=== PATIENT | female | born 1965 | race American Indian/Alaskan Native ===

== ENCOUNTER 2020-05-14 22:19 | Inpatient (IN) | payer SELFPAY ==
[2020-05-14 23:13] LABS: Basophils # (Auto) 0.1 K/mm3 (0.0-0.1); Basophils % (Auto) 1.2 % (0.0-1.8); Eosinophils # (Auto) 0.1 K/mm3 (0.0-0.4); Eosinophils % (Auto) 1.9 % (0.0-4.3); Hematocrit 32.8 % (30.3-42.9); Hemoglobin 10.6 gm/dl (10.1-14.3); Lymphocytes # (Auto) 2.6 K/mm3 (1.2-5.4); Mean Corpuscular HGB Conc 32 % (30-34); Monocytes # (Auto) 0.3 K/mm3 (0.0-0.8); Monocytes % (Auto) 4.5 % (0.0-7.3); Platelet Count 328 K/mm3 (140-440); Red Blood Count 5.02 M/mm3 (3.65-5.03); Red Cell Distribution Width 16.6 % (13.2-15.2)
[2020-05-14 23:14] LABS: Mean Corpuscular Volume 65 fl (79-97)
[2020-05-14 23:37] LABS: Albumin 3.8 g/dL (3.9-5); Calcium 9.1 mg/dL (8.4-10.2)
--- NOTE | 2020-05-15 01:56 | Emergency Department Report ---
ED General Adult HPI - General Chief complaint: Headache Stated complaint: RIVERA/VOMITTING/DIABETIC PUI?: No Time Seen by Provider: 05/15/20 01:51 Source: patient Mode of arrival: Ambulatory Limitations: No Limitations - History of Present Illness Initial comments: Patient is a 54-year-old female that presents emergency room for headache, nausea vomiting, hyperglycemia. Patient states she is been out of insulin for 2 weeks. Patient states her headache and nausea vomiting been going on for 5 days. Patient states she has not been able to hold any food or water down. Patient states that her glucose keeps going up. Patient denies vomiting blood. Patient denies diarrhea. Patient complains of epigastric pain. Patient states her epigastric pain is a 4 out of 10. Patient states her headache is a 10 out of 10. Patient states that her abdominal pain is worse with vomiting and movement. Patient states her abdominal pain is better with rest. Patient denies neck stiffness. Patient denies fever. Patient denies recent travel. Patient denies recent international travel. Patient denies exposure to the novel coronavirus. Patient denies sick contacts. Patient denies fever and chills. Patient denies cough. Patient denies diarrhea. Patient denies coming in contact with anybody with symptoms of the novel coronavirus. -: Sudden - Related Data Allergies Allergy/AdvReac Type Severity Reaction Status Date / Time No Known Allergies Allergy Verified 05/15/20 02:01 ED Review of Systems ROS: Stated complaint: RIVERA/VOMITTING/DIABETIC Other details as noted in HPI Constitutional: denies: chills, fever Eyes: denies: eye pain, eye discharge, vision change ENT: denies: ear pain, throat pain Respiratory: denies: cough, shortness of breath, wheezing Cardiovascular: denies: chest pain, palpitations Endocrine: no symptoms reported, increased thirst, increased urine Gastrointestinal: abdominal pain, nausea, vomiting. denies: diarrhea Genitourinary: denies: urgency, dysuria, discharge Musculoskeletal: denies: back pain, joint swelling, arthralgia Skin: denies: rash, lesions Neurological: headache. denies: weakness, paresthesias Psychiatric: denies: anxiety, depression Hematological/Lymphatic: denies: easy bleeding, easy bruising ED Past Medical Hx - Past Medical History Previous Medical History?: Yes Hx Hypertension: Yes Hx Diabetes: Yes - Surgical History Past Surgical History?: Yes Hx Cholecystectomy: Yes Hx Appendectomy: Yes Additional Surgical History: Partial hysterectomy, Tubaligation, foot - Family History Family history: no significant - Social History Smoking Status: Never Smoker Substance Use Type: None ED Physical Exam - General Limitations: No Limitations General appearance: alert, in no apparent distress - Head Head exam: Present: atraumatic, normocephalic - Eye Eye exam: Present: normal appearance, PERRL, EOMI Pupils: Present: normal accommodation - ENT ENT exam: Present: mucous membranes dry - Neck Neck exam: Present: normal inspection - Respiratory Respiratory exam: Present: normal lung sounds bilaterally. Absent: respiratory distress - Cardiovascular Cardiovascular Exam: Present: regular rate, normal rhythm. Absent: systolic murmur, diastolic murmur, rubs, gallop - GI/Abdominal GI/Abdominal exam: Present: soft, tenderness (Epigastric tenderness), normal bowel sounds - Extremities Exam Extremities exam: Present: normal inspection - Back Exam Back exam: Present: normal inspection - Neurological Exam Neurological exam: Present: alert, oriented X3 - Psychiatric Psychiatric exam: Present: normal affect, normal mood - Skin Skin exam: Present: warm, dry, intact, normal color. Absent: rash ED Course Vital Signs 05/14/20 22:32 Temperature 99.1 F Pulse Rate 78 Respiratory 16 Rate Blood Pressure 85/60 O2 Sat by Pulse 97 Oximetry - Reevaluation(s) Reevaluation #1: Initial valuation done. Patient was placed on a DKA protocol for HHS. Patient will receive insulin drip and fluids. 05/15/20 01:51 Reevaluation #2: I discussed all results with patient. I discussed plan of care with patient. Patient agrees with plan of care and admission. Patient to be admitted to the hospitalist service. 05/15/20 02:45 - Consultations Consultation #1: Hospitalist consulted for admission. Hospitalist to admit patient. 05/15/20 02:45 ED Medical Decision Making - Lab Data Result diagrams: 05/14/20 22:50 05/15/20 02:01 - Radiology Data Radiology results: report reviewed Head CT and abdominal CT reports reviewed. Head CT no acute findings. Abdominal CT no acute findings. - Medical Decision Making Patient is a 54-year-old female that presents emergency room for headache, nausea vomiting, hyperglycemia. Patient been out of her insulin for 2 weeks. Patient found to have a severely elevated blood sugar above 700 and abnormal chemistry and acute renal failure. Patient placed on a DKA protocol to include insulin drip and fluids. Patient admitted to the hospitalist service for further evaluation treatment and admitted to the ICU. Due to the patient complains of a severe headache and intractable headache, a head CT was done and was negative for acute findings. Due to the patient's epigastric pain and intractable nausea vomiting a abdominal CT was done to rule out SBO and abdominal CT was negative for acute findings. Patient given Zofran and Dilaudid for the headache and nausea vomiting. - Differential Diagnosis HHS, DKA, hyperglycemia, headache, nausea vomiting, gastroenteritis Critical Care Time: Yes Critical care time in (mins) excluding proc time.: 35 Critical care attestation.: If time is entered above; I have spent that time in minutes in the direct care of this critically ill patient, excluding procedure time. Critical Care Time: 35 minutes ED Disposition Clinical Impression: Hyperglycemic hyperosmolar nonketotic coma, Hyperglycemia Nausea & vomiting Qualifiers: Vomiting type: unspecified Vomiting Intractability: intractable Qualified Code(s): R11.2 - Nausea with vomiting, unspecified Headache Qualifiers: Headache type: unspecified Headache chronicity pattern: acute headache Intractability: intractable Qualified Code(s): R51 - Headache Abdominal pain Qualifiers: Abdominal location: epigastric Qualified Code(s): R10.13 - Epigastric pain Acute renal failure Qualifiers: Acute renal failure type: unspecified Qualified Code(s): N17.9 - Acute kidney failure, unspecified Disposition: DC09 OP ADMIT IP TO THIS HOSP Is pt being admited?: Yes Does the pt Need Aspirin: No Condition: Critical Time of Disposition: 02:44
[2020-05-15] MEDS ORDERED: DEXTROSE 50% IN WATER (25GM) 50 ML SYRINGE IV PRN ×2 (01:57→08:31)
[2020-05-15] MEDS ORDERED: SODIUM CHLORIDE 0.9% 1000 ML 1,000 ML IV ONE (01:57)
[2020-05-15] MEDS ORDERED: D5W/0.45% NACL/KCL 20 MEQ 20 MEQ/1,000 ML BAG IV SCH (02:00)
[2020-05-15] MEDS ORDERED: INSULIN REGULAR, HUMAN 100 UNITS in SODIUM CHLORIDE 0.9% 99 ML IV SCH (02:00)
--- NOTE | 2020-05-15 02:28 | Cat Scan Report ---
CT ABDOMEN AND PELVIS WITHOUT CONTRAST INDICATION / CLINICAL INFORMATION: abd pain. n/v X 3 DAYS. TECHNIQUE: Axial CT images were obtained through the abdomen and pelvis without IV contrast. All CT scans at [facility] location are performed using CT dose reduction for ALARA by means of automated exposure control. COMPARISON: None available. FINDINGS: LOWER CHEST: No significant abnormality. LIVER: No significant abnormality. GALLBLADDER: No significant abnormality. BILE DUCTS: No significant abnormality. PANCREAS: No significant abnormality. SPLEEN: No significant abnormality. ADRENALS: No significant abnormality. RIGHT KIDNEY and URETER: No significant abnormality. LEFT KIDNEY and URETER: No significant abnormality. STOMACH and SMALL BOWEL: No significant abnormality. COLON: No significant abnormality. APPENDIX: The appendix is not identified. Surgical clips present right lower quadrant PERITONEUM: No free fluid. No free air. No fluid collection. LYMPH NODES: No significant adenopathy. AORTA and ARTERIES: Extensive vascular calcifications are present. IVC and VEINS: No significant abno rmality. URINARY BLADDER: No significant abnormality. REPRODUCTIVE ORGANS: No significant abnormality. ADDITIONAL FINDINGS: None. SKELETAL SYSTEM: No significant abnormality. IMPRESSION: 1. No significant abnormality. Signer Name: Arnulfo Yusuf MD Signed: 05/15/2020 2:24 AM Workstation Name: [id number]
--- NOTE | 2020-05-15 02:38 | Cat Scan Report ---
CT HEAD WITHOUT CONTRAST HISTORY: MAIN COMPARISON: None TECHNIQUE: CT imaging of the head was performed in the axial, sagittal, and coronal projections and bone algori thm in axial projection in the soft tissue algorithm. All CT scans at this location are performed using CT dose reduction for ALARA by means of automated e xposure control. CONTRAST: None. FINDINGS: Cerebral and Cerebellar Hemispheres: Mild diffuse cerebral atrophy is present. No evidence of mass or mass effect. No midline shift. No acute hemorrhage. No acute cortical infarction. No extra-axial fluid collection. Ventricles: Normal in size and configuration for age. Osseous Structures: No significant abnormality. Visualized Paranasal Sinuses: No significant abnormality. Additional Findings: None IMPRESSION: 1. No acute intracranial abnormality. NOTE: Acute infarct may not be visible by noncontrast CT. Signer Name: Arnulfo Yusuf MD Signed: 05/15/2020 2:33 AM Workstation Name: [id number]
[2020-05-15 02:53] LABS: Calcium 9.3 mg/dL (8.4-10.2)
[2020-05-15] MEDS ORDERED: HYDROmorphone 2 MG/1 ML INJ IV ONE (03:59)
[2020-05-15] MEDS ORDERED: ONDANSETRON 4 MG/2 ML INJ IV ONE (04:00)
[2020-05-15] MEDS ORDERED: ONDANSETRON 4 MG/2 ML INJ IV PRN (04:04)
[2020-05-15] MEDS ORDERED: ACETAMINOPHEN 325 MG TAB PO PRN (04:05)
[2020-05-15] MEDS ORDERED: HYDROmorphone 1 MG/1 ML INJ ONE (04:10)
[2020-05-15] MEDS ORDERED: SODIUM CHLORIDE 0.9% 1000 ML 1,000 ML ONE ×2 (04:12→08:56)
[2020-05-15] MEDS ORDERED: HYDROmorphone 1 MG/1 ML INJ IV ONE (04:13)
[2020-05-15] MEDS: SODIUM CHLORIDE 0.9% 1000 ML 1,000 ML IV SCH ×4 (04:14→13:36)
--- NOTE | 2020-05-15 04:32 | History and Physical Report ---
History of Present Illness Date of examination: 05/15/20 Date of admission: 05/15/20 03:56 Chief complaint: NAUSEA AND VOMITING History of present illness: Patient is 54 year old female presenting with nausea and vomiting going on for 2 days associated with abdominal pain and headache. there is no fever, chest pain,shortness of breath or diarrhea. Patient has been out of insulin for 2 weeks because she could not get to a doctor. Past History Past Medical History: diabetes, hypertension Past Surgical History: hysterectomy, Other (Tubal Ligation ) Social history: no significant social history Family history: no significant family history Medications and Allergies Allergies Allergy/AdvReac Type Severity Reaction Status Date / Time No Known Allergies Allergy Verified 05/15/20 02:01 Active Meds: Active Medications Acetaminophen (Tylenol) 650 mg PO Q4H PRN PRN Reason: Fever >101 Dextrose (D50w (25gm) Syringe) 50 ml IV Q30MIN PRN; Protocol PRN Reason: Hypoglycemia Heparin Sodium (Porcine) (Heparin) 5,000 unit SUB-Q Q12HR DEE DEE Insulin Human Regular 100 (units/ Sodium Chloride) 100 mls @ 1 mls/hr IV TITR DEE DEE; Protocol Last Admin: 05/15/20 03:09 Dose: 8 units/hr, 8 mls/hr Documented by: Sodium Chloride (Nacl 0.9% 1000 Ml) 1,000 mls @ 150 mls/hr IV DIRECT DEE DEE Ondansetron HCl (Zofran) 4 mg IV Q8H PRN PRN Reason: Nausea And Vomiting Review of Systems Constitutional: weakness, no weight loss, no weight gain, no fever, no chills, no sweats, no anorexia, no malaise, no lethargy, no daytime sleepiness Eyes: bilateral: other (NO BILATERAL EYE SYMPTOM) Ears, nose, mouth and throat: headache, no ear pain, no tinnitis, no nose pain, no nasal congestion, no nasal discharge, no sinus pressure, no dental pain, no mouth pain, no dysphagia, no hoarseness, no sore throat, no swelling in mouth, no swelling in throat, no vertigo Breasts: deferred Cardiovascular: high blood pressure, no chest pain, no palpitations, no syncope, no lightheadedness, no shortness of breath Respiratory: no cough, no excessive sputum, no hemoptysis, no shortness of breath, no dyspnea on exertion, no wheezing, no pleurisy, no pain, no pain on inspiration Gastrointestinal: abdominal pain, nausea, vomiting, no diarrhea, no constipation, no change in bowel habits, no heartburn, no indigestion, no jaundice Genitourinary Female: no hematuria Rectal: no pain, no itching Musculoskeletal: no neck stiffness, no neck pain, no low back pain, no myalgias, no arthritis Integumentary: no rash, no pruritis, no redness, no sores, no wounds, no jaundice, no bullae, no lesions, no darkening of skin, no striae Neurological: headaches, no paralysis, no weakness, no parathesias, no numbness, no seizures, no syncope, no tremors, no ataxia, no vertigo, no migraines, no convulsions, no aphasia, no double vision, no loss of vision Psychiatric: no anxiety, no insomnia, no hypersomnia, no depression, no anhedonia Endocrine: polydipsia, polyuria, nocturia, high blood sugars, no cold intolerance, no heat intolerance, no polyphagia Exam - Constitutional Vitals: Temp Pulse Resp BP Pulse Ox 99.1 F 78 16 85/60 97 05/14/20 22:32 05/14/20 22:32 05/14/20 22:32 05/14/20 22:32 05/14/20 22:32 General appearance: Present: no acute distress - EENT Eyes: Present: PERRL, EOM intact. Absent: scleral icterus ENT: hearing intact - Neck Neck: Present: supple, normal ROM - Respiratory Respiratory effort: normal - Cardiovascular Rhythm: regular Heart Sounds: Present: S1 & S2. Absent: gallop, systolic murmur, diastolic murmur - Extremities Extremities: no ischemia, No edema Peripheral Pulses: within normal limits - Abdominal General gastrointestinal: Present: soft, non-tender, non-distended. Absent: tender, distended, rigid, hepatomegaly, splenomegaly Female genitourinary: Present: deferred - Rectal Rectal Exam: deferred - Integumentary Integumentary: Present: clear, warm, dry. Absent: jaundice, clammy - Musculoskeletal Musculoskeletal: strength equal bilaterally - Psychiatric Psychiatric: appropriate mood/affect Results - Labs CBC & Chem 7: 05/14/20 22:50 05/15/20 02:01 Labs: Laboratory Last Values WBC 6.9 K/mm3 (4.5-11.0) 05/14/20 22:50 RBC 5.02 M/mm3 (3.65-5.03) 05/14/20 22:50 Hgb 10.6 gm/dl (10.1-14.3) 05/14/20 22:50 Hct 32.8 % (30.3-42.9) 05/14/20 22:50 MCV 65 fl (79-97) L 05/14/20 22:50 MCH 21 pg (28-32) L 05/14/20 22:50 MCHC 32 % (30-34) 05/14/20 22:50 RDW 16.6 % (13.2-15.2) H 05/14/20 22:50 Plt Count 328 K/mm3 (140-440) 05/14/20 22:50 Lymph % (Auto) 38.0 % (13.4-35.0) H 05/14/20 22:50 [place] % (Auto) 4.5 % (0.0-7.3) 05/14/20 22:50 Eos % (Auto) 1.9 % (0.0-4.3) 05/14/20 22:50 Baso % (Auto) 1.2 % (0.0-1.8) 05/14/20 22:50 Lymph # 2.6 K/mm3 (1.2-5.4) 05/14/20 22:50 [place] # 0.3 K/mm3 (0.0-0.8) 05/14/20 22:50 Eos # 0.1 K/mm3 (0.0-0.4) 05/14/20 22:50 Baso # 0.1 K/mm3 (0.0-0.1) 05/14/20 22:50 Seg Neutrophils % 54.4 % (40.0-70.0) 05/14/20 22:50 Seg Neutrophils # 3.7 K/mm3 (1.8-7.7) 05/14/20 22:50 VBG pH 7.352 (7.320-7.420) 05/14/20 22:50 Sodium 127 mmol/L (137-145) L 05/15/20 02:01 Potassium 5.1 mmol/L (3.6-5.0) H 05/15/20 02:01 Chloride 87.7 mmol/L (98-107) L 05/15/20 02:01 Carbon Dioxide 24 mmol/L (22-30) 05/15/20 02:01 Anion Gap 20 mmol/L 05/15/20 02:01 BUN 35 mg/dL (7-17) H 05/15/20 02:01 Creatinine 1.6 mg/dL (0.7-1.2) H 05/15/20 02:01 Estimated GFR 41 ml/min 05/15/20 02:01 BUN/Creatinine Ratio 22 % 05/15/20 02:01 Glucose 680 mg/dL (65-100) H* 05/15/20 02:01 POC Glucose > 500 (70-105) H 05/14/20 22:51 Calcium 9.3 mg/dL (8.4-10.2) 05/15/20 02:01 Phosphorus 3.30 mg/dL (2.5-4.5) 05/15/20 02:01 Magnesium 2.60 mg/dL (1.7-2.3) H 05/15/20 02:01 Total Bilirubin 0.20 mg/dL (0.1-1.2) 05/14/20 22:50 AST 14 units/L (5-40) 05/14/20 22:50 ALT 16 units/L (7-56) 05/14/20 22:50 Alkaline Phosphatase 109 units/L (35-129) 05/14/20 22:50 Total Protein 7.3 g/dL (6.3-8.2) 05/14/20 22:50 Albumin 3.8 g/dL (3.9-5) L 05/14/20 22:50 Albumin/Globulin Ratio 1.1 % 05/14/20 22:50 Assessment and Plan - Patient Problems (1) Hyperosmolar non-ketotic state due to type 2 diabetes mellitus Current Visit: Yes Status: Acute Plan to address problem: 1. ICU admission 2. I.V Insulin drip 3. Serial BMP 4. I.V Normal Saline 5. I.V D5 1/2 Normal saline with KCL (2) Abdominal pain Current Visit: Yes Status: Acute Qualifiers: Abdominal location: epigastric Plan to address problem: 1. I.V Morphine for pain 2. I.V Zofran for nausea and vomiting (3) Acute renal failure Current Visit: Yes Status: Acute Qualifiers: Acute renal failure type: unspecified Qualified Code(s): N17.9 - Acute kidney failure, unspecified Plan to address problem: 1. I.V Normal Saline 2. Nephrology consult with DR. Aponte
[2020-05-15 04:53] LABS: Calcium 8.9 mg/dL (8.4-10.2)
[2020-05-15] MEDS: HEPARIN 5,000 UNIT/1 ML VIAL SUB-Q SCH ×2 (05:39→21:28)
[2020-05-15 06:48] LABS: Calcium 8.8 mg/dL (8.4-10.2)
--- NOTE | 2020-05-15 08:28 | Consultation ---
History of Present Illness - Reason for Consult Consult date: 05/15/20 acute renal failure, chronic renal failure Requesting physician: SEJAL PHELPS - History of Present Illness Patient is a 54-year-old female that presents emergency room for headache, nausea vomiting, hyperglycemia. Patient states she is been out of insulin for 2 weeks. Patient states her headache and nausea vomiting been going on for 5 days. Patient states she has not been able to hold any food or water down. Patient states that her glucose keeps going up. Patient denies vomiting blood. Patient denies diarrhea. Patient complains of epigastric pain. Patient states her epigastric pain is a 4 out of 10. Patient states her headache is a 10 out of 10. Patient states that her abdominal pain is worse with vomiting and movement. Patient states her abdominal pain is better with rest. Patient denies neck stiffness. Patient denies fever. Patient denies recent travel. Patient denies recent international travel. Patient denies exposure to the novel coronavirus. Patient denies sick contacts. Patient denies fever and chills. Patient denies cough. Patient denies diarrhea. Patient denies coming in contact with anybody with symptoms of the novel coronavirus. -: Sudden Allergies Allergy/AdvReac Type Severity Reaction Status Date / Time No Known Allergies Allergy Verified 05/15/20 02:01 ROS: Stated complaint: RIVERA/VOMITTING/DIABETIC Other details as noted in HPI Constitutional: denies: chills, fever Eyes: denies: eye pain, eye discharge, vision change ENT: denies: ear pain, throat pain Respiratory: denies: cough, shortness of breath, wheezing Cardiovascular: denies: chest pain, palpitations Endocrine: no symptoms reported, increased thirst, increased urine Gastrointestinal: abdominal pain, nausea, vomiting. denies: diarrhea Genitourinary: denies: urgency, dysuria, discharge Musculoskeletal: denies: back pain, joint swelling, arthralgia Skin: denies: rash, lesions Neurological: headache. denies: weakness, paresthesias Psychiatric: denies: anxiety, depression Hematological/Lymphatic: denies: easy bleeding, easy bruising - Past Medical History Previous Medical History?: Yes Hx Hypertension: Yes Hx Diabetes: Yes - Surgical History Past Surgical History?: Yes Hx Cholecystectomy: Yes Hx Appendectomy: Yes Additional Surgical History: Partial hysterectomy, Tubaligation, foot - Family History Family history: no significant - Social History Smoking Status: Never Smoker Substance Use Type: None Past History Past Medical History: diabetes, hypertension Past Surgical History: hysterectomy, Other (Tubal Ligation ) Social history: no significant social history Family history: no significant family history Medications and Allergies Allergies Allergy/AdvReac Type Severity Reaction Status Date / Time No Known Allergies Allergy Verified 05/15/20 02:01 Home Medications Medication Instructions Recorded Confirmed Last Taken Type Dulaglutide [Trulicity] 1 mcg SUB-Q QWEEK 05/15/20 05/15/20 Unknown History Insulin Degludec [Tresiba] 15 units SUB-Q QDAY 05/15/20 05/15/20 Unknown History amLODIPine [Norvasc] 5 mg PO DAILY 05/15/20 05/15/20 Unknown History Active Meds: Active Medications Acetaminophen (Tylenol) 650 mg PO Q4H PRN PRN Reason: Fever >101 Dextrose (D50w (25gm) Syringe) 50 ml IV Q30MIN PRN; Protocol PRN Reason: Hypoglycemia Heparin Sodium (Porcine) (Heparin) 5,000 unit SUB-Q Q12HR DEE DEE Last Admin: 05/15/20 05:39 Dose: Not Given Documented by: Insulin Human Regular 100 (units/ Sodium Chloride) 100 mls @ 1 mls/hr IV TITR DEE DEE; Protocol Last Titration: 05/15/20 07:54 Dose: 2 units/hr, 2 mls/hr Documented by: Sodium Chloride (Nacl 0.9% 1000 Ml) 1,000 mls @ 150 mls/hr IV DIRECT DEE DEE Last Admin: 05/15/20 04:14 Dose: 150 mls/hr Documented by: Morphine Sulfate (Morphine) 2 mg IV Q4H PRN PRN Reason: Pain, Moderate (4-6) Ondansetron HCl (Zofran) 4 mg IV Q8H PRN PRN Reason: Nausea And Vomiting Exam - Vital Signs Vital signs: Vital Signs Temp Pulse Resp BP Pulse Ox 99.1 F 78 16 85/60 97 05/14/20 22:32 05/14/20 22:32 05/14/20 22:32 05/14/20 22:32 05/14/20 22:32 - Physical Exam Narrative exam: - General Limitations: No Limitations General appearance: alert, in no apparent distress - Head Head exam: Present: atraumatic, normocephalic - Eye Eye exam: Present: normal appearance, PERRL, EOMI Pupils: Present: normal accommodation - ENT ENT exam: Present: mucous membranes dry - Neck Neck exam: Present: normal inspection - Respiratory Respiratory exam: Present: normal lung sounds bilaterally. Absent: respiratory distress - Cardiovascular Cardiovascular Exam: Present: regular rate, normal rhythm. Absent: systolic murmur, diastolic murmur, rubs, gallop - GI/Abdominal GI/Abdominal exam: Present: soft, tenderness (Epigastric tenderness), normal bowel sounds - Extremities Exam Extremities exam: Present: normal inspection - Back Exam Back exam: Present: normal inspection - Neurological Exam Neurological exam: Present: alert, oriented X3 - Psychiatric Psychiatric exam: Present: normal affect, normal mood - Skin Skin exam: Present: warm, dry, intact, normal color. Absent: rash Results - Lab Results 05/14/20 22:50 05/15/20 05:45 Most recent lab results Calcium 8.8 mg/dL (8.4-10.2) 05/15/20 05:45 Phosphorus 3.30 mg/dL (2.5-4.5) 05/15/20 02:01 Magnesium 2.60 mg/dL (1.7-2.3) H 05/15/20 02:01 Assessment and Plan Impression: * derek * DKA * volume depletion * HTN * hyponatremia * hypokalemia Plan: * cr is better with treatment of dka * elec stable today * gentle ivfs * avoid nephrotoxins * strict i/os * will see prn
[2020-05-15] MEDS ORDERED: INSULIN REGULAR, HUMAN 100 UNITS/1 ML ONE (08:56)
[2020-05-15] MEDS ORDERED: INSULIN REGULAR, HUMAN 100 UNITS/1 ML SUB-Q ONE (09:00)
--- NOTE | 2020-05-15 09:43 | Event Note ---
Date: 05/15/20 Patient seen and examined admitted with DKA gap closed at this time we will proceed with downgrading the patient. Discussed extensively with the patient various measures to implement when unable to get her regular insulin she would like to continue on the medications that she was taking at home. Will reorder dose while in-house. And monitor closely. Anticipate discharge in 24 hours.
[2020-05-15] MEDS ORDERED: INSULIN DEGLUDEC 15 UNIT SUB-Q SCH (10:00)
[2020-05-15] MEDS ORDERED: DULAGLUTIDE SUB-Q SCH (10:00)
[2020-05-15 10:44] LABS: Calcium 8.5 mg/dL (8.4-10.2)
[2020-05-15] MEDS: INSULIN LISPRO 100 UNIT/ML SUB-Q SCH ×3 (12:09→21:28)
[2020-05-15] MEDS: MORPHINE 2 MG/1 ML INJ IV PRN ×2 (12:15→21:27)
[2020-05-15 15:25] LABS: Bilirubin,Urine NEG (Negative); Blood,Urine SM (Negative); Color,Urine Straw (Yellow); Urobilinogen,Urine < 2.0 mg/dL (<2.0)
[2020-05-15] MEDS: INSULIN GLARGINE 100 UNITS/ML SUB-Q SCH (16:30)
[2020-05-15] MEDS ORDERED: INSULIN GLARGINE 100 UNITS/ML SUB-Q SCH (22:00)
[2020-05-16] MEDS: SODIUM CHLORIDE 0.9% 1000 ML 1,000 ML IV SCH (04:51)
[2020-05-16] MEDS: MORPHINE 2 MG/1 ML INJ IV PRN (04:54)
[2020-05-16 06:12] LABS: BUN/Creatinine Ratio 19; Blood Urea Nitrogen 17 mg/dL (7-17); Calcium 7.6 mg/dL (8.4-10.2); Hemolysis Index 11
[2020-05-16 07:53] LABS: Hematocrit 31.2 % (30.3-42.9); Hemoglobin 9.8 gm/dl (10.1-14.3); Mean Corpuscular HGB Conc 31 % (30-34); Platelet Count 286 K/mm3 (140-440); Red Blood Count 4.95 M/mm3 (3.65-5.03); Red Cell Distribution Width 16.6 % (13.2-15.2)
[2020-05-16 07:54] LABS: Mean Corpuscular Volume 63 fl (79-97)
[2020-05-16] MEDS: INSULIN GLARGINE 100 UNITS/ML SUB-Q SCH (08:10)
[2020-05-16] MEDS: INSULIN LISPRO 100 UNIT/ML SUB-Q SCH ×2 (08:11→12:46)
[2020-05-16] MEDS: HEPARIN 5,000 UNIT/1 ML VIAL SUB-Q SCH (09:35)
--- NOTE | 2020-05-16 10:18 | Discharge Summary ---
Providers - Providers Date of Admission: 05/15/20 03:56 Attending physician: KIMMIE GIRON MD 05/15/20 04:15 Consult to Physician [CONS] Routine Comment: Consulting Provider: ANDREI ROSA Physician Instructions: Reason For Exam: KAMAR Primary care physician: HOSPICE LIAISON Hospitalization Reason for admission: DKA Condition: Stable Hospital course: Patient is a 54-year-old female that presents emergency room for headache, nausea vomiting, hyperglycemia. Patient states she is been out of insulin for 2 weeks. Patient states her headache and nausea vomiting been going on for 5 days. Patient states she has not been able to hold any food or water down. Patient states that her glucose keeps going up. Patient denies vomiting blood. Patient denies diarrhea. Patient complains of epigastric pain. Patient states her epigastric pain is a 4 out of 10. Patient states her headache is a 10 out of 10. Patient states that her abdominal pain is worse with vomiting and movement. Patient states her abdominal pain is better with rest. Patient denies neck stiffness. Patient denies fever. Patient denies recent travel. Patient denies recent international travel. Patient denies exposure to the novel coronavirus. Patient denies sick contacts. Patient denies fever and chills. Patient denies cough. Patient denies diarrhea. Patient denies coming in contact with anybody with symptoms of the novel coronavirus. Per patient she had been off her meds, due to lack of insurance, she states that when on her meds her blood glucose is controlled and she now has insurance and a PCP to follow. Her renal function also improved. Considering her Diagnosis of DM, will start on Lisinopril and counselling provided on yearly check, foot, eyes, labs. she is also to have renal function check in a week of starting ACEI. Reglan started for Gastroparesis, patient will have PCP tomorrow evaluate about restarting gabapentin as she used it in the past * DKA * Diabetes Mellitus Type 1 With Hyperglycemia * KAMAR secondary to vasomotor nephropathy * Gastroparesis secondary to DM * volume depletion * HTN * hyponatremia * hypokalemia Disposition: - TO HOME OR SELFCARE Time spent for discharge: 35 mins Core Measure Documentation - Palliative Care Palliative Care/ Comfort Measures: Not Applicable - Core Measures Any of the following diagnoses?: none Exam - Constitutional Vitals: Temp Pulse Resp BP Pulse Ox 98.4 F 70 20 173/77 99 05/16/20 04:44 05/16/20 04:44 05/16/20 04:44 05/16/20 04:44 05/16/20 04:44 General appearance: Present: no acute distress, well-nourished - EENT Eyes: Present: PERRL, EOM intact ENT: hearing intact, clear oral mucosa - Neck Neck: Present: supple, normal ROM. Absent: enlarged thyroid, masses or JVD - Respiratory Respiratory effort: normal Respiratory: bilateral: CTA - Cardiovascular Rhythm: regular Heart Sounds: Present: S1 & S2. Absent: systolic murmur - Extremities Extremities: no ischemia, pulses intact, pulses symmetrical, No edema, normal temperature, normal color, Full ROM Peripheral Pulses: within normal limits - Abdominal General gastrointestinal: Present: soft, non-tender, non-distended, normal bowel sounds - Integumentary Integumentary: Present: clear, warm, normal turgor - Musculoskeletal Musculoskeletal: strength equal bilaterally - Psychiatric Psychiatric: appropriate mood/affect, intact judgment & insight, memory intact, cooperative - Neurologic Neurologic: CNII-XII intact, moves all extremities - Allied Health Allied health notes reviewed: nursing Plan Activity: advance as tolerated, fall precautions Diet: low salt, diabetic Special Instructions: record daily weights, record daily BP diary, record blood sugar diary Follow up with: PRIMARY CARE, [Primary Care Provider] - 7 Days Prescriptions: amLODIPine 5 mg PO DAILY #30 Metoclopramide HCl [Reglan TAB] 5 mg PO TIDAC #14 tablet Insulin Degludec [Tresiba] 20 units SUB-Q QDAY #30 vial Dulaglutide [Trulicity] 1 mcg SUB-Q QWEEK #4 lisinopriL [Zestril TAB] 10 mg PO QDAY #30 tablet
[2020-05-16] MEDS ORDERED: amLODIPine 5 MG TAB PO SCH (11:00)
[2020-05-16] MEDS ORDERED: LISINOPRIL 10 MG TAB PO SCH (11:00)
[2020-05-16 12:07] VITALS: BP 153/67
== END 2020-05-16 15:35 | disposition home or self-care (01) | DRG 637 ==
LOC: ED 22:19 → CC1 05-15 03:56 → 3A 05-15 08:39
PROVIDERS: ADMIT Internal Medicine; ATTEND Internal Medicine
DX: E11.10 Type 2 diabetes mellitus with ketoacidosis without coma (principal); N17.0 Acute kidney failure with tubular necrosis; E87.1 Hypo-osmolality and hyponatremia; E11.43 Type 2 diabetes mellitus with diabetic autonomic (poly)neuropathy; K31.84 Gastroparesis; I10 Essential (primary) hypertension; E87.6 Hypokalemia; Z90.710 Acquired absence of both cervix and uterus; Z98.51 Tubal ligation status; Z90.49 Acquired absence of other specified parts of digestive tract
CPT/HCPCS: 36415; 70450; 74176; 80048; 80053; 81001; 82805; 82962; 83735; 84100; 85025; 85027; G0378; J1170; J1644; J1815; J2270; J2405; J7030

== ENCOUNTER 2021-06-14 11:35 | Inpatient (IN) | payer BC ==
--- NOTE | 2021-06-14 15:28 | Emergency Department Report ---
ED General Adult HPI - General Chief complaint: Wound/Laceration Stated complaint: DIABETIC TOES POSS INFECTED Time Seen by Provider: 06/14/21 13:41 Source: patient Mode of arrival: Ambulatory Limitations: No Limitations - History of Present Illness Initial comments: The patient presents to the emergency department with a chief complaint of possible infection to her right great toe. Patient states she noticed it on Sunday. Patient states that is not painful but does complain of her nail on that toe falling off as well as purulent drainage that is malodorous. Patient denies chest pain, shortness breath, or abdominal pain. -: unknown Location: lower extremity Radiation: non-radiation Severity scale (0 -10): 0 Consistency: constant Improves with: none Worsens with: none Associated Symptoms: denies other symptoms Treatments Prior to Arrival: none - Related Data Previous Rx's Medication Instructions Recorded Last Taken Type Dulaglutide [Trulicity] 1 mcg SUB-Q QWEEK #4 05/16/20 Unknown Rx Insulin Degludec [Tresiba] 20 units SUB-Q QDAY #30 vial 05/16/20 Unknown Rx Metoclopramide HCl [Reglan TAB] 5 mg PO TIDAC #14 tablet 05/16/20 Unknown Rx amLODIPine 5 mg PO DAILY #30 05/16/20 Unknown Rx lisinopriL [Zestril TAB] 10 mg PO QDAY #30 tablet 05/16/20 Unknown Rx Allergies Allergy/AdvReac Type Severity Reaction Status Date / Time No Known Allergies Allergy Verified 05/15/20 02:01 ED Review of Systems ROS: Stated complaint: DIABETIC TOES POSS INFECTED Other details as noted in HPI Constitutional: denies: chills, fever Eyes: denies: eye pain, eye discharge, vision change ENT: denies: ear pain, throat pain Respiratory: denies: cough, shortness of breath, wheezing Cardiovascular: denies: chest pain, palpitations Endocrine: no symptoms reported Gastrointestinal: denies: abdominal pain, nausea, diarrhea Genitourinary: denies: urgency, dysuria, discharge Musculoskeletal: denies: back pain, joint swelling, arthralgia Skin: denies: rash, lesions Neurological: denies: headache, weakness, paresthesias Psychiatric: denies: anxiety, depression Hematological/Lymphatic: denies: easy bleeding, easy bruising ED Past Medical Hx - Past Medical History Previous Medical History?: Yes Hx Hypertension: Yes Hx Diabetes: Yes - Surgical History Hx Cholecystectomy: Yes Hx Appendectomy: Yes Additional Surgical History: Partial hysterectomy, Tubaligation, foot - Social History Smoking Status: Never Smoker - Medications Home Medications: Home Medications Medication Instructions Recorded Confirmed Last Taken Type Dulaglutide [Trulicity] 1 mcg SUB-Q QWEEK #4 05/16/20 Unknown Rx Insulin Degludec [Tresiba] 20 units SUB-Q QDAY #30 vial 05/16/20 Unknown Rx Metoclopramide HCl [Reglan TAB] 5 mg PO TIDAC #14 tablet 05/16/20 Unknown Rx amLODIPine 5 mg PO DAILY #30 05/16/20 Unknown Rx lisinopriL [Zestril TAB] 10 mg PO QDAY #30 tablet 05/16/20 Unknown Rx ED Physical Exam - General Limitations: No Limitations General appearance: alert, in no apparent distress - Head Head exam: Present: atraumatic, normocephalic - Eye Eye exam: Present: normal appearance - ENT ENT exam: Present: mucous membranes moist - Neck Neck exam: Present: normal inspection - Respiratory Respiratory exam: Present: normal lung sounds bilaterally. Absent: respiratory distress - Cardiovascular Cardiovascular Exam: Present: regular rate, normal rhythm. Absent: systolic murmur, diastolic murmur, rubs, gallop - GI/Abdominal GI/Abdominal exam: Present: soft, normal bowel sounds. Absent: distended, tenderness - Extremities Exam Extremities exam: Present: other (Patient has dry gangrene to the right great toe with purulent drainage and lifting of the nail. Patient has posterior tibialis and dorsalis pulses that are palpable on exam) - Back Exam Back exam: Present: normal inspection - Neurological Exam Neurological exam: Present: alert, oriented X3 - Psychiatric Psychiatric exam: Present: normal affect, normal mood - Skin Skin exam: Present: warm, dry, intact, normal color. Absent: rash ED Course Vital Signs 06/14/21 12:02 Temperature 98.2 F Pulse Rate 63 Respiratory 18 Rate Blood Pressure 141/57 O2 Sat by Pulse 99 Oximetry ED Medical Decision Making - Lab Data Lab Results 06/14/21 06/14/21 Range/Units 12:08 14:03 WBC 16.1 H (4.5-11.0) K/mm3 RBC 4.90 (3.65-5.03) M/mm3 Hgb 9.6 L (10.1-14.3) gm/dl Hct 29.7 L (30.3-42.9) % MCV 61 L (79-97) fl MCH 20 L (28-32) pg MCHC 32 (30-34) % RDW 19.3 H (13.2-15.2) % Plt Count 313 (140-440) K/mm3 POC Glucose 285 H (70-105) mg/dL Critical care attestation.: If time is entered above; I have spent that time in minutes in the direct care of this critically ill patient, excluding procedure time. ED Disposition Clinical Impression: Gas gangrene Disposition: OP ADMIT IP TO THIS HOSP Is pt being admited?: Yes Does the pt Need Aspirin: No Condition: Fair Referrals: PRIMARY CARE, [Primary Care Provider] - 3-5 Days
--- NOTE | 2021-06-14 15:33 | XRay Report ---
XR toe(s) 2+V RT INDICATION / CLINICAL INFORMATION: great infection/pain. COMPARISON: None available. FINDINGS: There is extensive subcutaneous gas in the great toe without radiopaque foreign body. There is no kelin reciable bone destruction to suggest osteomyelitis graphically. Signer Name: Hari Falcon MD Signed: 06/14/2021 3:29 PM Workstation Name: [id number]
[2021-06-14] MEDS ORDERED: PIPERACIL/TAZOBACTA 4.5/NS 100 4.5 GM/100 ML VIAL IV ONE (15:42)
[2021-06-14] MEDS ORDERED: VANCOMYCIN 1,000 MG in SODIUM CHLORIDE 0.9% 500 ML 500 ML IV ONE (15:43)
[2021-06-14 15:48] LABS: Hematocrit 29.7 % (30.3-42.9); Hemoglobin 9.6 gm/dl (10.1-14.3); Mean Corpuscular HGB Conc 32 % (30-34); Mean Corpuscular Volume 61 fl (79-97); Platelet Count 313 K/mm3 (140-440); Red Cell Distribution Width 19.3 % (13.2-15.2)
--- NOTE | 2021-06-14 15:50 | History and Physical Report ---
History of Present Illness Chief complaint: My toe hurts and its black History of present illness: 55 YO Female with DM, HTN presents to ED for evaluation. Pt reports "my left big toe hurts". Patient states that she has experienced pain, and color change to her left great toe over the past 4 days with persistently worsening symptoms over the same timeframe. Patient also reports that the toenail on her left great toe is falling off. Patient reports purulent drainage from the left great toe over the past 3 days. Patient transported to [facility] via private vehicle for further care and evaluation of the aforementioned symptoms. The patient was seen and evaluated in the emergency department. All lab and imaging studies reviewed. Patient underwent x-ray of the left foot and was found to have left great toe soft tissue air. Patient found to have foot cellulitis complicated by systemic inflammatory response syndrome. Patient also found to have left great toe dry gangrene, as well as diabetic foot infection. Patient treated with IV antibiotic therapy. Wound care consulted, surgical team consulted in the e mergency department. Patient admitted to surgical floor. Patient is pending further care. Patient denies fever, chills, chest pain, palpitation, productive cough, skin rash, recent ill contacts, or known exposure to COVID-19. Prior admission on 05/15/2020 reviewed. All medication listed at time of admission has been reconciled. Past History Past Medical History: diabetes, hypertension Past Surgical History: appendectomy, cholecystectomy, hysterectomy, Other (Tubal ligation, foot surgery) Social history: single Family history: diabetes, hypertension Medications and Allergies Allergies Allergy/AdvReac Type Severity Reaction Status Date / Time No Known Allergies Allergy Verified 05/15/20 02:01 Home Medications Medication Instructions Recorded Confirmed Last Taken Type Dulaglutide [Trulicity] 1 mcg SUB-Q QWEEK #4 05/16/20 Unknown Rx Insulin Degludec [Tresiba] 20 units SUB-Q QDAY #30 vial 05/16/20 Unknown Rx Metoclopramide HCl [Reglan TAB] 5 mg PO TIDAC #14 tablet 05/16/20 Unknown Rx amLODIPine 5 mg PO DAILY #30 05/16/20 Unknown Rx lisinopriL [Zestril TAB] 10 mg PO QDAY #30 tablet 05/16/20 Unknown Rx Active Meds: Active Medications Piperacillin Sod/Tazobactam Sod (Zosyn/Ns 4.5gm/100ml) 4.5 gm in 100 mls @ 200 mls/hr IV ONCE ONE; Protocol Stop: 06/14/21 16:11 Vancomycin HCl 1,250 mg/ (Sodium Chloride) 275 mls @ 166.667 mls/hr IV ONCE ONE Stop: 06/14/21 17:38 Review of Systems Constitutional: no weight loss, no weight gain, no fever, no sweats Ears, nose, mouth and throat: no ear pain, no tinnitis, no nose pain, no nasal congestion, no sinus pressure Breasts: no change in shape, no swelling, no mass Cardiovascular: no chest pain, no orthopnea, no palpitations Respiratory: no cough, no excessive sputum, no shortness of breath, no dyspnea on exertion Gastrointestinal: no abdominal pain, no nausea, no diarrhea, no change in bowel habits, no hematemesis Genitourinary Female: no pelvic pain, no flank pain, no dysuria, no urinary fr equency, no urgency Rectal: no pain Musculoskeletal: no neck stiffness, no arm numbness/tingling, no leg numbness/tingling Integumentary: no rash, no pruritis, no redness, no jaundice Neurological: no head injury, no transient paralysis, no weakness, no numbness, no syncope, no tremors, no ataxia Psychiatric: no anxiety, no change in sleep habits, no sleep disturbances, no change in appetite, no change in libido, no suicidal ideation, no hallucinations Endocrine: no cold intolerance, no polyphagia, no excessive thirst, no polydipsia, no excessive sweating Hematologic/Lymphatic: no easy bruising, no easy bleeding Allergic/Immunologic: no wheezing Exam - Constitutional Vitals: Temp Pulse Resp BP Pulse Ox 98.2 F 63 18 141/57 99 06/14/21 12:02 06/14/21 12:02 06/14/21 12:02 06/14/21 12:02 06/14/21 12:02 General appearance: Present: mild distress - EENT Eyes: Present: PERRL ENT: hearing intact, clear oral mucosa - Neck Neck: Present: supple, normal ROM - Respiratory Respiratory effort: normal Respiratory: bilateral: CTA - Cardiovascular Heart Sounds: Present: S1 & S2. Absent: rub, click - Extremities Extremities: pulses symmetrical Extremity abnormal: edema, erythema, black, tenderness Peripheral Pulses: within normal limits - Abdominal General gastrointestinal: Present: soft, non-tender, non-distended, normal bowel sounds Female genitourinary: Present: normal - Integumentary Integumentary: Present: clear, warm, dry - Musculoskeletal Musculoskeletal: gait normal, strength equal bilaterally - Psychiatric Psychiatric: appropriate mood/affect, intact judgment & insight - Neurologic Neurologic: CNII-XII intact, moves all extremities Results - Labs CBC & Chem 7: 06/14/21 14:03 06/14/21 14:03 Labs: Abnormal lab results 06/14/21 06/14/21 Range/Units 12:08 14:03 WBC 16.1 H (4.5-11.0) K/mm3 Hgb 9.6 L (10.1-14.3) gm/dl Hct 29.7 L (30.3-42.9) % MCV 61 L (79-97) fl MCH 20 L (28-32) pg RDW 19.3 H (13.2-15.2) % POC Glucose 285 H (70-105) mg/dL Assessment and Plan - Patient Problems (1) Gas gangrene Current Visit: Yes Status: Acute Plan to address problem: X-ray left foot, IV antibiotic therapy, surgical team consulted, wound care consulted, (2) Systemic inflammatory response syndrome Current Visit: Yes Status: Acute Plan to address problem: CBC, CMP, chest x-ray, left foot x-ray, IV antibiotic therapy, (3) Cellulitis of left foot Current Visit: Yes Status: Acute Plan to address problem: Left foot x-ray, IV antibiotic therapy, wound care consulted. (4) Diabetic foot infection Current Visit: Yes Status: Acute Plan to address problem: IV antibiotic therapy, antihyperglycemic control, supportive care, surgical team consulted. (5) Diabetes Current Visit: Yes Status: Acute Plan to address problem: Consistent carbohydrate diet, sliding scale insulin, Accu-Chek, hypoglycemia protocol. (6) DVT prophylaxis Current Visit: Yes Status: Acute Plan to address problem: SCD to bilateral lower extremities while in bed, patient is ambulatory
[2021-06-14] MEDS ORDERED: VANCOMYCIN 1,250 MG in SODIUM CHLORIDE 0.9% 250ML 250 ML IV ONE (16:00)
[2021-06-14] MEDS ORDERED: ACETAMINOPHEN 325 MG TAB PO PRN ×2 (16:18→17:17)
[2021-06-14] MEDS ORDERED: ALBUTEROL 2.5 MG/3 ML NEBU IH PRN (16:18)
[2021-06-14] MEDS ORDERED: ONDANSETRON 4 MG/2 ML INJ IV PRN (16:18)
[2021-06-14 16:28] LABS: Albumin 2.9 g/dL (3.9-5); Calcium 9.1 mg/dL (8.4-10.2)
[2021-06-14 17:03] LABS: Anisocytosis 1+; Band Neutrophils # (Manual) 0.3 K/mm3; Hypochromasia 2+; Large Platelets Few; Platelet Estimate Consistent w Auto; Total Cells Counted 100
[2021-06-14] MEDS ORDERED: SODIUM CHLORIDE 0.9% 1000 ML IV SOLN IV ONE (17:30)
--- NOTE | 2021-06-15 11:19 | Progress Note ---
Assessment and Plan Assessment and plan: -- Gas gangrene/right great toe Current Visit: Yes Status: Acute Surgery consulted, continue IV antibiotics Elevate the limb, vascular consult if needed Arterial venous Doppler studies --Systemic inflammatory response syndrome Current Visit: Yes Status: Acute Continue antibiotics and supportive care ID consult if needed --Peripheral vascular disease; Current Visit: Yes Status: Acute Continue aspirin Plavix and statin Vascular consult if needed -- Cellulitis of right foot Current Visit: Yes Status: Acute Elevate the limb, antibiotics and supportive care -- Diabetic foot infection Current Visit: Yes Status: Acute IV antibiotic therapy, antihyperglycemic control, Follow cultures supportive care, surgical team consulted. --Type II diabetes Current Visit: Yes Status: Acute Accu-Chek, sliding scale coverage ADA diet, Long-acting insulin as needed --Severe protein calorie malnutrition; Current Visit: Yes Status: Chronic Nutrition supplement, nutrition consult Supportive care, hypoalbuminemia --DVT prophylaxis Current Visit: Yes Status: Acute SCD , Lovenox Closely monitor the patient and adjust management as needed Follow surgery evaluation recommendations History Interval history: I have seen and examined the patient at the bedside Patient's chart and medications reviewed Patient was admitted with diabetic foot infection Right great toe gas gangrene Surgery evaluation requested Patient not in distress Vital signs noted Hospitalist Physical - Constitutional Vitals: Temp Pulse Resp BP Pulse Ox 98.5 F 67 18 146/68 97 06/15/21 07:27 06/15/21 07:27 06/15/21 07:27 06/15/21 07:27 06/15/21 07:27 General appearance: Present: mild distress, well-nourished - EENT Eyes: Present: PERRL, EOM intact - Neck Neck: Present: supple, normal ROM - Respiratory Respiratory effort: normal Respiratory: bilateral: diminished, negative: rales, rhonchi, wheezing - Cardiovascular Rhythm: regular Heart Sounds: Present: S1 & S2 - Extremities Extremities: abnormal (Gangrene of the right great toe) Extremity abnormal: edema (Cellulitis) - Abdominal General gastrointestinal: soft, non-tender, non-distended, normal bowel sounds - Integumentary Integumentary: Present: clear, warm - Psychiatric Psychiatric: appropriate mood/affect, cooperative - Neurologic Neurologic: moves all extremities Results - Labs CBC & Chem 7: 06/14/21 14:03 06/16/21 10:45 Labs: Laboratory Last Values WBC 16.1 K/mm3 (4.5-11.0) H 06/14/21 14:03 RBC 4.90 M/mm3 (3.65-5.03) 06/14/21 14:03 Hgb 9.6 gm/dl (10.1-14.3) L 06/14/21 14:03 Hct 29.7 % (30.3-42.9) L 06/14/21 14:03 MCV 61 fl (79-97) L 06/14/21 14:03 MCH 20 pg (28-32) L 06/14/21 14:03 MCHC 32 % (30-34) 06/14/21 14:03 RDW 19.3 % (13.2-15.2) H 06/14/21 14:03 Plt Count 313 K/mm3 (140-440) 06/14/21 14:03 Add Manual Diff Complete 06/14/21 14:03 Total Counted 100 06/14/21 14:03 Seg Neuts % (Manual) 83.0 % (40.0-70.0) H 06/14/21 14:03 Band Neutrophils % 2.0 % 06/14/21 14:03 Lymphocytes % (Manual) 5.0 % (13.4-35.0) L 06/14/21 14:03 Monocytes % (Manual) 7.0 % (0.0-7.3) 06/14/21 14:03 Eosinophils % (Manual) 3.0 % (0.0-4.3) 06/14/21 14:03 Nucleated RBC % Not Reportable 06/14/21 14:03 Seg Neutrophils # Man 13.4 K/mm3 (1.8-7.7) H 06/14/21 14:03 Band Neutrophils # 0.3 K/mm3 06/14/21 14:03 Lymphocytes # (Manual) 0.8 K/mm3 (1.2-5.4) L 06/14/21 14:03 Abs React Lymphs (Man) 0.0 K/mm3 06/14/21 14:03 Monocytes # (Manual) 1.1 K/mm3 (0.0-0.8) H 06/14/21 14:03 Eosinophils # (Manual) 0.5 K/mm3 (0.0-0.4) H 06/14/21 14:03 Basophils # (Manual) 0.0 K/mm3 (0.0-0.1) 06/14/21 14:03 Metamyelocytes # 0.0 K/mm3 06/14/21 14:03 Myelocytes # 0.0 K/mm3 06/14/21 14:03 Promyelocytes # 0.0 K/mm3 06/14/21 14:03 Blast Cells # 0.0 K/mm3 06/14/21 14:03 WBC Morphology Not Reportable 06/14/21 14:03 Hypersegmented Neuts Not Reportable 06/14/21 14:03 Hyposegmented Neuts Not Reportable 06/14/21 14:03 Hypogranular Neuts Not Reportable 06/14/21 14:03 Smudge Cells Not Reportable 06/14/21 14:03 Toxic Granulation Not Reportable 06/14/21 14:03 Toxic Vacuolation Not Reportable 06/14/21 14:03 Dohle Bodies Not Reportable 06/14/21 14:03 Pelger-Huet Anomaly Not Reportable 06/14/21 14:03 Lilliana Rods Not Reportable 06/14/21 14:03 Platelet Estimate Consistent w auto 06/14/21 14:03 Clumped Platelets Not Reportable 06/14/21 14:03 Plt Clumps, EDTA Not Reportable 06/14/21 14:03 Large Platelets Few 06/14/21 14:03 Giant Platelets Not Reportable 06/14/21 14:03 Platelet Satelliting Not Reportable 06/14/21 14:03 Plt Morphology Comment Not Reportable 06/14/21 14:03 RBC Morphology Not Reportable 06/14/21 14:03 Dimorphic RBCs Not Reportable 06/14/21 14:03 Polychromasia Not Reportable 06/14/21 14:03 Hypochromasia 2+ 06/14/21 14:03 Poikilocytosis Not Reportable 06/14/21 14:03 Anisocytosis 1+ 06/14/21 14:03 Microcytosis 2+ 06/14/21 14:03 Macrocytosis Not Reportable 06/14/21 14:03 Spherocytes Not Reportable 06/14/21 14:03 Pappenheimer Bodies Not Reportable 06/14/21 14:03 Sickle Cells Not Reportable 06/14/21 14:03 Target Cells Not Reportable 06/14/21 14:03 Tear Drop Cells Not Reportable 06/14/21 14:03 Ovalocytes Not Reportable 06/14/21 14:03 Helmet Cells Not Reportable 06/14/21 14:03 [place] Bodies Not Reportable 06/14/21 14:03 [place] Rings Not Reportable 06/14/21 14:03 [place] Cells Not Reportable 06/14/21 14:03 Bite Cells Not Reportable 06/14/21 14:03 Crenated Cell Not Reportable 06/14/21 14:03 Elliptocytes Not Reportable 06/14/21 14:03 Acanthocytes (Spur) Not Reportable 06/14/21 14:03 Rouleaux Not Reportable 06/14/21 14:03 Hemoglobin C Crystals Not Reportable 06/14/21 14:03 Schistocytes Not Reportable 06/14/21 14:03 Malaria parasites Not Reportable 06/14/21 14:03 Yoseph Bodies Not Reportable 06/14/21 14:03 Hem Pathologist Commnt No 06/14/21 14:03 Sodium 134 mmol/L (137-145) L 06/14/21 14:03 Potassium 4.7 mmol/L (3.6-5.0) 06/14/21 14:03 Chloride 101.4 mmol/L (98-107) 06/14/21 14:03 Carbon Dioxide 18 mmol/L (22-30) L 06/14/21 14:03 Anion Gap 19 mmol/L 06/14/21 14:03 BUN 44 mg/dL (7-17) H 06/14/21 14:03 Creatinine 1.5 mg/dL (0.6-1.2) H 06/14/21 14:03 Estimated GFR 44 ml/min 06/14/21 14:03 BUN/Creatinine Ratio 29 % 06/14/21 14:03 Glucose 165 mg/dL (65-100) H 06/14/21 14:03 POC Glucose 282 mg/dL (70-105) H 06/15/21 07:25 Lactic Acid 0.70 mmol/L (0.7-2.0) 06/15/21 06:07 Calcium 9.1 mg/dL (8.4-10.2) 06/14/21 14:03 Total Bilirubin 0.60 mg/dL (0.1-1.2) 06/14/21 14:03 AST 25 units/L (5-40) 06/14/21 14:03 ALT 28 units/L (7-56) 06/14/21 14:03 Alkaline Phosphatase 1108 units/L (35-129) H 06/14/21 14:03 Total Protein 7.3 g/dL (6.3-8.2) 06/14/21 14:03 Albumin 2.9 g/dL (3.9-5) L 06/14/21 14:03 Albumin/Globulin Ratio 0.7 % 06/14/21 14:03 Microbiology: Microbiology 06/14/21 17:41 Peripheral/Venous Blood Culture - Preliminary Culture in Progress 06/14/21 17:41 Peripheral/Venous Blood Culture - Preliminary Culture in Progress Hong/IV: Voiding Method Toilet Active Medications - Current Medications Current Medications: Generic Name Dose Route Start Last Admin Trade Name Freq PRN Reason Stop Dose Admin Acetaminophen 650 mg 06/14/21 16:18 Acetaminophen 325 Mg Tab PO Q4H PRN Pain MILD(1-3)/Fever >100.5/RIVERA Acetaminophen 650 mg 06/14/21 17:17 Acetaminophen 325 Mg Tab PO Q6H PRN Pain, Mild (1-3) Albuterol 2.5 mg 06/14/21 16:18 Albuterol 2.5 Mg/3 Ml Nebu IH Q4HRT PRN Shortness Of Breath Hydromorphone HCl 0.25 mg 06/14/21 17:17 Hydromorphone 1 Mg/1 Ml Inj IV Q4H PRN Pain, Moderate (4-6) Cefazolin Sodium 2 gm/ Sodium 100 mls @ 200 mls/hr 06/15/21 14:00 Chloride IV Q8HR DEE DEE Protocol Clindamycin HCl 600 mg in 50 mls @ 100 mls/hr 06/15/21 12:00 Cleocin 600 Mg/50 Ml IV Q8H DEE DEE Morphine Sulfate 2 mg 06/14/21 16:18 Morphine 4 Mg/1 Ml Inj IV Q8H PRN Pain , Severe (7-10) Ondansetron HCl 4 mg 06/14/21 16:18 Ondansetron 4 Mg/2 Ml Inj IV Q8H PRN Nausea And Vomiting Oxycodone/Acetaminophen 1 tab 06/14/21 16:18 Oxycodone /Acetaminophen 5-325mg Tab PO Q6H PRN Pain, Moderate (4-6) Sodium Chloride 10 ml 06/14/21 22:00 06/14/21 22:20 Sodium Chloride 0.9% 10 Ml Flush Syringe IV 10 ml BID DEE DEE Administration Sodium Chloride 10 ml 06/14/21 16:18 Sodium Chloride 0.9% 10 Ml Flush Syringe IV PRN PRN LINE FLUSH
[2021-06-15] MEDS: INSULIN LISPRO 100 UNIT/ML SUB-Q SCH ×3 (12:00→22:31)
[2021-06-15] MEDS: CLINDAMYCIN 600 MG IV SCH ×2 (12:58→20:03)
[2021-06-15] MEDS: MORPHINE 4 MG/1 ML INJ IV PRN ×2 (14:26→20:02)
[2021-06-15 16:10] LABS: Calcium 8.6 mg/dL (8.4-10.2)
--- NOTE | 2021-06-15 17:47 | Consultation ---
History of Present Illness Consult date: 06/15/21 Reason for consult: wound care Chief complaint: Right great toe dry gangrene - History of present illness History of present illness: 55-year-old female presents to the emergency room yesterday with a 4-day history of right great toe skin darkening. She denies any trauma or insect bite. She denies any pain currently. She is a diabetic with a history of peripheral neuropathy. She denies any fever or chills. She denies having any nonhealing wounds on her feet in the past. Past History Past Medical History: diabetes, hypertension Past Surgical History: appendectomy, cholecystectomy, hysterectomy, Other (Tubal ligation, foot surgery) Social history: single Family history: diabetes, hypertension Medications and Allergies Allergies Allergy/AdvReac Type Severity Reaction Status Date / Time No Known Allergies Allergy Verified 05/15/20 02:01 Home Medications Medication Instructions Recorded Confirmed Last Taken Type Dulaglutide [Trulicity] 1 mcg SUB-Q QWEEK #4 05/16/20 Unknown Rx Insulin Degludec [Tresiba] 20 units SUB-Q QDAY #30 vial 05/16/20 Unknown Rx Metoclopramide HCl [Reglan TAB] 5 mg PO TIDAC #14 tablet 05/16/20 Unknown Rx amLODIPine 5 mg PO DAILY #30 05/16/20 Unknown Rx lisinopriL [Zestril TAB] 10 mg PO QDAY #30 tablet 05/16/20 Unknown Rx Active Meds: Active Medications Acetaminophen (Acetaminophen 325 Mg Tab) 650 mg PO Q6H PRN PRN Reason: Pain, Mild (1-3) Albuterol (Albuterol 2.5 Mg/3 Ml Nebu) 2.5 mg IH Q4HRT PRN PRN Reason: Shortness Of Breath Hydromorphone HCl (Hydromorphone 1 Mg/1 Ml Inj) 0.25 mg IV Q4H PRN PRN Reason: Pain, Moderate (4-6) Cefazolin Sodium 2 gm/ Sodium (Chloride) 100 mls @ 200 mls/hr IV Q8HR DEE DEE; Pr otocol Last Admin: 06/15/21 14:10 Dose: 200 mls/hr Documented by: Clindamycin HCl (Cleocin 600 Mg/50 Ml) 600 mg in 50 mls @ 100 mls/hr IV Q8H DEE DEE Last Admin: 06/15/21 12:58 Dose: 100 mls/hr Documented by: Calcium Gluconate 1,000 mg/ (Sodium Chloride) 110 mls @ 660 mls/hr IV ONCE ONE Stop: 06/15/21 18:24 Last Admin: 06/15/21 17:42 Dose: 660 mls/hr Documented by: Sodium Chloride (Nacl 0.9% 1000 Ml) 1,000 mls @ 100 mls/hr IV DIRECT DEE DEE Insulin Human Isoph/Insulin Regular (Insulin Nph/Regular 70/30 Inj) 10 unit SUB-Q BIDDIAB [facility] Insulin Human Isoph/Insulin Regular (Insulin Nph/Regular 70/30 Inj) 8 unit SUB- Q ONCE ONE Stop: 06/15/21 18:31 Insulin Human Lispro (Insulin Lispro 100 Unit/Ml) 0 unit SUB-Q ACHS [facility]; Protocol Last Admin: 06/15/21 16:29 Dose: 10 unit Documented by: Morphine Sulfate (Morphine 4 Mg/1 Ml Inj) 2 mg IV Q8H PRN PRN Reason: Pain , Severe (7-10) Last Admin: 06/15/21 14:26 Dose: 2 mg Documented by: Ondansetron HCl (Ondansetron 4 Mg/2 Ml Inj) 4 mg IV Q8H PRN PRN Reason: Nausea And Vomiting Oxycodone/Acetaminophen (Oxycodone /Acetaminophen 5-325mg Tab) 1 tab PO Q6H PRN PRN Reason: Pain, Moderate (4-6) Sodium Chloride (Sodium Chloride 0.9% 10 Ml Flush Syringe) 10 ml IV BID [facility] Last Admin: 06/15/21 13:00 Dose: 10 ml Documented by: Sodium Chloride (Sodium Chloride 0.9% 10 Ml Flush Syringe) 10 ml IV PRN PRN PRN Reason: LINE FLUSH Review of Systems All systems: negative - Integumentary other (Right great toe dry gangrene) Exam Vital Signs Temp Pulse Resp BP Pulse Ox 98.2 F 63 18 141/57 99 06/14/21 12:02 06/14/21 12:02 06/14/21 12:02 06/14/21 12:02 06/14/21 12:02 - General physical appearance Positive: no distress, no pain - Respiratory Positive: normal expansion, normal respiratory effort - Cardiovascular Heart Sounds: Present: S1 & S2 - Extremities Extremity abnormal: other (Right great toe dry gangrene. Mild serous drainage in the webspace between the first and second toe on the right foot with mild odor. Nontender with paresthesias. Foot is warm with delayed capillary refill. Unable to palpate DP or PT pulse. Left foot with no wounds. Left foot is warm with good) Results - Labs 06/14/21 14:03 06/15/21 15:21 Abnormal lab results 06/15/21 06/15/21 06/15/21 Range/Units 07:25 11:32 15:21 Sodium 134 L (137-145) mmol/L Potassium 5.6 H (3.6-5.0) mmol/L Carbon Dioxide 18 L (22-30) mmol/L BUN 36 H (7-17) mg/dL Creatinine 1.4 H (0.6-1.2) mg/dL Glucose 340 H (65-100) mg/dL POC Glucose 282 H 323 H (70-105) mg/dL 06/15/21 Range/Units 16:14 Sodium (137-145) mmol/L Potassium (3.6-5.0) mmol/L Carbon Dioxide (22-30) mmol/L BUN (7-17) mg/dL Creatinine (0.6-1.2) mg/dL Glucose (65-100) mg/dL POC Glucose 365 H (70-105) mg/dL Diabetes panel 06/15/21 Range/Units 15:21 Sodium 134 L (137-145) mmol/L Potassium 5.6 H (3.6-5.0) mmol/L Chloride 102.0 (98-107) mmol/L Carbon Dioxide 18 L (22-30) mmol/L BUN 36 H (7-17) mg/dL Creatinine 1.4 H (0.6-1.2) mg/dL Glucose 340 H (65-100) mg/dL Calcium 8.6 (8.4-10.2) mg/dL Calcium panel 06/15/21 Range/Units 15:21 Calcium 8.6 (8.4-10.2) mg/dL Pituitary panel 06/15/21 Range/Units 15:21 Sodium 134 L (137-145) mmol/L Potassium 5.6 H (3.6-5.0) mmol/L Chloride 102.0 (98-107) mmol/L Carbon Dioxide 18 L (22-30) mmol/L BUN 36 H (7-17) mg/dL Creatinine 1.4 H (0.6-1.2) mg/dL Glucose 340 H (65-100) mg/dL Calcium 8.6 (8.4-10.2) mg/dL Adrenal panel 06/15/21 Range/Units 15:21 Sodium 134 L (137-145) mmol/L Potassium 5.6 H (3.6-5.0) mmol/L Chloride 102.0 (98-107) mmol/L Carbon Dioxide 18 L (22-30) mmol/L BUN 36 H (7-17) mg/dL Creatinine 1.4 H (0.6-1.2) mg/dL Glucose 340 H (65-100) mg/dL Calcium 8.6 (8.4-10.2) mg/dL Assessment and Plan 55-year-old female with a history of diabetes and coronary artery disease with right great toe dry gangrene. Afebrile and stable. Vascular surgery consulted for evaluation of perfusion of right lower extremity and possible amputation. No general surgery intervention at this time.
[2021-06-15] MEDS: SODIUM CHLORIDE 0.9% 1000 ML 1,000 ML IV SCH (17:52)
[2021-06-15] MEDS ORDERED: CALCIUM GLUCONATE 1,000 MG in SODIUM CHLORIDE 0.9% 100 ML IV ONE (18:15)
[2021-06-15] MEDS ORDERED: INSULIN NPH/REGULAR 70/30 INJ SUB-Q ONE (18:30)
--- NOTE | 2021-06-15 20:58 | Consultation ---
History of Present Illness - Reason for Consult Consult date: 06/15/21 Right First Toe Gangrene Requesting physician: MAMI SHANKS - History of Present Illness The patient is a 55-year-old female who presented to the emergency department with complaints of dark discoloration, separation of the toenail, and purulent drainage from her right first toe. She states that she noticed changes involving the toe beginning on this past Sunday. She denies having any known trauma to the toe however she does have a history of diabetic neuropathy. She has had insulin-dependent diabetes for approximately 30 years. She denies any history of tobacco abuse. She denies any previous history of claudication. She has no additional complaints at this time. Past History Past Medical History: CAD, diabetes, hypertension, hyperlipidemia Past Surgical History: appendectomy, cholecystectomy, CABG, hysterectomy, Other (Tubal ligation, foot surgery) Social history: single Family history: diabetes, hypertension Medications and Allergies Allergies Allergy/AdvReac Type Severity Reaction Status Date / Time No Known Allergies Allergy Verified 05/15/20 02:01 Home Medications Medication Instructions Recorded Confirmed Last Taken Type Aspirin [Adult Aspirin] 81 mg PO DAILY 06/15/21 06/15/21 3 Days Ago History ~06/12/21 81 AtorvaSTATin [Lipitor] 40 mg PO DAILY 06/15/21 06/15/21 3 Days Ago History ~06/12/21 40 Clopidogrel [Plavix] 75 mg PO DAILY 06/15/21 06/15/21 3 Days Ago History ~06/12/21 75 Furosemide [Lasix TAB] 40 mg PO DAILY 06/15/21 06/15/21 3 Days Ago History ~06/12/21 40 Gabapentin [Neurontin] 300 mg PO Q8HR 06/15/21 06/15/21 3 Days Ago History ~06/12/21 300 Insulin NPH Hum/Reg Insulin Hm 12 unit SQ QAM 06/15/21 06/15/21 3 Days Ago History [Novolin 70-30 Flexpen] ~06/12/21 12 Novolin 70-30 Flexpen 10 units SQ QPM 06/15/21 06/15/21 3 Days Ago History ~06/12/21 10 amLODIPine 10 mg PO DAILY 06/15/21 06/15/21 3 Days Ago History ~06/12/21 10 Active Meds: Active Medications Acetaminophen (Acetaminophen 325 Mg Tab) 650 mg PO Q6H PRN PRN Reason: Pain, Mild (1-3) Albuterol (Albuterol 2.5 Mg/3 Ml Nebu) 2.5 mg IH Q4HRT PRN PRN Reason: Shortness Of Breath Hydromorphone HCl (Hydromorphone 1 Mg/1 Ml Inj) 0.25 mg IV Q4H PRN PRN Reason: Pain, Moderate (4-6) Cefazolin Sodium 2 gm/ Sodium (Chloride) 100 mls @ 200 mls/hr IV Q8HR [facility]; Protocol Last Admin: 06/15/21 14:10 Dose: 200 mls/hr Documented by: Clindamycin HCl (Cleocin 600 Mg/50 Ml) 600 mg in 50 mls @ 100 mls/hr IV Q8H DEE DEE Last Admin: 06/15/21 20:03 Dose: 100 mls/hr Documented by: Sodium Chloride (Nacl 0.9% 1000 Ml) 1,000 mls @ 100 mls/hr IV DIRECT DEE DEE Last Admin: 06/15/21 17:52 Dose: 100 mls/hr Documented by: Insulin Human Isoph/Insulin Regular (Insulin Nph/Regular 70/30 Inj) 10 unit SUB-Q BIDDIAB [facility] Insulin Human Lispro (Insulin Lispro 100 Unit/Ml) 0 unit SUB-Q ACHS [facility]; Protocol Last Admin: 06/15/21 16:29 Dose: 10 unit Documented by: Morphine Sulfate (Morphine 4 Mg/1 Ml Inj) 2 mg IV Q8H PRN PRN Reason: Pain , Severe (7-10) Last Admin: 06/15/21 20:02 Dose: 2 mg Documented by: Ondansetron HCl (Ondansetron 4 Mg/2 Ml Inj) 4 mg IV Q8H PRN PRN Reason: Nausea And Vomiting Oxycodone/Acetaminophen (Oxycodone /Acetaminophen 5-325mg Tab) 1 tab PO Q6H PRN PRN Reason: Pain, Moderate (4-6) Sodium Chloride (Sodium Chloride 0.9% 10 Ml Flush Syringe) 10 ml IV BID DEE DEE Last Admin: 06/15/21 13:00 Dose: 10 ml Documented by: Sodium Chloride (Sodium Chloride 0.9% 10 Ml Flush Syringe) 10 ml IV PRN PRN PRN Reason: LINE FLUSH Review of Systems All systems: negative Exam - Constitutional Vitals: Temp Pulse Resp BP Pulse Ox 99.0 F 70 18 164/67 95 06/15/21 19:24 06/15/21 19:24 06/15/21 19:24 06/15/21 19:24 06/15/21 19:24 General appearance: Present: no acute distress - Neck Neck: Present: supple - Respiratory Respiratory effort: normal - Cardiovascular Rhythm: regular - Extremities Extremities: pulses intact (Palpable femoral pulses bilaterally. Palpable left dorsalis pedis pulse. Nonpalpable right pedal pulses.), normal temperature Extremity abnormal: black (Right first toe is cyanotic, the toenail is not intact and there is partial exposure of the distal phalanx, no drainage noted at this time), pulses diminished (Palpable right radial pulse with diminished left radial pulse) - Abdominal General gastrointestinal: Present: soft, non-tender Female genitourinary: Present: deferred - Rectal Rectal Exam: deferred - Neurologic Neurologic: moves all extremities Results - Labs CBC & Chem 7: 06/14/21 14:03 06/15/21 15:21 Labs: Abnormal lab results 06/15/21 06/15/21 06/15/21 Range/Units 07:25 11:32 15:21 Sodium 134 L (137-145) mmol/L Potassium 5.6 H (3.6-5.0) mmol/L Carbon Dioxide 18 L (22-30) mmol/L BUN 36 H (7-17) mg/dL Creatinine 1.4 H (0.6-1.2) mg/dL Glucose 340 H (65-100) mg/dL POC Glucose 282 H 323 H (70-105) mg/dL 06/15/21 Range/Units 16:14 Sodium (137-145) mmol/L Potassium (3.6-5.0) mmol/L Carbon Dioxide (22-30) mmol/L BUN (7-17) mg/dL Creatinine (0.6-1.2) mg/dL Glucose (65-100) mg/dL POC Glucose 365 H (70-105) mg/dL Assessment and Plan The patient is a 55-year-old female with a history of insulin-dependent diabetes and gangrene of her right first toe. I had an extensive discussion with the patient as well as her fianc, by phone, that her toe is not salvageable and will require amputation. She will first require bilateral lower extremity arterial ultrasound with ABIs to evaluate for adequate arterial flow for healing of the amputation. If she does not have adequate arterial flow she will require a diagnostic angiogram with possible intervention to improve the flow prior to a right first toe amputation. In the interim she should have continued IV hydration to improve her renal function prior to any planned endovascular intervention. Also given her history of recent CABG, presumed peripheral vascular disease, and diminished left radial pulse, I will order a carotid duplex to evaluate her carotid arteries for possible carotid artery stenosis. The patient and her fianc have expressed understanding of the plans and agree.
[2021-06-16] MEDS: CLINDAMYCIN 600 MG IV SCH ×3 (03:23→21:43)
[2021-06-16] MEDS: MORPHINE 4 MG/1 ML INJ IV PRN (04:02)
[2021-06-16] MEDS: SODIUM CHLORIDE 0.9% 1000 ML 1,000 ML IV SCH ×2 (06:34→22:37)
[2021-06-16] MEDS: INSULIN LISPRO 100 UNIT/ML SUB-Q SCH ×4 (08:28→21:44)
[2021-06-16] MEDS: INSULIN NPH/REGULAR 70/30 INJ SUB-Q SCH ×2 (08:30→16:08)
--- NOTE | 2021-06-16 08:33 | Progress Note ---
Assessment and Plan Assessment and plan: -- Gas gangrene/right great toe Current Visit: Yes Status: Acute Surgery evaluation noted appreciated Vascular studies scheduled Vascular consulted. --Peripheral vascular disease; Current Visit: Yes Status: Acute Continue aspirin statin and Plavix Follow vascular studies, supportive care -- Systemic inflammatory response syndrome Current Visit: Yes Status: Acute Continue antibiotics and supportive care ID consult if needed -- Cellulitis of right foot Current Visit: Yes Status: Acute Elevate the limb, antibiotics and supportive care -- Diabetic foot infection Current Visit: Yes Status: Acute IV antibiotic therapy, antihyperglycemic control, Follow cultures supportive care, surgical team consulted. --Acute kidney injury; Current Visit: Yes Status: Acute Vasomotor nephropathy, gentle hydration, monitor renal function Avoid nephrotoxins --Type II diabetes Current Visit: Yes Status: Acute Accu-Chek, sliding scale coverage ADA diet, Long-acting insulin as needed --Severe protein calorie malnutrition; Current Visit: Yes Status: Chronic Nutrition supplement, nutrition consult Supportive care, hypoalbuminemia --DVT prophylaxis Current Visit: Yes Status: Acute SCD , Lovenox Closely monitor the patient and adjust management as needed Form Setter/Driver recommendations noted and appreciated Plan of care reviewed with the patient and her nurse History Interval history: I seen and examined the patient at the bedside today Patient's chart and medications reviewed Patient feels better, some pain in the foot Vital signs noted Hospitalist Physical - Constitutional Vitals: Temp Pulse Resp BP Pulse Ox 98.0 F 66 20 158/69 95 06/16/21 07:35 06/16/21 07:35 06/16/21 07:35 06/16/21 07:35 06/16/21 07:35 General appearance: Present: mild distress, well-nourished - EENT Eyes: Present: PERRL, EOM intact - Neck Neck: Present: supple, normal ROM - Respiratory Respiratory effort: normal Respiratory: bilateral: diminished, negative: rales, rhonchi, wheezing - Cardiovascular Rhythm: regular Heart Sounds: Present: S1 & S2 - Extremities Extremities: no ischemia, abnormal (Gangrene right great toe) Extremity abnormal: edema - Abdominal General gastrointestinal: soft, non-tender, non-distended, normal bowel sounds - Integumentary Integumentary: Present: clear, warm - Psychiatric Psychiatric: appropriate mood/affect, cooperative - Neurologic Neurologic: CNII-XII intact Results - Labs CBC & Chem 7: 06/14/21 14:03 06/16/21 10:45 Labs: Laboratory Last Values WBC 16.1 K/mm3 (4.5-11.0) H 06/14/21 14:03 RBC 4.90 M/mm3 (3.65-5.03) 06/14/21 14:03 Hgb 9.6 gm/dl (10.1-14.3) L 06/14/21 14:03 Hct 29.7 % (30.3-42.9) L 06/14/21 14:03 MCV 61 fl (79-97) L 06/14/21 14:03 MCH 20 pg (28-32) L 06/14/21 14:03 MCHC 32 % (30-34) 06/14/21 14:03 RDW 19.3 % (13.2-15.2) H 06/14/21 14:03 Plt Count 313 K/mm3 (140-440) 06/14/21 14:03 Add Manual Diff Complete 06/14/21 14:03 Total Counted 100 06/14/21 14:03 Seg Neuts % (Manual) 83.0 % (40.0-70.0) H 06/14/21 14:03 Band Neutrophils % 2.0 % 06/14/21 14:03 Lymphocytes % (Manual) 5.0 % (13.4-35.0) L 06/14/21 14:03 Monocytes % (Manual) 7.0 % (0.0-7.3) 06/14/21 14:03 Eosinophils % (Manual) 3.0 % (0.0-4.3) 06/14/21 14:03 Nucleated RBC % Not Reportable 06/14/21 14:03 Seg Neutrophils # Man 13.4 K/mm3 (1.8-7.7) H 06/14/21 14:03 Band Neutrophils # 0.3 K/mm3 06/14/21 14:03 Lymphocytes # (Manual) 0.8 K/mm3 (1.2-5.4) L 06/14/21 14:03 Abs React Lymphs (Man) 0.0 K/mm3 06/14/21 14:03 Monocytes # (Manual) 1.1 K/mm3 (0.0-0.8) H 06/14/21 14:03 Eosinophils # (Manual) 0.5 K/mm3 (0.0-0.4) H 06/14/21 14:03 Basophils # (Manual) 0.0 K/mm3 (0.0-0.1) 06/14/21 14:03 Metamyelocytes # 0.0 K/mm3 06/14/21 14:03 Myelocytes # 0.0 K/mm3 06/14/21 14:03 Promyelocytes # 0.0 K/mm3 06/14/21 14:03 Blast Cells # 0.0 K/mm3 06/14/21 14:03 WBC Morphology Not Reportable 06/14/21 14:03 Hypersegmented Neuts Not Reportable 06/14/21 14:03 Hyposegmented Neuts Not Reportable 06/14/21 14:03 Hypogranular Neuts Not Reportable 06/14/21 14:03 Smudge Cells Not Reportable 06/14/21 14:03 Toxic Granulation Not Reportable 06/14/21 14:03 Toxic Vacuolation Not Reportable 06/14/21 14:03 Dohle Bodies Not Reportable 06/14/21 14:03 Pelger-Huet Anomaly Not Reportable 06/14/21 14:03 Lilliana Rods Not Reportable 06/14/21 14:03 Platelet Estimate Consistent w auto 06/14/21 14:03 Clumped Platelets Not Reportable 06/14/21 14:03 Plt Clumps, EDTA Not Reportable 06/14/21 14:03 Large Platelets Few 06/14/21 14:03 Giant Platelets Not Reportable 06/14/21 14:03 Platelet Satelliting Not Reportable 06/14/21 14:03 Plt Morphology Comment Not Reportable 06/14/21 14:03 RBC Morphology Not Reportable 06/14/21 14:03 Dimorphic RBCs Not Reportable 06/14/21 14:03 Polychromasia Not Reportable 06/14/21 14:03 Hypochromasia 2+ 06/14/21 14:03 Poikilocytosis Not Reportable 06/14/21 14:03 Anisocytosis 1+ 06/14/21 14:03 Microcytosis 2+ 06/14/21 14:03 Macrocytosis Not Reportable 06/14/21 14:03 Spherocytes Not Reportable 06/14/21 14:03 Pappenheimer Bodies Not Reportable 06/14/21 14:03 Sickle Cells Not Reportable 06/14/21 14:03 Target Cells Not Reportable 06/14/21 14:03 Tear Drop Cells Not Reportable 06/14/21 14:03 Ovalocytes Not Reportable 06/14/21 14:03 Helmet Cells Not Reportable 06/14/21 14:03 Henderson-[place]oint Bodies Not Reportable 06/14/21 14:03 Dacula Rings Not Reportable 06/14/21 14:03 Rashaad Cells Not Reportable 06/14/21 14:03 Bite Cells Not Reportable 06/14/21 14:03 Crenated Cell Not Reportable 06/14/21 14:03 Elliptocytes Not Reportable 06/14/21 14:03 Acanthocytes (Spur) Not Reportable 06/14/21 14:03 Rouleaux Not Reportable 06/14/21 14:03 Hemoglobin C Crystals Not Reportable 06/14/21 14:03 Schistocytes Not Reportable 06/14/21 14:03 Malaria parasites Not Reportable 06/14/21 14:03 Yoseph Bodies Not Reportable 06/14/21 14:03 Hem Pathologist Commnt No 06/14/21 14:03 Sodium 134 mmol/L (137-145) L 06/15/21 15:21 Potassium 5.6 mmol/L (3.6-5.0) H 06/15/21 15:21 Chloride 102.0 mmol/L (98-107) 06/15/21 15:21 Carbon Dioxide 18 mmol/L (22-30) L 06/15/21 15:21 Anion Gap 20 mmol/L 06/15/21 15:21 BUN 36 mg/dL (7-17) H 06/15/21 15:21 Creatinine 1.4 mg/dL (0.6-1.2) H 06/15/21 15:21 Estimated GFR 47 ml/min 06/15/21 15:21 BUN/Creatinine Ratio 26 % 06/15/21 15:21 Glucose 340 mg/dL (65-100) H 06/15/21 15:21 POC Glucose 206 mg/dL (70-105) H 06/16/21 07:35 Lactic Acid 0.70 mmol/L (0.7-2.0) 06/15/21 06:07 Calcium 8.6 mg/dL (8.4-10.2) 06/15/21 15:21 Total Bilirubin 0.60 mg/dL (0.1-1.2) 06/14/21 14:03 AST 25 units/L (5-40) 06/14/21 14:03 ALT 28 units/L (7-56) 06/14/21 14:03 Alkaline Phosphatase 1108 units/L (35-129) H 06/14/21 14:03 Total Protein 7.3 g/dL (6.3-8.2) 06/14/21 14:03 Albumin 2.9 g/dL (3.9-5) L 06/14/21 14:03 Albumin/Globulin Ratio 0.7 % 06/14/21 14:03 Microbiology: Microbiology 06/14/21 17:41 Peripheral/Venous Blood Culture - Preliminary NO GROWTH AFTER 24 HOURS 06/14/21 17:41 Peripheral/Venous Blood Culture - Preliminary NO GROWTH AFTER 24 HOURS Hong/IV: Voiding Method Toilet Active Medications - Current Medications Current Medications: Generic Name Dose Route Start Last Admin Trade Name Freq PRN Reason Stop Dose Admin Acetaminophen 650 mg 06/14/21 17:17 Acetaminophen 325 Mg Tab PO Q6H PRN Pain, Mild (1-3) Albuterol 2.5 mg 06/14/21 16:18 Albuterol 2.5 Mg/3 Ml Nebu IH Q4HRT PRN Shortness Of Breath Hydromorphone HCl 0.25 mg 06/14/21 17:17 Hydromorphone 1 Mg/1 Ml Inj IV Q4H PRN Pain, Moderate (4-6) Cefazolin Sodium 2 gm/ Sodium 100 mls @ 200 mls/hr 06/15/21 14:00 06/16/21 06:30 Chloride IV 200 mls/hr Q8HR DEE DEE Administration Protocol Clindamycin HCl 600 mg in 50 mls @ 100 mls/hr 06/15/21 12:00 06/16/21 03:23 Cleocin 600 Mg/50 Ml IV 100 mls/hr Q8H DEE DEE Administration Sodium Chloride 1,000 mls @ 100 mls/hr 06/15/21 17:15 06/16/21 06:34 Nacl 0.9% 1000 Ml IV 100 mls/hr DIRECT DEE DEE Administration Insulin Human Isoph/Insulin Regular 10 unit 06/16/21 08:00 06/16/21 08:30 Insulin Nph/Regular 70/30 Inj SUB-Q 10 unit BIDDIAB DEE DEE Administration Insulin Human Lispro 0 unit 06/15/21 11:30 06/16/21 08:28 Insulin Lispro 100 Unit/Ml SUB-Q 4 unit ACHS DEE DEE Administration Protocol Morphine Sulfate 2 mg 06/14/21 16:18 06/16/21 04:02 Morphine 4 Mg/1 Ml Inj IV 2 mg Q8H PRN Administration Pain , Severe (7-10) Ondansetron HCl 4 mg 06/14/21 16:18 Ondansetron 4 Mg/2 Ml Inj IV Q8H PRN Nausea And Vomiting Oxycodone/Acetaminophen 1 tab 06/14/21 16:18 Oxycodone /Acetaminophen 5-325mg Tab PO Q6H PRN Pain, Moderate (4-6) Sodium Chloride 10 ml 06/14/21 22:00 06/15/21 22:30 Sodium Chloride 0.9% 10 Ml Flush Syringe IV 10 ml BID DEE DEE Administration Sodium Chloride 10 ml 06/14/21 16:18 Sodium Chloride 0.9% 10 Ml Flush Syringe IV PRN PRN LINE FLUSH
[2021-06-16] MEDS: amLODIPine 10 MG TAB PO SCH (09:28)
[2021-06-16] MEDS: CLOPIDOGREL 75 MG TAB PO SCH (09:28)
[2021-06-16] MEDS: ASPIRIN EC 81 MG TAB PO SCH (09:29)
[2021-06-16] MEDS ORDERED: amLODIPine 5 MG TAB PO SCH (10:00)
--- NOTE | 2021-06-16 10:30 | Progress Note ---
Assessment and Plan Awaiting vascular lab ultrasound studies. Depending on the results of her studies, the patient will be scheduled for revascularization followed by amputation of her right first toe versus amputation. Hopefully can proceed with revascularization tomorrow if ultrasounds are performed today. Subjective Date of service: 06/16/21 Principal diagnosis: Peripheral vascular disease with gangrene right first toe Interval history: Patient with peripheral vascular disease with gangrene of the right first toe. No complaints of this time. Patient has not yet undergone her ultrasounds. Objective - Constitutional Vitals: Vital Signs - 12hr 06/15/21 06/15/21 06/15/21 22:33 22:51 22:53 Temperature 98.6 F Pulse Rate 71 99 H Respiratory 18 23 Rate Blood Pressure 158/65 143/84 145/92 O2 Sat by Pulse 95 94 95 Oximetry 06/15/21 06/15/21 06/15/21 23:01 23:11 23:21 Temperature Pulse Rate 92 H 84 86 Respiratory 32 H 20 21 Rate Blood Pressure 159/88 159/88 159/88 O2 Sat by Pulse 94 91 93 Oximetry 06/15/21 06/15/21 06/15/21 23:31 23:41 23:51 Temperature Pulse Rate 86 89 86 Respiratory 20 21 14 Rate Blood Pressure 156/87 156/87 156/87 O2 Sat by Pulse 93 92 93 Oximetry 06/16/21 06/16/21 06/16/21 00:01 00:11 00:21 Temperature Pulse Rate 90 90 92 H Respiratory 21 20 19 Rate Blood Pressure 155/81 155/81 155/81 O2 Sat by Pulse 95 95 92 Oximetry 06/16/21 06/16/21 06/16/21 00:31 00:41 00:51 Temperature Pulse Rate 93 H 86 88 Respiratory 20 19 20 Rate Blood Pressure 138/69 138/69 138/69 O2 Sat by Pulse 92 94 93 Oximetry 06/16/21 06/16/21 06/16/21 01:01 01:11 01:21 Temperature Pulse Rate 85 90 75 Respiratory 20 15 22 Rate Blood Pressure 142/74 142/74 142/74 O2 Sat by Pulse 92 94 93 Oximetry 06/16/21 06/16/21 06/16/21 01:30 01:41 01:51 Temperature Pulse Rate 75 79 84 Respiratory 22 21 22 Rate Blood Pressure 142/74 161/91 O2 Sat by Pulse 92 92 91 Oximetry 06/16/21 06/16/21 06/16/21 02:01 02:11 02:21 Temperature Pulse Rate 87 88 88 Respiratory 23 22 20 Rate Blood Pressure 163/98 163/98 163/98 O2 Sat by Pulse 94 93 94 Oximetry 06/16/21 06/16/21 06/16/21 02:31 02:41 02:51 Temperature Pulse Rate 89 90 81 Respiratory 18 18 21 Rate Blood Pressure 139/103 139/103 139/103 O2 Sat by Pulse 94 94 92 Oximetry 06/16/21 06/16/21 06/16/21 03:01 03:11 03:21 Temperature Pulse Rate 83 84 80 Respiratory 19 21 20 Rate Blood Pressure 152/86 152/86 152/86 O2 Sat by Pulse 91 91 92 Oximetry 06/16/21 06/16/21 03:30 07:35 Temperature 98.0 F Pulse Rate 88 66 Respiratory 18 20 Rate Blood Pressure 162/93 158/69 O2 Sat by Pulse 95 95 Oximetry General appearance: Present: no acute distress - EENT Eyes: EOM intact ENT: hearing intact - Neck Neck: supple - Respiratory Respiratory effort: normal - Breasts Breasts: deferred Extremities: abnormal (Right first toe gangrene, nonpalpable pulses) - Gastrointestinal General gastrointestinal: Present: deferred Rectal Exam: deferred - Genitourinary Female genitourinary: deferred - Psychiatric Psychiatric: appropriate mood/affect, cooperative - Labs CBC & Chem 7: 06/14/21 14:03 06/15/21 15:21 Labs: Abnormal lab results 06/15/21 06/15/21 06/15/21 Range/Units 11:32 15:21 16:14 Sodium 134 L (137-145) mmol/L Potassium 5.6 H (3.6-5.0) mmol/L Carbon Dioxide 18 L (22-30) mmol/L BUN 36 H (7-17) mg/dL Creatinine 1.4 H (0.6-1.2) mg/dL Glucose 340 H (65-100) mg/dL POC Glucose 323 H 365 H (70-105) mg/dL 06/15/21 06/16/21 Range/Units 21:19 07:35 Sodium (137-145) mmol/L Potassium (3.6-5.0) mmol/L Carbon Dioxide (22-30) mmol/L BUN (7-17) mg/dL Creatinine (0.6-1.2) mg/dL Glucose (65-100) mg/dL POC Glucose 185 H 206 H (70-105) mg/dL Medications & Allergies - Medications Allergies/Adverse Reactions: Allergies No Known Allergies Allergy (Verified 05/15/20 02:01) Home Medications: Home Medications Medication Instructions Recorded Confirmed Last Taken Type Aspirin [Adult Aspirin] 81 mg PO DAILY 06/15/21 06/15/21 3 Days Ago History ~06/12/21 81 AtorvaSTATin [Lipitor] 40 mg PO DAILY 06/15/21 06/15/21 3 Days Ago History ~06/12/21 40 Clopidogrel [Plavix] 75 mg PO DAILY 06/15/21 06/15/21 3 Days Ago History ~06/12/21 75 Furosemide [Lasix TAB] 40 mg PO DAILY 06/15/21 06/15/21 3 Days Ago History ~06/12/21 40 Gabapentin [Neurontin] 300 mg PO Q8HR 06/15/21 06/15/21 3 Days Ago History ~06/12/21 300 Insulin NPH Hum/Reg Insulin Hm 12 unit SQ QAM 06/15/21 06/15/21 3 Days Ago History [Novolin 70-30 Flexpen] ~06/12/21 12 Novolin 70-30 Flexpen 10 units SQ QPM 06/15/21 06/15/21 3 Days Ago History ~06/12/21 10 amLODIPine 10 mg PO DAILY 06/15/21 06/15/21 3 Days Ago History ~06/12/21 10 Active Medications: Generic Name Dose Route Start Last Admin Trade Name Freq PRN Reason Stop Dose Admin Acetaminophen 650 mg 06/14/21 17:17 Acetaminophen 325 Mg Tab PO Q6H PRN Pain, Mild (1-3) Albuterol 2.5 mg 06/14/21 16:18 Albuterol 2.5 Mg/3 Ml Nebu IH Q4HRT PRN Shortness Of Breath Amlodipine Besylate 10 mg 06/16/21 10:00 06/16/21 09:28 Amlodipine 10 Mg Tab PO 10 mg DAILY DEE DEE Administration Aspirin 81 mg 06/16/21 10:00 06/16/21 09:29 Aspirin Ec 81 Mg Tab PO 81 mg DAILY DEE DEE Administration Atorvastatin Calcium 40 mg 06/16/21 22:00 Atorvastatin 40 Mg Tab PO QHS DEE DEE Clopidogrel Bisulfate 75 mg 06/16/21 10:00 06/16/21 09:28 Clopidogrel 75 Mg Tab PO 75 mg DAILY DEE DEE Administration Gabapentin 300 mg 06/16/21 14:00 Gabapentin 300 Mg Cap PO Q8HR DEE DEE Hydralazine HCl 25 mg 06/16/21 14:00 Hydralazine 25 Mg Tab PO Q8HR DEE DEE Hydralazine HCl 10 mg 06/16/21 09:00 Hydralazine 20 Mg/1 Ml Inj IV Q4H PRN Hypertension Hydromorphone HCl 0.25 mg 06/14/21 17:17 Hydromorphone 1 Mg/1 Ml Inj IV Q4H PRN Pain, Moderate (4-6) Cefazolin Sodium 2 gm/ Sodium 100 mls @ 200 mls/hr 06/15/21 14:00 06/16/21 06:30 Chloride IV 200 mls/hr Q8HR DEE DEE Administration Protocol Clindamycin HCl 600 mg in 50 mls @ 100 mls/hr 06/15/21 12:00 06/16/21 03:23 Cleocin 600 Mg/50 Ml IV 100 mls/hr Q8H DEE DEE Administration Sodium Chloride 1,000 mls @ 100 mls/hr 06/15/21 17:15 06/16/21 06:34 Nacl 0.9% 1000 Ml IV 100 mls/hr DIRECT DEE DEE Administration Insulin Human Isoph/Insulin Regular 10 unit 06/16/21 08:00 06/16/21 08:30 Insulin Nph/Regular 70/30 Inj SUB-Q 10 unit BIDDIAB DE EDEE Administration Insulin Human Lispro 0 unit 06/15/21 11:30 06/16/21 08:28 Insulin Lispro 100 Unit/Ml SUB-Q 4 unit ACHS DEE DEE Administration Protocol Morphine Sulfate 2 mg 06/14/21 16:18 06/16/21 04:02 Morphine 4 Mg/1 Ml Inj IV 2 mg Q8H PRN Administration Pain , Severe (7-10) Ondansetron HCl 4 mg 06/14/21 16:18 Ondansetron 4 Mg/2 Ml Inj IV Q8H PRN Nausea And Vomiting Oxycodone/Acetaminophen 1 tab 06/14/21 16:18 Oxycodone /Acetaminophen 5-325mg Tab PO Q6H PRN Pain, Moderate (4-6) Sodium Chloride 10 ml 06/14/21 22:00 06/16/21 09:29 Sodium Chloride 0.9% 10 Ml Flush Syringe IV 10 ml BID DEE DEE Administration Sodium Chloride 10 ml 06/14/21 16:18 Sodium Chloride 0.9% 10 Ml Flush Syringe IV PRN PRN LINE FLUSH
[2021-06-16 11:20] LABS: Calcium 8.6 mg/dL (8.4-10.2)
--- NOTE | 2021-06-16 13:32 | Vascular Lab Report ---
DUPLEX DOPPLER LOWER EXTREMITY ARTERIAL, BILATERAL VL ROSA EVALUATION INDICATION: PVD with RLE gangrene. TECHNIQUE: Arterial duplex examination of both lower extremities performed using B-mode, color flow and spectral Doppler assessment. FINDINGS: RIGHT: Common Femoral Artery: PSV 143 cm/sec. Triphasic waveform. Proximal SFA: PSV 118 cm/sec. Biphasic waveform. Mid SFA: PSV 119 cm/sec. Biphasic waveform. Distal SFA: PSV 103 cm/sec. Biphasic waveform. Popliteal artery: PSV 79 cm/sec. Triphasic waveform. Posterior tibial artery: PSV 63 cm/sec. Monophasic waveform. Dorsalis Pedis Artery: PSV 37 cm/sec. Monophasic waveform. LEFT: Common Femoral Artery: PSV 122 cm/sec. Biphasic waveform. Proximal SFA: PSV 105 cm/sec. Biphasic waveform. Mid SFA: PSV 106 cm/sec. Biphasic waveform. Distal SFA: PSV 116 cm/sec. Biphasic waveform. Popliteal artery: PSV 92 cm/sec. Biphasic waveform. Posterior tibial artery: PSV 89 cm/sec. Biphasic waveform. Dorsalis Pedis Artery: PSV 85 cm/sec. Biphasic waveform. Right ROSA: Could not be calculated due to noncompressible vessels in the ankle Left ROSA: 1.15. Pressure volume recordings were obtained in both great toes. There is severely blunted flow to the ri ght great toe. IMPRESSION: Moderate to severe peripheral vascular disease in the distal right lower extremity Ankle-Brachial Index (ROSA): * Calcified arteries > 1.4 * Normal = 0.9-1.4 * Mild PAD = 0.7-0.89 * Moderate PAD = 0.51-0.69 * Severe PAD < 0.5 Doppler Waveform: * Triphasic is normal. * Biphasic is abnormal if clear transition from triphasic signal along vascular tree. * Monophasic is abnormal. Signer Name: Eleno Dodson Jr, MD Signed: 06/16/2021 1:27 PM Workstation Name: [id number]
[2021-06-16] MEDS: hydrALAZINE 25 MG TAB PO SCH ×2 (15:34→21:43)
[2021-06-16] MEDS: GABAPENTIN 300 MG CAP PO SCH ×2 (15:35→21:52)
[2021-06-16] MEDS ORDERED: ENOXAPARIN 40 MG/0.4 ML INJ SUB-Q NR (17:00)
--- NOTE | 2021-06-16 19:49 | Progress Note ---
Assessment and Plan Assessment and plan: -- Gas gangrene/right great toe Current Visit: Yes Status: Acute Surgery evaluation noted appreciated Patient is scheduled for vascular procedure today --Peripheral vascular disease; Current Visit: Yes Status: Acute Continue aspirin statin and Plavix Follow vascular studies, supportive care -- Systemic inflammatory response syndrome Current Visit: Yes Status: Acute Continue antibiotics and supportive care ID consult if needed -- Cellulitis of right foot Current Visit: Yes Status: Acute Elevate the limb, antibiotics and supportive care -- Diabetic foot infection Current Visit: Yes Status: Acute IV antibiotic therapy, antihyperglycemic control, Follow cultures supportive care, surgical team consulted. --Acute kidney injury; Current Visit: Yes Status: Acute Vasomotor nephropathy, gentle hydration, monitor renal function Avoid nephrotoxins --Type II diabetes Current Visit: Yes Status: Acute Accu-Chek, sliding scale coverage ADA diet, Long-acting insulin as needed --Severe protein calorie malnutrition; Current Visit: Yes Status: Chronic Nutrition supplement, nutrition consult Supportive care, hypoalbuminemia --DVT prophylaxis Current Visit: Yes Status: Acute SCD , Lovenox Closely monitor the patient and adjust management as needed Sample Card Maker recommendations noted and appreciated Plan of care reviewed with the patient and her nurse Follow vascular surgery evaluation and recommendations Discharge when medically stable History Interval history: Patient seen and examined at the bedside Patient is scheduled for vascular procedure today N.p.o. status Vital signs noted Hospitalist Physical - Constitutional Vitals: Temp Pulse Resp BP Pulse Ox 99.0 F 76 16 165/73 97 06/16/21 19:25 06/16/21 19:25 06/16/21 19:25 06/16/21 19:25 06/16/21 19:25 General appearance: Present: mild distress, well-nourished - EENT Eyes: Present: PERRL, EOM intact - Neck Neck: Present: supple, normal ROM - Respiratory Respiratory effort: normal Respiratory: bilateral: diminished, negative: rales, rhonchi, wheezing - Cardiovascular Rhythm: regular Heart Sounds: Present: S1 & S2 - Extremities Extremities: abnormal (Gangrene great toe) - Abdominal General gastrointestinal: soft, non-tender, non-distended, normal bowel sounds - Integumentary Integumentary: Present: clear, warm - Psychiatric Psychiatric: appropriate mood/affect, cooperative - Neurologic Neurologic: CNII-XII intact, moves all extremities Results - Labs CBC & Chem 7: 06/14/21 14:03 06/17/21 10:27 Labs: Laboratory Last Values WBC 16.1 K/mm3 (4.5-11.0) H 06/14/21 14:03 RBC 4.90 M/mm3 (3.65-5.03) 06/14/21 14:03 Hgb 9.6 gm/dl (10.1-14.3) L 06/14/21 14:03 Hct 29.7 % (30.3-42.9) L 06/14/21 14:03 MCV 61 fl (79-97) L 06/14/21 14:03 MCH 20 pg (28-32) L 06/14/21 14:03 MCHC 32 % (30-34) 06/14/21 14:03 RDW 19.3 % (13.2-15.2) H 06/14/21 14:03 Plt Count 313 K/mm3 (140-440) 06/14/21 14:03 Add Manual Diff Complete 06/14/21 14:03 Total Counted 100 06/14/21 14:03 Seg Neuts % (Manual) 83.0 % (40.0-70.0) H 06/14/21 14:03 Band Neutrophils % 2.0 % 06/14/21 14:03 Lymphocytes % (Manual) 5.0 % (13.4-35.0) L 06/14/21 14:03 Monocytes % (Manual) 7.0 % (0.0-7.3) 06/14/21 14:03 Eosinophils % (Manual) 3.0 % (0.0-4.3) 06/14/21 14:03 Nucleated RBC % Not Reportable 06/14/21 14:03 Seg Neutrophils # Man 13.4 K/mm3 (1.8-7.7) H 06/14/21 14:03 Band Neutrophils # 0.3 K/mm3 06/14/21 14:03 Lymphocytes # (Manual) 0.8 K/mm3 (1.2-5.4) L 06/14/21 14:03 Abs React Lymphs (Man) 0.0 K/mm3 06/14/21 14:03 Monocytes # (Manual) 1.1 K/mm3 (0.0-0.8) H 06/14/21 14:03 Eosinophils # (Manual) 0.5 K/mm3 (0.0-0.4) H 06/14/21 14:03 Basophils # (Manual) 0.0 K/mm3 (0.0-0.1) 06/14/21 14:03 Metamyelocytes # 0.0 K/mm3 06/14/21 14:03 Myelocytes # 0.0 K/mm3 06/14/21 14:03 Promyelocytes # 0.0 K/mm3 06/14/21 14:03 Blast Cells # 0.0 K/mm3 06/14/21 14:03 WBC Morphology Not Reportable 06/14/21 14:03 Hypersegmented Neuts Not Reportable 06/14/21 14:03 Hyposegmented Neuts Not Reportable 06/14/21 14:03 Hypogranular Neuts Not Reportable 06/14/21 14:03 Smudge Cells Not Reportable 06/14/21 14:03 Toxic Granulation Not Reportable 06/14/21 14:03 Toxic Vacuolation Not Reportable 06/14/21 14:03 Dohle Bodies Not Reportable 06/14/21 14:03 Pelger-Huet Anomaly Not Reportable 06/14/21 14:03 Lilliana Rods Not Reportable 06/14/21 14:03 Platelet Estimate Consistent w auto 06/14/21 14:03 Clumped Platelets Not Reportable 06/14/21 14:03 Plt Clumps, EDTA Not Reportable 06/14/21 14:03 Large Platelets Few 06/14/21 14:03 Giant Platelets Not Reportable 06/14/21 14:03 Platelet Satelliting Not Reportable 06/14/21 14:03 Plt Morphology Comment Not Reportable 06/14/21 14:03 RBC Morphology Not Reportable 06/14/21 14:03 Dimorphic RBCs Not Reportable 06/14/21 14:03 Polychromasia Not Reportable 06/14/21 14:03 Hypochromasia 2+ 06/14/21 14:03 Poikilocytosis Not Reportable 06/14/21 14:03 Anisocytosis 1+ 06/14/21 14:03 Microcytosis 2+ 06/14/21 14:03 Macrocytosis Not Reportable 06/14/21 14:03 Spherocytes Not Reportable 06/14/21 14:03 Pappenheimer Bodies Not Reportable 06/14/21 14:03 Sickle Cells Not Reportable 06/14/21 14:03 Target Cells Not Reportable 06/14/21 14:03 Tear Drop Cells Not Reportable 06/14/21 14:03 Ovalocytes Not Reportable 06/14/21 14:03 Helmet Cells Not Reportable 06/14/21 14:03 [place] Bodies Not Reportable 06/14/21 14:03 [place] Rings Not Reportable 06/14/21 14:03 Rashaad Cells Not Reportable 06/14/21 14:03 Bite Cells Not Reportable 06/14/21 14:03 Crenated Cell Not Reportable 06/14/21 14:03 Elliptocytes Not Reportable 06/14/21 14:03 Acanthocytes (Spur) Not Reportable 06/14/21 14:03 Rouleaux Not Reportable 06/14/21 14:03 Hemoglobin C Crystals Not Reportable 06/14/21 14:03 Schistocytes Not Reportable 06/14/21 14:03 Malaria parasites Not Reportable 06/14/21 14:03 Yoseph Bodies Not Reportable 06/14/21 14:03 Hem Pathologist Commnt No 06/14/21 14:03 Sodium 138 mmol/L (137-145) 06/16/21 10:45 Potassium 4.8 mmol/L (3.6-5.0) 06/16/21 10:45 Chloride 106.5 mmol/L (98-107) 06/16/21 10:45 Carbon Dioxide 19 mmol/L (22-30) L 06/16/21 10:45 Anion Gap 17 mmol/L 06/16/21 10:45 BUN 35 mg/dL (7-17) H 06/16/21 10:45 Creatinine 1.4 mg/dL (0.6-1.2) H 06/16/21 10:45 Estimated GFR 47 ml/min 06/16/21 10:45 BUN/Creatinine Ratio 25 % 06/16/21 10:45 Glucose 208 mg/dL (65-100) H 06/16/21 10:45 POC Glucose 84 mg/dL (70-105) 06/16/21 16:02 Lactic Acid 0.70 mmol/L (0.7-2.0) 06/15/21 06:07 Calcium 8.6 mg/dL (8.4-10.2) 06/16/21 10:45 Magnesium 2.30 mg/dL (1.7-2.3) 06/16/21 10:45 Total Bilirubin 0.60 mg/dL (0.1-1.2) 06/14/21 14:03 AST 25 units/L (5-40) 06/14/21 14:03 ALT 28 units/L (7-56) 06/14/21 14:03 Alkaline Phosphatase 1108 units/L (35-129) H 06/14/21 14:03 Total Protein 7.3 g/dL (6.3-8.2) 06/14/21 14:03 Albumin 2.9 g/dL (3.9-5) L 06/14/21 14:03 Albumin/Globulin Ratio 0.7 % 06/14/21 14:03 Microbiology: Microbiology 06/14/21 17:41 Peripheral/Venous Blood Culture - Preliminary NO GROWTH AFTER 48 HOURS 06/14/21 17:41 Peripheral/Venous Blood Culture - Preliminary NO GROWTH AFTER 48 HOURS Hong/IV: Voiding Method Toilet Active Medications - Current Medications Current Medications: Generic Name Dose Route Start Last Admin Trade Name Freq PRN Reason Stop Dose Admin Acetaminophen 650 mg 06/14/21 17:17 Acetaminophen 325 Mg Tab PO Q6H PRN Pain, Mild (1-3) Albuterol 2.5 mg 06/14/21 16:18 Albuterol 2.5 Mg/3 Ml Nebu IH Q4HRT PRN Shortness Of Breath Amlodipine Besylate 10 mg 06/16/21 10:00 06/16/21 09:28 Amlodipine 10 Mg Tab PO 10 mg DAILY DEE DEE Administration Aspirin 81 mg 06/16/21 10:00 06/16/21 09:29 Aspirin Ec 81 Mg Tab PO 81 mg DAILY DEE DEE Administration Atorvastatin Calcium 40 mg 06/16/21 22:00 Atorvastatin 40 Mg Tab PO QHS DEE DEE Clopidogrel Bisulfate 75 mg 06/16/21 10:00 06/16/21 09:28 Clopidogrel 75 Mg Tab PO 75 mg DAILY DEE DEE Administration Enoxaparin Sodium 40 mg 06/16/21 17:00 Enoxaparin 40 Mg/0.4 Ml Inj SUB-Q 06/16/21 23:01 PREOP NR Protocol Gabapentin 300 mg 06/16/21 14:00 06/16/21 15:35 Gabapentin 300 Mg Cap PO 300 mg Q8HR DEE DEE Administration Hydralazine HCl 25 mg 06/16/21 14:00 06/16/21 15:34 Hydralazine 25 Mg Tab PO 25 mg Q8HR DEE DEE Administration Hydralazine HCl 10 mg 06/16/21 09:00 Hydralazine 20 Mg/1 Ml Inj IV Q4H PRN Hypertension Hydromorphone HCl 0.25 mg 06/14/21 17:17 Hydromorphone 1 Mg/1 Ml Inj IV Q4H PRN Pain, Moderate (4-6) Cefazolin Sodium 2 gm/ Sodium 100 mls @ 200 mls/hr 06/15/21 14:00 06/16/21 15:34 Chloride IV 200 mls/hr Q8HR DEE DEE Administration Protocol Clindamycin HCl 600 mg in 50 mls @ 100 mls/hr 06/15/21 12:00 06/16/21 12:50 Cleocin 600 Mg/50 Ml IV 100 mls/hr Q8H DEE DEE Administration Sodium Chloride 1,000 mls @ 100 mls/hr 06/15/21 17:15 06/16/21 06:34 Nacl 0.9% 1000 Ml IV 100 mls/hr DIRECT DEE DEE Administration Insulin Human Isoph/Insulin Regular 10 unit 06/16/21 08:00 06/16/21 16:08 Insulin Nph/Regular 70/30 Inj SUB-Q Not Given BIDDIAB [facility] Insulin Human Lispro 0 unit 06/15/21 11:30 06/16/21 16:07 Insulin Lispro 100 Unit/Ml SUB-Q Not Given ACHS [facility] Protocol Morphine Sulfate 2 mg 06/14/21 16:18 06/16/21 04:02 Morphine 4 Mg/1 Ml Inj IV 2 mg Q8H PRN Administration Pain , Severe (7-10) Ondansetron HCl 4 mg 06/14/21 16:18 Ondansetron 4 Mg/2 Ml Inj IV Q8H PRN Nausea And Vomiting Oxycodone/Acetaminophen 1 tab 06/14/21 16:18 Oxycodone /Acetaminophen 5-325mg Tab PO Q6H PRN Pain, Moderate (4-6) Sodium Chloride 10 ml 06/14/21 22:00 06/16/21 09:29 Sodium Chloride 0.9% 10 Ml Flush Syringe IV 10 ml BID DEE DEE Administration Sodium Chloride 10 ml 06/14/21 16:18 Sodium Chloride 0.9% 10 Ml Flush Syringe IV PRN PRN LINE FLUSH
[2021-06-16] MEDS: oxyCODONE /ACETAMINOPHEN 5-325MG TAB PO PRN (21:53)
[2021-06-17] MEDS: CLINDAMYCIN 600 MG IV SCH ×3 (05:39→22:27)
[2021-06-17] MEDS: hydrALAZINE 25 MG TAB PO SCH ×3 (05:39→22:27)
[2021-06-17] MEDS: GABAPENTIN 300 MG CAP PO SCH ×3 (05:40→22:27)
[2021-06-17] MEDS: INSULIN LISPRO 100 UNIT/ML SUB-Q SCH ×4 (08:57→22:31)
[2021-06-17] MEDS: CLOPIDOGREL 75 MG TAB PO SCH (09:15)
[2021-06-17 11:01] LABS: Calcium 8.2 mg/dL (8.4-10.2)
[2021-06-17] MEDS ORDERED: HEPARIN/NS 5000 UNIT/500ML 1,000 ML IR ONE (14:37)
[2021-06-17] MEDS ORDERED: SODIUM CHLORIDE 0.9% 500 ML 500 ML ONE (14:39)
[2021-06-17] MEDS: LIDOCAINE (2%) 20 MG/1 ML VIAL 20 ML MDV INFILTRATI ONE ×2 (15:10→15:36)
[2021-06-17] MEDS: MIDAZOLAM 2 MG/2 ML INJ ONE ×2 (15:10→15:29)
[2021-06-17] MEDS: fentaNYL 100 MCG/2 ML INJ ONE ×2 (15:10→15:29)
[2021-06-17] MEDS: HEPARIN 10,000 UNITS/10 ML VIAL ONE ×2 (15:53→16:40)
[2021-06-17] MEDS ORDERED: SODIUM CHLORIDE 0.9% 1000 ML 1,000 ML ONE (15:55)
[2021-06-17] MEDS ORDERED: VERAPAMIL 5 MG/2 ML INJ ONE (15:55)
[2021-06-17] MEDS ORDERED: NITROGLYCERIN DRIP 50 MG/250 ML BOTTLE ONE (15:55)
[2021-06-17] MEDS: INSULIN NPH/REGULAR 70/30 INJ SUB-Q SCH ×2 (16:45→20:16)
[2021-06-17] MEDS ORDERED: WATER FOR INJ Sterile (PF) 10 ML ONE (16:56)
[2021-06-17] MEDS ORDERED: ALTEPLASE 2 MG INJ ONE (16:59)
--- NOTE | 2021-06-17 17:34 | Operative Report ---
Operative Report Operative Report: Date of Procedure: 06/19/2021 Pre-operative Diagnosis: Peripheral Vascular Disease with Right First Toe Gangre ne Post-operative Diagnosis: Same Procedure(s): 1. Ultrasound-Guided Access Left Common Femoral Artery 2. Diagnostic Aortogram (No Previous Films for Comparison) 3. Diagnostic Right Lower Extremity Angiogram (No Previous Films for Comparison) 4. Atherectomy with Angioplasty of Right Posterior Tibial Artery with CSI Diamondback 1.25 Solid Orbital Atherectomy Catheter, 2.5-3.0 x 210 Nanocross Balloon, and 4.0 x 150 IN.PACT Drug-Coated Balloon 5. Secondary Percutaneous Mechanical Embolectomy 6. Closure of Left Femoral Arteriotomy with Pro-[place] Closure Device 7. Radiologic Supervision with Interpretation 8. Monitored Moderate Sedation (Total Anesthesia Time: 116 Minutes) Surgeon: Tano Sylvester M.D. Facilities Engineer: Olaf Anesthesia: Local/Monitored Moderate Sedation Total Anesthesia Time: 116 Minutes EBL: Minimal Counts: Correct Complications: None Condition: Stable Specimen: None Indication: The patient is a 55-year-old female with a history of diabetes who presented to the emergency department with an ulceration of her right first toe that developed into gangrene. She was found to have osteomyelitis of the right first toe as well as an ultrasound that demonstrated decreased blood flow to the right lower extremity. She is in need of a diagnostic angiogram with possible intervention. She was given the risk, benefits, and alternative procedures and consented to the procedure. Angiographic Findings: The diagnostic aortogram revealed that the aorta was patent without evidence of flow-limiting stenosis or aneurysmal dilatation. Bilateral common iliac arterie s were patent without evidence of flow-limiting stenosis. The right lower extremity angiogram revealed that the right external iliac artery and hypogastric artery were patent without evidence of flow-limiting stenosis. The right common femoral artery, profunda artery, SFA, and popliteal artery were patent without evidence of flow-limiting stenosis. The anterior tibial artery had 40 to 60% stenosis in the proximal half of the artery and the remainder of the artery was occluded with reconstitution in a patent but somewhat atretic dorsalis pedis artery. The peroneal artery was completely occl uded. The posterior tibial artery was diffusely diseased with stenosis ranging from 50 to 85% but was patent throughout its course. The medial was the dominant flow into the foot and the lateral plantar artery was somewhat diminutive. After intervention the posterior tibial artery was patent to the ankle with less than 15% residual stenosis. There were 2 areas in the mid calf that were previously noted, after angioplasty, to have active extravasation however there was no further evidence of active extravasation. The medial plantar artery had an area of perforation but appeared to have flow at the completion of the case. There was minimal flow noted within the lateral plantar artery. Description of Procedure: The patient was brought to the [facility] and laid in supine position. After a timeout was performed her left groin was prepped and draped in normal sterile fashion. Ultrasound was used to identify the left common femoral artery and confirm patency. Once patency was confirmed the overlying skin and soft tissue was anesthetized with lidocaine. An 11 blade was used to make small stab incision and then a curved hemostat was used with ultrasound guidance to bluntly dissect down to the anterior surface of the left common femoral artery. A 21- gauge micropuncture needle was used ultrasound guidance to enter the left common femoral artery and then a 0.018 micropuncture wire was advanced into the artery. The needle was removed and exchanged for a micropuncture sheath by Seldinger technique. The inner cannula and wire were removed and a 0.035 Bentson wire was advanced to the aorta. The micropuncture sheath was exchanged for 5 [place] sheath by Seldinger technique. An Omni Flush catheter was advanced over the Bentson wire and after removing the Bentson wire diagnostic aortogram was performed with the previously described findings. The Bentson wire was reinserted and the Bentson wire and Omni Flush catheter were advanced up and over the bifurcation and a right lower extremity angiogram was performed the previously described findings. At this point the decision was made to treat. The Bentson wire was advanced into the distal popliteal artery and the 5 [place] sheath was exchanged for 6 [place] 90 cm destination sheath by Seldinger technique. At this point the patient was systemically heparinized with 4000 units of heparin IV and this was redosed every 45 minutes into the completion of the case. I then used a Navicross catheter 0.018 V 18 Wire. I was eventually able to advance a 0.014 Choice PT wire and 0.014 trailblazer catheter into the medial plantar artery which was confirmed by angiogram. I then exchanged the Choice PT wire for a 0.014 Viper Wire and performed atherectomy of the Posterior Tibial Artery Using a Wetradetogether Diamondback 1.25 Solid Orbital Atherectomy Catheter. I then performed angioplasty of the posterior tibial artery using a 2.5-3.0 x 210 Nanocross Balloon. While perform angioplasty of the posterior tibial artery the Viper wire was inadvertently pulled out of the medial plantar artery and advanced blindly which caused a perforation of the medial plantar artery. I made attempts to cross the artery with various wires without success. Also was identified while performing angioplasty of the proximal mid artery there were 2 areas of perforation in the mid artery. I inflated the balloon for a total of 5 minutes and the follow-up angiogram revealed no additional extravasation of contrast however there were 2 areas of dissection at the origin of the posterior tibial artery as well as in the proximal artery that were flow-limiting. Additionally there was what appeared to be thrombus or debris in the distal posterior tibial artery. I was able to aspirate the embolized debris with the Rosales cross catheter which was confirmed by angiogram. Additionally I injected a total of 1200 mcg of nitroglycerin and 4 mg of TPA into the distal posterior tibial artery. I exchanged the Choice PT wire for a 0.035 Bentson wire and then advanced a 4 x 150 IN.PACT Drug-Coated Balloon into the proximal posterior tibial artery and performed angioplasty with a low pressure inflation. The final angiogram revealed less than 20% residual stenosis throughout the posterior tibial artery and the areas of previous dissection were no longer flow-limiting. The flow was somewhat sluggish because of the limited outflow in the foot so I injected an additional 400 mcg of nitroglycerin. I then pulled the sheath into the left external iliac artery and advanced the wire into the aorta. I removed the sheath and then used a Pro-glide closure device to close the left femoral arteriotomy. I then dressed the left femoral entry site with a sterile dressing. The patient tolerated the procedure well and was transported to her room in stable condition.
--- NOTE | 2021-06-17 18:33 | Event Note ---
Date: 06/17/21 Patient with blistering of the skin, around the right first toe, that developed over the past 24 hours. Will have the wound painted with betadine daily, Will continue to monitor and if this has progressed by tomorrow she will require amputation of the toe over the weekend to remove infection and preserve healthy tissue.
[2021-06-17] MEDS: HYDROmorphone 1 MG/1 ML INJ IV PRN (22:14)
[2021-06-17] MEDS: CILOSTAZOL 100 MG TAB PO SCH (22:35)
[2021-06-17] MEDS: amLODIPine 10 MG TAB PO SCH (22:35)
[2021-06-17] MEDS: ASPIRIN EC 81 MG TAB PO SCH (22:45)
[2021-06-18] MEDS: CLINDAMYCIN 600 MG IV SCH ×3 (04:51→20:05)
[2021-06-18] MEDS: hydrALAZINE 25 MG TAB PO SCH ×3 (05:33→21:31)
[2021-06-18] MEDS: GABAPENTIN 300 MG CAP PO SCH ×3 (05:33→21:32)
[2021-06-18 07:32] LABS: Calcium 7.7 mg/dL (8.4-10.2)
[2021-06-18] MEDS: CILOSTAZOL 100 MG TAB PO SCH ×2 (09:33→21:30)
[2021-06-18] MEDS: INSULIN NPH/REGULAR 70/30 INJ SUB-Q SCH ×2 (09:33→17:17)
[2021-06-18] MEDS: INSULIN LISPRO 100 UNIT/ML SUB-Q SCH ×4 (09:34→21:34)
[2021-06-18] MEDS: CLOPIDOGREL 75 MG TAB PO SCH (09:34)
[2021-06-18] MEDS: amLODIPine 10 MG TAB PO SCH (09:34)
[2021-06-18] MEDS: MORPHINE 4 MG/1 ML INJ IV PRN ×3 (09:38→21:43)
--- NOTE | 2021-06-18 12:34 | Progress Note ---
Assessment and Plan Assessment and Plan Assessment and plan: -- Gas gangrene/right great toe Current Visit: Yes Status: Acute Surgery evaluation noted appreciated Patient is scheduled for right great toe amputation on 06/21/2021 --Peripheral vascular disease; Current Visit: Yes Status: Acute Continue aspirin statin and Plavix Follow vascular studies, supportive care -- Systemic inflammatory response syndrome Current Visit: Yes Status: Acute Continue antibiotics and supportive care ID consult if needed -- Cellulitis of right foot Current Visit: Yes Status: Acute Elevate the limb, antibiotics and supportive care -- Diabetic foot infection Current Visit: Yes Status: Acute IV antibiotic therapy, antihyperglycemic control, Follow cultures supportive care, surgical team consulted. --Acute kidney injury; Current Visit: Yes Status: Acute Vasomotor nephropathy, gentle hydration, monitor renal function Avoid nephrotoxins --Type II diabetes Current Visit: Yes Status: Acute Accu-Chek, sliding scale coverage ADA diet, Long-acting insulin as needed --Severe protein calorie malnutrition; Current Visit: Yes Status: Chronic Nutrition supplement, nutrition consult Supportive care, hypoalbuminemia --DVT prophylaxis Current Visit: Yes Status: Acute SCD , Lovenox Subjective Date of service: 06/19/21 Principal diagnosis: Peripheral vascular disease with gangrene right first toe Interval history: 55 YO Female with DM, HTN presents to ED for evaluation. Pt reports "my left big toe hurts". Patient states that she has experienced pain, and color change to her left great toe over the past 4 days with persistently worsening symptoms over the same timeframe. Patient also reports that the toenail on her left great toe is falling off. Patient reports purulent drainage from the left great toe over the past 3 days. Patient transported to [facility] via private vehicle for further care and evaluation of the aforementioned symptoms. The patient was seen and evaluated in the emergency department. All lab and imaging studies reviewed. Patient underwent x-ray of the left foot and was found to have left great toe soft tissue air. Patient found to have foot cellulitis complicated by systemic inflammatory response syndrome. Patient also found to have left great toe dry gangrene, as well as diabetic foot infection. Patient treated with IV antibiotic therapy. Wound care consulted, surgical team consulted in the emergency department. Patient admitted to surgical floor. Patient is pending urther care. Patient denies fever, chills, chest pain, palpitation, productive cough, skin rash, recent ill contacts, or known exposure to COVID-19. Prior admission on 05/15/2020 reviewed. All medication listed at time of admission has been reconciled. 06/18/21 Plan for first digit amputation 06/19/2021 Plantar first digit amputation of the right toe on 06/21/2021 Objective - Constitutional Vitals: Vital Signs - 12hr 06/18/21 06/18/21 06/18/21 04:47 07:23 09:34 Temperature 98.8 F 98.7 F Pulse Rate 73 74 98 H Respiratory 18 18 Rate Blood Pressure 154/67 138/59 153/71 O2 Sat by Pulse 94 93 Oximetry 06/18/21 10:58 Temperature 98.8 F Pulse Rate 73 Respiratory 18 Rate Blood Pressure 132/55 O2 Sat by Pulse 94 Oximetry General appearance: Present: no acute distress, well-nourished - EENT Eyes: PERRL, EOM intact ENT: hearing intact, clear oral mucosa Ears: bilateral: normal - Neck Neck: supple, normal ROM - Respiratory Respiratory effort: normal Respiratory: bilateral: CTA - Breasts Breasts: normal - Cardiovascular Rhythm: regular Heart Sounds: Present: S1 & S2. Absent: gallop, rub Extremities: pulses intact, No edema, normal color, Full ROM, abnormal (Right great toe gangrenous) Extremity abnormal: other (Right great toe gangrene) - Gastrointestinal General gastrointestinal: Present: soft, non-tender, non-distended, normal bowel sounds - Genitourinary Female genitourinary: normal - Integumentary Integumentary: clear, warm, dry - Musculoskeletal Musculoskeletal: 1, strength equal bilaterally - Neurologic Neurologic: moves all extremities - Psychiatric Psychiatric: memory intact, appropriate mood/affect, intact judgment & insight - Labs CBC & Chem 7: 06/21/21 04:18 06/21/21 04:18 Labs: Abnormal lab results 06/17/21 06/17/21 06/17/21 Range/Units 14:39 18:04 21:52 Sodium (137-145) mmol/L Chloride (98-107) mmol/L Carbon Dioxide (22-30) mmol/L BUN (7-17) mg/dL Creatinine (0.6-1.2) mg/dL Glucose (65-100) mg/dL POC Glucose 181 H 180 H 245 H (70-105) mg/dL Calcium (8.4-10.2) mg/dL 06/18/21 06/18/21 06/18/21 Range/Units 06:59 07:23 10:57 Sodium 136 L (137-145) mmol/L Chloride 109.7 H (98-107) mmol/L Carbon Dioxide 15 L (22-30) mmol/L BUN 31 H (7-17) mg/dL Creatinine 1.3 H (0.6-1.2) mg/dL Glucose 257 H (65-100) mg/dL POC Glucose 245 H 267 H (70-105) mg/dL Calcium 7.7 L (8.4-10.2) mg/dL
--- NOTE | 2021-06-18 20:38 | Progress Note ---
Assessment and Plan The patient is doing well status post revascularization of her right lower extremity. She has a palpable pulse and warm foot. Her right first toe has blistering that is stable. She will require amputation of her right first toe which will be performed on Sunday. The bleeding from the left groin was controlled with Dermabond and a sterile dressing was replaced. Subjective Date of service: 06/18/21 Principal diagnosis: Peripheral vascular disease with gangrene right first toe Interval history: The patient had some oozing from the left femoral access site overnight and required multiple dressing changes. She has no additional complaints at this time. Objective - Constitutional Vitals: Vital Signs - 12hr 06/18/21 06/18/21 06/18/21 09:34 10:58 14:24 Temperature 98.8 F Pulse Rate 98 H 73 Respiratory 18 Rate Blood Pressure 153/71 132/55 132/55 O2 Sat by Pulse 94 Oximetry 06/18/21 15:48 Temperature 99.0 F Pulse Rate 79 Respiratory 18 Rate Blood Pressure 132/51 O2 Sat by Pulse 92 Oximetry General appearance: Present: no acute distress Extremities: pulses intact (Right foot is warm and well perfused with a palpable posterior tibial pulse and reperfusion edema of the foot), abnormal (Left femoral access site with oozing from the skin edge, palpable femoral pulse without evidence of pseudoaneurysm) Extremity abnormal: ulceration (Gangrene with ulceration of the right first toe, blistering of the skin at the right first toe is unchanged from yesterday.) - Labs CBC & Chem 7: 06/14/21 14:03 06/18/21 06:59 Labs: Abnormal lab results 06/17/21 06/18/21 06/18/21 Range/Units 21:52 06:59 07:23 Sodium 136 L (137-145) mmol/L Chloride 109.7 H (98-107) mmol/L Carbon Dioxide 15 L (22-30) mmol/L BUN 31 H (7-17) mg/dL Creatinine 1.3 H (0.6-1.2) mg/dL Glucose 257 H (65-100) mg/dL POC Glucose 245 H 245 H (70-105) mg/dL Calcium 7.7 L (8.4-10.2) mg/dL 06/18/21 06/18/21 Range/Units 10:57 15:56 Sodium (137-145) mmol/L Chloride (98-107) mmol/L Carbon Dioxide (22-30) mmol/L BUN (7-17) mg/dL Creatinine (0.6-1.2) mg/dL Glucose (65-100) mg/dL POC Glucose 267 H 256 H (70-105) mg/dL Calcium (8.4-10.2) mg/dL Medications & Allergies - Medications Allergies/Adverse Reactions: Allergies No Known Allergies Allergy (Verified 05/15/20 02:01) Home Medications: Home Medications Medication Instructions Recorded Confirmed Last Taken Type Aspirin [Adult Aspirin] 81 mg PO DAILY 06/15/21 06/15/21 3 Days Ago History ~06/12/21 81 AtorvaSTATin [Lipitor] 40 mg PO DAILY 06/15/21 06/15/21 3 Days Ago History ~06/12/21 40 Clopidogrel [Plavix] 75 mg PO DAILY 06/15/21 06/15/21 3 Days Ago History ~06/12/21 75 Furosemide [Lasix TAB] 40 mg PO DAILY 06/15/21 06/15/21 3 Days Ago History ~06/12/21 40 Gabapentin [Neurontin] 300 mg PO Q8HR 06/15/21 06/15/21 3 Days Ago History ~06/12/21 300 Insulin NPH Hum/Reg Insulin Hm 12 unit SQ QAM 06/15/21 06/15/21 3 Days Ago History [Novolin 70-30 Flexpen] ~06/12/21 12 Novolin 70-30 Flexpen 10 units SQ QPM 06/15/21 06/15/21 3 Days Ago History ~06/12/21 10 amLODIPine 10 mg PO DAILY 06/15/21 06/15/21 3 Days Ago History ~06/12/21 10 Active Medications: Generic Name Dose Route Start Last Admin Trade Name Freq PRN Reason Stop Dose Admin Acetaminophen 650 mg 06/14/21 17:17 Acetaminophen 325 Mg Tab PO Q6H PRN Pain, Mild (1-3) Hydrocodone Bitart/Acetaminophen 1 each 06/17/21 17:34 Hydrocodone/Acetaminophen 5-325 Mg Tab PO Q4H PRN Pain, Moderate (4-6) Albuterol 2.5 mg 06/14/21 16:18 Albuterol 2.5 Mg/3 Ml Nebu IH Q4HRT PRN Shortness Of Breath Amlodipine Besylate 10 mg 06/16/21 10:00 06/18/21 09:34 Amlodipine 10 Mg Tab PO 10 mg DAILY DEE DEE Administration Atorvastatin Calcium 40 mg 06/16/21 22:00 06/17/21 22:27 Atorvastatin 40 Mg Tab PO 40 mg QHS DEE DEE Administration Cilostazol 100 mg 06/17/21 22:00 06/18/21 09:33 Cilostazol 100 Mg Tab PO 100 mg BID DEE DEE Administration Clopidogrel Bisulfate 75 mg 06/16/21 10:00 06/18/21 09:34 Clopidogrel 75 Mg Tab PO 75 mg DAILY DEE DEE Administration Gabapentin 300 mg 06/16/21 14:00 06/18/21 14:24 Gabapentin 300 Mg Cap PO 300 mg Q8HR DEE DEE Administration Hydralazine HCl 25 mg 06/16/21 14:00 06/18/21 14:24 Hydralazine 25 Mg Tab PO 25 mg Q8HR DEE DEE Administration Hydralazine HCl 10 mg 06/16/21 09:00 Hydralazine 20 Mg/1 Ml Inj IV Q4H PRN Hypertension Hydromorphone HCl 0.25 mg 06/14/21 17:17 06/17/21 22:14 Hydromorphone 1 Mg/1 Ml Inj IV 0.25 mg Q4H PRN Administration Pain, Moderate (4-6) Cefazolin Sodium 2 gm/ Sodium 100 mls @ 200 mls/hr 06/15/21 14:00 06/18/21 14:24 Chloride IV 200 mls/hr Q8HR DEE DEE Administration Protocol Clindamycin HCl 600 mg in 50 mls @ 100 mls/hr 06/15/21 12:00 06/18/21 12:05 Cleocin 600 Mg/50 Ml IV 100 mls/hr Q8H DEE DEE Administration Sodium Chloride 1,000 mls @ 100 mls/hr 06/15/21 17:15 06/16/21 22:37 Nacl 0.9% 1000 Ml IV 100 mls/hr DIRECT DEE DEE Administration Insulin Human Isoph/Insulin Regular 10 unit 06/16/21 08:00 06/18/21 17:17 Insulin Nph/Regular 70/30 Inj SUB-Q 10 unit BIDDIAB DEE DEE Administration Insulin Human Lispro 0 unit 06/15/21 11:30 06/18/21 16:17 Insulin Lispro 100 Unit/Ml SUB-Q 6 unit ACHS DEE DEE Administration Protocol Morphine Sulfate 2 mg 06/14/21 16:18 06/18/21 17:51 Morphine 4 Mg/1 Ml Inj IV 2 mg Q8H PRN Administration Pain , Severe (7-10) Ondansetron HCl 4 mg 06/14/21 16:18 Ondansetron 4 Mg/2 Ml Inj IV Q8H PRN Nausea And Vomiting Oxycodone/Acetaminophen 1 tab 06/14/21 16:18 06/16/21 21:53 Oxycodone /Acetaminophen 5-325mg Tab PO 1 tab Q6H PRN Administration Pain, Moderate (4-6) Sodium Chloride 10 ml 06/14/21 22:00 06/18/21 09:35 Sodium Chloride 0.9% 10 Ml Flush Syringe IV Not Given BID DEE DEE Sodium Chloride 10 ml 06/14/21 16:18 Sodium Chloride 0.9% 10 Ml Flush Syringe IV PRN PRN LINE FLUSH
[2021-06-19] MEDS: SODIUM CHLORIDE 0.9% 1000 ML 1,000 ML IV SCH ×2 (00:30→10:43)
[2021-06-19] MEDS: CLINDAMYCIN 600 MG IV SCH ×3 (03:49→20:11)
[2021-06-19] MEDS: hydrALAZINE 25 MG TAB PO SCH ×3 (05:36→21:13)
[2021-06-19] MEDS: GABAPENTIN 300 MG CAP PO SCH ×3 (05:36→21:13)
[2021-06-19] MEDS: INSULIN LISPRO 100 UNIT/ML SUB-Q SCH ×4 (07:48→21:17)
[2021-06-19] MEDS: INSULIN NPH/REGULAR 70/30 INJ SUB-Q SCH ×2 (07:49→16:12)
[2021-06-19] MEDS: amLODIPine 10 MG TAB PO SCH ×2 (07:54→10:31)
[2021-06-19] MEDS: CLOPIDOGREL 75 MG TAB PO SCH ×2 (07:54→10:32)
[2021-06-19] MEDS: CILOSTAZOL 100 MG TAB PO SCH ×3 (07:55→21:13)
--- NOTE | 2021-06-19 15:10 | Progress Note ---
Assessment and Plan Assessment and Plan Assessment and plan: -- Gas gangrene/right great toe Current Visit: Yes Status: Acute For right great toe amputation tomorrow which may extend to TMA Continue aspirin statin and Plavix Follow vascular studies, supportive care -- Systemic inflammatory response syndrome Current Visit: Yes Status: Acute Continue antibiotics and supportive care ID consult if needed -- Cellulitis of right foot Current Visit: Yes Status: Acute Elevate the limb, antibiotics and supportive care -- Diabetic foot infection Current Visit: Yes Status: Acute IV antibiotic therapy, antihyperglycemic control, Follow cultures supportive care, surgical team consulted. --Acute kidney injury; Current Visit: Yes Status: Acute Vasomotor nephropathy, gentle hydration, monitor renal function Avoid nephrotoxins --Type II diabetes Current Visit: Yes Status: Acute Accu-Chek, sliding scale coverage ADA diet, Long-acting insulin as needed --Severe protein calorie malnutrition; Current Visit: Yes Status: Chronic Nutrition supplement, nutrition consult Supportive care, hypoalbuminemia --DVT prophylaxis Current Visit: Yes Status: Acute SCD , Lovenox Subjective Date of service: 06/20/21 Principal diagnosis: Peripheral vascular disease with gangrene right first toe Interval history: 55 YO Female with DM, HTN presents to ED for evaluation. Pt reports "my left big toe hurts". Patient states that she has experienced pain, and color change to her left great toe over the past 4 days with persistently worsening symptoms over the same timeframe. Patient also reports that the toenail on her left great toe is falling off. Patient reports purulent drainage from the left great toe over the past 3 days. Patient transported to [facility] via private vehicle for further care and evaluation of the aforementioned symptoms. The patient was seen and evaluated in the emergency department. All lab and imaging studies reviewed. Patient underwent x-ray of the left foot and was found to have left great toe soft tissue air. Patient found to have foot cellulitis complicated by systemic inflammatory response syndrome. Patient also found to have left great toe dry gangrene, as well as diabetic foot infection. Patient treated with IV antibiotic therapy. Wound care consulted, surgical team consulted in the emergency department. Patient admitted to surgical floor. Patient is pending further care. Patient denies fever, chills, chest pain, palpitation, productive cough, skin rash, recent ill contacts, or known exposure to COVID-19. Prior admission on 05/15/2020 reviewed. All medication listed at time of admission has been reconciled. 06/20/21 Plan for first digit amputation tomorrow, but may need to be open TMA based on demarcation. N.p.o. after midnight except sips of water with meds. Will need wound care and outpatient wound care follow-up afterwards. Objective - Constitutional Vitals: Vital Signs - 12hr 06/19/21 06/19/21 06/19/21 04:20 05:36 07:37 Temperature 99.1 F 98.6 F Pulse Rate 77 77 71 Respiratory 18 16 Rate Blood Pressure 130/48 130/50 121/48 O2 Sat by Pulse 94 94 Oximetry 06/19/21 06/19/21 06/19/21 07:54 11:32 14:07 Temperature 98.6 F Pulse Rate 71 79 79 Respiratory 18 Rate Blood Pressure 121/48 131/53 131/53 O2 Sat by Pulse 94 Oximetry General appearance: Present: no acute distress, well-nourished - EENT Eyes: PERRL, EOM intact ENT: hearing intact, clear oral mucosa Ears: bilateral: normal - Neck Neck: supple, normal ROM - Respiratory Respiratory effort: normal Respiratory: bilateral: CTA - Breasts Breasts: normal - Cardiovascular Heart rate: 78 Rhythm: regular Heart Sounds: Present: S1 & S2. Absent: gallop, rub Extremities: pulses intact, No edema, normal color, Full ROM, abnormal (Right great toe gangrenous) Extremity abnormal: other (Right great toe gangrene) - Gastrointestinal General gastrointestinal: Present: soft, non-tender, non-distended, normal bowel sounds - Genitourinary Female genitourinary: normal - Integumentary Integumentary: clear, warm, dry - Musculoskeletal Musculoskeletal: 1, strength equal bilaterally - Neurologic Neurologic: moves all extremities - Psychiatric Psychiatric: memory intact, appropriate mood/affect, intact judgment & insight - Labs CBC & Chem 7: 06/21/21 04:18 06/21/21 04:18 Labs: Abnormal lab results 06/18/21 06/18/21 06/19/21 Range/Units 15:56 20:52 07:38 POC Glucose 256 H 183 H 134 H (70-105) mg/dL 06/19/21 Range/Units 11:33 POC Glucose 140 H (70-105) mg/dL
[2021-06-19] MEDS: MORPHINE 4 MG/1 ML INJ IV PRN (17:32)
[2021-06-19] MEDS: HYDROmorphone 1 MG/1 ML INJ IV PRN (21:20)
--- NOTE | 2021-06-19 22:07 | Progress Note ---
Assessment and Plan Plan for right first toe amputation is planned for Sunday. Risk, benefits, and alternatives have been explained. The patient has expressed understanding and wishes to proceed and has signed her consent. Subjective Date of service: 06/19/21 Principal diagnosis: Peripheral vascular disease with gangrene right first toe Interval history: No new complaints. No events overnight. Objective - Constitutional Vitals: Vital Signs - 12hr 06/19/21 06/19/21 06/19/21 11:32 14:07 15:28 Temperature 98.6 F 98.7 F Pulse Rate 79 79 84 Respiratory 18 18 Rate Blood Pressure 131/53 131/53 140/50 O2 Sat by Pulse 94 93 Oximetry 06/19/21 06/19/21 19:15 21:13 Temperature 99.0 F Pulse Rate 84 84 Respiratory 16 Rate Blood Pressure 140/56 140/56 O2 Sat by Pulse 94 Oximetry General appearance: Present: no acute distress Extremities: pulses intact (palpable right posterior tibial pulse with warm foot), abnormal (Left groin without continued bleeding or evidence of pseudoaneurysm) Extremity abnormal: ulceration (right first toe gangrene with blistering is stable) - Labs CBC & Chem 7: 06/14/21 14:03 06/18/21 06:59 Labs: Abnormal lab results 06/19/21 06/19/21 06/19/21 Range/Units 07:38 11:33 16:06 POC Glucose 134 H 140 H 202 H (70-105) mg/dL 06/19/21 Range/Units 20:17 POC Glucose 147 H (70-105) mg/dL Medications & Allergies - Medications Allergies/Adverse Reactions: Allergies No Known Allergies Allergy (Verified 05/15/20 02:01) Home Medications: Home Medications Medication Instructions Recorded Confirmed Last Taken Type Aspirin [Adult Aspirin] 81 mg PO DAILY 06/15/21 06/15/21 3 Days Ago History ~06/12/21 81 AtorvaSTATin [Lipitor] 40 mg PO DAILY 06/15/21 06/15/21 3 Days Ago History ~06/12/21 40 Clopidogrel [Plavix] 75 mg PO DAILY 06/15/21 06/15/21 3 Days Ago History ~06/12/21 75 Furosemide [Lasix TAB] 40 mg PO DAILY 06/15/21 06/15/21 3 Days Ago History ~06/12/21 40 Gabapentin [Neurontin] 300 mg PO Q8HR 06/15/21 06/15/21 3 Days Ago History ~06/12/21 300 Insulin NPH Hum/Reg Insulin Hm 12 unit SQ QAM 06/15/21 06/15/21 3 Days Ago History [Novolin 70-30 Flexpen] ~06/12/21 12 Novolin 70-30 Flexpen 10 units SQ QPM 06/15/21 06/15/21 3 Days Ago History ~06/12/21 10 amLODIPine 10 mg PO DAILY 06/15/21 06/15/21 3 Days Ago History ~06/12/21 10 Active Medications: Generic Name Dose Route Start Last Admin Trade Name Freq PRN Reason Stop Dose Admin Acetaminophen 650 mg 06/14/21 17:17 Acetaminophen 325 Mg Tab PO Q6H PRN Pain, Mild (1-3) Hydrocodone Bitart/Acetaminophen 1 each 06/17/21 17:34 Hydrocodone/Acetaminophen 5-325 Mg Tab PO Q4H PRN Pain, Moderate (4-6) Albuterol 2.5 mg 06/14/21 16:18 Albuterol 2.5 Mg/3 Ml Nebu IH Q4HRT PRN Shortness Of Breath Amlodipine Besylate 10 mg 06/16/21 10:00 06/19/21 10:31 Amlodipine 10 Mg Tab PO Not Given DAILY DEE DEE Atorvastatin Calcium 40 mg 06/16/21 22:00 06/19/21 21:13 Atorvastatin 40 Mg Tab PO 40 mg QHS DEE DEE Administration Cilostazol 100 mg 06/17/21 22:00 06/19/21 21:13 Cilostazol 100 Mg Tab PO 100 mg BID DEE DEE Administration Clopidogrel Bisulfate 75 mg 06/16/21 10:00 06/19/21 10:32 Clopidogrel 75 Mg Tab PO Not Given DAILY DEE DEE Gabapentin 300 mg 06/16/21 14:00 06/19/21 21:13 Gabapentin 300 Mg Cap PO 300 mg Q8HR DEE DEE Administration Hydralazine HCl 25 mg 06/16/21 14:00 06/19/21 21:13 Hydralazine 25 Mg Tab PO 25 mg Q8HR DEE DEE Administration Hydralazine HCl 10 mg 06/16/21 09:00 Hydralazine 20 Mg/1 Ml Inj IV Q4H PRN Hypertension Hydromorphone HCl 0.25 mg 06/14/21 17:17 06/19/21 21:20 Hydromorphone 1 Mg/1 Ml Inj IV 0.25 mg Q4H PRN Administration Pain, Moderate (4-6) Cefazolin Sodium 2 gm/ Sodium 100 mls @ 200 mls/hr 06/15/21 14:00 06/19/21 21:12 Chloride IV 200 mls/hr Q8HR DEE DEE Administration Protocol Clindamycin HCl 600 mg in 50 mls @ 100 mls/hr 06/15/21 12:00 06/19/21 20:11 Cleocin 600 Mg/50 Ml IV 100 mls/hr Q8H DEE DEE Administration Sodium Chloride 1,000 mls @ 100 mls/hr 06/15/21 17:15 06/19/21 10:43 Nacl 0.9% 1000 Ml IV 100 mls/hr DIRECT DEE DEE Administration Insulin Human Isoph/Insulin Regular 10 unit 06/16/21 08:00 06/19/21 16:12 Insulin Nph/Regular 70/30 Inj SUB-Q 10 unit BIDDIAB DEE DEE Administration Insulin Human Lispro 0 unit 06/15/21 11:30 06/19/21 21:17 Insulin Lispro 100 Unit/Ml SUB-Q Not Given ACHS [facility] Protocol Morphine Sulfate 2 mg 06/14/21 16:18 06/19/21 17:32 Morphine 4 Mg/1 Ml Inj IV 2 mg Q8H PRN Administration Pain , Severe (7-10) Ondansetron HCl 4 mg 06/14/21 16:18 Ondansetron 4 Mg/2 Ml Inj IV Q8H PRN Nausea And Vomiting Oxycodone/Acetaminophen 1 tab 06/14/21 16:18 06/16/21 21:53 Oxycodone /Acetaminophen 5-325mg Tab PO 1 tab Q6H PRN Administration Pain, Moderate (4-6) Sodium Chloride 10 ml 06/14/21 22:00 06/19/21 21:13 Sodium Chloride 0.9% 10 Ml Flush Syringe IV 10 ml BID DEE DEE Administration Sodium Chloride 10 ml 06/14/21 16:18 Sodium Chloride 0.9% 10 Ml Flush Syringe IV PRN PRN LINE FLUSH
[2021-06-20] MEDS: SODIUM CHLORIDE 0.9% 1000 ML 1,000 ML IV SCH (01:00)
[2021-06-20] MEDS: CLINDAMYCIN 600 MG IV SCH ×2 (04:01→16:06)
[2021-06-20] MEDS: GABAPENTIN 300 MG CAP PO SCH ×3 (05:23→23:01)
[2021-06-20] MEDS: hydrALAZINE 25 MG TAB PO SCH ×3 (05:23→23:08)
[2021-06-20] MEDS: INSULIN LISPRO 100 UNIT/ML SUB-Q SCH ×4 (09:29→22:58)
[2021-06-20] MEDS: CLOPIDOGREL 75 MG TAB PO SCH (10:02)
[2021-06-20] MEDS: amLODIPine 10 MG TAB PO SCH (10:02)
[2021-06-20] MEDS: INSULIN NPH/REGULAR 70/30 INJ SUB-Q SCH ×2 (10:02→17:04)
[2021-06-20] MEDS: CILOSTAZOL 100 MG TAB PO SCH ×2 (10:02→23:00)
[2021-06-20] MEDS: HYDROcodone/ACETAMINOPHEN 5-325 MG TAB PO PRN (10:08)
--- NOTE | 2021-06-20 12:44 | Progress Note ---
Assessment and Plan 55-year-old female with peripheral vascular disease and gangrene status post revascularization of the right lower extremity with palpable right posterior tibial pulse and nonpalpable right dorsalis pedis pulse. Evaluated wound and labs appear worse and wound appears somewhat worse. Changed antibiotics and contacted infectious disease. Plan for first digit amputation tomorrow, but may need to be open TMA based on demarcation. N.p.o. after midnight except sips of water with meds. Will need wound care and outpatient wound care follow-up afterwards. Subjective Date of service: 06/20/21 Principal diagnosis: Peripheral vascular disease with gangrene right first toe Interval history: Status post revascularization with palpable right posterior tibial pulse and nonpalpable right dorsalis pedis pulse. Left groin access site with bandage. No pseudoaneurysm. There has been blistering with progression of changes on the more proximal porti on of the foot. Reviewed antibiotics and started more broad-spectrum antibiotics and consulted infectious disease. Dr. Batista contacted. Ordered labs for today. Objective - Constitutional Vitals: Vital Signs - 12hr 06/20/21 06/20/21 06/20/21 04:41 05:23 07:32 Temperature 99.7 F H Pulse Rate 74 74 76 Respiratory 16 Rate Blood Pressure 133/53 133/53 Blood Pressure [Left] O2 Sat by Pulse 97 96 Oximetry 06/20/21 06/20/21 06/20/21 07:35 11:19 11:24 Temperature 98.4 F 98.4 F Pulse Rate 76 80 Respiratory 19 Rate Blood Pressure 154/66 Blood Pressure 122/56 [Left] O2 Sat by Pulse 94 87 94 Oximetry 06/20/21 11:25 Temperature Pulse Rate 79 Respiratory Rate Blood Pressure Blood Pressure [Left] O2 Sat by Pulse 96 Oximetry General appearance: Present: no acute distress - EENT Eyes: EOM intact ENT: hearing intact - Respiratory Respiratory effort: normal Extremities: normal temperature, normal color, abnormal (Vesicles and skin breakdown on the proximal right MTP with gangrene of the first digit. Starting to become some vesicles on the MTP skin) - Labs CBC & Chem 7: 06/20/21 13:27 06/20/21 13:27 Labs: Abnormal lab results 06/19/21 06/19/21 06/20/21 Range/Units 16:06 20:17 07:33 POC Glucose 202 H 147 H 106 H (70-105) mg/dL 06/20/21 Range/Units 11:22 POC Glucose 159 H (70-105) mg/dL Medications & Allergies - Medications Allergies/Adverse Reactions: Allergies No Known Allergies Allergy (Verified 05/15/20 02:01) Home Medications: Home Medications Medication Instructions Recorded Confirmed Last Taken Type Aspirin [Adult Aspirin] 81 mg PO DAILY 06/15/21 06/15/21 3 Days Ago History ~06/12/21 81 Gabapentin [Neurontin] 300 mg PO Q8HR 06/15/21 06/15/21 3 Days Ago History ~06/12/21 300 Insulin NPH Hum/Reg Insulin Hm 12 unit SQ QAM 06/15/21 06/15/21 3 Days Ago History [Novolin 70-30 Flexpen] ~06/12/21 12 Novolin 70-30 Flexpen 10 units SQ QPM 06/15/21 06/15/21 3 Days Ago History ~06/12/21 10 RX: AtorvaSTATin [Lipitor] 40 mg PO DAILY 06/15/21 06/15/21 3 Days Ago History ~06/12/21 40 RX: Clopidogrel [Plavix] 75 mg PO DAILY 06/15/21 06/15/21 3 Days Ago History ~06/12/21 75 RX: Furosemide [Lasix TAB] 40 mg PO DAILY 06/15/21 06/15/21 3 Days Ago History ~06/12/21 40 RX: amLODIPine 10 mg PO DAILY 06/15/21 06/15/21 3 Days Ago History ~06/12/21 10 Active Medications: Generic Name Dose Route Start Last Admin Trade Name Crispinq PRN Reason Stop Dose Admin Acetaminophen 650 mg 06/14/21 17:17 Acetaminophen 325 Mg Tab PO Q6H PRN Pain, Mild (1-3) Hydrocodone Bitart/Acetaminophen 1 each 06/17/21 17:34 06/20/21 10:08 Hydrocodone/Acetaminophen 5-325 Mg Tab PO 1 each Q4H PRN Administration Pain, Moderate (4-6) Albuterol 2.5 mg 06/14/21 16:18 Albuterol 2.5 Mg/3 Ml Nebu IH Q4HRT PRN Shortness Of Breath Amlodipine Besylate 10 mg 06/16/21 10:00 06/20/21 10:02 Amlodipine 10 Mg Tab PO 10 mg DAILY DEE DEE Administration Atorvastatin Calcium 40 mg 06/16/21 22:00 06/19/21 21:13 Atorvastatin 40 Mg Tab PO 40 mg QHS DEE DEE Administration Cilostazol 100 mg 06/17/21 22:00 06/20/21 10:02 Cilostazol 100 Mg Tab PO 100 mg BID DEE DEE Administration Clopidogrel Bisulfate 75 mg 06/16/21 10:00 06/20/21 10:02 Clopidogrel 75 Mg Tab PO 75 mg DAILY DEE DEE Administration Gabapentin 300 mg 06/16/21 14:00 06/20/21 05:23 Gabapentin 300 Mg Cap PO 300 mg Q8HR DEE DEE Administration Hydralazine HCl 25 mg 06/16/21 14:00 06/20/21 05:23 Hydralazine 25 Mg Tab PO 25 mg Q8HR DEE DEE Administration Hydralazine HCl 10 mg 06/16/21 09:00 Hydralazine 20 Mg/1 Ml Inj IV Q4H PRN Hypertension Hydromorphone HCl 0.25 mg 06/14/21 17:17 06/19/21 21:20 Hydromorphone 1 Mg/1 Ml Inj IV 0.25 mg Q4H PRN Administration Pain, Moderate (4-6) Sodium Chloride 1,000 mls @ 100 mls/hr 06/15/21 17:15 06/20/21 01:00 Nacl 0.9% 1000 Ml IV 100 mls/hr DIRECT DEE DEE Administration Cefepime HCl 2 gm in 100 mls @ 200 mls/hr 06/20/21 13:00 Cefepime/Ns 2 Gm/100 Ml IV Q12H [facility] Protocol Insulin Human Isoph/Insulin Regular 10 unit 06/16/21 08:00 06/20/21 10:02 Insulin Nph/Regular 70/30 Inj SUB-Q 10 unit BIDDIAB DEE DEE Administration Insulin Human Lispro 0 unit 06/15/21 11:30 06/20/21 09:29 Insulin Lispro 100 Unit/Ml SUB-Q Not Given ACHS [facility] Protocol Morphine Sulfate 2 mg 06/14/21 16:18 06/19/21 17:32 Morphine 4 Mg/1 Ml Inj IV 2 mg Q8H PRN Administration Pain , Severe (7-10) Ondansetron HCl 4 mg 06/14/21 16:18 Ondansetron 4 Mg/2 Ml Inj IV Q8H PRN Nausea And Vomiting Oxycodone/Acetaminophen 1 tab 06/14/21 16:18 06/16/21 21:53 Oxycodone /Acetaminophen 5-325mg Tab PO 1 tab Q6H PRN Administration Pain, Moderate (4-6) Sodium Chloride 10 ml 06/14/21 22:00 06/20/21 10:03 Sodium Chloride 0.9% 10 Ml Flush Syringe IV 10 ml BID DEE DEE Administration Sodium Chloride 10 ml 06/14/21 16:18 Sodium Chloride 0.9% 10 Ml Flush Syringe IV PRN PRN LINE FLUSH
[2021-06-20] MEDS ORDERED: VANCOMYCIN PHARMACY TO DOSE IV SCH (13:00)
--- NOTE | 2021-06-20 13:24 | Consultation ---
History of Present Illness - Reason for Consult Consult date: 06/20/21 foot infection Requesting physician: RONNY NICOLE - History of Present Illness The patient is a 55-year-old female with longstanding diabetes mellitus type 2, hypertension was admitted to the hospital on 06/14/2021 with complaints of right great toe pain and darkening with findings of gangrene. She was seen by vascular surgery, on 06/19/2021, underwent revascularization. Was on empiric antibiotics, infectious diseases was consulted for antibiotic management due to concerns for right lower extremity cellulitis. Patient currently feels better, denies any fever or chills. Denies nausea, vomiting, had a low-grade temperature. Review of Systems: General: no fevers,chills or rigors HEENT: no new visual disturbance Respiratory: No cough, sputum, hemoptysis or shortness of breath Cardiovascular: No chest pain, syncope Gastrointestinal: No nausea, vomiting or diarrhea Genitourinary: No dysuria or hematuria Musculoskeletal: No new or worsening neck pain or back pain Neurologic: No headaches, seizures Hematologic: No easy bruising or bleeding Endocrine: No night sweats or acute weight loss Skin: negative for rash, jaundice Psychiatric: No suicidal or homicidal ideation Past History Past Medical History: CAD, diabetes, hypertension, hyperlipidemia Past Surgical History: appendectomy, cholecystectomy, CABG, hysterectomy, Other (Tubal ligation, foot surgery) Social history: single Family history: diabetes, hypertension Medications and Allergies Allergies Allergy/AdvReac Type Severity Reaction Status Date / Time No Known Allergies Allergy Verified 05/15/20 02:01 Home Medications Medication Instructions Recorded Confirmed Last Taken Type Aspirin [Adult Aspirin] 81 mg PO DAILY 06/15/21 06/15/21 3 Days Ago History ~06/12/21 81 AtorvaSTATin [Lipitor] 40 mg PO DAILY 06/15/21 06/15/21 3 Days Ago History ~06/12/21 40 Clopidogrel [Plavix] 75 mg PO DAILY 06/15/21 06/15/21 3 Days Ago History ~06/12/21 75 Furosemide [Lasix TAB] 40 mg PO DAILY 06/15/21 06/15/21 3 Days Ago History ~06/12/21 40 Gabapentin [Neurontin] 300 mg PO Q8HR 06/15/21 06/15/21 3 Days Ago History ~06/12/21 300 Insulin NPH Hum/Reg Insulin Hm 12 unit SQ QAM 06/15/21 06/15/21 3 Days Ago History [Novolin 70-30 Flexpen] ~06/12/21 12 Novolin 70-30 Flexpen 10 units SQ QPM 06/15/21 06/15/21 3 Days Ago History ~06/12/21 10 amLODIPine 10 mg PO DAILY 06/15/21 06/15/21 3 Days Ago History ~06/12/21 10 Active Meds: Active Medications Acetaminophen (Acetaminophen 325 Mg Tab) 650 mg PO Q6H PRN PRN Reason: Pain, Mild (1-3) Hydrocodone Bitart/Acetaminophen (Hydrocodone/Acetaminophen 5-325 Mg Tab) 1 each PO Q4H PRN PRN Reason: Pain, Moderate (4-6) Last Admin: 06/20/21 10:08 Dose: 1 each Documented by: Albuterol (Albuterol 2.5 Mg/3 Ml Nebu) 2.5 mg IH Q4HRT PRN PRN Reason: Shortness Of Breath Amlodipine Besylate (Amlodipine 10 Mg Tab) 10 mg PO DAILY [facility] Last Admin: 06/20/21 10:02 Dose: 10 mg Documented by: Atorvastatin Calcium (Atorvastatin 40 Mg Tab) 40 mg PO QHS [facility] Last Admin: 06/19/21 21:13 Dose: 40 mg Documented by: Cilostazol (Cilostazol 100 Mg Tab) 100 mg PO BID [facility] Last Admin: 06/20/21 10:02 Dose: 100 mg Documented by: Clopidogrel Bisulfate (Clopidogrel 75 Mg Tab) 75 mg PO DAILY [facility] Last Admin: 06/20/21 10:02 Dose: 75 mg Documented by: Gabapentin (Gabapentin 300 Mg Cap) 300 mg PO Q8HR [facility] Last Admin: 06/20/21 05:23 Dose: 300 mg Documented by: Hydralazine HCl (Hydralazine 25 Mg Tab) 25 mg PO Q8HR [facility] Last Admin: 06/20/21 05:23 Dose: 25 mg Documented by: Hydralazine HCl (Hydralazine 20 Mg/1 Ml Inj) 10 mg IV Q4H PRN PRN Reason: Hypertension Hydromorphone HCl (Hydromorphone 1 Mg/1 Ml Inj) 0.25 mg IV Q4H PRN PRN Reason: Pain, Moderate (4-6) Last Admin: 06/19/21 21:20 Dose: 0.25 mg Documented by: Sodium Chloride (Nacl 0.9% 1000 Ml) 1,000 mls @ 100 mls/hr IV DIRECT [facility] Last Admin: 06/20/21 01:00 Dose: 100 mls/hr Documented by: Cefepime HCl (Cefepime/Ns 2 Gm/100 Ml) 2 gm in 100 mls @ 200 mls/hr IV Q12H [facility]; Protocol Insulin Human Isoph/Insulin Regular (Insulin Nph/Regular 70/30 Inj) 10 unit SUB-Q BIDDIAB [facility] Last Admin: 06/20/21 10:02 Dose: 10 unit Documented by: Insulin Human Lispro (Insulin Lispro 100 Unit/Ml) 0 unit SUB-Q ACHS [facility]; Protocol Last Admin: 06/20/21 09:29 Dose: Not Given Documented by: Morphine Sulfate (Morphine 4 Mg/1 Ml Inj) 2 mg IV Q8H PRN PRN Reason: Pain , Severe (7-10) Last Admin: 06/19/21 17:32 Dose: 2 mg Documented by: Ondansetron HCl (Ondansetron 4 Mg/2 Ml Inj) 4 mg IV Q8H PRN PRN Reason: Nausea And Vomiting Oxycodone/Acetaminophen (Oxycodone /Acetaminophen 5-325mg Tab) 1 tab PO Q6H PRN PRN Reason: Pain, Moderate (4-6) Last Admin: 06/16/21 21:53 Dose: 1 tab Documented by: Sodium Chloride (Sodium Chloride 0.9% 10 Ml Flush Syringe) 10 ml IV BID DEE DEE Last Admin: 06/20/21 10:03 Dose: 10 ml Documented by: Sodium Chloride (Sodium Chloride 0.9% 10 Ml Flush Syringe) 10 ml IV PRN PRN PRN Reason: LINE FLUSH Physical Examination - Physical Exam Narrative exam: Physical Exam: Constitutional: Alert, cooperative. No acute distress Head, Ears, Nose: Normocephalic, atraumatic. External ears, nose normal Eyes: Conjunctivae/corneas clear. No icterus. No ptosis. Neck: Supple, no meningeal signs Cardiovascular: S1, S2 normal. Respiratory: Good air entry, clear to auscultation bilaterally GI: Soft, non-tender; bowel sounds normal. No peritoneal signs Musculoskeletal: Right great toe darkening, dressing present, mild edema of bilateral lower extremities. Skin: No rash or abscess Hem/Lymphatic: No palpable cervical or supraclavicular nodes. No lymphangitis Psych: Mood ok. Affect normal Neurological: Awake, alert, oriented. No gross abnormality - Constitutional Vitals: Vital Signs Temp Pulse Resp BP Pulse Ox 98.4 F 79 19 154/66 96 06/20/21 11:24 06/20/21 11:25 06/20/21 11:24 06/20/21 11:24 06/20/21 11:25 Temperature -Last 24 Hours Temperature 98.4 F Temperature 98.4 F Temperature 99.7 F Temperature 100.0 F Temperature 99.0 F Temperature 99.0 F Temperature 98.7 F Results - Labs CBC & Chem 7: 06/14/21 14:03 06/18/21 06:59 Labs: Abnormal lab results 06/19/21 06/19/21 06/20/21 Range/Units 16:06 20:17 07:33 POC Glucose 202 H 147 H 106 H (70-105) mg/dL 06/20/21 Range/Units 11:22 POC Glucose 159 H (70-105) mg/dL Assessment and Plan Cultures: 06/14/2021 blood culture: No growth A/P: 55-year-old female with longstanding diabetes mellitus type 2, hypertension was admitted to the hospital on 06/14/2021 with complaints of right great toe pain and darkening with findings of gangrene: #Right great toe gangrenous change with associated cellulitis: awaiting possible toe amputation: Xray without osteomyelitis. #Leucocytosis: likely from ischemia and infection. #Peripheral vascular disease: Status post revascularization of RLE on 06/19/2021 #Diabetes mellitus type 2 #KAMAR: Renally dose antibiotics Recs: agree with IV Cefepime, Vancomycin monitor renal function and vanco trough awaiting possible toe amputation d/w Dr. Ez Batista MD, FACP [facility] O: [phone] F: [phone]
[2021-06-20] MEDS ORDERED: CEFEPIME/NS 2 GM/100 ML 2 GM/100 ML BAG IV SCH (14:00)
[2021-06-20 14:11] LABS: Hematocrit 24.6 % (30.3-42.9); Hemoglobin 7.8 gm/dl (10.1-14.3); Mean Corpuscular HGB Conc 32 % (30-34); Platelet Count 331 K/mm3 (140-440); Red Blood Count 4.05 M/mm3 (3.65-5.03); Red Cell Distribution Width 19.7 % (13.2-15.2)
[2021-06-20 14:26] LABS: Calcium 7.8 mg/dL (8.4-10.2)
[2021-06-20 14:44] LABS: Mean Corpuscular Volume 61 fl (79-97)
[2021-06-20] MEDS ORDERED: VANCOMYCIN 1,250 MG in SODIUM CHLORIDE 0.9% 250ML 250 ML IV ONE (15:00)
[2021-06-20 15:22] LABS: Total Cells Counted 100
[2021-06-20 15:23] LABS: Hypochromasia 2+; Ovalocytes 2+; Platelet Estimate Consistent w Auto; Poikilocytosis 1+; Tear Drop Cells 1+
[2021-06-20] MEDS: hydrALAZINE 20 MG/1 ML INJ IV PRN (17:04)
[2021-06-20] MEDS: HYDROmorphone 1 MG/1 ML INJ IV PRN ×2 (17:06→23:04)
[2021-06-21] MEDS: SODIUM CHLORIDE 0.9% 1000 ML 1,000 ML IV SCH (01:22)
[2021-06-21 05:32] LABS: Hematocrit 22.8 % (30.3-42.9); Hemoglobin 7.2 gm/dl (10.1-14.3); Mean Corpuscular HGB Conc 32 % (30-34); Platelet Count 321 K/mm3 (140-440); Red Blood Count 3.62 M/mm3 (3.65-5.03); Red Cell Distribution Width 19.7 % (13.2-15.2)
[2021-06-21 05:36] LABS: Mean Corpuscular Volume 63 fl (79-97)
[2021-06-21 05:49] LABS: Calcium 7.8 mg/dL (8.4-10.2)
[2021-06-21] MEDS: hydrALAZINE 25 MG TAB PO SCH ×3 (06:25→21:09)
[2021-06-21] MEDS: GABAPENTIN 300 MG CAP PO SCH ×3 (06:26→21:09)
--- NOTE | 2021-06-21 07:13 | Progress Note ---
Assessment and Plan Assessment and Plan Assessment and plan: -- Gas gangrene/right great toe Current Visit: Yes Status: Acute Surgery evaluation noted appreciated Patient is scheduled for right great toe amputation on 06/21/2021 --Peripheral vascular disease; Current Visit: Yes Status: Acute Continue aspirin statin and Plavix Follow vascular studies, supportive care -- Systemic inflammatory response syndrome Current Visit: Yes Status: Acute Continue antibiotics and supportive care ID consult if needed -- Cellulitis of right foot Current Visit: Yes Status: Acute Elevate the limb, antibiotics and supportive care -- Diabetic foot infection Current Visit: Yes Status: Acute IV antibiotic therapy, antihyperglycemic control, Follow cultures supportive care, surgical team consulted. --Acute kidney injury; Current Visit: Yes Status: Acute Vasomotor nephropathy, gentle hydration, monitor renal function Avoid nephrotoxins --Type II diabetes Current Visit: Yes Status: Acute Accu-Chek, sliding scale coverage ADA diet, Long-acting insulin as needed --Severe protein calorie malnutrition; Current Visit: Yes Status: Chronic Nutrition supplement, nutrition consult Supportive care, hypoalbuminemia --DVT prophylaxis Current Visit: Yes Status: Acute SCD , Lovenox Subjective Date of service: 06/19/21 Principal diagnosis: Peripheral vascular disease with gangrene right first toe Interval history: 55 YO Female with DM, HTN presents to ED for evaluation. Pt reports "my left big toe hurts". Patient states that she has experienced pain, and color change to her left great toe over the past 4 days with persistently worsening symptoms over the same timeframe. Patient also reports that the toenail on her left great toe is falling off. Patient reports purulent drainage from the left great toe over the past 3 days. Patient transported to [facility] via private vehicle for further care and evaluation of the aforementioned symptoms. The patient was seen and evaluated in the emergency department. All lab and imaging studies reviewed. Patient underwent x-ray of the left foot and was found to have left great toe soft tissue air. Patient found to have foot cellulitis complicated by systemic inflammatory response syndrome. Patient also found to have left great toe dry gangrene, as well as diabetic foot infection. Patient treated with IV antibiotic therapy. Wound care consulted, surgical team consulted in the emergency department. Patient admitted to surgical floor. Patient is pending urther care. Patient denies fever, chills, chest pain, palpitation, productive cough, skin rash, recent ill contacts, or known exposure to COVID-19. Prior admission on 05/15/2020 reviewed. All medication listed at time of admission has been reconciled. 06/18/21 Plan for first digit amputation Objective - Constitutional Vitals: Vital Signs - 12hr 06/20/21 06/20/21 06/21/21 23:00 23:08 00:37 Temperature 99.1 F Pulse Rate 81 82 Respiratory 16 Rate Blood Pressure 143/58 157/73 O2 Sat by Pulse 94 97 Oximetry 06/21/21 06/21/21 04:54 06:25 Temperature 98.9 F Pulse Rate 80 83 Respiratory 18 Rate Blood Pressure 124/52 144/62 O2 Sat by Pulse 96 Oximetry General appearance: Present: no acute distress, well-nourished - EENT Eyes: PERRL, EOM intact ENT: hearing intact, clear oral mucosa Ears: bilateral: normal - Neck Neck: supple, normal ROM - Respiratory Respiratory effort: normal Respiratory: bilateral: CTA - Breasts Breasts: normal - Cardiovascular Rhythm: regular Heart Sounds: Present: S1 & S2. Absent: gallop, rub Extremities: pulses intact, No edema, normal color, Full ROM, abnormal (Right great toe gangrene) Extremity abnormal: other (Right great toe gangrene) - Gastrointestinal General gastrointestinal: Present: soft, non-tender, non-distended, normal bowel sounds - Genitourinary Female genitourinary: normal - Integumentary Integumentary: clear, warm, dry - Musculoskeletal Musculoskeletal: 1, strength equal bilaterally - Neurologic Neurologic: moves all extremities - Psychiatric Psychiatric: memory intact, appropriate mood/affect, intact judgment & insight - Labs CBC & Chem 7: 06/21/21 04:18 06/21/21 04:18 Labs: Abnormal lab results 06/20/21 06/20/21 06/20/21 Range/Units 07:33 11:22 13:27 WBC (4.5-11.0) K/mm3 RBC (3.65-5.03) M/mm3 Hgb (10.1-14.3) gm/dl Hct (30.3-42.9) % MCV (79-97) fl MCH (28-32) pg RDW (13.2-15.2) % Seg Neuts % (Manual) (40.0-70.0) % Lymphocytes % (Manual) (13.4-35.0) % Seg Neutrophils # Man (1.8-7.7) K/mm3 Lymphocytes # (Manual) (1.2-5.4) K/mm3 Sodium 135 L (137-145) mmol/L Chloride 109.8 H (98-107) mmol/L Carbon Dioxide 11 L (22-30) mmol/L BUN 37 H (7-17) mg/dL Creatinine 2.2 H D (0.6-1.2) mg/dL Glucose 139 H (65-100) mg/dL POC Glucose 106 H 159 H (70-105) mg/dL Calcium 7.8 L (8.4-10.2) mg/dL 06/20/21 06/20/21 06/20/21 Range/Units 13:27 15:52 20:37 WBC 23.3 H (4.5-11.0) K/mm3 RBC (3.65-5.03) M/mm3 Hgb 7.8 L (10.1-14.3) gm/dl Hct 24.6 L (30.3-42.9) % MCV 61 L (79-97) fl MCH 19 L (28-32) pg RDW 19.7 H (13.2-15.2) % Seg Neuts % (Manual) 93.0 H (40.0-70.0) % Lymphocytes % (Manual) 4.0 L (13.4-35.0) % Seg Neutrophils # Man 21.7 H (1.8-7.7) K/mm3 Lymphocytes # (Manual) 0.9 L (1.2-5.4) K/mm3 Sodium (137-145) mmol/L Chloride (98-107) mmol/L Carbon Dioxide (22-30) mmol/L BUN (7-17) mg/dL Creatinine (0.6-1.2) mg/dL Glucose (65-100) mg/dL POC Glucose 125 H 146 H (70-105) mg/dL Calcium (8.4-10.2) mg/dL 06/21/21 06/21/21 Range/Units 04:18 04:18 WBC 19.9 H (4.5-11.0) K/mm3 RBC 3.62 L (3.65-5.03) M/mm3 Hgb 7.2 L (10.1-14.3) gm/dl Hct 22.8 L (30.3-42.9) % MCV 63 L (79-97) fl MCH 20 L (28-32) pg RDW 19.7 H (13.2-15.2) % Seg Neuts % (Manual) (40.0-70.0) % Lymphocytes % (Manual) (13.4-35.0) % Seg Neutrophils # Man (1.8-7.7) K/mm3 Lymphocytes # (Manual) (1.2-5.4) K/mm3 Sodium (137-145) mmol/L Chloride 111.9 H (98-107) mmol/L Carbon Dioxide 11 L (22-30) mmol/L BUN 38 H (7-17) mg/dL Creatinine 2.1 H (0.6-1.2) mg/dL Glucose 138 H (65-100) mg/dL POC Glucose (70-105) mg/dL Calcium 7.8 L (8.4-10.2) mg/dL
[2021-06-21] MEDS: INSULIN LISPRO 100 UNIT/ML SUB-Q SCH ×4 (07:43→22:18)
[2021-06-21] MEDS: INSULIN NPH/REGULAR 70/30 INJ SUB-Q SCH ×2 (08:16→17:37)
--- NOTE | 2021-06-21 08:19 | Anesthesia Consultation ---
Anesthesia Consult and Med Hx Date of service: 06/21/21 - Airway ROM Head & Neck: Adequate Mental/Hyoid Distance: Adequate Mallampati Class: Class II Intubation Access Assessment: Probably Good - Pulmonary Exam CTA: Yes - Cardiac Exam Cardiac Exam: RRR - Pre-Operative Health Status ASA Pre-Surgery Classification: ASA3 Proposed Anesthetic Plan: General, IV Sedation - Pulmonary Hx Smoking: No Hx Asthma: No Hx Respiratory Symptoms: No COPD: No Hx Pneumonia: No - Cardiovascular System Hx Hypertension: Yes - Central Nervous System Hx Psychiatric Problems: No - Endocrine Hx Renal Disease: Yes Hx Insulin Dependent Diabetes: Yes Hx Non-Insulin Dependent Diabetes: Yes - Hematic Hx Anemia: Yes - Other Systems Hx Alcohol Use: No Hx Substance Use: No Hx Cancer: No Hx Obesity: No - Additional Comments Anesthesia Medical History Comments: 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
--- NOTE | 2021-06-21 08:31 | Anesthesia Day of Surgery ---
Anesthesia Day of Surgery - Day of Surgery Patient H&P Reviewed: Yes Patient is NPO: Yes Beta Blockers: No Cardiac Clearance: Yes Pulmonary Clearance: Yes
[2021-06-21] MEDS ORDERED: BUPIVACAINE/PF (0.5%) 5 MG/1 ML 30 ML VIAL INFILTRATI ONE ×2 (08:56→10:20)
[2021-06-21] MEDS ORDERED: fentaNYL 100 MCG/2 ML INJ ONE (09:35)
[2021-06-21] MEDS ORDERED: propofoL 200 MG/20 ML VIAL IV ONE ×2 (09:35→09:59)
[2021-06-21] MEDS ORDERED: KETAMINE/STERILE WATER 50 MG/ML SYRINGE ONE (09:56)
[2021-06-21] MEDS ORDERED: MIDAZOLAM 2 MG/2 ML INJ ONE (09:57)
[2021-06-21] MEDS ORDERED: ePHEDrine SULFATE 50 MG/1 ML INJ ONE (09:59)
[2021-06-21] MEDS ORDERED: PHENYLEPHRINE/NS 1,000 MCG/10 ML SYRINGE (OR USE) IV ONE (10:00)
[2021-06-21] MEDS ORDERED: CEFEPIME/NS 2 GM/100 ML 2 GM/100 ML BAG IV SCH (10:00)
[2021-06-21] MEDS ORDERED: SODIUM CHLORIDE 0.9% IRR 1,000 ML BOTTLE IR ONE (10:21)
--- NOTE | 2021-06-21 11:13 | Operative Report ---
Operative Report Operative Report: Date of Procedure: 06/21/2021 Pre-operative Diagnosis: PVD with Right Foot Gangrene Post-operative Diagnosis: Same Procedure(s): 1. Open Right First Toe Ray Amputation Surgeon: Tano Sylvester M.D. Wood Filler: Olaf Anesthesia: MAC EBL: Minimal Counts: Correct Complications: None Condition: Stable Findings: All remaining muscle and soft tissue within the wound appeared healthy and viable. Specimen: Right first toe was sent for culture. Indication: The patient is a 55-year-old female with a history of diabetes who presented with with a diabetic wound of her right first toe resulting in gangrene. She had revascularization of the right lower extremity and requires amputation of the right first toe. She was given the risk, benefits, and alternative procedures and consented to the procedure. Description of Procedure: The patient was brought to the operating room and laid in supine position. After a timeout was performed she was adequately sedated and her right foot was prepped and draped in normal sterile fashion. The patient has severe neuropathy of the foot so she did not require an ankle block. A circumferential incision was created around the right first toe and up to the level of necrotic skin near the right first metatarsal. Cautery was used to carry the incision down to the first metatarsal. A bone cutter was then used to transect the first metatarsal and cautery was used to transect the remaining soft tissue and tendons. Once the soft tissue and tendons have been transected the specimen was passed off for culture. The wound was copiously irrigated and cautery was used to achieve hemostasis. Once hemostasis was achieved the bone was smoothed with a rasp. T he wound was further irrigated to remove any excess bone debris. The wound was then packed with a Betadine soaked gauze and then dressed with fluffs, a Kerlix roll, and a 4 inch Vincenzo bandage. The patient tolerated the procedure well. All sponge, needle, and instrument counts were correct. The patient was taken to the recovery area in stable condition.
[2021-06-21] MEDS: CILOSTAZOL 100 MG TAB PO SCH ×2 (11:30→21:57)
[2021-06-21] MEDS: amLODIPine 10 MG TAB PO SCH (13:00)
[2021-06-21 13:26] LABS: Band Neutrophils # (Manual) 0.6 K/mm3; Myelocytes # (Manual) 0.4 K/mm3; Total Cells Counted 100
[2021-06-21 13:27] LABS: Hypochromasia 2+
[2021-06-21 13:28] LABS: Anisocytosis 1+; Ovalocytes 2+; Poikilocytosis 2+; Spherocytes 1+; Toxic Granulation 1+
[2021-06-21 13:34] LABS: Burr Cells 2+; Platelet Estimate Consistent w Auto
--- NOTE | 2021-06-21 13:42 | Progress Note ---
Assessment and Plan Cultures: 06/14/2021 blood culture: No growth A/P: 55-year-old female with longstanding diabetes mellitus type 2, hypertension was admitted to the hospital on 06/14/2021 with complaints of right great toe pain a nd darkening with findings of gangrene: #Right great toe gangrenous change with associated cellulitis: awaiting possible toe amputation: Xray without osteomyelitis. Underwent open right great toe ray amputation 06/21/2021, per OR note, all remaining muscle and soft tissue within the wound appeared healthy and viable. #Leucocytosis: likely from ischemia and infection. #Peripheral vascular disease: Status post revascularization of RLE on 06/19/2021 #Diabetes mellitus type 2 #KAMAR: creatinine up. Renally dose antibiotics. Recs: continue renally adjusted IV Cefepime, Vancomycin monitor renal function and vanco trough f/u cultures from OR. Mary Batista MD, FACP [facility] ([facility]) O: [phone] F: [phone] Subjective Date of service: 06/21/21 Principal diagnosis: Peripheral vascular disease with gangrene right first toe Interval history: No fever. Underwent surgery today. No pain. Objective - Exam Narrative Exam: Physical Exam: Constitutional: Alert, cooperative. No acute distress Head, Ears, Nose: Normocephalic, atraumatic. External ears, nose normal Eyes: Conjunctivae/corneas clear. No icterus. No ptosis. Neck: Supple, no meningeal signs Cardiovascular: S1, S2 normal. Respiratory: Good air entry, clear to auscultation bilaterally GI: Soft, non-tender; bowel sounds normal. No peritoneal signs Musculoskeletal: R foot in dressing Skin: No rash or abscess Hem/Lymphatic: No palpable cervical or supraclavicular nodes. No lymphangitis Psych: Mood ok. Affect normal Neurological: Awake, alert, oriented. No gross abnormality - Constitutional Vitals: Vital Signs Temp Pulse Resp BP Pulse Ox 98.3 F 85 16 148/67 96 06/21/21 11:40 06/21/21 11:40 06/21/21 11:40 06/21/21 11:40 06/21/21 11:40 Temperature -Last 24 Hours Temperature 98.3 F Temperature 98.4 F Temperature 98.9 F Temperature 99.1 F Temperature 98.6 F Temperature 98.6 F - Labs CBC & Chem 7: 06/21/21 04:18 06/21/21 04:18 Labs: Abnormal lab results 06/20/21 06/20/21 06/20/21 Range/Units 13:27 13:27 15:52 WBC 23.3 H (4.5-11.0) K/mm3 RBC (3.65-5.03) M/mm3 Hgb 7.8 L (10.1-14.3) gm/dl Hct 24.6 L (30.3-42.9) % MCV 61 L (79-97) fl MCH 19 L (28-32) pg RDW 19.7 H (13.2-15.2) % Seg Neuts % (Manual) 93.0 H (40.0-70.0) % Lymphocytes % (Manual) 4.0 L (13.4-35.0) % Seg Neutrophils # Man 21.7 H (1.8-7.7) K/mm3 Lymphocytes # (Manual) 0.9 L (1.2-5.4) K/mm3 Eosinophils # (Manual) (0.0-0.4) K/mm3 Sodium 135 L (137-145) mmol/L Chloride 109.8 H (98-107) mmol/L Carbon Dioxide 11 L (22-30) mmol/L BUN 37 H (7-17) mg/dL Creatinine 2.2 H D (0.6-1.2) mg/dL Glucose 139 H (65-100) mg/dL POC Glucose 125 H (70-105) mg/dL Calcium 7.8 L (8.4-10.2) mg/dL 06/20/21 06/21/21 06/21/21 Range/Units 20:37 04:18 04:18 WBC 19.9 H (4.5-11.0) K/mm3 RBC 3.62 L (3.65-5.03) M/mm3 Hgb 7.2 L (10.1-14.3) gm/dl Hct 22.8 L (30.3-42.9) % MCV 63 L (79-97) fl MCH 20 L (28-32) pg RDW 19.7 H (13.2-15.2) % Seg Neuts % (Manual) 73.0 H (40.0-70.0) % Lymphocytes % (Manual) 13.0 L (13.4-35.0) % Seg Neutrophils # Man 14.5 H (1.8-7.7) K/mm3 Lymphocytes # (Manual) (1.2-5.4) K/mm3 Eosinophils # (Manual) 0.8 H (0.0-0.4) K/mm3 Sodium (137-145) mmol/L Chloride 111.9 H (98-107) mmol/L Carbon Dioxide 11 L (22-30) mmol/L BUN 38 H (7-17) mg/dL Creatinine 2.1 H (0.6-1.2) mg/dL Glucose 138 H (65-100) mg/dL POC Glucose 146 H (70-105) mg/dL Calcium 7.8 L (8.4-10.2) mg/dL 06/21/21 06/21/21 Range/Units 08:44 10:55 WBC (4.5-11.0) K/mm3 RBC (3.65-5.03) M/mm3 Hgb (10.1-14.3) gm/dl Hct (30.3-42.9) % MCV (79-97) fl MCH (28-32) pg RDW (13.2-15.2) % Seg Neuts % (Manual) (40.0-70.0) % Lymphocytes % (Manual) (13.4-35.0) % Seg Neutrophils # Man (1.8-7.7) K/mm3 Lymphocytes # (Manual) (1.2-5.4) K/mm3 Eosinophils # (Manual) (0.0-0.4) K/mm3 Sodium (137-145) mmol/L Chloride (98-107) mmol/L Carbon Dioxide (22-30) mmol/L BUN (7-17) mg/dL Creatinine (0.6-1.2) mg/dL Glucose (65-100) mg/dL POC Glucose 145 H 142 H (70-105) mg/dL Calcium (8.4-10.2) mg/dL
[2021-06-21] MEDS: CLOPIDOGREL 75 MG TAB PO SCH (13:48)
[2021-06-21] MEDS: CEFEPIME/NS 2 GM/100 ML 2 GM/100 ML BAG IV SCH (13:49)
--- NOTE | 2021-06-21 13:50 | Post Anesthesia Evaluation ---
- Post Anesthesia Evaluation Patient Participated: Yes Airway Patent: Yes Stable Respiratory Function: Yes Nausea/Vomiting: No Temp > 96.8F: Yes Pain Manageable: Yes Adequeate Hydration: Yes Anesthesia Complications: No Block Receding Appropriately: Not Applicable Patient on Ventilator: No
[2021-06-21] MEDS ORDERED: VANCOMYCIN/NS 500 MG/100 ML 500 MG/100 ML BAG IV SCH (15:00)
[2021-06-21] MEDS ORDERED: VANCOMYCIN 750 MG in SODIUM CHLORIDE 0.9% 250ML 250 ML IV SCH (15:00)
[2021-06-21] MEDS: hydrALAZINE 20 MG/1 ML INJ IV PRN (17:30)
--- NOTE | 2021-06-21 17:34 | Progress Note ---
Assessment and Plan Assessment and plan: -- Gangrene/right great toe Current Visit: Yes Status: Acute PVD with Right Foot Gangrene s/pOpen Right First Toe Ray Amputation 06/21/2021 Continue postop care elevate the limb, Continue Vanco cefepime renally dosed, ID following -- Systemic inflammatory response syndrome Current Visit: Yes Status: Acute Continue antibiotics per ID -- Cellulitis of right foot Current Visit: Yes Status: Acute Elevate the limb, antibiotics and supportive care --Cellulitis-- Diabetic foot infection Current Visit: Yes Status: Acute IV antibiotic therapy, antihyperglycemic control, Follow cultures supportive care, surgical team consulted. --Acute kidney injury; Current Visit: Yes Status: Acute Vasomotor nephropathy, gentle hydration, monitor renal function Avoid nephrotoxins, mild improvement --Type II diabetes Current Visit: Yes Status: Acute Accu-Chek, sliding scale coverage ADA diet, Long-acting insulin as needed --Severe protein calorie malnutrition; Current Visit: Yes Status: Chronic Nutrition supplement, nutrition consult Supportive care, hypoalbuminemia --DVT prophylaxis Current Visit: Yes Status: Acute SCD , Lovenox Closely monitor the patient and adjust management as needed Plan of care reviewed with the patient and her nurse Subjective Date of service: 06/20/21 Principal diagnosis: Peripheral vascular disease with gangrene right first toe Interval history: 55 YO Female with DM, HTN presents to ED for evaluation. Pt reports "my left big toe hurts". Patient states that she has experienced pain, and color change to her left great toe over the past 4 days with persistently worsening symptoms over the same timeframe. Patient also reports that the toenail on her left great toe is falling off. Patient reports purulent drainage from the left great toe over the past 3 days. Patient transported to [facility] via private vehicle for further care and evaluation of the aforementioned symptoms. The patient was seen and evaluated in the emergency department. All lab and imaging studies reviewed. Patient underwent x-ray of the left foot and was found to have left great toe soft tissue air. Patient found to have foot cellulitis complicated by systemic inflammatory response syndrome. Patient also found to have left great toe dry gangrene, as well as diabetic foot infection. Patient treated with IV antibiotic therapy. Wound care consulted, surgical team consulted in the emergency department. Patient admitted to surgical floor. Patient is pending further care. Patient denies fever, chills, chest pain, palpitation, productive cough, skin rash, recent ill contacts, or known exposure to COVID-19. Prior admission on 05/15/2020 reviewed. All medication listed at time of admission has been reconciled. 06/20/21 Plan for first digit amputation tomorrow, but may need to be open TMA based on demarcation. N.p.o. after midnight except sips of water with meds. Will need wound care and outpatient wound care follow-up afterwards. 06/21/2021; patient underwent right great toe amputation , continue IV antibiotics per ID Continue postop care History Interval history: I seen and examined the patient at the bedside Patient's chart and medications reviewed Patient just came back from procedure today Complains of some pain at the site of surgery Patient is alert awake oriented x3 Mild distress Vital signs noted Hospitalist Physical - Constitutional Vitals: Temp Pulse Resp BP Pulse Ox 98.0 F 90 20 177/76 97 06/21/21 15:19 06/21/21 15:19 06/21/21 15:19 06/21/21 15:19 06/21/21 15:19 General appearance: Present: no acute distress, well-nourished - EENT Eyes: Present: PERRL, EOM intact - Neck Neck: Present: supple, normal ROM - Respiratory Respiratory effort: normal Respiratory: bilateral: diminished, negative: rales, rhonchi, wheezing - Cardiovascular Rhythm: regular Heart Sounds: Present: S1 & S2 - Extremities Extremities: no ischemia, No edema, abnormal (Right foot in dressing) - Abdominal General gastrointestinal: soft, non-tender, non-distended, normal bowel sounds - Integumentary Integumentary: Present: clear, warm - Psychiatric Psychiatric: appropriate mood/affect, cooperative - Neurologic Neurologic: CNII-XII intact, moves all extremities Results - Labs CBC & Chem 7: 06/22/21 04:00 06/22/21 04:00 Labs: Laboratory Last Values WBC 19.9 K/mm3 (4.5-11.0) H 06/21/21 04:18 RBC 3.62 M/mm3 (3.65-5.03) L 06/21/21 04:18 Hgb 7.2 gm/dl (10.1-14.3) L 06/21/21 04:18 Hct 22.8 % (30.3-42.9) L 06/21/21 04:18 MCV 63 fl (79-97) L 06/21/21 04:18 MCH 20 pg (28-32) L 06/21/21 04:18 MCHC 32 % (30-34) 06/21/21 04:18 RDW 19.7 % (13.2-15.2) H 06/21/21 04:18 Plt Count 321 K/mm3 (140-440) 06/21/21 04:18 Add Manual Diff Complete 06/21/21 04:18 Total Counted 100 06/21/21 04:18 Seg Neuts % (Manual) 73.0 % (40.0-70.0) H 06/21/21 04:18 Band Neutrophils % 3.0 % 06/21/21 04:18 Lymphocytes % (Manual) 13.0 % (13.4-35.0) L 06/21/21 04:18 Reactive Lymphs % (Man) 2.0 % 06/21/21 04:18 Monocytes % (Manual) 2.0 % (0.0-7.3) 06/21/21 04:18 Eosinophils % (Manual) 4.0 % (0.0-4.3) 06/21/21 04:18 Metamyelocytes % 1.0 % 06/21/21 04:18 Myelocytes % 2.0 % 06/21/21 04:18 Nucleated RBC % Not Reportable 06/21/21 04:18 Seg Neutrophils # Man 14.5 K/mm3 (1.8-7.7) H 06/21/21 04:18 Band Neutrophils # 0.6 K/mm3 06/21/21 04:18 Lymphocytes # (Manual) 2.6 K/mm3 (1.2-5.4) 06/21/21 04:18 Abs React Lymphs (Man) 0.4 K/mm3 06/21/21 04:18 Monocytes # (Manual) 0.4 K/mm3 (0.0-0.8) 06/21/21 04:18 Eosinophils # (Manual) 0.8 K/mm3 (0.0-0.4) H 06/21/21 04:18 Basophils # (Manual) 0.0 K/mm3 (0.0-0.1) 06/21/21 04:18 Metamyelocytes # 0.2 K/mm3 06/21/21 04:18 Myelocytes # 0.4 K/mm3 06/21/21 04:18 Promyelocytes # 66.0 K/mm3 06/21/21 04:18 Blast Cells # 0.0 K/mm3 06/21/21 04:18 WBC Morphology Not Reportable 06/21/21 04:18 Hypersegmented Neuts Not Reportable 06/21/21 04:18 Hyposegmented Neuts Not Reportable 06/21/21 04:18 Hypogranular Neuts Not Reportable 06/21/21 04:18 Smudge Cells Not Reportable 06/21/21 04:18 Toxic Granulation 1+ 06/21/21 04:18 Toxic Vacuolation Not Reportable 06/21/21 04:18 Dohle Bodies Not Reportable 06/21/21 04:18 Pelger-Huet Anomaly Not Reportable 06/21/21 04:18 Lilliana Rods Not Reportable 06/21/21 04:18 Platelet Estimate Consistent w auto 06/21/21 04:18 Clumped Platelets Not Reportable 06/21/21 04:18 Plt Clumps, EDTA Not Reportable 06/21/21 04:18 Large Platelets Not Reportable 06/21/21 04:18 Giant Platelets Not Reportable 06/21/21 04:18 Platelet Satelliting Not Reportable 06/21/21 04:18 Plt Morphology Comment Not Reportable 06/21/21 04:18 RBC Morphology Not Reportable 06/21/21 04:18 Dimorphic RBCs Not Reportable 06/21/21 04:18 Polychromasia 1+ 06/21/21 04:18 Hypochromasia 2+ 06/21/21 04:18 Poikilocytosis 2+ 06/21/21 04:18 Anisocytosis 1+ 06/21/21 04:18 Microcytosis 2+ 06/21/21 04:18 Macrocytosis Not Reportable 06/21/21 04:18 Spherocytes 1+ 06/21/21 04:18 Pappenheimer Bodies Not Reportable 06/21/21 04:18 Sickle Cells Not Reportable 06/21/21 04:18 Target Cells Not Reportable 06/21/21 04:18 Tear Drop Cells Not Reportable 06/21/21 04:18 Ovalocytes 2+ 06/21/21 04:18 Helmet Cells Not Reportable 06/21/21 04:18 [place]-Rafael Capo Bodies Not Reportable 06/21/21 04:18 [place] Rings Not Reportable 06/21/21 04:18 Rashaad Cells 2+ 06/21/21 04:18 Bite Cells Not Reportable 06/21/21 04:18 Crenated Cell Not Reportable 06/21/21 04:18 Elliptocytes Not Reportable 06/21/21 04:18 Acanthocytes (Spur) 1+ 06/21/21 04:18 Rouleaux Not Reportable 06/21/21 04:18 Hemoglobin C Crystals Not Reportable 06/21/21 04:18 Schistocytes Not Reportable 06/21/21 04:18 Malaria parasites Not Reportable 06/21/21 04:18 Yoseph Bodies Not Reportable 06/21/21 04:18 Hem Pathologist Commnt No 06/21/21 04:18 Sodium 137 mmol/L (137-145) 06/21/21 04:18 Potassium 4.7 mmol/L (3.6-5.0) 06/21/21 04:18 Chloride 111.9 mmol/L (98-107) H 06/21/21 04:18 Carbon Dioxide 11 mmol/L (22-30) L 06/21/21 04:18 Anion Gap 19 mmol/L 06/21/21 04:18 BUN 38 mg/dL (7-17) H 06/21/21 04:18 Creatinine 2.1 mg/dL (0.6-1.2) H 06/21/21 04:18 Estimated GFR 30 ml/min 06/21/21 04:18 BUN/Creatinine Ratio 18 % 06/21/21 04:18 Glucose 138 mg/dL (65-100) H 06/21/21 04:18 POC Glucose 276 mg/dL (70-105) H 06/21/21 16:12 Lactic Acid 0.70 mmol/L (0.7-2.0) 06/15/21 06:07 Calcium 7.8 mg/dL (8.4-10.2) L 06/21/21 04:18 Magnesium 2.30 mg/dL (1.7-2.3) 06/16/21 10:45 Total Bilirubin 0.60 mg/dL (0.1-1.2) 06/14/21 14:03 AST 25 units/L (5-40) 06/14/21 14:03 ALT 28 units/L (7-56) 06/14/21 14:03 Alkaline Phosphatase 1108 units/L (35-129) H 06/14/21 14:03 Total Protein 7.3 g/dL (6.3-8.2) 06/14/21 14:03 Albumin 2.9 g/dL (3.9-5) L 06/14/21 14:03 Albumin/Globulin Ratio 0.7 % 06/14/21 14:03 Hong/IV: Voiding Method Toilet Active Medications - Current Medications Current Medications: Generic Name Dose Route Start Last Admin Trade Name Freq PRN Reason Stop Dose Admin Acetaminophen 650 mg 06/14/21 17:17 Acetaminophen 325 Mg Tab PO Q6H PRN Pain, Mild (1-3) Hydrocodone Bitart/Acetaminophen 1 each 06/17/21 17:34 06/20/21 10:08 Hydrocodone/Acetaminophen 5-325 Mg Tab PO 1 each Q4H PRN Administration Pain, Moderate (4-6) Albuterol 2.5 mg 06/14/21 16:18 Albuterol 2.5 Mg/3 Ml Nebu IH Q4HRT PRN Shortness Of Breath Amlodipine Besylate 10 mg 06/16/21 10:00 06/20/21 10:02 Amlodipine 10 Mg Tab PO 10 mg DAILY DEE DEE Administration Ascorbic Acid 500 mg 06/21/21 22:00 Ascorbic Acid 500 Mg Tab PO BID DEE DEE Atorvastatin Calcium 40 mg 06/16/21 22:00 06/20/21 23:00 Atorvastatin 40 Mg Tab PO 40 mg QHS DEE DEE Administration Cilostazol 100 mg 06/17/21 22:00 06/20/21 23:00 Cilostazol 100 Mg Tab PO 100 mg BID DEE DEE Administration Clopidogrel Bisulfate 75 mg 06/16/21 10:00 06/20/21 10:02 Clopidogrel 75 Mg Tab PO 75 mg DAILY DEE DEE Administration Ferrous Sulfate 325 mg 06/21/21 22:00 Ferrous Sulfate 325 Mg Tab PO BID DEE DEE Gabapentin 300 mg 06/16/21 14:00 06/21/21 06:26 Gabapentin 300 Mg Cap PO 300 mg Q8HR DEE DEE Administration Hydralazine HCl 25 mg 06/16/21 14:00 06/21/21 06:25 Hydralazine 25 Mg Tab PO 25 mg Q8HR DEE DEE Administration Hydralazine HCl 10 mg 06/16/21 09:00 06/20/21 17:04 Hydralazine 20 Mg/1 Ml Inj IV 10 mg Q4H PRN Administration Hypertension Hydromorphone HCl 0.25 mg 06/14/21 17:17 06/20/21 23:04 Hydromorphone 1 Mg/1 Ml Inj IV 0.25 mg Q4H PRN Administration Pain, Moderate (4-6) Hydromorphone HCl 0.5 mg 06/21/21 12:00 Hydromorphone 1 Mg/1 Ml Inj IV Q4H PRN Pain , Severe (7-10) Sodium Chloride 1,000 mls @ 100 mls/hr 06/15/21 17:15 06/21/21 01:22 Nacl 0.9% 1000 Ml IV 100 mls/hr DIRECT DEE DEE Administration Cefepime HCl 2 gm in 100 mls @ 200 mls/hr 06/21/21 12:00 Cefepime/Ns 2 Gm/100 Ml IV Q24H [facility] Protocol Insulin Human Isoph/Insulin Regular 10 unit 06/16/21 08:00 06/20/21 17:04 Insulin Nph/Regular 70/30 Inj SUB-Q 10 unit BIDDIAB DEE DEE Administration Insulin Human Lispro 0 unit 06/15/21 11:30 06/20/21 22:58 Insulin Lispro 100 Unit/Ml SUB-Q Not Given ACHS [facility] Protocol Ondansetron HCl 4 mg 06/14/21 16:18 Ondansetron 4 Mg/2 Ml Inj IV Q8H PRN Nausea And Vomiting Oxycodone/Acetaminophen 1 tab 06/14/21 16:18 06/16/21 21:53 Oxycodone /Acetaminophen 5-325mg Tab PO 1 tab Q6H PRN Administration Pain, Moderate (4-6) Sodium Chloride 10 ml 06/14/21 22:00 06/20/21 22:00 Sodium Chloride 0.9% 10 Ml Flush Syringe IV Not Given BID DEE DEE Sodium Chloride 10 ml 06/14/21 16:18 Sodium Chloride 0.9% 10 Ml Flush Syringe IV PRN PRN LINE FLUSH Nutrition/Malnutrition Assess - Dietary Evaluation Nutrition/Malnutrition Findings: Nutrition Notes Start: 06/21/21 16:35 Freq: Status: Active Protocol: Document 06/21/21 16:36 CW (Rec: 06/21/21 16:37 CW [email or web address]) Nutrition Notes Need for Assessment generated from: LOS Initial or Follow up Brief Note Current Diet NPO Height 5 ft 2 in Weight 61.6 kg [place] Body Weight (kg) 50.00 BMI 24.8 Weight Status Appropriate Subjective/Other Information Pt NPO at this time but prior to NPO PO intake was excellent . Current % PO Good (75-100%) Nutrition Intervention Revisit per MD consult or patient Sign Off request: Additional Comments S/O for good intakes
[2021-06-21] MEDS: HYDROmorphone 1 MG/1 ML INJ IV PRN (17:36)
[2021-06-21] MEDS: FERROUS SULFATE 325 MG TAB PO SCH (21:08)
[2021-06-21] MEDS: HYDROcodone/ACETAMINOPHEN 5-325 MG TAB PO PRN (21:08)
[2021-06-21] MEDS: ASCORBIC ACID 500 MG TAB PO SCH (21:09)
[2021-06-22 04:24] LABS: Hematocrit 24.6 % (30.3-42.9); Hemoglobin 7.5 gm/dl (10.1-14.3); Mean Corpuscular HGB Conc 31 % (30-34); Platelet Count 428 K/mm3 (140-440); Red Blood Count 3.93 M/mm3 (3.65-5.03)
[2021-06-22 04:25] LABS: Mean Corpuscular Volume 63 fl (79-97)
[2021-06-22 04:42] LABS: Calcium 8.1 mg/dL (8.4-10.2)
[2021-06-22] MEDS: HYDROmorphone 1 MG/1 ML INJ IV PRN ×2 (04:49→18:04)
[2021-06-22] MEDS: SODIUM CHLORIDE 0.9% 1000 ML 1,000 ML IV SCH (05:02)
[2021-06-22] MEDS: GABAPENTIN 300 MG CAP PO SCH ×3 (05:03→21:54)
[2021-06-22] MEDS: hydrALAZINE 25 MG TAB PO SCH ×3 (05:03→21:52)
[2021-06-22 05:06] LABS: Band Neutrophils # (Manual) 0.2 K/mm3; Total Cells Counted 100
[2021-06-22 05:07] LABS: Anisocytosis 1+; Burr Cells 2+; Hypochromasia 2+; Poikilocytosis 2+; Schistocytes Few
[2021-06-22 05:08] LABS: Ovalocytes Few; Platelet Estimate Consistent w Auto; Tear Drop Cells Few
[2021-06-22] MEDS: INSULIN LISPRO 100 UNIT/ML SUB-Q SCH ×4 (07:22→23:48)
[2021-06-22] MEDS: INSULIN NPH/REGULAR 70/30 INJ SUB-Q SCH ×2 (09:21→18:08)
--- NOTE | 2021-06-22 09:24 | Progress Note ---
Assessment and Plan Assessment and plan: -- Gangrene/right great toe Current Visit: Yes Status: Acute PVD with Right Foot Gangrene s/pOpen Right First Toe Ray Amputation 06/21/2021 Continue postop care elevate the limb, Continue Vanco cefepime renally dosed, ID following. -- Cellulitis of right foot Current Visit: Yes Status: Acute Elevate the limb, antibiotics and supportive care --Cellulitis-- Diabetic foot infection Current Visit: Yes Status: Acute Scheduled for excisional surgical debridement today Per vascular --Anemia; Hb 7.5 Closely monitor H&H transfuse as needed. --Leukocytosis; secondary to cellulitis Continue current antibiotics follow cultures ID following -- Systemic inflammatory response syndrome Current Visit: Yes Status: Acute Continue antibiotics per ID --Acute kidney injury; Current Visit: Yes Status: Acute Vasomotor nephropathy, gentle hydration, monitor renal function Avoid nephrotoxins, mild improvement --Type II diabetes Current Visit: Yes Status: Acute Accu-Chek, sliding scale coverage ADA diet, Long-acting insulin as needed --Severe protein calorie malnutrition; Current Visit: Yes Status: Chronic Nutrition supplement, nutrition consult Supportive care, hypoalbuminemia --DVT prophylaxis Current Visit: Yes Status: Acute SCD , Lovenox Closely monitor the patient and adjust management as needed Plan of care reviewed with the patient and her nurse Consultants and recommendations noted and appreciated 06/22/2021; Patient had right great toe amputation on 06/21/2021 Scheduled for excisional debridement cellulitis soft tissue today History Interval history: I have seen and examined the patient at the bedside this morning Patient's chart and medications reviewed Patient complains of some pain in the right great toe Vital signs noted Hospitalist Physical - Constitutional Vitals: Temp Pulse Resp BP Pulse Ox 98.2 F 82 18 132/52 95 06/22/21 07:47 06/22/21 07:47 06/22/21 07:47 06/22/21 07:47 06/22/21 07:47 General appearance: Present: no acute distress, well-nourished - EENT Eyes: Present: PERRL, EOM intact - Neck Neck: Present: supple, normal ROM - Respiratory Respiratory effort: normal Respiratory: bilateral: diminished, negative: rales, rhonchi, wheezing - Cardiovascular Rhythm: regular Heart Sounds: Present: S1 & S2 - Extremities Extremities: no ischemia, No edema, abnormal (Right great toe dressing in place) - Abdominal General gastrointestinal: soft, non-tender, non-distended, normal bowel sounds - Integumentary Integumentary: Present: clear, warm - Psychiatric Psychiatric: appropriate mood/affect, cooperative - Neurologic Neurologic: moves all extremities Results - Labs CBC & Chem 7: 06/22/21 04:00 06/22/21 04:00 Labs: Laboratory Last Values WBC 22.8 K/mm3 (4.5-11.0) H 06/22/21 04:00 RBC 3.93 M/mm3 (3.65-5.03) 06/22/21 04:00 Hgb 7.5 gm/dl (10.1-14.3) L 06/22/21 04:00 Hct 24.6 % (30.3-42.9) L 06/22/21 04:00 MCV 63 fl (79-97) L 06/22/21 04:00 MCH 19 pg (28-32) L 06/22/21 04:00 MCHC 31 % (30-34) 06/22/21 04:00 RDW 20.0 % (13.2-15.2) H 06/22/21 04:00 Plt Count 428 K/mm3 (140-440) 06/22/21 04:00 Add Manual Diff Complete 06/22/21 04:00 Total Counted 100 06/22/21 04:00 Seg Neuts % (Manual) 87.0 % (40.0-70.0) H 06/22/21 04:00 Band Neutrophils % 1.0 % 06/22/21 04:00 Lymphocytes % (Manual) 10.0 % (13.4-35.0) L 06/22/21 04:00 Reactive Lymphs % (Man) 2.0 % 06/21/21 04:18 Monocytes % (Manual) 2.0 % (0.0-7.3) 06/22/21 04:00 Eosinophils % (Manual) 4.0 % (0.0-4.3) 06/21/21 04:18 Metamyelocytes % 1.0 % 06/21/21 04:18 Myelocytes % 2.0 % 06/21/21 04:18 Nucleated RBC % Not Reportable 06/22/21 04:00 Seg Neutrophils # Man 19.8 K/mm3 (1.8-7.7) H 06/22/21 04:00 Band Neutrophils # 0.2 K/mm3 06/22/21 04:00 Lymphocytes # (Manual) 2.3 K/mm3 (1.2-5.4) 06/22/21 04:00 Abs React Lymphs (Man) 0.0 K/mm3 06/22/21 04:00 Monocytes # (Manual) 0.5 K/mm3 (0.0-0.8) 06/22/21 04:00 Eosinophils # (Manual) 0.0 K/mm3 (0.0-0.4) 06/22/21 04:00 Basophils # (Manual) 0.0 K/mm3 (0.0-0.1) 06/22/21 04:00 Metamyelocytes # 0.0 K/mm3 06/22/21 04:00 Myelocytes # 0.0 K/mm3 06/22/21 04:00 Promyelocytes # 0.0 K/mm3 06/22/21 04:00 Blast Cells # 0.0 K/mm3 06/22/21 04:00 WBC Morphology Not Reportable 06/22/21 04:00 Hypersegmented Neuts Not Reportable 06/22/21 04:00 Hyposegmented Neuts Not Reportable 06/22/21 04:00 Hypogranular Neuts Not Reportable 06/22/21 04:00 Smudge Cells Not Reportable 06/22/21 04:00 Toxic Granulation Not Reportable 06/22/21 04:00 Toxic Vacuolation Not Reportable 06/22/21 04:00 Dohle Bodies Not Reportable 06/22/21 04:00 Pelger-Huet Anomaly Not Reportable 06/22/21 04:00 Lilliana Rods Not Reportable 06/22/21 04:00 Platelet Estimate Consistent w auto 06/22/21 04:00 Clumped Platelets Not Reportable 06/22/21 04:00 Plt Clumps, EDTA Not Reportable 06/22/21 04:00 Large Platelets Not Reportable 06/22/21 04:00 Giant Platelets Not Reportable 06/22/21 04:00 Platelet Satelliting Not Reportable 06/22/21 04:00 Plt Morphology Comment Not Reportable 06/22/21 04:00 RBC Morphology Not Reportable 06/22/21 04:00 Dimorphic RBCs Not Reportable 06/22/21 04:00 Polychromasia Few 06/22/21 04:00 Hypochromasia 2+ 06/22/21 04:00 Poikilocytosis 2+ 06/22/21 04:00 Anisocytosis 1+ 06/22/21 04:00 Microcytosis 2+ 06/22/21 04:00 Macrocytosis Not Reportable 06/22/21 04:00 Spherocytes Not Reportable 06/22/21 04:00 Pappenheimer Bodies Not Reportable 06/22/21 04:00 Sickle Cells Not Reportable 06/22/21 04:00 Target Cells Not Reportable 06/22/21 04:00 Tear Drop Cells Few 06/22/21 04:00 Ovalocytes Few 06/22/21 04:00 Helmet Cells Not Reportable 06/22/21 04:00 Henderson-[place] Bodies Not Reportable 06/22/21 04:00 [place] Rings Not Reportable 06/22/21 04:00 Fitzwilliam Cells 2+ 06/22/21 04:00 Bite Cells Not Reportable 06/22/21 04:00 Crenated Cell Not Reportable 06/22/21 04:00 Elliptocytes Few 06/22/21 04:00 Acanthocytes (Spur) 1+ 06/22/21 04:00 Rouleaux Not Reportable 06/22/21 04:00 Hemoglobin C Crystals Not Reportable 06/22/21 04:00 Schistocytes Few 06/22/21 04:00 Malaria parasites Not Reportable 06/22/21 04:00 Yoseph Bodies Not Reportable 06/22/21 04:00 Hem Pathologist Commnt No 06/22/21 04:00 Sodium 137 mmol/L (137-145) 06/22/21 04:00 Potassium 5.5 mmol/L (3.6-5.0) H 06/22/21 04:00 Chloride 106.5 mmol/L (98-107) 06/22/21 04:00 Carbon Dioxide 11 mmol/L (22-30) L 06/22/21 04:00 Anion Gap 25 mmol/L 06/22/21 04:00 BUN 37 mg/dL (7-17) H 06/22/21 04:00 Creatinine 1.8 mg/dL (0.6-1.2) H 06/22/21 04:00 Estimated GFR 35 ml/min 06/22/21 04:00 BUN/Creatinine Ratio 21 % 06/22/21 04:00 Glucose 110 mg/dL (65-100) H 06/22/21 04:00 POC Glucose 115 mg/dL (70-105) H 06/22/21 07:47 Lactic Acid 0.70 mmol/L (0.7-2.0) 06/15/21 06:07 Calcium 8.1 mg/dL (8.4-10.2) L 06/22/21 04:00 Magnesium 2.20 mg/dL (1.7-2.3) 06/22/21 04:00 Total Bilirubin 0.60 mg/dL (0.1-1.2) 06/14/21 14:03 AST 25 units/L (5-40) 06/14/21 14:03 ALT 28 units/L (7-56) 06/14/21 14:03 Alkaline Phosphatase 1108 units/L (35-129) H 06/14/21 14:03 Total Protein 7.3 g/dL (6.3-8.2) 06/14/21 14:03 Albumin 2.9 g/dL (3.9-5) L 06/14/21 14:03 Albumin/Globulin Ratio 0.7 % 06/14/21 14:03 Random Vancomycin 11.9 ug/mL (0-40.0) 06/22/21 04:00 Blood Type O POSITIVE 06/21/21 23:30 Antibody Screen Negative 06/21/21 23:30 Microbiology: Microbiology 06/21/21 Unknown Toe - Right Big Surgical Biopsy Culture - Preliminary Hong/IV: Voiding Method Toilet Active Medications - Current Medications Current Medications: Generic Name Dose Route Start Last Admin Trade Name Freq PRN Reason Stop Dose Admin Acetaminophen 650 mg 06/14/21 17:17 Acetaminophen 325 Mg Tab PO Q6H PRN Pain, Mild (1-3) Hydrocodone Bitart/Acetaminophen 1 each 06/17/21 17:34 06/21/21 21:08 Hydrocodone/Acetaminophen 5-325 Mg Tab PO 1 each Q4H PRN Administration Pain, Moderate (4-6) Albuterol 2.5 mg 06/14/21 16:18 Albuterol 2.5 Mg/3 Ml Nebu IH Q4HRT PRN Shortness Of Breath Amlodipine Besylate 10 mg 06/16/21 10:00 06/21/21 13:00 Amlodipine 10 Mg Tab PO 10 mg DAILY DEE DEE Administration Ascorbic Acid 500 mg 06/21/21 22:00 06/21/21 21:09 Ascorbic Acid 500 Mg Tab PO 500 mg BID DEE DEE Administration Aspirin 81 mg 06/22/21 10:00 Aspirin Ec 81 Mg Tab PO QDAY DEE DEE Atorvastatin Calcium 40 mg 06/16/21 22:00 06/21/21 21:08 Atorvastatin 40 Mg Tab PO 40 mg QHS DEE DEE Administration Clopidogrel Bisulfate 75 mg 06/16/21 10:00 06/21/21 13:48 Clopidogrel 75 Mg Tab PO 75 mg DAILY DEE DEE Administration Ferrous Sulfate 325 mg 06/21/21 22:00 06/21/21 21:08 Ferrous Sulfate 325 Mg Tab PO 325 mg BID DEE DEE Administration Gabapentin 300 mg 06/16/21 14:00 06/22/21 05:03 Gabapentin 300 Mg Cap PO 300 mg Q8HR DEE DEE Administration Hydralazine HCl 25 mg 06/16/21 14:00 06/22/21 05:03 Hydralazine 25 Mg Tab PO 25 mg Q8HR DEE DEE Administration Hydralazine HCl 10 mg 06/16/21 09:00 06/21/21 17:30 Hydralazine 20 Mg/1 Ml Inj IV 10 mg Q4H PRN Administration Hypertension Hydromorphone HCl 0.25 mg 06/14/21 17:17 06/22/21 04:49 Hydromorphone 1 Mg/1 Ml Inj IV 0.25 mg Q4H PRN Administration Pain, Moderate (4-6) Hydromorphone HCl 0.5 mg 06/21/21 12:00 06/21/21 17:36 Hydromorphone 1 Mg/1 Ml Inj IV 0.5 mg Q4H PRN Administration Pain , Severe (7-10) Sodium Chloride 1,000 mls @ 100 mls/hr 06/15/21 17:15 06/22/21 05:02 Nacl 0.9% 1000 Ml IV 100 mls/hr DIRECT DEE DEE Administration Cefepime HCl 2 gm in 100 mls @ 200 mls/hr 06/21/21 12:00 06/21/21 21:07 Cefepime/Ns 2 Gm/100 Ml IV Infused Q24H DEE DEE Infusion Protocol Insulin Human Isoph/Insulin Regular 10 unit 06/16/21 08:00 06/21/21 17:37 Insulin Nph/Regular 70/30 Inj SUB-Q 10 unit BIDDIAB DEE DEE Administration Insulin Human Lispro 0 unit 06/15/21 11:30 06/21/21 22:18 Insulin Lispro 100 Unit/Ml SUB-Q 3 unit ACHS DEE DEE Administration Protocol Ondansetron HCl 4 mg 06/14/21 16:18 Ondansetron 4 Mg/2 Ml Inj IV Q8H PRN Nausea And Vomiting Oxycodone/Acetaminophen 1 tab 06/14/21 16:18 06/16/21 21:53 Oxycodone /Acetaminophen 5-325mg Tab PO 1 tab Q6H PRN Administration Pain, Moderate (4-6) Pentoxifylline 400 mg 06/22/21 14:00 Pentoxifylline Er 400 Mg Tab PO Q8HR DEE DEE Sodium Chloride 10 ml 06/14/21 22:00 06/21/21 22:20 Sodium Chloride 0.9% 10 Ml Flush Syringe IV 10 ml BID DEE DEE Administration Sodium Chloride 10 ml 06/14/21 16:18 Sodium Chloride 0.9% 10 Ml Flush Syringe IV PRN PRN LINE FLUSH Nutrition/Malnutrition Assess - Dietary Evaluation Nutrition/Malnutrition Findings: Nutrition Notes Start: 06/21/21 16:35 Freq: Status: Active Protocol: Document 06/21/21 16:36 CW (Rec: 06/21/21 16:37 CW [id number]) Nutrition Notes Need for Assessment generated from: LOS Initial or Follow up Brief Note Current Diet NPO Height 5 ft 2 in Weight 61.6 kg [place] Body Weight (kg) 50.00 BMI 24.8 Weight Status Appropriate Subjective/Other Information Pt NPO at this time but prior to NPO PO intake was excellent . Current % PO Good (75-100%) Nutrition Intervention Revisit per MD consult or patient Sign Off request: Additional Comments S/O for good intakes
[2021-06-22] MEDS: ASCORBIC ACID 500 MG TAB PO SCH ×2 (10:51→21:53)
[2021-06-22] MEDS: amLODIPine 10 MG TAB PO SCH (10:51)
[2021-06-22] MEDS: CLOPIDOGREL 75 MG TAB PO SCH (10:52)
[2021-06-22] MEDS: FERROUS SULFATE 325 MG TAB PO SCH ×2 (10:53→21:52)
[2021-06-22] MEDS: ASPIRIN EC 81 MG TAB PO SCH (11:49)
--- NOTE | 2021-06-22 12:26 | Progress Note ---
Assessment and Plan Cultures: 06/14/2021 blood culture: No growth 06/21/2021 OR toe culture: No organisms on Gram stain. Culture in process A/P: 55-year-old female with longstanding diabetes mellitus type 2, hypertension was admitted to the hospital on 06/14/2021 with complaints of right great toe pain and darkening with findings of gangrene: #Right great toe gangrenous change with associated cellulitis: awaiting possible toe amputation: Xray without osteomyelitis. Underwent open right great toe ray amputation 06/21/2021, per OR note, all remaining muscle and soft tissue within the wound appeared healthy and viable. #Leucocytosis: likely from ischemia and infection. #Peripheral vascular disease: Status post revascularization of RLE on 06/19/2021 #Diabetes mellitus type 2 #KAMAR: creatinine elevated. Renally dose antibiotics. Recs: -continue renally adjusted IV Cefepime, Vancomycin -monitor renal function and vanco trough -f/u cultures from OR, hope to switch to PO abx tomorrow if WBC better Mary Batista MD, FACP [facility] ([facility] O: [phone] F: [phone] Subjective Date of service: 06/22/21 Principal diagnosis: Peripheral vascular disease with gangrene right first toe Interval history: No fever. Got dressing change done, denies any complaints. Tolerated abx. No nausea, vomiting. No rash. Objective - Exam Narrative Exam: Physical Exam: Constitutional: Alert, cooperative. No acute distress Head, Ears, Nose: Normocephalic, atraumatic. External ears, nose normal Eyes: Conjunctivae/corneas clear. No icterus. No ptosis. Neck: Supple, no meningeal signs Cardiovascular: S1, S2 normal. Respiratory: Good air entry, clear to auscultation bilaterally GI: Soft, non-tender; bowel sounds normal. No peritoneal signs Musculoskeletal: R foot in dressing Skin: No rash or abscess Hem/Lymphatic: No palpable cervical or supraclavicular nodes. No lymphangitis Psych: Mood ok. Affect normal Neurological: Awake, alert, oriented. No gross abnormality - Constitutional Vitals: Vital Signs Temp Pulse Resp BP Pulse Ox 98.4 F 89 18 154/61 97 06/22/21 11:02 06/22/21 11:02 06/22/21 11:02 06/22/21 11:02 06/22/21 11:02 Temperature -Last 24 Hours Temperature 98.4 F Temperature 98.2 F Temperature 98.3 F Temperature 98.1 F Temperature 98.4 F Temperature 98.0 F - Labs CBC & Chem 7: 06/22/21 04:00 06/22/21 04:00 Labs: Abnormal lab results 06/21/21 06/21/21 06/21/21 Range/Units 04:18 16:12 22:07 WBC (4.5-11.0) K/mm3 Hgb (10.1-14.3) gm/dl Hct (30.3-42.9) % MCV (79-97) fl MCH (28-32) pg RDW (13.2-15.2) % Seg Neuts % (Manual) 73.0 H (40.0-70.0) % Lymphocytes % (Manual) 13.0 L (13.4-35.0) % Seg Neutrophils # Man 14.5 H (1.8-7.7) K/mm3 Eosinophils # (Manual) 0.8 H (0.0-0.4) K/mm3 Potassium (3.6-5.0) mmol/L Carbon Dioxide (22-30) mmol/L BUN (7-17) mg/dL Creatinine (0.6-1.2) mg/dL Glucose (65-100) mg/dL POC Glucose 276 H 160 H (70-105) mg/dL Calcium (8.4-10.2) mg/dL 06/22/21 06/22/21 06/22/21 Range/Units 04:00 04:00 07:47 WBC 22.8 H (4.5-11.0) K/mm3 Hgb 7.5 L (10.1-14.3) gm/dl Hct 24.6 L (30.3-42.9) % MCV 63 L (79-97) fl MCH 19 L (28-32) pg RDW 20.0 H (13.2-15.2) % Seg Neuts % (Manual) 87.0 H (40.0-70.0) % Lymphocytes % (Manual) 10.0 L (13.4-35.0) % Seg Neutrophils # Man 19.8 H (1.8-7.7) K/mm3 Eosinophils # (Manual) (0.0-0.4) K/mm3 Potassium 5.5 H (3.6-5.0) mmol/L Carbon Dioxide 11 L (22-30) mmol/L BUN 37 H (7-17) mg/dL Creatinine 1.8 H (0.6-1.2) mg/dL Glucose 110 H (65-100) mg/dL POC Glucose 115 H (70-105) mg/dL Calcium 8.1 L (8.4-10.2) mg/dL 06/22/21 Range/Units 11:02 WBC (4.5-11.0) K/mm3 Hgb (10.1-14.3) gm/dl Hct (30.3-42.9) % MCV (79-97) fl MCH (28-32) pg RDW (13.2-15.2) % Seg Neuts % (Manual) (40.0-70.0) % Lymphocytes % (Manual) (13.4-35.0) % Seg Neutrophils # Man (1.8-7.7) K/mm3 Eosinophils # (Manual) (0.0-0.4) K/mm3 Potassium (3.6-5.0) mmol/L Carbon Dioxide (22-30) mmol/L BUN (7-17) mg/dL Creatinine (0.6-1.2) mg/dL Glucose (65-100) mg/dL POC Glucose 159 H (70-105) mg/dL Calcium (8.4-10.2) mg/dL
[2021-06-22] MEDS: PENTOXIFYLLINE ER 400 MG TAB PO SCH ×2 (12:50→21:52)
[2021-06-22] MEDS: CEFEPIME/NS 2 GM/100 ML 2 GM/100 ML BAG IV SCH (13:17)
[2021-06-22] MEDS ORDERED: LIDOCAINE (1%) 10 MG/1 ML VIAL 20 ML MDV ONE (14:07)
[2021-06-22] MEDS ORDERED: SODIUM BICARBONATE 2 MEQ/2 ML SYRINGE ONE (14:07)
[2021-06-22] MEDS ORDERED: KETAMINE/STERILE WATER 50 MG/ML SYRINGE ONE (14:08)
[2021-06-22] MEDS ORDERED: fentaNYL 100 MCG/2 ML INJ ONE (14:10)
[2021-06-22] MEDS ORDERED: LACTATED RINGERS 1,000 ML ONE (14:24)
[2021-06-22] MEDS ORDERED: LACTATED RINGERS 1,000 ML IV SCH (14:30)
[2021-06-22] MEDS ORDERED: MIDAZOLAM 5 MG/5 ML INJ MDV IV ONE (14:35)
[2021-06-22] MEDS ORDERED: propofoL 200 MG/20 ML VIAL IV ONE (15:00)
[2021-06-22] MEDS ORDERED: NEOMY 40 MG/POLYMYXIN B 200,000 UNITS/ML (GU) AMPULE IR ONE ×2 (15:08→15:13)
[2021-06-22] MEDS ORDERED: SODIUM CHLORIDE 0.9% IRRIG SOLN 2000 ML IR ONE (15:12)
[2021-06-22] MEDS ORDERED: LIDOCAINE MPF (2%) 20 MG/1 ML VIAL 5 ML ONE (15:31)
--- NOTE | 2021-06-22 15:54 | Operative Report ---
Operative Report Operative Report: Date of Procedure: 06/22/2021 Pre-operative Diagnosis: PVD with Open Right First Toe Amputation Post-operative Diagnosis: Same Procedure(s): 1. Excisional Debridement of Muscle and Soft Tissue Right Foot Wound and Pulse Irrigation Using Gentamicin Infused Irrigation 2. Wound VAC Placement (Wound Measures 9 x 6 x 3 cm) Surgeon: Tano Sylvester M.D. [place]: None Anesthesia: Monitored Anesthesia Care EBL: Minimal Counts: Correct Complications: None Condition: Stable Findings: All remaining soft tissue appeared healthy. Specimen: Muscle and soft tissue from the wound was discarded. Indication: The patient is status post open debridement of right foot wound for a gangrenous right toe. She returns for debridement and wound VAC placement. She was given the risk, benefits, and alternative procedures and consented to the procedure. Description of Procedure: The patient was brought to the operating room and laid in supine position. After she was adequately sedated her right foot was prepped and draped in normal sterile fashion. Curved Mayos were used to sharply debride necrotic muscle and soft tissue within the wound. Of note there was minimal tissue that was necrotic. Once the tissue had been debrided to healthy tissue 3 L of gentamicin infused saline was used to further debride the food with pulse lavage. Once this had been done hemostasis within the wound was achieved with direct pressure. Once hemostasis was achieved a wound VAC was placed and an adequate seal was achieved. The wound was then dressed with a Kerlix roll. The patient tolerated the procedure well. All sponge, needle, and instrument counts were correct. The patient was transported to the recovery area in stable condition.
[2021-06-22] MEDS: VANCOMYCIN/NS 1 GM/250 ML 1 GM/250 ML BAG IV SCH (16:30)
[2021-06-22] MEDS: HYDROcodone/ACETAMINOPHEN 5-325 MG TAB PO PRN (21:58)
[2021-06-23] MEDS: GABAPENTIN 300 MG CAP PO SCH ×3 (05:46→21:17)
[2021-06-23] MEDS: PENTOXIFYLLINE ER 400 MG TAB PO SCH ×3 (05:51→21:17)
[2021-06-23] MEDS: HYDROmorphone 1 MG/1 ML INJ IV PRN ×2 (05:55→16:42)
[2021-06-23] MEDS: hydrALAZINE 25 MG TAB PO SCH ×3 (09:12→21:18)
[2021-06-23] MEDS: INSULIN LISPRO 100 UNIT/ML SUB-Q SCH ×4 (09:15→21:21)
[2021-06-23] MEDS: INSULIN NPH/REGULAR 70/30 INJ SUB-Q SCH ×2 (09:15→16:42)
[2021-06-23] MEDS: CLOPIDOGREL 75 MG TAB PO SCH (09:16)
[2021-06-23] MEDS: FERROUS SULFATE 325 MG TAB PO SCH ×2 (09:16→21:16)
[2021-06-23] MEDS: ASCORBIC ACID 500 MG TAB PO SCH ×2 (09:16→21:17)
[2021-06-23] MEDS: ASPIRIN EC 81 MG TAB PO SCH (09:16)
[2021-06-23] MEDS: amLODIPine 10 MG TAB PO SCH (09:16)
--- NOTE | 2021-06-23 10:05 | Progress Note ---
Assessment and Plan Patient is doing well following right first toe amputation. Patient may be discharged home from a vascular standpoint once her wound VAC is arranged. She can follow-up in our office 2 weeks following her discharge. Subjective Date of service: 06/23/21 Principal diagnosis: Peripheral vascular disease with gangrene right first toe Interval history: Patient is doing well. Right first toe amputation wound VAC in place. Patient has no significant complaints of pain. She has a forefoot offloading shoe that her is bringing from home. Objective - Constitutional Vitals: Vital Signs - 12hr 06/22/21 06/23/21 06/23/21 23:00 00:58 04:31 Temperature 98.4 F 98.6 F Pulse Rate 88 82 Respiratory 16 16 Rate Blood Pressure 152/61 148/66 O2 Sat by Pulse 97 97 93 Oximetry 06/23/21 07:35 Temperature 98.7 F Pulse Rate 82 Respiratory 16 Rate Blood Pressure 144/65 O2 Sat by Pulse 94 Oximetry General appearance: Present: no acute distress - EENT Eyes: EOM intact ENT: hearing intact - Neck Neck: supple - Respiratory Respiratory effort: normal Extremities: abnormal - Gastrointestinal General gastrointestinal: Present: deferred Rectal Exam: deferred - Neurologic Neurologic: moves all extremities - Psychiatric Psychiatric: appropriate mood/affect, cooperative - Labs CBC & Chem 7: 06/22/21 04:00 06/22/21 04:00 Labs: Abnormal lab results 06/22/21 06/22/21 06/22/21 Range/Units 11:02 14:08 15:43 POC Glucose 159 H 165 H 168 H (70-105) mg/dL 06/22/21 06/23/21 Range/Units 20:58 07:33 POC Glucose 196 H 158 H (70-105) mg/dL Medications & Allergies - Medications Allergies/Adverse Reactions: Allergies No Known Allergies Allergy (Verified 05/15/20 02:01) Home Medications: Home Medications Medication Instructions Recorded Confirmed Last Taken Type Aspirin [Adult Aspirin] 81 mg PO DAILY 06/15/21 06/15/21 3 Days Ago History ~06/12/21 81 AtorvaSTATin [Lipitor] 40 mg PO DAILY 06/15/21 06/15/21 3 Days Ago History ~06/12/21 40 Clopidogrel [Plavix] 75 mg PO DAILY 06/15/21 06/15/21 3 Days Ago History ~06/12/21 75 Furosemide [Lasix TAB] 40 mg PO DAILY 06/15/21 06/15/21 3 Days Ago History ~06/12/21 40 Gabapentin [Neurontin] 300 mg PO Q8HR 06/15/21 06/15/21 3 Days Ago History ~06/12/21 300 Insulin NPH Hum/Reg Insulin Hm 12 unit SQ QAM 06/15/21 06/15/21 3 Days Ago History [Novolin 70-30 Flexpen] ~06/12/21 12 Novolin 70-30 Flexpen 10 units SQ QPM 06/15/21 06/15/21 3 Days Ago History ~06/12/21 10 amLODIPine 10 mg PO DAILY 06/15/21 06/15/21 3 Days Ago History ~06/12/21 10 Active Medications: Generic Name Dose Route Start Last Admin Trade Name Freq PRN Reason Stop Dose Admin Acetaminophen 650 mg 06/14/21 17:17 Acetaminophen 325 Mg Tab PO Q6H PRN Pain, Mild (1-3) Hydrocodone Bitart/Acetaminophen 1 each 06/17/21 17:34 06/22/21 21:58 Hydrocodone/Acetaminophen 5-325 Mg Tab PO 1 each Q4H PRN Administration Pain, Moderate (4-6) Albuterol 2.5 mg 06/14/21 16:18 Albuterol 2.5 Mg/3 Ml Nebu IH Q4HRT PRN Shortness Of Breath Amlodipine Besylate 10 mg 06/16/21 10:00 06/23/21 09:16 Amlodipine 10 Mg Tab PO 10 mg DAILY DEE DEE Administration Ascorbic Acid 500 mg 06/21/21 22:00 06/23/21 09:16 Ascorbic Acid 500 Mg Tab PO 500 mg BID DEE DEE Administration Aspirin 81 mg 06/22/21 10:00 06/23/21 09:16 Aspirin Ec 81 Mg Tab PO 81 mg QDAY DEE DEE Administration Atorvastatin Calcium 40 mg 06/16/21 22:00 06/22/21 21:52 Atorvastatin 40 Mg Tab PO 40 mg QHS DEE DEE Administration Clopidogrel Bisulfate 75 mg 06/16/21 10:00 06/23/21 09:16 Clopidogrel 75 Mg Tab PO 75 mg DAILY DEE DEE Administration Ferrous Sulfate 325 mg 06/21/21 22:00 06/23/21 09:16 Ferrous Sulfate 325 Mg Tab PO 325 mg BID DEE DEE Administration Gabapentin 300 mg 06/16/21 14:00 06/23/21 05:46 Gabapentin 300 Mg Cap PO 300 mg Q8HR DEE DEE Administration Hydralazine HCl 25 mg 06/16/21 14:00 06/23/21 09:12 Hydralazine 25 Mg Tab PO Not Given Q8HR DEE DEE Hydralazine HCl 10 mg 06/16/21 09:00 06/21/21 17:30 Hydralazine 20 Mg/1 Ml Inj IV 10 mg Q4H PRN Administration Hypertension Hydromorphone HCl 0.25 mg 06/14/21 17:17 06/22/21 04:49 Hydromorphone 1 Mg/1 Ml Inj IV 0.25 mg Q4H PRN Administration Pain, Moderate (4-6) Hydromorphone HCl 0.5 mg 06/21/21 12:00 06/23/21 05:55 Hydromorphone 1 Mg/1 Ml Inj IV 0.5 mg Q4H PRN Administration Pain , Severe (7-10) Sodium Chloride 1,000 mls @ 100 mls/hr 06/15/21 17:15 06/22/21 21:49 Nacl 0.9% 1000 Ml IV Infused DIRECT DEE DEE Infusion Cefepime HCl 2 gm in 100 mls @ 200 mls/hr 06/21/21 12:00 06/22/21 21:50 Cefepime/Ns 2 Gm/100 Ml IV Infused Q24H DEE DEE Infusion Protocol Vancomycin HCl 1 gm in 250 mls @ 166.667 mls/hr 06/22/21 12:00 06/22/21 21:50 Vancomycin/Ns 1 Gm/250 Ml IV Infused Q24H DEE DEE Infusion Lactated Ringer's 1,000 mls @ 100 mls/hr 06/22/21 14:30 06/23/21 05:45 Lactated Ringers IV Infused DIRECT DEE DEE Infusion Insulin Human Isoph/Insulin Regular 10 unit 06/16/21 08:00 06/23/21 09:15 Insulin Nph/Regular 70/30 Inj SUB-Q 10 unit BIDDIAB DEE DEE Administration Insulin Human Lispro 0 unit 06/15/21 11:30 06/23/21 09:15 Insulin Lispro 100 Unit/Ml SUB-Q 2 unit ACHS DEE DEE Administration Protocol Ondansetron HCl 4 mg 06/14/21 16:18 Ondansetron 4 Mg/2 Ml Inj IV Q8H PRN Nausea And Vomiting Oxycodone/Acetaminophen 1 tab 06/14/21 16:18 06/16/21 21:53 Oxycodone /Acetaminophen 5-325mg Tab PO 1 tab Q6H PRN Administration Pain, Moderate (4-6) Pentoxifylline 400 mg 06/22/21 14:00 06/23/21 05:51 Pentoxifylline Er 400 Mg Tab PO 400 mg Q8HR DEE DEE Administration Sodium Chloride 10 ml 06/14/21 22:00 06/23/21 09:16 Sodium Chloride 0.9% 10 Ml Flush Syringe IV 10 ml BID DEE DEE Administration Sodium Chloride 10 ml 06/14/21 16:18 Sodium Chloride 0.9% 10 Ml Flush Syringe IV PRN PRN LINE FLUSH
--- NOTE | 2021-06-23 12:10 | Progress Note ---
Assessment and Plan Cultures: 06/14/2021 blood culture: No growth 06/21/2021 OR toe culture: No organisms on Gram stain. Culture with no growth thus far A/P: 55-year-old female with longstanding diabetes mellitus type 2, hypertension was admitted to the hospital on 06/14/2021 with complaints of right great toe pain and darkening with findings of gangrene: #Right great toe gangrenous change with associated cellulitis: awaiting possible toe amputation: Xray without osteomyelitis. Underwent open right great toe ray amputation 06/21/2021, per OR note, all remaining muscle and soft tissue within the wound appeared healthy and viable. #Leucocytosis: likely from ischemia and infection. #Peripheral vascular disease: Status post revascularization of RLE on 06/19/2021 #Diabetes mellitus type 2 #KAMAR: creatinine elevated. Renally dose antibiotics. Recs: -awaiting woundVAC -no growth cultures from OR, OK for discharge on PO Keflex 500 mg TID + PO doxycycline 100 mg BID x 10 days -ID clinic follow up AUGUSTINE Batista MD, FACP [facility] ([facility] O: [phone] F: [phone] Subjective Date of service: 06/23/21 Principal diagnosis: Peripheral vascular disease with gangrene right first toe Interval history: No fever. Awaiting WoundVAC. Tolerating abx. No nausea, vomiting. No rash. Objective - Exam Narrative Exam: Physical Exam: Constitutional: Alert, cooperative. No acute distress Head, Ears, Nose: Normocephalic, atraumatic. External ears, nose normal Eyes: Conjunctivae/corneas clear. No icterus. No ptosis. Neck: Supple, no meningeal signs Cardiovascular: S1, S2 normal. Respiratory: Good air entry, clear to auscultation bilaterally GI: Soft, non-tender; bowel sounds normal. No peritoneal signs Musculoskeletal: R foot in dressing Skin: No rash or abscess Hem/Lymphatic: No palpable cervical or supraclavicular nodes. No lymphangitis Psych: Mood ok. Affect normal Neurological: Awake, alert, oriented. No gross abnormality - Constitutional Vitals: Vital Signs Temp Pulse Resp BP Pulse Ox 98.1 F 84 16 141/62 99 06/23/21 11:39 06/23/21 11:39 06/23/21 11:39 06/23/21 11:39 06/23/21 11:39 Temperature -Last 24 Hours Temperature 98.1 F Temperature 98.7 F Temperature 98.6 F Temperature 98.4 F Temperature 98.2 F Temperature 98.1 F Temperature 97.8 F Temperature 98.6 F - Labs CBC & Chem 7: 06/22/21 04:00 06/22/21 04:00 Labs: Abnormal lab results 06/22/21 06/22/21 06/22/21 Range/Units 14:08 15:43 20:58 POC Glucose 165 H 168 H 196 H (70-105) mg/dL 06/23/21 06/23/21 Range/Units 07:33 11:38 POC Glucose 158 H 140 H (70-105) mg/dL
[2021-06-23] MEDS: oxyCODONE /ACETAMINOPHEN 5-325MG TAB PO PRN (12:27)
[2021-06-23] MEDS: VANCOMYCIN/NS 1 GM/250 ML 1 GM/250 ML BAG IV SCH (12:27)
[2021-06-23] MEDS: CEFEPIME/NS 2 GM/100 ML 2 GM/100 ML BAG IV SCH (12:27)
--- NOTE | 2021-06-23 14:31 | Progress Note ---
Assessment and Plan Assessment and plan: -- Gangrene/right great toe Current Visit: Yes Status: Acute PVD with Right Foot Gangrene s/pOpen Right First Toe Ray Amputation 06/21/2021 Continue postop care elevate the limb, Continue Vanco cefepime renally dosed, ID following. -- Cellulitis of right foot Current Visit: Yes Status: Acute Elevate the limb, antibiotics and supportive care s/p Excisional Debridement of Muscle and Soft Tissue Right Foot Wound 06/22/2021 Pulse Irrigation Using Gentamicin Infused Irrigation And Wound VAC Placement (Wound Measures 9 x 6 x 3 cm) today. Continue wound VAC/wound VAC replacement --Cellulitis-- Diabetic right foot infection Current Visit: Yes Status: Acute Status post excisional debridement of muscle and soft tissue Right foot --Anemia; Hb 7.5 Closely monitor H&H transfuse as needed. --Leukocytosis; secondary to cellulitis Continue current antibiotics follow cultures ID following -- Systemic inflammatory response syndrome Current Visit: Yes Status: Acute Continue antibiotics per ID --Acute kidney injury; Current Visit: Yes Status: Acute Vasomotor nephropathy, gentle hydration, monitor renal function Avoid nephrotoxins, mild improvement --Type II diabetes Current Visit: Yes Status: Acute Accu-Chek, sliding scale coverage ADA diet, Long-acting insulin as needed --Severe protein calorie malnutrition; Current Visit: Yes Status: Chronic Nutrition supplement, nutrition consult Supportive care, hypoalbuminemia --DVT prophylaxis Current Visit: Yes Status: Acute SCD , Lovenox Closely monitor the patient and adjust management as needed Plan of care reviewed with the patient and her nurse Consultants and recommendations noted and appreciated 06/22/2021; Patient had right great toe amputation on 06/21/2021 Scheduled for excisional debridement cellulitis soft tissue today 06/23/2021; patient is awaiting wound VAC replacement DC planning per case management Brief history and hospital course 55-year-old female patient was admitted with right foot cellulitis, right great toe gangrene Evaluated by vascular, had right great toe amputation on 06/21/2021 And excisional debridement of cellulitis and soft tissue of the right foot on 06/22/2021. And wound VAC placement Patient is evaluated by ID and is appropriate on antibiotics, awaiting wound VAC exchange today prior to discharge Case management processing the wound VAC exchange. 06/22/2021; Patient had right great toe amputation on 06/21/2021 Scheduled for excisional debridement cellulitis soft tissue today 06/23/2021; patient is cleared for discharge by vascular and ID on oral antibiotics Awaiting wound VAC replacement prior to discharge, CM processing Possible discharge tomorrow if stable and wound VAC is available History Interval history: I have seen and examined the patient at the bedside this morning Patient's chart and medications reviewed Patient feels slightly better, patient has a wound VAC Awaiting replacement wound VAC prior to discharge Complains of some pain Vital signs noted Hospitalist Physical - Constitutional Vitals: Temp Pulse Resp BP Pulse Ox 98.1 F 84 16 141/62 99 06/23/21 11:39 06/23/21 11:39 06/23/21 11:39 06/23/21 11:39 06/23/21 11:39 General appearance: Present: no acute distress, well-nourished - EENT Eyes: Present: PERRL, EOM intact - Neck Neck: Present: supple, normal ROM - Respiratory Respiratory effort: normal Respiratory: bilateral: diminished, negative: rales, rhonchi, wheezing - Cardiovascular Rhythm: regular Heart Sounds: Present: S1 & S2 - Extremities Extremities: no ischemia, abnormal (Surgical dressing right foot/wound VAC) - Abdominal General gastrointestinal: soft, non-tender, non-distended, normal bowel sounds - Integumentary Integumentary: Present: clear, warm - Psychiatric Psychiatric: appropriate mood/affect, cooperative - Neurologic Neurologic: CNII-XII intact, moves all extremities Results - Labs CBC & Chem 7: 06/22/21 04:00 06/22/21 04:00 Labs: Laboratory Last Values WBC 22.8 K/mm3 (4.5-11.0) H 06/22/21 04:00 RBC 3.93 M/mm3 (3.65-5.03) 06/22/21 04:00 Hgb 7.5 gm/dl (10.1-14.3) L 06/22/21 04:00 Hct 24.6 % (30.3-42.9) L 06/22/21 04:00 MCV 63 fl (79-97) L 06/22/21 04:00 MCH 19 pg (28-32) L 06/22/21 04:00 MCHC 31 % (30-34) 06/22/21 04:00 RDW 20.0 % (13.2-15.2) H 06/22/21 04:00 Plt Count 428 K/mm3 (140-440) 06/22/21 04:00 Add Manual Diff Complete 06/22/21 04:00 Total Counted 100 06/22/21 04:00 Seg Neuts % (Manual) 87.0 % (40.0-70.0) H 06/22/21 04:00 Band Neutrophils % 1.0 % 06/22/21 04:00 Lymphocytes % (Manual) 10.0 % (13.4-35.0) L 06/22/21 04:00 Reactive Lymphs % (Man) 2.0 % 06/21/21 04:18 Monocytes % (Manual) 2.0 % (0.0-7.3) 06/22/21 04:00 Eosinophils % (Manual) 4.0 % (0.0-4.3) 06/21/21 04:18 Metamyelocytes % 1.0 % 06/21/21 04:18 Myelocytes % 2.0 % 06/21/21 04:18 Nucleated RBC % Not Reportable 06/22/21 04:00 Seg Neutrophils # Man 19.8 K/mm3 (1.8-7.7) H 06/22/21 04:00 Band Neutrophils # 0.2 K/mm3 06/22/21 04:00 Lymphocytes # (Manual) 2.3 K/mm3 (1.2-5.4) 06/22/21 04:00 Abs React Lymphs (Man) 0.0 K/mm3 06/22/21 04:00 Monocytes # (Manual) 0.5 K/mm3 (0.0-0.8) 06/22/21 04:00 Eosinophils # (Manual) 0.0 K/mm3 (0.0-0.4) 06/22/21 04:00 Basophils # (Manual) 0.0 K/mm3 (0.0-0.1) 06/22/21 04:00 Metamyelocytes # 0.0 K/mm3 06/22/21 04:00 Myelocytes # 0.0 K/mm3 06/22/21 04:00 Promyelocytes # 0.0 K/mm3 06/22/21 04:00 Blast Cells # 0.0 K/mm3 06/22/21 04:00 WBC Morphology Not Reportable 06/22/21 04:00 Hypersegmented Neuts Not Reportable 06/22/21 04:00 Hyposegmented Neuts Not Reportable 06/22/21 04:00 Hypogranular Neuts Not Reportable 06/22/21 04:00 Smudge Cells Not Reportable 06/22/21 04:00 Toxic Granulation Not Reportable 06/22/21 04:00 Toxic Vacuolation Not Reportable 06/22/21 04:00 Dohle Bodies Not Reportable 06/22/21 04:00 Pelger-Huet Anomaly Not Reportable 06/22/21 04:00 Lilliana Rods Not Reportable 06/22/21 04:00 Platelet Estimate Consistent w auto 06/22/21 04:00 Clumped Platelets Not Reportable 06/22/21 04:00 Plt Clumps, EDTA Not Reportable 06/22/21 04:00 Large Platelets Not Reportable 06/22/21 04:00 Giant Platelets Not Reportable 06/22/21 04:00 Platelet Satelliting Not Reportable 06/22/21 04:00 Plt Morphology Comment Not Reportable 06/22/21 04:00 RBC Morphology Not Reportable 06/22/21 04:00 Dimorphic RBCs Not Reportable 06/22/21 04:00 Polychromasia Few 06/22/21 04:00 Hypochromasia 2+ 06/22/21 04:00 Poikilocytosis 2+ 06/22/21 04:00 Anisocytosis 1+ 06/22/21 04:00 Microcytosis 2+ 06/22/21 04:00 Macrocytosis Not Reportable 06/22/21 04:00 Spherocytes Not Reportable 06/22/21 04:00 Pappenheimer Bodies Not Reportable 06/22/21 04:00 Sickle Cells Not Reportable 06/22/21 04:00 Target Cells Not Reportable 06/22/21 04:00 Tear Drop Cells Few 06/22/21 04:00 Ovalocytes Few 06/22/21 04:00 Helmet Cells Not Reportable 06/22/21 04:00 [place] Bodies Not Reportable 06/22/21 04:00 [place] Rings Not Reportable 06/22/21 04:00 [place] Cells 2+ 06/22/21 04:00 Bite Cells Not Reportable 06/22/21 04:00 Crenated Cell Not Reportable 06/22/21 04:00 Elliptocytes Few 06/22/21 04:00 Acanthocytes (Spur) 1+ 06/22/21 04:00 Rouleaux Not Reportable 06/22/21 04:00 Hemoglobin C Crystals Not Reportable 06/22/21 04:00 Schistocytes Few 06/22/21 04:00 Malaria parasites Not Reportable 06/22/21 04:00 Yoseph Bodies Not Reportable 06/22/21 04:00 Hem Pathologist Commnt No 06/22/21 04:00 Sodium 137 mmol/L (137-145) 06/22/21 04:00 Potassium 5.5 mmol/L (3.6-5.0) H 06/22/21 04:00 Chloride 106.5 mmol/L (98-107) 06/22/21 04:00 Carbon Dioxide 11 mmol/L (22-30) L 06/22/21 04:00 Anion Gap 25 mmol/L 06/22/21 04:00 BUN 37 mg/dL (7-17) H 06/22/21 04:00 Creatinine 1.8 mg/dL (0.6-1.2) H 06/22/21 04:00 Estimated GFR 35 ml/min 06/22/21 04:00 BUN/Creatinine Ratio 21 % 06/22/21 04:00 Glucose 110 mg/dL (65-100) H 06/22/21 04:00 POC Glucose 140 mg/dL (70-105) H 06/23/21 11:38 Lactic Acid 0.70 mmol/L (0.7-2.0) 06/15/21 06:07 Calcium 8.1 mg/dL (8.4-10.2) L 06/22/21 04:00 Magnesium 2.20 mg/dL (1.7-2.3) 06/22/21 04:00 Total Bilirubin 0.60 mg/dL (0.1-1.2) 06/14/21 14:03 AST 25 units/L (5-40) 06/14/21 14:03 ALT 28 units/L (7-56) 06/14/21 14:03 Alkaline Phosphatase 1108 units/L (35-129) H 06/14/21 14:03 Total Protein 7.3 g/dL (6.3-8.2) 06/14/21 14:03 Albumin 2.9 g/dL (3.9-5) L 06/14/21 14:03 Albumin/Globulin Ratio 0.7 % 06/14/21 14:03 Random Vancomycin 11.9 ug/mL (0-40.0) 06/22/21 04:00 Blood Type O POSITIVE 06/21/21 23:30 Antibody Screen Negative 06/21/21 23:30 Hong/IV: Voiding Method Toilet Active Medications - Current Medications Current Medications: Generic Name Dose Route Start Last Admin Trade Name Freq PRN Reason Stop Dose Admin Acetaminophen 650 mg 06/14/21 17:17 Acetaminophen 325 Mg Tab PO Q6H PRN Pain, Mild (1-3) Hydrocodone Bitart/Acetaminophen 1 each 06/17/21 17:34 06/22/21 21:58 Hydrocodone/Acetaminophen 5-325 Mg Tab PO 1 each Q4H PRN Administration Pain, Moderate (4-6) Albuterol 2.5 mg 06/14/21 16:18 Albuterol 2.5 Mg/3 Ml Nebu IH Q4HRT PRN Shortness Of Breath Amlodipine Besylate 10 mg 06/16/21 10:00 06/23/21 09:16 Amlodipine 10 Mg Tab PO 10 mg DAILY DEE DEE Administration Ascorbic Acid 500 mg 06/21/21 22:00 06/23/21 09:16 Ascorbic Acid 500 Mg Tab PO 500 mg BID DEE DEE Administration Aspirin 81 mg 06/22/21 10:00 06/23/21 09:16 Aspirin Ec 81 Mg Tab PO 81 mg QDAY DEE DEE Administration Atorvastatin Calcium 40 mg 06/16/21 22:00 06/22/21 21:52 Atorvastatin 40 Mg Tab PO 40 mg QHS DEE DEE Administration Clopidogrel Bisulfate 75 mg 06/16/21 10:00 06/23/21 09:16 Clopidogrel 75 Mg Tab PO 75 mg DAILY DEE DEE Administration Ferrous Sulfate 325 mg 06/21/21 22:00 06/23/21 09:16 Ferrous Sulfate 325 Mg Tab PO 325 mg BID DEE DEE Administration Gabapentin 300 mg 06/16/21 14:00 06/23/21 13:13 Gabapentin 300 Mg Cap PO 300 mg Q8HR DEE DEE Administration Hydralazine HCl 25 mg 06/16/21 14:00 06/23/21 13:13 Hydralazine 25 Mg Tab PO 25 mg Q8HR DEE DEE Administration Hydralazine HCl 10 mg 06/16/21 09:00 06/21/21 17:30 Hydralazine 20 Mg/1 Ml Inj IV 10 mg Q4H PRN Administration Hypertension Hydromorphone HCl 0.25 mg 06/14/21 17:17 06/22/21 04:49 Hydromorphone 1 Mg/1 Ml Inj IV 0.25 mg Q4H PRN Administration Pain, Moderate (4-6) Hydromorphone HCl 0.5 mg 06/21/21 12:00 06/23/21 05:55 Hydromorphone 1 Mg/1 Ml Inj IV 0.5 mg Q4H PRN Administration Pain , Severe (7-10) Sodium Chloride 1,000 mls @ 100 mls/hr 06/15/21 17:15 06/22/21 21:49 Nacl 0.9% 1000 Ml IV Infused DIRECT DEE DEE Infusion Cefepime HCl 2 gm in 100 mls @ 200 mls/hr 06/21/21 12:00 06/23/21 12:27 Cefepime/Ns 2 Gm/100 Ml IV 200 mls/hr Q24H DEE DEE Administration Protocol Vancomycin HCl 1 gm in 250 mls @ 166.667 mls/hr 06/22/21 12:00 06/23/21 12:27 Vancomycin/Ns 1 Gm/250 Ml IV 166.667 mls/hr Q24H DEE DEE Administration Lactated Ringer's 1,000 mls @ 100 mls/hr 06/22/21 14:30 06/23/21 05:45 Lactated Ringers IV Infused DIRECT DEE DEE Infusion Insulin Human Isoph/Insulin Regular 10 unit 06/16/21 08:00 06/23/21 09:15 Insulin Nph/Regular 70/30 Inj SUB-Q 10 unit BIDDIAB DEE DEE Administration Insulin Human Lispro 0 unit 06/15/21 11:30 06/23/21 12:13 Insulin Lispro 100 Unit/Ml SUB-Q Not Given ACHS DEE DEE Protocol Ondansetron HCl 4 mg 06/14/21 16:18 Ondansetron 4 Mg/2 Ml Inj IV Q8H PRN Nausea And Vomiting Oxycodone/Acetaminophen 1 tab 06/14/21 16:18 06/23/21 12:27 Oxycodone /Acetaminophen 5-325mg Tab PO 1 tab Q6H PRN Administration Pain, Moderate (4-6) Pentoxifylline 400 mg 06/22/21 14:00 06/23/21 13:13 Pentoxifylline Er 400 Mg Tab PO 400 mg Q8HR DEE DEE Administration Sodium Chloride 10 ml 06/14/21 22:00 06/23/21 09:16 Sodium Chloride 0.9% 10 Ml Flush Syringe IV 10 ml BID DEE DEE Administration Sodium Chloride 10 ml 06/14/21 16:18 Sodium Chloride 0.9% 10 Ml Flush Syringe IV PRN PRN LINE FLUSH Nutrition/Malnutrition Assess - Dietary Evaluation Nutrition/Malnutrition Findings: Nutrition Notes Start: 06/21/21 16:35 Freq: Status: Active Protocol: Document 06/21/21 16:36 CW (Rec: 06/21/21 16:37 CW [id number]) Nutrition Notes Need for Assessment generated from: LOS Initial or Follow up Brief Note Current Diet NPO Height 5 ft 2 in Weight 61.6 kg [place] Body Weight (kg) 50.00 BMI 24.8 Weight Status Appropriate Subjective/Other Information Pt NPO at this time but prior to NPO PO intake was excellent . Current % PO Good (75-100%) Nutrition Intervention Revisit per MD consult or patient Sign Off request: Additional Comments S/O for good intakes
[2021-06-23] MEDS: hydrALAZINE 20 MG/1 ML INJ IV PRN (16:42)
[2021-06-23] MEDS: HYDROcodone/ACETAMINOPHEN 5-325 MG TAB PO PRN (21:17)
[2021-06-24] MEDS: GABAPENTIN 300 MG CAP PO SCH ×2 (06:14→14:27)
[2021-06-24] MEDS: hydrALAZINE 25 MG TAB PO SCH ×2 (06:14→14:28)
[2021-06-24] MEDS: PENTOXIFYLLINE ER 400 MG TAB PO SCH ×2 (06:14→14:28)
[2021-06-24] MEDS: INSULIN LISPRO 100 UNIT/ML SUB-Q SCH ×2 (07:05→11:33)
[2021-06-24] MEDS: INSULIN NPH/REGULAR 70/30 INJ SUB-Q SCH (09:30)
[2021-06-24] MEDS: oxyCODONE /ACETAMINOPHEN 5-325MG TAB PO PRN (11:09)
[2021-06-24] MEDS: ASPIRIN EC 81 MG TAB PO SCH (11:09)
[2021-06-24] MEDS: FERROUS SULFATE 325 MG TAB PO SCH (11:09)
[2021-06-24] MEDS: amLODIPine 10 MG TAB PO SCH (11:10)
[2021-06-24] MEDS: ASCORBIC ACID 500 MG TAB PO SCH (11:10)
[2021-06-24] MEDS: CLOPIDOGREL 75 MG TAB PO SCH (11:10)
[2021-06-24] MEDS: VANCOMYCIN/NS 1 GM/250 ML 1 GM/250 ML BAG IV SCH (11:14)
[2021-06-24 12:54] VITALS: BP 154/68
--- NOTE | 2021-06-24 13:35 | Progress Note ---
Assessment and Plan Assessment and plan: -- Gangrene/right great toe Current Visit: Yes Status: Acute PVD with Right Foot Gangrene s/pOpen Right First Toe Ray Amputation 06/21/2021 Continue postop care elevate the limb, Continue Vanco cefepime renally dosed, ID following. -- Cellulitis of right foot Current Visit: Yes Status: Acute Elevate the limb, antibiotics and supportive care s/p Excisional Debridement of Muscle and Soft Tissue Right Foot Wound 06/22/2021 Pulse Irrigation Using Gentamicin Infused Irrigation And Wound VAC Placement (Wound Measures 9 x 6 x 3 cm) today. Continue wound VAC/wound VAC replacement --Cellulitis-- Diabetic right foot infection Current Visit: Yes Status: Acute Status post excisional debridement of muscle and soft tissue Right foot --Anemia; Hb 7.5 Closely monitor H&H transfuse as needed. --Leukocytosis; secondary to cellulitis Continue current antibiotics follow cultures ID following -- Systemic inflammatory response syndrome Current Visit: Yes Status: Acute Continue antibiotics per ID --Acute kidney injury; Current Visit: Yes Status: Acute Vasomotor nephropathy, gentle hydration, monitor renal function Avoid nephrotoxins, mild improvement --Type II diabetes Current Visit: Yes Status: Acute Accu-Chek, sliding scale coverage ADA diet, Long-acting insulin as needed --Severe protein calorie malnutrition; Current Visit: Yes Status: Chronic Nutrition supplement, nutrition consult Supportive care, hypoalbuminemia --DVT prophylaxis Current Visit: Yes Status: Acute SCD , Lovenox Closely monitor the patient and adjust management as needed Plan of care reviewed with the patient and her nurse Consultants and recommendations noted and appreciated 06/22/2021; Patient had right great toe amputation on 06/21/2021 Scheduled for excisional debridement cellulitis soft tissue today 06/23/2021; patient is awaiting wound VAC replacement DC planning per case management Brief history and hospital course 55-year-old female patient was admitted with right foot cellulitis, right great toe gangrene Evaluated by vascular, had right great toe amputation on 06/21/2021 And excisional debridement of cellulitis and soft tissue of the right foot on 06/22/2021. And wound VAC placement Patient is evaluated by ID and is appropriate on antibiotics, awaiting wound VAC exchange today prior to discharge Case management processing the wound VAC exchange. 06/22/2021; Patient had right great toe amputation on 06/21/2021 Scheduled for excisional debridement cellulitis soft tissue today 06/23/2021; patient is cleared for discharge by vascular and ID on oral antibiotics Awaiting wound VAC replacement prior to discharge, CM processing Possible discharge tomorrow if stable and wound VAC is available 06/24/2021; patient stable for discharge pending wound VAC. Will call Dr. Villegas and get his recommendations. Patient wants to go home. History Interval history: Patient was seen and evaluated this morning Patient does not have any complaints and wants to go home Hospitalist Physical - Physical exam Narrative exam: Not in cardiopulmonary distress. The patient appeared well nourished and normally developed. Vital signs as documented. Head exam is unremarkable. No scleral icterus . Neck is without jugular venous distension, thyromegaly, or carotid bruits. Lungs are clear to auscultation. Cardiac exam reveals regular rate and Rhythm. Abdominal exam reveals normal bowel sounds, nontender, no organomegaly. Extremities status post right great toe amputation. MEDICAL BILLER CODER: Alert and oriented 3. No focal weakness. - Constitutional Vitals: Temp Pulse Resp BP Pulse Ox 98.3 F 89 18 154/68 96 06/24/21 11:24 06/24/21 11:24 06/24/21 11:24 06/24/21 11:24 06/24/21 11:24 General appearance: Present: no acute distress, well-nourished Results - Labs CBC & Chem 7: 06/22/21 04:00 06/22/21 04:00 Labs: Laboratory Last Values WBC 22.8 K/mm3 (4.5-11.0) H 06/22/21 04:00 RBC 3.93 M/mm3 (3.65-5.03) 06/22/21 04:00 Hgb 7.5 gm/dl (10.1-14.3) L 06/22/21 04:00 Hct 24.6 % (30.3-42.9) L 06/22/21 04:00 MCV 63 fl (79-97) L 06/22/21 04:00 MCH 19 pg (28-32) L 06/22/21 04:00 MCHC 31 % (30-34) 06/22/21 04:00 RDW 20.0 % (13.2-15.2) H 06/22/21 04:00 Plt Count 428 K/mm3 (140-440) 06/22/21 04:00 Add Manual Diff Complete 06/22/21 04:00 Total Counted 100 06/22/21 04:00 Seg Neuts % (Manual) 87.0 % (40.0-70.0) H 06/22/21 04:00 Band Neutrophils % 1.0 % 06/22/21 04:00 Lymphocytes % (Manual) 10.0 % (13.4-35.0) L 06/22/21 04:00 Reactive Lymphs % (Man) 2.0 % 06/21/21 04:18 Monocytes % (Manual) 2.0 % (0.0-7.3) 06/22/21 04:00 Eosinophils % (Manual) 4.0 % (0.0-4.3) 06/21/21 04:18 Metamyelocytes % 1.0 % 06/21/21 04:18 Myelocytes % 2.0 % 06/21/21 04:18 Nucleated RBC % Not Reportable 06/22/21 04:00 Seg Neutrophils # Man 19.8 K/mm3 (1.8-7.7) H 06/22/21 04:00 Band Neutrophils # 0.2 K/mm3 06/22/21 04:00 Lymphocytes # (Manual) 2.3 K/mm3 (1.2-5.4) 06/22/21 04:00 Abs React Lymphs (Man) 0.0 K/mm3 06/22/21 04:00 Monocytes # (Manual) 0.5 K/mm3 (0.0-0.8) 06/22/21 04:00 Eosinophils # (Manual) 0.0 K/mm3 (0.0-0.4) 06/22/21 04:00 Basophils # (Manual) 0.0 K/mm3 (0.0-0.1) 06/22/21 04:00 Metamyelocytes # 0.0 K/mm3 06/22/21 04:00 Myelocytes # 0.0 K/mm3 06/22/21 04:00 Promyelocytes # 0.0 K/mm3 06/22/21 04:00 Blast Cells # 0.0 K/mm3 06/22/21 04:00 WBC Morphology Not Reportable 06/22/21 04:00 Hypersegmented Neuts Not Reportable 06/22/21 04:00 Hyposegmented Neuts Not Reportable 06/22/21 04:00 Hypogranular Neuts Not Reportable 06/22/21 04:00 Smudge Cells Not Reportable 06/22/21 04:00 Toxic Granulation Not Reportable 06/22/21 04:00 Toxic Vacuolation Not Reportable 06/22/21 04:00 Dohle Bodies Not Reportable 06/22/21 04:00 Pelger-Huet Anomaly Not Reportable 06/22/21 04:00 Lilliana Rods Not Reportable 06/22/21 04:00 Platelet Estimate Consistent w auto 06/22/21 04:00 Clumped Platelets Not Reportable 06/22/21 04:00 Plt Clumps, EDTA Not Reportable 06/22/21 04:00 Large Platelets Not Reportable 06/22/21 04:00 Giant Platelets Not Reportable 06/22/21 04:00 Platelet Satelliting Not Reportable 06/22/21 04:00 Plt Morphology Comment Not Reportable 06/22/21 04:00 RBC Morphology Not Reportable 06/22/21 04:00 Dimorphic RBCs Not Reportable 06/22/21 04:00 Polychromasia Few 06/22/21 04:00 Hypochromasia 2+ 06/22/21 04:00 Poikilocytosis 2+ 06/22/21 04:00 Anisocytosis 1+ 06/22/21 04:00 Microcytosis 2+ 06/22/21 04:00 Macrocytosis Not Reportable 06/22/21 04:00 Spherocytes Not Reportable 06/22/21 04:00 Pappenheimer Bodies Not Reportable 06/22/21 04:00 Sickle Cells Not Reportable 06/22/21 04:00 Target Cells Not Reportable 06/22/21 04:00 Tear Drop Cells Few 06/22/21 04:00 Ovalocytes Few 06/22/21 04:00 Helmet Cells Not Reportable 06/22/21 04:00 [place] Bodies Not Reportable 06/22/21 04:00 [place] Rings Not Reportable 06/22/21 04:00 Rashaad Cells 2+ 06/22/21 04:00 Bite Cells Not Reportable 06/22/21 04:00 Crenated Cell Not Reportable 06/22/21 04:00 Elliptocytes Few 06/22/21 04:00 Acanthocytes (Spur) 1+ 06/22/21 04:00 Rouleaux Not Reportable 06/22/21 04:00 Hemoglobin C Crystals Not Reportable 06/22/21 04:00 Schistocytes Few 06/22/21 04:00 Malaria parasites Not Reportable 06/22/21 04:00 Yoseph Bodies Not Reportable 06/22/21 04:00 Hem Pathologist Commnt No 06/22/21 04:00 Sodium 137 mmol/L (137-145) 06/22/21 04:00 Potassium 5.5 mmol/L (3.6-5.0) H 06/22/21 04:00 Chloride 106.5 mmol/L (98-107) 06/22/21 04:00 Carbon Dioxide 11 mmol/L (22-30) L 06/22/21 04:00 Anion Gap 25 mmol/L 06/22/21 04:00 BUN 37 mg/dL (7-17) H 06/22/21 04:00 Creatinine 1.8 mg/dL (0.6-1.2) H 06/22/21 04:00 Estimated GFR 35 ml/min 06/22/21 04:00 BUN/Creatinine Ratio 21 % 06/22/21 04:00 Glucose 110 mg/dL (65-100) H 06/22/21 04:00 POC Glucose 140 mg/dL (70-105) H 06/24/21 11:23 Lactic Acid 0.70 mmol/L (0.7-2.0) 06/15/21 06:07 Calcium 8.1 mg/dL (8.4-10.2) L 06/22/21 04:00 Magnesium 2.20 mg/dL (1.7-2.3) 06/22/21 04:00 Total Bilirubin 0.60 mg/dL (0.1-1.2) 06/14/21 14:03 AST 25 units/L (5-40) 06/14/21 14:03 ALT 28 units/L (7-56) 06/14/21 14:03 Alkaline Phosphatase 1108 units/L (35-129) H 06/14/21 14:03 Total Protein 7.3 g/dL (6.3-8.2) 06/14/21 14:03 Albumin 2.9 g/dL (3.9-5) L 06/14/21 14:03 Albumin/Globulin Ratio 0.7 % 06/14/21 14:03 Random Vancomycin 11.9 ug/mL (0-40.0) 06/22/21 04:00 Blood Type O POSITIVE 06/21/21 23:30 Antibody Screen Negative 06/21/21 23:30 Microbiology: Microbiology 06/21/21 Unknown Toe - Right Big Surgical Biopsy Culture - Preliminary Hong/IV: Voiding Method Toilet Active Medications - Current Medications Current Medications: Generic Name Dose Route Start Last Admin Trade Name Freq PRN Reason Stop Dose Admin Acetaminophen 650 mg 06/14/21 17:17 Acetaminophen 325 Mg Tab PO Q6H PRN Pain, Mild (1-3) Hydrocodone Bitart/Acetaminophen 1 each 06/17/21 17:34 06/23/21 21:17 Hydrocodone/Acetaminophen 5-325 Mg Tab PO 1 each Q4H PRN Administration Pain, Moderate (4-6) Albuterol 2.5 mg 06/14/21 16:18 Albuterol 2.5 Mg/3 Ml Nebu IH Q4HRT PRN Shortness Of Breath Amlodipine Besylate 10 mg 06/16/21 10:00 06/24/21 11:10 Amlodipine 10 Mg Tab PO 10 mg DAILY DEE DEE Administration Ascorbic Acid 500 mg 06/21/21 22:00 06/24/21 11:10 Ascorbic Acid 500 Mg Tab PO 500 mg BID DEE DEE Administration Aspirin 81 mg 06/22/21 10:00 06/24/21 11:09 Aspirin Ec 81 Mg Tab PO 81 mg QDAY DEE DEE Administration Atorvastatin Calcium 40 mg 06/16/21 22:00 06/23/21 21:16 Atorvastatin 40 Mg Tab PO 40 mg QHS DEE DEE Administration Clopidogrel Bisulfate 75 mg 06/16/21 10:00 06/24/21 11:10 Clopidogrel 75 Mg Tab PO 75 mg DAILY DEE DEE Administration Ferrous Sulfate 325 mg 06/21/21 22:00 06/24/21 11:09 Ferrous Sulfate 325 Mg Tab PO 325 mg BID DEE DEE Administration Gabapentin 300 mg 06/16/21 14:00 06/24/21 06:14 Gabapentin 300 Mg Cap PO 300 mg Q8HR DEE DEE Administration Hydralazine HCl 25 mg 06/16/21 14:00 06/24/21 06:14 Hydralazine 25 Mg Tab PO 25 mg Q8HR DEE DEE Administration Hydralazine HCl 10 mg 06/16/21 09:00 06/23/21 16:42 Hydralazine 20 Mg/1 Ml Inj IV 10 mg Q4H PRN Administration Hypertension Hydromorphone HCl 0.25 mg 06/14/21 17:17 06/22/21 04:49 Hydromorphone 1 Mg/1 Ml Inj IV 0.25 mg Q4H PRN Administration Pain, Moderate (4-6) Hydromorphone HCl 0.5 mg 06/21/21 12:00 06/23/21 16:42 Hydromorphone 1 Mg/1 Ml Inj IV 0.5 mg Q4H PRN Administration Pain , Severe (7-10) Sodium Chloride 1,000 mls @ 100 mls/hr 06/15/21 17:15 06/22/21 21:49 Nacl 0.9% 1000 Ml IV Infused DIRECT DEE DEE Infusion Cefepime HCl 2 gm in 100 mls @ 200 mls/hr 06/21/21 12:00 06/23/21 12:27 Cefepime/Ns 2 Gm/100 Ml IV 200 mls/hr Q24H DEE DEE Administration Protocol Vancomycin HCl 1 gm in 250 mls @ 166.667 mls/hr 06/22/21 12:00 06/24/21 11:14 Vancomycin/Ns 1 Gm/250 Ml IV 166.667 mls/hr Q24H DEE DEE Administration Lactated Ringer's 1,000 mls @ 100 mls/hr 06/22/21 14:30 06/23/21 05:45 Lactated Ringers IV Infused DIRECT DEE DEE Infusion Insulin Human Isoph/Insulin Regular 10 unit 06/16/21 08:00 06/24/21 09:30 Insulin Nph/Regular 70/30 Inj SUB-Q 10 unit BIDDIAB DEE DEE Administration Insulin Human Lispro 0 unit 06/15/21 11:30 06/24/21 07:05 Insulin Lispro 100 Unit/Ml SUB-Q Not Given ACHS [facility] Protocol Ondansetron HCl 4 mg 06/14/21 16:18 Ondansetron 4 Mg/2 Ml Inj IV Q8H PRN Nausea And Vomiting Oxycodone/Acetaminophen 1 tab 06/14/21 16:18 06/24/21 11:09 Oxycodone /Acetaminophen 5-325mg Tab PO 1 tab Q6H PRN Administration Pain, Moderate (4-6) Pentoxifylline 400 mg 06/22/21 14:00 06/24/21 06:14 Pentoxifylline Er 400 Mg Tab PO 400 mg Q8HR DEE DEE Administration Sodium Chloride 10 ml 06/14/21 22:00 06/24/21 11:10 Sodium Chloride 0.9% 10 Ml Flush Syringe IV 10 ml BID DEE DEE Administration Sodium Chloride 10 ml 06/14/21 16:18 Sodium Chloride 0.9% 10 Ml Flush Syringe IV PRN PRN LINE FLUSH Nutrition/Malnutrition Assess - Dietary Evaluation Nutrition/Malnutrition Findings: Nutrition Notes Start: 06/21/21 16:35 Freq: Status: Active Protocol: Document 06/21/21 16:36 CW (Rec: 06/21/21 16:37 CW [email or web address]) Nutrition Notes Need for Assessment generated from: LOS Initial or Follow up Brief Note Current Diet NPO Height 5 ft 2 in Weight 61.6 kg [place] Body Weight (kg) 50.00 BMI 24.8 Weight Status Appropriate Subjective/Other Information Pt NPO at this time but prior to NPO PO intake was excellent . Current % PO Good (75-100%) Nutrition Intervention Revisit per MD consult or patient Sign Off request: Additional Comments S/O for good intakes
[2021-06-24] MEDS: CEFEPIME/NS 2 GM/100 ML 2 GM/100 ML BAG IV SCH (14:32)
[2021-06-24 15:15] LABS: Hematocrit 23.8 % (30.3-42.9); Hemoglobin 7.3 gm/dl (10.1-14.3); Mean Corpuscular HGB Conc 31 % (30-34); Platelet Count 403 K/mm3 (140-440); Red Blood Count 3.78 M/mm3 (3.65-5.03)
[2021-06-24 15:18] LABS: Mean Corpuscular Volume 63 fl (79-97); Red Cell Distribution Width 20.5 % (13.2-15.2)
[2021-06-24 15:47] LABS: Albumin 2.8 g/dL (3.9-5); BUN/Creatinine Ratio 19; Blood Urea Nitrogen 21 mg/dL (7-17); Calcium 8.3 mg/dL (8.4-10.2); Hemolysis Index 2
[2021-06-24 15:53] LABS: Alanine Aminotransferase < 5 units/L (7-56); Bilirubin,Direct < 0.2 mg/dL (0-0.2)
[2021-06-24 16:59] LABS: Anisocytosis 1+; Total Cells Counted 100
[2021-06-24 17:00] LABS: Burr Cells 2+; Hypochromasia 2+; Ovalocytes Few; Poikilocytosis 2+; Schistocytes Few; Tear Drop Cells Few
--- NOTE | 2021-06-28 19:06 | Discharge Summary ---
Providers - Providers Date of Admission: 06/14/21 16:18 Date of discharge: 06/24/21 Attending physician: JENNIFER GRIFFIN MD 06/14/21 16:16 Consult to Wound/ET Nurse [CONS] Routine Reason For Exam: wound eval 06/14/21 16:17 Consult to Physician [CONS] Routine Comment: Consulting Provider: SILVIA FALK Physician Instructions: Reason For Exam: Left great toe dry gangrene 06/15/21 15:10 Consult to Physician [CONS] Routine Comment: may need amputation Consulting Provider: JUDITH CH Physician Instructions: Reason For Exam: right toe gangrene please eval vascular status 06/20/21 12:43 Consult to Physician [CONS] Routine Comment: Consulting Provider: ROSEANNE RIVER Physician Instructions: Reason For Exam: foot infection 06/22/21 15:48 Consult to Case Management [CONS] Routine Services Needed at Discharge: Wound Vac Home Health Services Notified:: cm notified Primary care physician: BLOCK SORTER Hospitalization Reason for admission: Sepsis, right big toe gangrene, DM type 2, anemia Condition: Fair Procedures: amputation of the right great toe Hospital course: History of present illness: 55 YO Female with DM, HTN presents to ED for evaluation. Pt reports "my left big toe hurts". Patient states that she has experienced pain, and color change to her left great toe over the past 4 days with persistently worsening symptoms over the same timeframe. Patient also reports that the toenail on her left great toe is falling off. Patient reports purulent drainage from the left great toe over the past 3 days. Patient transported to [facility] via private vehicle for further care and evaluation of the aforementioned symptoms. The patient was seen and evaluated in the emergency department. All lab and imaging studies reviewed. Patient underwent x-ray of the left foot and was found to have left great toe soft tissue air. Patient found to have foot cellulitis complicated by systemic inflammatory response syndrome. Patient also found to have left great toe dry gangrene, as well as diabetic foot infection. Patient treated with IV antibiotic therapy. Wound care consulted, surgical team consulted in the emergency department. Patient admitted to surgical floor. Patient is pending further care. Patient denies fever, chills, chest pain, palpitation, productive cough, skin rash, recent ill contacts, or known exposure to COVID-19. Prior admission on 05/15/2020 reviewed. All medication listed at time of admission has been reconciled. Hospital course -- Gangrene/right great toe Current Visit: Yes Status: Acute PVD with Right Foot Gangrene s/pOpen Right First Toe Ray Amputation 06/21/2021 Continue postop care elevate the limb, Continue Vanco cefepime renally dosed, ID following. -- Cellulitis of right foot Current Visit: Yes Status: Acute Elevate the limb, antibiotics and supportive care s/p Excisional Debridement of Muscle and Soft Tissue Right Foot Wound 06/22/2021 Pulse Irrigation Using Gentamicin Infused Irrigation And Wound VAC Placement (Wound Measures 9 x 6 x 3 cm) today. Continue wound VAC/wound VAC replacement --Cellulitis-- Diabetic right foot infection Current Visit: Yes Status: Acute Status post excisional debridement of muscle and soft tissue Right foot --Anemia; Hb 7.5 Closely monitor H&H transfuse as needed. --Leukocytosis; secondary to cellulitis Continue current antibiotics follow cultures ID following -- Systemic inflammatory response syndrome Current Visit: Yes Status: Acute Continue antibiotics per ID --Acute kidney injury; Current Visit: Yes Status: Acute Vasomotor nephropathy, gentle hydration, monitor renal function Avoid nephrotoxins, mild improvement --Type II diabetes Current Visit: Yes Status: Acute Accu-Chek, sliding scale coverage ADA diet, Long-acting insulin as needed --Severe protein calorie malnutrition; Current Visit: Yes Status: Chronic Nutrition supplement, nutrition consult Supportive care, hypoalbuminemia --DVT prophylaxis Current Visit: Yes Status: Acute SCD , Lovenox Closely monitor the patient and adjust management as needed Plan of care reviewed with the patient and her nurse Consultants and recommendations noted and appreciated 06/22/2021; Patient had right great toe amputation on 06/21/2021 Scheduled for excisional debridement cellulitis soft tissue today 06/23/2021; patient is awaiting wound VAC replacement DC planning per case management Brief history and hospital course 55-year-old female patient was admitted with right foot cellulitis, right great toe gangrene Evaluated by vascular, had right great toe amputation on 06/21/2021 And excisional debridement of cellulitis and soft tissue of the right foot on 06/22/2021. And wound VAC placement Patient is evaluated by ID and is appropriate on antibiotics, awaiting wound VAC exchange today prior to discharge Case management processing the wound VAC exchange. 06/22/2021; Patient had right great toe amputation on 06/21/2021 Scheduled for excisional debridement cellulitis soft tissue today 06/23/2021; patient is cleared for discharge by vascular and ID on oral antibiotics Awaiting wound VAC replacement prior to discharge, CM processing Possible discharge tomorrow if stable and wound VAC is available 06/24/2021; patient stable for discharge pending wound VAC. Will call Dr. Villegas and get his recommendations. Patient wants to go home. Patient was stable for discharged and the only thing left was wound vac. I called Dr Ch the vascular surgeon and discussed about the patient and he said if she is not going without wound vac she will lose her foot. I tried to reach wound care and there was no wound care coverage on that day to place the wound vac. I also called case management and she told me it will take time to get the wound vac. I have explained to the patient if she left without wound vac she may lose her foot/leg despite that the patient said she need to attend her daughters weeding out of town and sign AMA and left. Disposition: [id number] LEFT AGAINST MED ADVICE Final Discharge Diagnosis (Prints w/discharge instructions): sepsis. gangrene of the right big toe s/p amputation. diabetes mellitus. anemia Time spent for discharge: 35 minutes - Discharge Diagnoses (1) Sepsis Status: Acute (2) Diabetes Status: Acute (3) Diabetic foot infection Status: Acute (4) Gas gangrene Status: Acute Core Measure Documentation - Palliative Care Palliative Care/ Comfort Measures: Not Applicable - Core Measures Any of the following diagnoses?: none Exam - Physical Exam Narrative exam: Not in cardiopulmonary distress. The patient appeared well nourished and normally developed. Vital signs as documented. Head exam is unremarkable. No scleral icterus . Neck is without jugular venous distension, thyromegaly, or carotid bruits. Lungs are clear to auscultation. Cardiac exam reveals regular rate and Rhythm. Abdominal exam reveals normal bowel sounds, nontender, no organomegaly. Extremities status post right great toe amputation. ANALYTICS ARCHITECT: Alert and oriented 3. No focal weakness. - Constitutional Vitals: Temp Pulse Resp BP Pulse Ox 98.3 F 89 18 154/68 96 06/24/21 11:24 06/24/21 11:24 06/24/21 11:24 06/24/21 11:24 06/24/21 11:24 Plan Activity: advance as tolerated Weight Bearing Status: Weight Bear as Tolerated Diet: diabetic Follow up with: PRIMARY CARE, [Primary Care Provider] - 3-5 Days JUDITH CH MD [Staff Physician] - 14 Days
== END 2021-06-24 18:00 | disposition left against medical advice (07) | DRG 853 ==
LOC: ED 11:35 → 3A 16:18 → 3B-SURG 16:51
PROVIDERS: ADMIT Internal Medicine; ATTEND Internal Medicine
PROC: 04CR3ZZ Extirpation of Matter from Right Posterior Tibial Artery, Percutaneous Approach (ICD-10-PCS; 2021-06-17)
PROC: 047R3Z1 Dilation of Right Posterior Tibial Artery using Drug-Coated Balloon, Percutaneous Approach (ICD-10-PCS; 2021-06-17)
PROC: B44LZZZ Ultrasonography of Femoral Artery (ICD-10-PCS; 2021-06-17)
PROC: B41FYZZ Fluoroscopy of Right Lower Extremity Arteries using Other Contrast (ICD-10-PCS; 2021-06-17)
PROC: 0Y6P0Z0 Detachment at Right 1st Toe, Complete, Open Approach (ICD-10-PCS; principal; 2021-06-21)
PROC: 0KBV0ZZ Excision of Right Foot Muscle, Open Approach (ICD-10-PCS; 2021-06-22)
DX: A41.9 Sepsis, unspecified organism (principal); E43 Unspecified severe protein-calorie malnutrition; N17.0 Acute kidney failure with tubular necrosis; A48.0 Gas gangrene; E11.52 Type 2 diabetes mellitus with diabetic peripheral angiopathy with gangrene; E87.2 Acidosis; L03.032 Cellulitis of left toe; I25.10 Atherosclerotic heart disease of native coronary artery without angina pectoris; L03.031 Cellulitis of right toe; D72.829 Elevated white blood cell count, unspecified; L08.9 Local infection of the skin and subcutaneous tissue, unspecified; D64.9 Anemia, unspecified; I10 Essential (primary) hypertension; Z90.49 Acquired absence of other specified parts of digestive tract; Z95.1 Presence of aortocoronary bypass graft; Z90.710 Acquired absence of both cervix and uterus; Z98.51 Tubal ligation status; Z82.49 Family history of ischemic heart disease and other diseases of the circulatory system; Z83.3 Family history of diabetes mellitus; Z79.82 Long term (current) use of aspirin; Z79.899 Other long term (current) drug therapy; Z68.24 Body mass index [BMI] 24.0-24.9, adult
CPT/HCPCS: 36415; 37229; 75625; 75710; 76937; 80048; 80053; 80076; 80202; 82140; 82962; 83735; 85007; 85025; 86850; 86900; 86901; 87040; 87076; 87116; 87186; 93922; 93925; 96365; 96375; G0378; A4217; A9270-GY; C1724; C1725; C1760; C1769; C1887; C2623; J0360; J0610; J0690; J0692; J1170; J1644; J1650; J1815; J2250; J2270; J2370; J2543; J2704; J2997; J3010; J3370; J3490; J7030; J7040; J7050; J7120; Q9967

== ENCOUNTER 2021-07-21 00:20 | Inpatient (IN) | payer BC ==
[2021-07-21] MEDS ORDERED: DEXTROSE 50% IN WATER (25GM) 50 ML SYRINGE IV PRN (17:16)
[2021-07-21] MEDS ORDERED: ACETAMINOPHEN 325 MG TAB PO PRN (17:16)
[2021-07-21] MEDS ORDERED: ONDANSETRON 4 MG ODT TAB PO PRN (17:21)
[2021-07-21] MEDS ORDERED: ALBUTEROL 2.5 MG/3 ML NEBU IH PRN (17:21)
[2021-07-21] MEDS ORDERED: POLYETHYLENE GLYCOL 3350 17 GM POWDER PO PRN (17:21)
[2021-07-22] MEDS: FAMOTIDINE 10 MG TAB PO SCH ×3 (00:59→22:57)
[2021-07-22] MEDS: DOCUSATE SODIUM 100 MG CAP PO SCH ×3 (00:59→22:48)
[2021-07-22] MEDS: GABAPENTIN 300 MG CAP PO SCH ×4 (01:00→22:47)
[2021-07-22] MEDS: INSULIN LISPRO 100 UNIT/ML SUB-Q SCH ×5 (01:01→22:48)
[2021-07-22 06:29] LABS: Hematocrit 26.5 % (30.3-42.9); Hemoglobin 8.3 gm/dl (10.1-14.3); Mean Corpuscular HGB Conc 31 % (30-34); Mean Corpuscular Volume 72 fl (79-97); Platelet Count 312 K/mm3 (140-440)
[2021-07-22 06:47] LABS: Red Cell Distribution Width 25.9 % (13.2-15.2)
[2021-07-22 07:27] LABS: Alanine Aminotransferase 7 units/L (7-56); Albumin 2.5 g/dL (3.9-5); BUN/Creatinine Ratio 19; Blood Urea Nitrogen 15 mg/dL (7-17); Calcium 8.2 mg/dL (8.4-10.2); Hemolysis Index 2
[2021-07-22] MEDS: CLOPIDOGREL 75 MG TAB PO SCH (09:28)
[2021-07-22] MEDS: ENOXAPARIN 40 MG/0.4 ML INJ SUB-Q SCH (09:28)
[2021-07-22] MEDS: ASPIRIN EC 81 MG TAB PO SCH (09:28)
[2021-07-22] MEDS: amLODIPine 10 MG TAB PO SCH (09:28)
--- NOTE | 2021-07-22 10:32 | History and Physical Report ---
History of Present Illness Date: 07/22/21 Date of admission: 07/22/21 00:20 Chief Complaint: Right BKA History of present illness: 55-year-old female came in with a history of worsening right foot wound. 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 She underwent partial amputation on 06/21 of the right great toe and on 06/22 underwent excisional debridement of cellulitis and soft tissue of the right foot. Wound VAC was placed however the patient left the hospital AGAINST MEDICAL ADVICE on 07/25. Patient states that she did complete a full course of oral antibiotics however she experienced worsening deficits and was readmitted on 07/12 2021. At that point the gangrene has grown worse. She was consulted by surgery as well as infectious disease. Appropriate antibiotics were started and consideration for possible TMA was given, patient refused to consider a right BKA which was the recommendation of the surgeon. After further consultation, patient did opt for a BKA as it was believed that the TMA would not heal appropriately. BKA was performed on 07/[address] Rubio. Patient was transfused 3 units of packed red blood cells due to anemia. WBCs have remained elevated however the patient has also remained afebrile. Antibiotics were stopped after the BKA. Leukocytosis was determined to be due to the ischemia/infection of the lower extremity. I was able to see the patient right after therapy this morning. She was able to perform standing in the parallel bars and was able to take a few hops with some loss of balance. Afterwards I was able to speak with her about prognosis and recovery timeline as well as timeline for receiving a prosthetic limb. We discussed phantom pain and phantom sensation along with desensitization techniques. Also discussed the importance of strengthening her upper body as well as range of motion and strengthening of the residual limb. Hemoglobin seems to be stabilized, will restart DVT prophylaxis. After the patient was medically stabilized they were transferred for further rehabilitation. All available medical records have been reviewed. Plan of care was discussed with patient. Past History Past Medical History: CAD, diabetes, hypertension, hyperlipidemia, other (Diabetic foot ulcer now with BKA) Past Surgical History: appendectomy, cholecystectomy, CABG, hysterectomy, Other (Right great toe amputation and debridement of foot) Social history: single, full code, other (Lives with boyfriend). denies: smoking, alcohol abuse Family history: CAD, diabetes, hypertension, stroke Medications and Allergies Allergies Allergy/AdvReac Type Severity Reaction Status Date / Time Latex, Natural Rubber Allergy Mild Itching Verified 07/22/21 01:56 Home Medications Medication Instructions Recorded Confirmed Last Taken Type amLODIPine 10 mg PO DAILY 06/15/21 07/22/21 07/21/21 09:00 History Aspirin EC [Halfprin EC] 81 mg PO DAILY #30 tablet 07/20/21 07/22/21 07/21/21 09:00 Rx AtorvaSTATin [Lipitor] 40 mg PO DAILY #30 tablet 07/20/21 07/22/21 07/21/21 09:05 Rx Clopidogrel [Plavix] 75 mg PO DAILY #30 tablet 07/20/21 07/22/21 07/21/21 09:05 Rx Famotidine [Pepcid] 20 mg PO BID #60 tablet 07/20/21 07/22/21 07/21/21 09:00 Rx Furosemide [Lasix TAB] 40 mg PO DAILY #30 07/20/21 07/22/21 07/21/21 08:45 Rx Gabapentin 300 mg PO Q8HR #90 capsule 07/20/21 07/22/21 07/21/21 09:00 Rx Insulin NPH Hum/Reg Insulin Hm 15 unit SQ BID #1 vial 07/20/21 Unknown Rx [Novolin 70-30 Flexpen] Potassium Chloride [K-Dur] 20 meq PO QDAY #30 tablet 07/20/21 07/22/21 07/21/21 09:00 Rx amLODIPine 10 mg PO DAILY #30 tablet 07/20/21 07/22/21 07/21/21 09:00 Rx oxyCODONE /ACETAMINOPHEN [Percocet 1 tab PO Q6H PRN #30 tablet 07/20/21 07/22/21 07/21/21 20:45 Rx 5/325 mg] Active Meds: Active Medications Acetaminophen (Acetaminophen 325 Mg Tab) 650 mg PO Q6H PRN PRN Reason: Pain MILD(1-3)/Fever >100.5/RIVERA Albuterol (Albuterol 2.5 Mg/3 Ml Nebu) 2.5 mg IH Q4HRT PRN PRN Reason: Shortness Of Breath Amlodipine Besylate (Amlodipine 10 Mg Tab) 10 mg PO QDAY DEE DEE Last Admin: 07/22/21 09:28 Dose: 10 mg Documented by: Aspirin (Aspirin Ec 81 Mg Tab) 81 mg PO QDAY [facility] Last Admin: 07/22/21 09:28 Dose: 81 mg Documented by: Atorvastatin Calcium (Atorvastatin 40 Mg Tab) 40 mg PO QHS [facility] Last Admin: 07/22/21 00:59 Dose: 40 mg Documented by: Bisacodyl (Bisacodyl 10 Mg Rect Supp) 10 mg NC QDAY PRN PRN Reason: Constipation Clopidogrel Bisulfate (Clopidogrel 75 Mg Tab) 75 mg PO QDAY [facility] Last Admin: 07/22/21 09:28 Dose: 75 mg Documented by: Dextrose (Dextrose 50% In Water (25gm) 50 Ml Syringe) 50 ml IV Q30MIN PRN; Protocol PRN Reason: Hypoglycemia Docusate Sodium (Docusate Sodium 100 Mg Cap) 100 mg PO BID [facility] Last Admin: 07/22/21 09:28 Dose: 100 mg Documented by: Enoxaparin Sodium (Enoxaparin 40 Mg/0.4 Ml Inj) 40 mg SUB-Q QDAY [facility] Last Admin: 07/22/21 09:28 Dose: 40 mg Documented by: Famotidine (Famotidine 10 Mg Tab) 10 mg PO BID [facility] Last Admin: 07/22/21 09:28 Dose: 10 mg Documented by: Gabapentin (Gabapentin 300 Mg Cap) 300 mg PO Q8HR [facility] Last Admin: 07/22/21 05:53 Dose: 300 mg Documented by: Hydralazine HCl (Hydralazine 20 Mg/1 Ml Inj) 10 mg IV Q4HR PRN PRN Reason: Hypertension Insulin Human Lispro (Insulin Lispro 100 Unit/Ml) 0 unit SUB-Q [facility]; Protocol Last Admin: 07/22/21 09:25 Dose: 4 unit Documented by: Ondansetron HCl (Ondansetron 4 Mg Odt Tab) 4 mg PO Q8H PRN PRN Reason: Nausea And Vomiting Oxycodone/Acetaminophen (Oxycodone /Acetaminophen 5-325mg Tab) 1 tab PO Q6H PRN PRN Reason: Pain, Moderate (4-6) Polyethylene Glycol (Polyethylene Glycol 3350 17 Gm Powder) 17 gm PO QDAY PRN PRN Reason: Constipation Review of Systems All systems: negative (ROS negative for 10 systems except as noted below with pertinent positives and negatives.) Constitutional: fatigue, weakness Ears, nose, mouth and throat: no decreased hearing, no dysphagia Cardiovascular: no chest pain, no palpitations Respiratory: no cough, no shortness of breath Gastrointestinal: no abdominal pain, no nausea, no vomiting, no diarrhea, no constipation Musculoskeletal: leg numbness/tingling, gait dysfunction, prior amputations, other (Phantom pain) Integumentary: wounds, no rash, no pruritis, no redness Neurological: weakness, parathesias, gait dysfunction Psychiatric: no memory loss, no disorientation Exam - Exam Narrative exam: MUSCULOSKELETAL SPECIALTY EXAM CONSTITUTIONAL: Well developed, well nourished, appropriately groomed LYMPHATIC: No appreciable abnormalities palpable in neck EENT: EOMI. Oropharynx clear. Hearing intact to soft voice RESPIRATORY: Clear to auscultation bilaterally, no increased work of breathing CARDIOVASCULAR: Regular Rate/ Rhythm, no swelling, edema or tenderness in BUE or BLE. Pulses palpable. All extremities warm. GI: + bowel sounds, soft, NTTP, nondistended. INTEGUMENTARY: Right BKA wound clean dry and intact with randa. Otherwise, normal, no lesion, rash, masses or bruising noted in extremities. MUSCULOSKELETAL: Right BKA, otherwise BUE and BLE normal without defect, crepitus, subluxation, effusion, arthritic changes or TTP. BUE 4+/5, good ROM, with normal tone. BLE 4+/5 good ROM, with normal tone NEURO: CN 2-12 grossly intact. Sensation intact in all extremities. Reflexes intact. No clonus at ankle. Coordination intact in BUE. No tremor noted in 4 extr emities. POSTURE and GAIT: Sitting posture good. Balance appears reasonable. Gait deferred until seen with therapy. PSYCH: Alert, oriented x3, affect appears normal. Insight appears intact. - Constitutional Vitals: Vital Signs - 12hr 07/22/21 07/22/21 07/22/21 00:05 00:41 04:00 Temperature Pulse Rate 76 84 76 Respiratory Rate Respiratory 17 Rate [Head] Respiratory 17 Rate [Right Foot] Blood Pressure [Left] O2 Sat by Pulse 99 Oximetry 07/22/21 04:55 Temperature 97.8 F Pulse Rate 74 Respiratory 18 Rate Respiratory Rate [Head] Respiratory Rate [Right Foot] Blood Pressure 146/65 [Left] O2 Sat by Pulse 98 Oximetry - Labs CBC & Chem 7: 07/22/21 05:26 07/22/21 05:26 Labs: Laboratory Results - last 72 hr 07/22/21 07/22/21 07/22/21 05:26 05:26 08:06 WBC 12.2 H RBC 3.70 Hgb 8.3 L Hct 26.5 L MCV 72 L MCH 23 L MCHC 31 RDW 25.9 H Plt Count 312 Sodium 140 Potassium 4.8 Chloride 111.4 H Carbon Dioxide 20 L Anion Gap 13 BUN 15 Creatinine 0.8 Estimated GFR > 60 BUN/Creatinine Ratio 19 Glucose 285 H POC Glucose 280 H Calcium 8.2 L Total Bilirubin 0.30 AST 16 ALT 7 Alkaline Phosphatase 433 H Total Protein 6.0 L Albumin 2.5 L Albumin/Globulin Ratio 0.7 Assessment and Plan Assessment and plan: Patient was assessed and evaluated for Acute Inpatient Rehab Unit. Due to the patients above-mentioned medical complexity, along with decreased functional mobility and self care, this patient continues to require and be appropriate for a comprehensive, multidisciplinary [id number] rehabili tation program. These needs cannot be met in an outpatient or other less intensive setting. The patient would continue to benefit from skilled therapy intervention for at least 3 hours per day, five days a week, with techniques specific to the needs of the patient to improve function, activities of daily living, and reintegration into the community. The patient continues to require: -- OT to improve ROM, self-care, and learn use of adaptive equipment -- PT to improve strength and balance, functional transfers, and ambulation with energy conservation techniques to improve functional mobility -- 24 hour RN to ensure and prevent skin breakdown, promote progressive independence while ensuring safety, ensure education regarding medications, and incorporation of the rehabilitation at the bedside -- 24 hour Power System Operator to coordinate this interdisciplinary program, and to manage/prevent complications as a result of the patients medical comorbidities. -Plan of care by day 4 -Weekly team conferences With such a program, there is a reasonable certainty that the goals individualized for this patient can be achieved within the specified length of stay. Right BKA: Continue therapy to improve patient's ability to perform transfers, maintain the residual limb in such a manner that she is able to accept a prosthesis. Monitor wound for any signs of dehiscence or breakdown and or infection. Patient will need to follow-up with surgery for timeline on staple removal. I will contact them later during her stay. We will continue to work on range of motion and strengthening of the residual limb and apply a residual limb protector once available. Phantom pain syndrome: Patient is endorsing phantom sensation as well as phantom pain. She is already on gabapentin and we will look to increase this as needed in the future. Currently we have also discussed utilization of desensitization techniques and hopefully will be able to manage the pain without large increases in medications. Diabetes: Continue carb controlled diet as well as medications. Will adjust sliding scale as needed. Patient not currently on long-acting insulin. CAD with recent CABG: Continue aspirin and Plavix. Monitor for any signs of cardiac distress, cardiology consult if needed Anemia: Patient was transfused but has dropped again to mid to high 8. We will continue to monitor and work-up for causes. Hypertension: Continue to monitor blood pressure on a regular basis and adjust medications as needed for normotension. Goal blood pressure less than 140/90. Patient has been running elevated on the acute care side, will monitor closely and look to add alternative medications as needed. ADL dysfunction: OT will work on improving ability to perform ADLs (including assistive devices) to increase independence and decrease caregiver burden and improve functional transfers and mobility training. Difficulty walking: PT will work on gait training and proper use of assistive devices and advance as appropriate to use of stairs and outside ambulation on uneven surfaces. Unsteadiness on feet: PT will work on improving static and dynamic sitting and standing balance as well as proper use of assistive devices to decrease risk of falls. Abnormality of gait: PT will work to improve safety and efficiency of gait through neuromotor training and gait training along with instruction on proper use of assistive devices. Muscle weakness: PT & OT will work on strengthening exercises to improve functional strength including mixture of closed and open kinetic chain exercises. Debility: PT & OT will work on improving overall functional status to improve participation with ADLs, mobility and social involvement. Fatigue: PT & OT will work on improving endurance through aerobic exercises and therapeutic activity while monitoring patients tolerance for activity and vital signs as needed. DVT ppx: Lovenox Pain: Continue physical modalities in therapy and pain medications as needed to achieve functional pain control. Sleep: Monitor and address as needed. Bowel: Monitor and address as needed. Appetite: Monitor and address as needed. Discharge planning: Pending therapy progress and care plan meeting. Will continue discussion with therapy team, SW, patient and family. Restrictions/ Precautions: Falls WB status: Nonweightbearing right lower extremity Functional Hx: ADLs: Independent Cognition: Independent Mobility: No AD Barriers to Discharge: Decreased mobility and ability to perform self care, balance deficits, weakness Estimated Length of Stay: 1014 days Discharge Destination: Home with family POST ADMISSION PHYSICIAN EVALUATION I have examined the patient and find that functional status, medical condition and appropriateness for IRF admission are essentially unchanged from those described in the preadmission screening. Will monitor for worsening wound infection, wound dehiscence, DVT/PE, bowel and bladder complications and complications due to phantom pain, hypertension, diabetes, CAD and electrolyte abnormalities. Will attempt to avoid occurrence of these issues or treat them if they present themselves.
[2021-07-22] MEDS: hydrALAZINE 20 MG/1 ML INJ IV PRN (12:39)
[2021-07-22] MEDS: oxyCODONE /ACETAMINOPHEN 5-325MG TAB PO PRN ×2 (12:42→19:11)
[2021-07-22 13:09] LABS: Anisocytosis 2+; Band Neutrophils # (Manual) 0.1 K/mm3; Burr Cells 1+; Poikilocytosis 2+; Schistocytes Few; Total Cells Counted 100
[2021-07-22 13:10] LABS: Platelet Estimate Consistent w Auto
[2021-07-23] MEDS: GABAPENTIN 300 MG CAP PO SCH ×3 (06:14→21:25)
[2021-07-23] MEDS: oxyCODONE /ACETAMINOPHEN 5-325MG TAB PO PRN ×3 (06:14→21:25)
[2021-07-23] MEDS: INSULIN LISPRO 100 UNIT/ML SUB-Q SCH ×4 (09:08→21:27)
[2021-07-23] MEDS: FAMOTIDINE 10 MG TAB PO SCH ×2 (09:09→21:25)
[2021-07-23] MEDS: CLOPIDOGREL 75 MG TAB PO SCH (09:09)
[2021-07-23] MEDS: ENOXAPARIN 40 MG/0.4 ML INJ SUB-Q SCH (09:09)
[2021-07-23] MEDS: ASPIRIN EC 81 MG TAB PO SCH (09:09)
[2021-07-23] MEDS: amLODIPine 10 MG TAB PO SCH (09:10)
[2021-07-23] MEDS: DOCUSATE SODIUM 100 MG CAP PO SCH ×2 (09:10→21:26)
[2021-07-24] MEDS: GABAPENTIN 300 MG CAP PO SCH ×3 (06:02→22:00)
[2021-07-24] MEDS: INSULIN LISPRO 100 UNIT/ML SUB-Q SCH ×4 (11:17→23:17)
[2021-07-24] MEDS: ENOXAPARIN 40 MG/0.4 ML INJ SUB-Q SCH (11:18)
[2021-07-24] MEDS: CLOPIDOGREL 75 MG TAB PO SCH (11:18)
[2021-07-24] MEDS: ASPIRIN EC 81 MG TAB PO SCH (11:18)
[2021-07-24] MEDS: DOCUSATE SODIUM 100 MG CAP PO SCH ×2 (11:18→22:05)
[2021-07-24] MEDS: FAMOTIDINE 10 MG TAB PO SCH ×2 (11:18→22:00)
[2021-07-24] MEDS: amLODIPine 10 MG TAB PO SCH (11:18)
--- NOTE | 2021-07-24 20:10 | IRU Plan of Care ---
Interdisciplinary Plan of Care - IP IRU INTERDISCIPLINARY PLAN: [facility] Inpatient Rehab Unit Plan of Care IRU Interdisciplinary Care Plan Start: 07/22/21 13:45 Freq: Status: Active Protocol: Document 07/22/21 15:10 AB (Rec: 07/22/21 15:15 AB [id number]) Interdisciplinary Problem List Interdisciplinary Problem List Interdisciplinary Problem List Impaired Bathing/Grooming, Query Text:Answers will Trigger Problems Impaired Dressing,Impaired and Outcomes on Worklist. Mobility,Impaired Transfers, Impaired Toileting,Impaired Safety IRU Interdisciplinary Care Plan Therapy Services Therapy Services Will Include: Physical Therapy,Occupational Query Text:Patient will be seen for a Therapy minimum of 3 hours of daily therapy 5 out of 7 days a week. Therapy intensity may be adjusted within a 7 consecutive day period to effectively serve the individual needs of the patient. Treatment Frequency/Intensity/Duration Treatment Frequency 3hrs/day Treatment Intensity 5 days/week Treatment Duration 10-14 days Problem Area: Eating/Swallowing Eating/Swallowing Outcomes Eating/Swallowing Interventions Problem Area: Bathing/Grooming Bathing/Grooming Outcomes Improve [place] w/ Grooming,Improve [place] w/ Bathing Bathing/Grooming Interventions ADL Training,Use of Assistive Devices,Therapeutic Exercise, Therapeutic Activity, Neuromuscular Re-Education, Balance Work,Activity Tolerance Work,Patient/ Caregiver Education Problem Area: Dressing Dressing Outcomes Improve [place] w/ UB Dressing,Improve [place] w/ LB Dressing Dressing Interventions ADL Training,Use of Assistive Devices,Neuromuscular Re- Education,Therapeutic Exercise ,Balance Work,Patient/ Caregiver Education Problem Area: Mobility Mobility Outcomes Improve [place] w/ Bed Mobility,Improve [place] w/ Ambulation,Improve [place] w/ Wheelchair Mobility Interventions Therapeutic Exercise, Neuromuscular Re-Ed.,Activity Tolerance Work,Use of Assistive Devices,Patient/ Caregiver Education,Bed Mobility Work,Gait Training, Household Mobility Work,W/C Mobility Work Problem Area: Transfers Transfers Outcomes Improve [place] w/ Bed Transfers,Improve [place] w/ Toilet Transfers,Improve [place] w/ Car Transfers Transfers Interventions Transfer Training,Therapeutic Exercise,Neuromuscular Re- Education,Activity Tolerance Work,Use of Assistive Devices, Patient/Caregiver Education Problem Area: Bowel/Bladder Managment Bowel/Bladder Outcomes Bowel/Bladder Interventions Problem Area: Toileting Toileting Outcomes Improve [place] w/ Toileting Toileting Interventions ADL Training,Balance Work,Use of Assistive Devices,Patient/ Caregiver Education Problem Area: Nutrition Nutrition Outcomes Nutrition Interventions Problem Area: Comprehension Comprehension Outcomes Comprehension Interventions Problem Area: Expression Expression Outcomes Expression Interventions Problem Area: Problem Solving Problem Solving Outcomes Problem Solving Interventions Problem Area: Memory Memory Outcomes Memory Interventions Problem Area: Pain Management Pain Management Outcomes Pain Management Interventions Problem Area: Knowledge Deficits Knowledge Deficits Outcomes Demonstrate Ability to Manage Blood Glucose Knowledge Deficits Interventions Disease/Injury/Sx. Intervention Education, Medication Use Education, Disease Management Education Problem Area: Skin/Tissue Integrity Skin/Tissue Integrity Outcomes Skin/Tissue Integrity Interventions Problem Area: Social Interaction Social Interaction Outcomes Social Interaction Interventions Problem Area: Adjustment to Disability Adjustment to Disability Outcomes Adjustment to Disability Interventions Problem Area: Discharge Concerns Discharge Concerns Outcomes Discharge w/ Necessary Equipment Discharge Concerns Interventions Discharge Planning,Equipment Assessment, Acquisition and Placement,Family/Caregiver Training Problem Area: Community Reintegration Community Reintegration Outcomes Community Reintegration Interventions Problem Area: Home Management Home Management Outcomes Improve [place] w/ Home Management Home Management Interventions Meal Preparation,Clothing Care ,Activity Tolerance Work,House Cleaning,Patient/Caregiver Education Problem Area: Safety Safety Outcomes Provide Safe Environment, Perform Selfcare Safely, Demonstrate Good Safety w/ Transfers/Mobility Safety Interventions Identify Fall Risk,Reduce Environmental Hazards Problem Area: Medication Education Medication Education Outcomes Medication Education Interventions Problem Area: Diabetes Education Diabetes Education Outcomes Demonstrate Knowledge of Resources Availlable in Diabetic Ed. Folder Diabetes Education Interventions Give Pt. Diabetes Education Folder,Discuss Pathophysiology of Diabetes Problem Area: Oxygenation Oxygenation Outcomes Oxygenation Interventions Problem Area: Cardiovascular Cardiovascular Outcomes Maintain or Improve Cardiovascular Status Cardiovascular Interventions Assess Vital Signs at least Every 4 hours,Cardiac Monitoring, EKG and ABG as Ordered. Physician Only Medical Prognosis and Rehabilitation Good rehab potential, good prognosis Potential (Completed by Physician) This plan of care has been developed based on the findings from the pre- admission assessment, post admission physician evaluation, information gathered from the assessments from all therapy disciplines and other pertinent clinicians. The plan of care has been reviewed and discussed in collaboration with the interdisciplinary team. The plan of care will be reviewed and updated at least weekly.
[2021-07-24] MEDS: oxyCODONE /ACETAMINOPHEN 5-325MG TAB PO PRN (22:03)
[2021-07-25] MEDS: GABAPENTIN 300 MG CAP PO SCH ×3 (05:48→21:22)
[2021-07-25 06:31] LABS: Hematocrit 24.2 % (30.3-42.9); Hemoglobin 7.6 gm/dl (10.1-14.3); Mean Corpuscular HGB Conc 32 % (30-34); Mean Corpuscular Volume 71 fl (79-97); Platelet Count 366 K/mm3 (140-440); Red Blood Count 3.42 M/mm3 (3.65-5.03)
[2021-07-25 06:42] LABS: BUN/Creatinine Ratio 20; Blood Urea Nitrogen 16 mg/dL (7-17); Calcium 8.1 mg/dL (8.4-10.2); Hemolysis Index 0; Iron 28 ug/dL (37-170); Total Iron Binding Capacity 193 mcg/dL (250-450)
[2021-07-25 06:49] LABS: Red Cell Distribution Width 25.7 % (13.2-15.2)
--- NOTE | 2021-07-25 09:07 | Progress Note ---
Subjective Date of service: 07/25/21 Principal diagnosis: Right BKA Interval history: 55-year-old female came in with a history of worsening right foot wound. 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 She underwent partial amputation on 06/21 of the right great toe and on 06/22 underwent excisional debridement of cellulitis and soft tissue of the right foot. Wound VAC was placed however the patient left the hospital AGAINST MEDICAL ADVICE on 07/25. Patient states that she did complete a full course of oral antibiotics however she experienced worsening deficits and was readmitted on 07/12 2021. At that point the gangrene has grown worse. She was consulted by surgery as well as infectious disease. Appropriate antibiotics were started and consideration for possible TMA was given, patient refused to consider a right BKA which was the recommendation of the surgeon. After further consultation, patient did opt for a BKA as it was believed that the TMA would not heal appropriately. BKA was performed on 07/[address] Rubio. Patient was transfused 3 units of packed red blood cells due to anemia. WBCs have remained elevated however the patient has also remained afebrile. Antibiotics were stopped after the BKA. Leukocytosis was determined to be due to the ischemia/infection of the lower extremity. Interval History: Patient is participating in therapy and making reasonable progress. Taking rest breaks as needed. +BM. Denies palpitations, dyspnea, cough, N/V, or joint pain. Patient complained of right upper extremity and breast swelling. Requested nursing accompany me for examination, patient's breast is full a lthough not tender and with no easily identifiable lumps of concern. Patient's right upper extremity is also swollen. Axilla does not show any inflamed lymph nodes that are easily palpable. Review of reports does show that an upper extremity scan was performed which showed a right basilic vein thrombophlebitis. Right BKA: Wound clean dry and intact, continue to monitor for any signs of infection or dehiscence. Continue therapy as above to improve patient's ability to mobilize the residual limb and to eventually accept a prosthesis. Phantom pain syndrome: Fairly controlled, continue desensitization as well as medications. Look to increase medications if needed. Diabetes: Glucose checks remain elevated. Patient does state that she was taken 70/30 insulin at home 10 units at night and 12 units in the morning. We will restart this. Right upper extremity thrombophlebitis: Patient previously had a ultrasound of the bilateral upper extremities due to increased swelling. She does have a right basilic vein thrombophlebitis. We will continue to elevate the limb, utilize aspirin and patient is currently on Lovenox. Anemia chronic disease likely mixed with acute blood loss: Per lab work done this morning, this appears to be consistent with anemia of chronic disease but hemoglobin is much lower than would be expected. Folate is low and we will replace that. Hemoglobin decreased, continue to check and monitor for needs to transfuse. Replace iron and monitor for improvement CAD with recent CABG: Stable without any episodes of chest pain currently. Continue to monitor cardiac function and for any signs or symptoms. Rest breaks as needed Hypertension: Elevated over the weekend as she was prior to coming to rehab. Have started lisinopril at a low dose will monitor and look to adjust as needed. Goal blood pressure less than 140/90. Patient does state that she was only on amlodipine at home. ADL and mobility deficits: Continue therapy to help improve patient's ability to perform ADLs and move about household distances as independently as possible. Patient will be discharged with a wheelchair for mobility due to the amputation and the need for stability while performing MR ADLs. All records, vitals, labs and medications were reviewed. No other issues per patient, nursing or therapy. Objective - Exam Narrative Exam: MUSCULOSKELETAL SPECIALTY EXAM CONSTITUTIONAL: Well developed, well nourished, appropriately groomed EENT: EOMI. Oropharynx clear. Hearing intact to soft voice RESPIRATORY: Clear to auscultation bilaterally, no increased work of breathing CARDIOVASCULAR: Right upper extremity swelling, otherwise regular Rate/ Rhythm, no swelling, edema or tenderness in BUE or BLE. All extremities warm. GI: + bowel sounds, soft, NTTP, nondistended. INTEGUMENTARY: Right BKA wound clean dry and intact with randa. Otherwise, normal, no lesion, rash, masses or bruising noted in extremities. MUSCULOSKELETAL: Right BKA, otherwise BUE and BLE normal without defect, crepitus, subluxation, effusion, arthritic changes or TTP. BUE 4+/5, good ROM, with normal tone. BLE 4+/5 good ROM, with normal tone NEURO: CN 2-12 grossly intact. Sensation intact in all extremities. No tremor noted in 4 extremities. POSTURE and GAIT: Sitting posture good. Balance appears reasonable. Gait deferred until seen with therapy. PSYCH: Alert, oriented x3, affect appears normal. Insight appears intact. - Constitutional Vitals: Vital Signs - 12hr 07/24/21 07/24/21 07/25/21 22:00 23:00 00:00 Temperature Pulse Rate 94 H Respiratory Rate Respiratory 17 Rate [Head] Blood Pressure O2 Sat by Pulse 98 Oximetry 07/25/21 08:26 Temperature 98.5 F Pulse Rate 85 Respiratory 18 Rate Respiratory Rate [Head] Blood Pressure 193/87 O2 Sat by Pulse 91 Oximetry - Allied health notes Allied health notes reviewed: nursing, PT, OT - Labs CBC & Chem 7: 07/25/21 05:35 07/25/21 05:35 Labs: Laboratory Results - last 72 hr 07/22/21 07/22/21 07/22/21 05:26 11:22 16:19 WBC RBC Hgb Hct MCV MCH MCHC RDW Plt Count Add Manual Diff Complete Total Counted 100 Seg Neuts % (Manual) 95.0 H Band Neutrophils % 1.0 Lymphocytes % (Manual) 2.0 L Monocytes % (Manual) 1.0 Eosinophils % (Manual) 1.0 Nucleated RBC % Not Reportable Seg Neutrophils # Man 11.6 H Band Neutrophils # 0.1 Lymphocytes # (Manual) 0.2 L Abs React Lymphs (Man) 0.0 Monocytes # (Manual) 0.1 Eosinophils # (Manual) 0.1 Basophils # (Manual) 0.0 Metamyelocytes # 0.0 Myelocytes # 0.0 Promyelocytes # 0.0 Blast Cells # 0.0 WBC Morphology Not Reportable Hypersegmented Neuts Not Reportable Hyposegmented Neuts Not Reportable Hypogranular Neuts Not Reportable Smudge Cells Not Reportable Toxic Granulation Not Reportable Toxic Vacuolation Not Reportable Dohle Bodies Not Reportable Pelger-Huet Anomaly Not Reportable Lilliana Rods Not Reportable Platelet Estimate Consistent w auto Clumped Platelets Not Reportable Plt Clumps, EDTA Not Reportable Large Platelets Not Reportable Giant Platelets Not Reportable Platelet Satelliting Not Reportable Plt Morphology Comment Not Reportable RBC Morphology Not Reportable Dimorphic RBCs Not Reportable Polychromasia 1+ Hypochromasia Not Reportable Poikilocytosis 2+ Anisocytosis 2+ Microcytosis 1+ Macrocytosis Not Reportable Spherocytes Not Reportable Pappenheimer Bodies Not Reportable Sickle Cells Not Reportable Target Cells Not Reportable Tear Drop Cells Not Reportable Ovalocytes Not Reportable Helmet Cells Not Reportable [place] Bodies Not Reportable [place] Rings Not Reportable Rashaad Cells 1+ Bite Cells Not Reportable Crenated Cell Not Reportable Elliptocytes 1+ Acanthocytes (Spur) Not Reportable Rouleaux Not Reportable Hemoglobin C Crystals Not Reportable Schistocytes Few Malaria parasites Not Reportable Yoseph Bodies Not Reportable Hem Pathologist Commnt No Sodium Potassium Chloride Carbon Dioxide Anion Gap BUN Creatinine Estimated GFR BUN/Creatinine Ratio Glucose POC Glucose 221 H 218 H Calcium Iron TIBC Ferritin Vitamin B12 Folate 07/22/21 07/23/21 07/23/21 20:55 08:26 12:36 WBC RBC Hgb Hct MCV MCH MCHC RDW Plt Count Add Manual Diff Total Counted Seg Neuts % (Manual) Band Neutrophils % Lymphocytes % (Manual) Monocytes % (Manual) Eosinophils % (Manual) Nucleated RBC % Seg Neutrophils # Man Band Neutrophils # Lymphocytes # (Manual) Abs React Lymphs (Man) Monocytes # (Manual) Eosinophils # (Manual) Basophils # (Manual) Metamyelocytes # Myelocytes # Promyelocytes # Blast Cells # WBC Morphology Hypersegmented Neuts Hyposegmented Neuts Hypogranular Neuts Smudge Cells Toxic Granulation Toxic Vacuolation Dohle Bodies Pelger-Huet Anomaly Lilliana Rods Platelet Estimate Clumped Platelets Plt Clumps, EDTA Large Platelets Giant Platelets Platelet Satelliting Plt Morphology Comment RBC Morphology Dimorphic RBCs Polychromasia Hypochromasia Poikilocytosis Anisocytosis Microcytosis Macrocytosis Spherocytes Pappenheimer Bodies Sickle Cells Target Cells Tear Drop Cells Ovalocytes Helmet Cells [place] Bodies [place] Rings [place] Cells Bite Cells Crenated Cell Elliptocytes Acanthocytes (Spur) Rouleaux Hemoglobin C Crystals Schistocytes Malaria parasites Yoseph Bodies Hem Pathologist Commnt Sodium Potassium Chloride Carbon Dioxide Anion Gap BUN Creatinine Estimated GFR BUN/Creatinine Ratio Glucose POC Glucose 212 H 239 H 259 H Calcium Iron TIBC Ferritin Vitamin B12 Folate 07/23/21 07/23/21 07/24/21 17:31 20:52 08:30 WBC RBC Hgb Hct MCV MCH MCHC RDW Plt Count Add Manual Diff Total Counted Seg Neuts % (Manual) Band Neutrophils % Lymphocytes % (Manual) Monocytes % (Manual) Eosinophils % (Manual) Nucleated RBC % Seg Neutrophils # Man Band Neutrophils # Lymphocytes # (Manual) Abs React Lymphs (Man) Monocytes # (Manual) Eosinophils # (Manual) Basophils # (Manual) Metamyelocytes # Myelocytes # Promyelocytes # Blast Cells # WBC Morphology Hypersegmented Neuts Hyposegmented Neuts Hypogranular Neuts Smudge Cells Toxic Granulation Toxic Vacuolation Dohle Bodies Pelger-Huet Anomaly Lilliana Rods Platelet Estimate Clumped Platelets Plt Clumps, EDTA Large Platelets Giant Platelets Platelet Satelliting Plt Morphology Comment RBC Morphology Dimorphic RBCs Polychromasia Hypochromasia Poikilocytosis Anisocytosis Microcytosis Macrocytosis Spherocytes Pappenheimer Bodies Sickle Cells Target Cells Tear Drop Cells Ovalocytes Helmet Cells [place] Bodies [place] Rings [place] Cells Bite Cells Crenated Cell Elliptocytes Acanthocytes (Spur) Rouleaux Hemoglobin C Crystals Schistocytes Malaria parasites Yoseph Bodies Hem Pathologist Commnt Sodium Potassium Chloride Carbon Dioxide Anion Gap BUN Creatinine Estimated GFR BUN/Creatinine Ratio Glucose POC Glucose 153 H 164 H 184 H Calcium Iron TIBC Ferritin Vitamin B12 Folate 07/24/21 07/24/21 07/25/21 11:41 16:44 05:35 WBC 11.8 H RBC 3.42 L Hgb 7.6 L Hct 24.2 L MCV 71 L MCH 22 L MCHC 32 RDW 25.7 H Plt Count 366 Add Manual Diff Total Counted Seg Neuts % (Manual) Band Neutrophils % Lymphocytes % (Manual) Monocytes % (Manual) Eosinophils % (Manual) Nucleated RBC % Seg Neutrophils # Man Band Neutrophils # Lymphocytes # (Manual) Abs React Lymphs (Man) Monocytes # (Manual) Eosinophils # (Manual) Basophils # (Manual) Metamyelocytes # Myelocytes # Promyelocytes # Blast Cells # WBC Morphology Hypersegmented Neuts Hyposegmented Neuts Hypogranular Neuts Smudge Cells Toxic Granulation Toxic Vacuolation Dohle Bodies Pelger-Huet Anomaly Lilliana Rods Platelet Estimate Clumped Platelets Plt Clumps, EDTA Large Platelets Giant Platelets Platelet Satelliting Plt Morphology Comment RBC Morphology Dimorphic RBCs Polychromasia Hypochromasia Poikilocytosis Anisocytosis Microcytosis Macrocytosis Spherocytes Pappenheimer Bodies Sickle Cells Target Cells Tear Drop Cells Ovalocytes Helmet Cells [place] Bodies [place] Rings [place] Cells Bite Cells Crenated Cell Elliptocytes Acanthocytes (Spur) Rouleaux Hemoglobin C Crystals Schistocytes Malaria parasites Yoseph Bodies Hem Pathologist Commnt Sodium Potassium Chloride Carbon Dioxide Anion Gap BUN Creatinine Estimated GFR BUN/Creatinine Ratio Glucose POC Glucose 240 H 267 H Calcium Iron TIBC Ferritin Vitamin B12 Folate 07/25/21 07/25/21 07/25/21 05:35 05:35 05:35 WBC RBC Hgb Hct MCV MCH MCHC RDW Plt Count Add Manual Diff Total Counted Seg Neuts % (Manual) Band Neutrophils % Lymphocytes % (Manual) Monocytes % (Manual) Eosinophils % (Manual) Nucleated RBC % Seg Neutrophils # Man Band Neutrophils # Lymphocytes # (Manual) Abs React Lymphs (Man) Monocytes # (Manual) Eosinophils # (Manual) Basophils # (Manual) Metamyelocytes # Myelocytes # Promyelocytes # Blast Cells # WBC Morphology Hypersegmented Neuts Hyposegmented Neuts Hypogranular Neuts Smudge Cells Toxic Granulation Toxic Vacuolation Dohle Bodies Pelger-Huet Anomaly Lilliana Rods Platelet Estimate Clumped Platelets Plt Clumps, EDTA Large Platelets Giant Platelets Platelet Satelliting Plt Morphology Comment RBC Morphology Dimorphic RBCs Polychromasia Hypochromasia Poikilocytosis Anisocytosis Microcytosis Macrocytosis Spherocytes Pappenheimer Bodies Sickle Cells Target Cells Tear Drop Cells Ovalocytes Helmet Cells [place] Bodies [place] Rings [place] Cells Bite Cells Crenated Cell Elliptocytes Acanthocytes (Spur) Rouleaux Hemoglobin C Crystals Schistocytes Malaria parasites Yoseph Bodies Hem Pathologist Commnt Sodium 140 Potassium 4.5 Chloride 112.1 H Carbon Dioxide 21 L Anion Gap 11 BUN 16 Creatinine 0.8 Estimated GFR > 60 BUN/Creatinine Ratio 20 Glucose 278 H POC Glucose Calcium 8.1 L Iron 28 L TIBC 193 L Ferritin 202.0 H Vitamin B12 525.4 Folate 07/25/21 07/25/21 05:35 08:25 WBC RBC Hgb Hct MCV MCH MCHC RDW Plt Count Add Manual Diff Total Counted Seg Neuts % (Manual) Band Neutrophils % Lymphocytes % (Manual) Monocytes % (Manual) Eosinophils % (Manual) Nucleated RBC % Seg Neutrophils # Man Band Neutrophils # Lymphocytes # (Manual) Abs React Lymphs (Man) Monocytes # (Manual) Eosinophils # (Manual) Basophils # (Manual) Metamyelocytes # Myelocytes # Promyelocytes # Blast Cells # WBC Morphology Hypersegmented Neuts Hyposegmented Neuts Hypogranular Neuts Smudge Cells Toxic Granulation Toxic Vacuolation Dohle Bodies Pelger-Huet Anomaly Lilliana Rods Platelet Estimate Clumped Platelets Plt Clumps, EDTA Large Platelets Giant Platelets Platelet Satelliting Plt Morphology Comment RBC Morphology Dimorphic RBCs Polychromasia Hypochromasia Poikilocytosis Anisocytosis Microcytosis Macrocytosis Spherocytes Pappenheimer Bodies Sickle Cells Target Cells Tear Drop Cells Ovalocytes Helmet Cells [place] Bodies [place] Rings [place] Cells Bite Cells Crenated Cell Elliptocytes Acanthocytes (Spur) Rouleaux Hemoglobin C Crystals Schistocytes Malaria parasites Yoseph Bodies Hem Pathologist Commnt Sodium Potassium Chloride Carbon Dioxide Anion Gap BUN Creatinine Estimated GFR BUN/Creatinine Ratio Glucose POC Glucose 269 H Calcium Iron TIBC Ferritin Vitamin B12 Folate 6.84 L Assessment and Plan Right BKA: Continue therapy to improve patient's ability to perform transfers, maintain the residual limb in such a manner that she is able to accept a prosthesis. Monitor wound for any signs of dehiscence or breakdown and or infection. Patient will need to follow-up with surgery for timeline on staple re moval. I will contact them later during her stay. We will continue to work on range of motion and strengthening of the residual limb and apply a residual limb protector once available. Phantom pain syndrome: Patient is endorsing phantom sensation as well as phantom pain. She is already on gabapentin and we will look to increase this as needed in the future. Currently we have also discussed utilization of desensitization techniques and hopefully will be able to manage the pain without large increases in medications. Diabetes: Continue carb controlled diet as well as medications. Will adjust s liding scale as needed. Restart home 70/30 insulin. CAD with recent CABG: Continue aspirin and Plavix. Monitor for any signs of cardiac distress, cardiology consult if needed Anemia: Likely mixed chronic disease and acute blood loss. Will replace folate and iron and monitor. Patient was transfused on the acute care side. Hypertension: Continue to monitor blood pressure on a regular basis and adjust medications as needed for normotension. Goal blood pressure less than 140/90. Patient continued to have elevated blood pressures over the weekend. Lisinopril low-dose was started yesterday however I have increased that this morning due to even more elevated blood pressures. As needed hydralazine IV available Right basilic vein thrombophlebitis: Continue to elevate upper extremity, pat ient remains on aspirin and Plavix as well as Lovenox. ADL dysfunction: OT will work on improving ability to perform ADLs (including assistive devices) to increase independence and decrease caregiver burden and improve functional transfers and mobility training. Difficulty walking: PT will work on gait training and proper use of assistive devices and advance as appropriate to use of stairs and outside ambulation on uneven surfaces. Unsteadiness on feet: PT will work on improving static and dynamic sitting and standing balance as well as proper use of assistive devices to decrease risk of falls. Abnormality of gait: PT will work to improve safety and efficiency of gait through neuromotor training and gait training along with instruction on proper use of assistive devices. Muscle weakness: PT & OT will work on strengthening exercises to improve functional strength including mixture of closed and open kinetic chain exercises. Debility: PT & OT will work on improving overall functional status to improve participation with ADLs, mobility and social involvement. Fatigue: PT & OT will work on improving endurance through aerobic exercises and therapeutic activity while monitoring patients tolerance for activity and vital signs as needed. DVT ppx: Lovenox Pain: Continue physical modalities in therapy and pain medications as needed to achieve functional pain control. Sleep: Monitor and address as needed. Bowel: Monitor and address as needed. Appetite: Monitor and address as needed. Discharge planning: Pending therapy progress and care plan meeting. Will continue discussion with therapy team, SW, patient and family. Restrictions/ Precautions: Falls WB status: Nonweightbearing right lower extremity Functional Hx: ADLs: Independent Cognition: Independent Mobility: No AD Barriers to Discharge: Decreased mobility and ability to perform self care, balance deficits, weakness Estimated Length of Stay: 1014 days Discharge Destination: Home with family
[2021-07-25] MEDS: CLOPIDOGREL 75 MG TAB PO SCH (09:28)
[2021-07-25] MEDS: amLODIPine 10 MG TAB PO SCH (09:28)
[2021-07-25] MEDS: DOCUSATE SODIUM 100 MG CAP PO SCH ×3 (09:28→21:29)
[2021-07-25] MEDS: FAMOTIDINE 10 MG TAB PO SCH ×2 (09:28→21:22)
[2021-07-25] MEDS: hydrALAZINE 20 MG/1 ML INJ IV PRN (09:29)
[2021-07-25] MEDS: ASPIRIN EC 81 MG TAB PO SCH (09:29)
[2021-07-25] MEDS: INSULIN LISPRO 100 UNIT/ML SUB-Q SCH ×4 (09:37→21:30)
[2021-07-25] MEDS ORDERED: LISINOPRIL 5 MG TAB PO SCH (10:00)
[2021-07-25] MEDS: FERROUS SULFATE 325 MG TAB PO SCH ×2 (11:24→21:22)
[2021-07-25] MEDS: LISINOPRIL 10 MG TAB PO SCH (11:25)
[2021-07-25] MEDS: FOLIC ACID/VIT B COMP W-C 1 MG (RENAL CAPS) PO SCH (11:25)
[2021-07-25] MEDS: ENOXAPARIN 40 MG/0.4 ML INJ SUB-Q SCH (15:24)
[2021-07-25] MEDS: oxyCODONE /ACETAMINOPHEN 5-325MG TAB PO PRN ×2 (15:26→21:22)
[2021-07-25] MEDS: INSULIN NPH/REGULAR 70/30 INJ SUB-Q SCH (17:14)
[2021-07-26] MEDS: GABAPENTIN 300 MG CAP PO SCH ×3 (05:07→21:27)
--- NOTE | 2021-07-26 08:30 | Progress Note ---
Subjective Date of service: 07/26/21 Principal diagnosis: Right BKA Interval history: 55-year-old female came in with a history of worsening right foot wound. 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 She underwent partial amputation on 06/21 of the right great toe and on 06/22 underwent excisional debridement of cellulitis and soft tissue of the right foot. Wound VAC was placed however the patient left the hospital AGAINST MEDICAL ADVICE on 07/25. Patient states that she did complete a full course of oral antibiotics however she experienced worsening deficits and was readmitted on 07/12 2021. At that point the gangrene has grown worse. She was consulted by surgery as well as infectious disease. Appropriate antibiotics were started and consideration for possible TMA was given, patient refused to consider a right BKA which was the recommendation of the surgeon. After further consultation, patient did opt for a BKA as it was believed that the TMA would not heal appropriately. BKA was performed on 07/[address] Rubio. Patient was transfused 3 units of packed red blood cells due to anemia. WBCs have remained elevated however the patient has also remained afebrile. Antibiotics were stopped after the BKA. Leukocytosis was determined to be due to the ischemia/infection of the lower extremity. Interval History: Patient is participating in therapy and making reasonable progress. Taking rest breaks as needed. -BM. Denies palpitations, dyspnea, cough, N/V, or joint pain. Patient continues with Hong catheter. Her reason for having this was decreased urine output after surgery. We will remove the Hong today and monitor urine output and replace if needed. Right BKA: Wound clean dry and intact, continue to monitor for any signs of infection or dehiscence. Continue therapy as above to improve patient's ability to mobilize the residual limb and to eventually accept a prosthesis. Phantom pain syndrome: Fairly controlled, continue desensitization as well as medications. Look to increase medications if needed. Diabetes: Glucose checks remain elevated. Restarted 70/30 insulin at 10 units twice daily. Glucose still remains elevated and is being covered by sliding scale. We will look to increase 7030 over the next couple of days as the patient normalizes. Right upper extremity thrombophlebitis: Patient previously had a ultrasound of the bilateral upper extremities due to increased swelling. She does have a right basilic vein thrombophlebitis. We will continue to elevate the limb. Patient currently on aspirin, Plavix and Lovenox. Anemia chronic disease likely mixed with acute blood loss: Per lab work done this morning, this appears to be consistent with anemia of chronic disease but hemoglobin is much lower than would be expected. Folate is low and we will replace that. Hemoglobin decreased, continue to check and monitor for needs to transfuse. Replace iron and monitor for improvement CAD with recent CABG: Stable without any episodes of chest pain currently. Continue to monitor cardiac function and for any signs or symptoms. Rest breaks as needed Hypertension: Blood pressure remains elevated. Have asked nursing to go ahead and give oral medications this morning and recheck blood pressure in approximately 1 hour and then utilize hydralazine if needed. May need to increase lisinopril again but want to give it at least a couple of days before dose is elevated. Goal blood pressure less than 140/90. ADL and mobility deficits: Continue therapy to help improve patient's ability to perform ADLs and move about household distances as independently as possible. Patient will be discharged with a wheelchair for mobility due to the amputation and the need for stability while performing MR ADLs. All records, vitals, labs and medications were reviewed. No other issues per patient, nursing or therapy. Patient discussed during team conference. She did miss occupational therapy yesterday due to elevated blood pressure but is doing fairly well overall with therapy. She was able to work with physical therapy later in the afternoon. We will need to make up in this time with occupational therapy. Blood pressure is being actively managed and we are attempting to gain better control over it. Have asked nursing to stay on top of utilizing as needed hydralazine IV as necessary. Will likely be able to get patient home within our stated goal of 10 to 14 days. We will continue to manage chronic medical issues and to monitor anemia and leukocytosis for improvement in both. Objective - Exam Narrative Exam: MUSCULOSKELETAL SPECIALTY EXAM CONSTITUTIONAL: Well developed, well nourished, appropriately groomed EENT: EOMI. Oropharynx clear. Hearing intact to soft voice RESPIRATORY: Clear to auscultation bilaterally, no increased work of breathing CARDIOVASCULAR: Right upper extremity swelling, otherwise regular Rate/ Rhythm, no swelling, edema or tenderness in BUE or BLE. All extremities warm. GI: + bowel sounds, soft, NTTP, nondistended. INTEGUMENTARY: Right BKA wound clean dry and intact with randa. Otherwise, normal, no lesion, rash, masses or bruising noted in extremities. MUSCULOSKELETAL: Right BKA, otherwise BUE and BLE normal without defect, crepitus, subluxation, effusion, arthritic changes or TTP. BUE 4+/5, good ROM, with normal tone. BLE 4+/5 good ROM, with normal tone NEURO: CN 2-12 grossly intact. Sensation intact in all extremities. No tremor noted in 4 extremities. POSTURE and GAIT: Sitting posture good. Balance appears reasonable. Gait deferred until seen with therapy. PSYCH: Alert, oriented x3, affect appears normal. Insight appears intact. - Constitutional Vitals: Vital Signs - 12hr 07/25/21 07/25/21 07/26/21 21:22 22:00 00:00 Pulse Rate 92 H Respiratory 20 Rate Respiratory 17 Rate [Head] O2 Sat by Pulse 96 Oximetry - Allied health notes Allied health notes reviewed: nursing, PT, OT - Labs CBC & Chem 7: 07/25/21 05:35 07/25/21 05:35 Labs: Laboratory Results - last 72 hr 07/23/21 07/23/21 07/23/21 12:36 17:31 20:52 WBC RBC Hgb Hct MCV MCH MCHC RDW Plt Count Sodium Potassium Chloride Carbon Dioxide Anion Gap BUN Creatinine Estimated GFR BUN/Creatinine Ratio Glucose POC Glucose 259 H 153 H 164 H Calcium Iron TIBC Ferritin Vitamin B12 Folate 07/24/21 07/24/21 07/24/21 08:30 11:41 16:44 WBC RBC Hgb Hct MCV MCH MCHC RDW Plt Count Sodium Potassium Chloride Carbon Dioxide Anion Gap BUN Creatinine Estimated GFR BUN/Creatinine Ratio Glucose POC Glucose 184 H 240 H 267 H Calcium Iron TIBC Ferritin Vitamin B12 Folate 07/25/21 07/25/21 07/25/21 05:35 05:35 05:35 WBC 11.8 H RBC 3.42 L Hgb 7.6 L Hct 24.2 L MCV 71 L MCH 22 L MCHC 32 RDW 25.7 H Plt Count 366 Sodium 140 Potassium 4.5 Chloride 112.1 H Carbon Dioxide 21 L Anion Gap 11 BUN 16 Creatinine 0.8 Estimated GFR > 60 BUN/Creatinine Ratio 20 Glucose 278 H POC Glucose Calcium 8.1 L Iron 28 L TIBC 193 L Ferritin 202.0 H Vitamin B12 Folate 07/25/21 07/25/21 07/25/21 05:35 05:35 08:25 WBC RBC Hgb Hct MCV MCH MCHC RDW Plt Count Sodium Potassium Chloride Carbon Dioxide Anion Gap BUN Creatinine Estimated GFR BUN/Creatinine Ratio Glucose POC Glucose 269 H Calcium Iron TIBC Ferritin Vitamin B12 525.4 Folate 6.84 L 07/25/21 07/25/21 07/25/21 11:50 17:04 20:46 WBC RBC Hgb Hct MCV MCH MCHC RDW Plt Count Sodium Potassium Chloride Carbon Dioxide Anion Gap BUN Creatinine Estimated GFR BUN/Creatinine Ratio Glucose POC Glucose 229 H 282 H 256 H Calcium Iron TIBC Ferritin Vitamin B12 Folate Assessment and Plan Right BKA: Continue therapy to improve patient's ability to perform transfers, maintain the residual limb in such a manner that she is able to accept a prosthesis. Monitor wound for any signs of dehiscence or breakdown and or infection. Patient will need to follow-up with surgery for timeline on staple removal. I will contact them later during her stay. We will continue to work on range of motion and strengthening of the residual limb and utilize a residual limb protector. Phantom pain syndrome: Patient is endorsing phantom sensation as well as phantom pain. She is already on gabapentin and we will look to increase this as needed in the future. Currently we have also discussed utilization of desensitization techniques and hopefully will be able to manage the pain without large increases in medications. Diabetes: Continue carb controlled diet as well as medications. Will adjust sliding scale as needed. Restart home 70/30 insulin and adjust as needed. CAD with recent CABG: Continue aspirin and Plavix. Monitor for any signs of cardiac distress, cardiology consult if needed Anemia: Likely mixed chronic disease and acute blood loss. Will replace folate and iron and monitor. Patient was transfused on the acute care side. Hypertension: Continue to monitor blood pressure on a regular basis and adjust medications as needed for normotension. Goal blood pressure less than 140/90. Monitor on current dose of amlodipine and lisinopril. In the next day or two may need to increase lisinopril dose pending patient's response to medication. As needed hydralazine IV available Right basilic vein thrombophlebitis: Continue to elevate upper extremity, patient remains on aspirin and Plavix as well as Lovenox. ADL dysfunction: OT will work on improving ability to perform ADLs (including assistive devices) to increase independence and decrease caregiver burden and improve functional transfers and mobility training. Difficulty walking: PT will work on gait training and proper use of assistive devices and advance as appropriate to use of stairs and outside ambulation on uneven surfaces. Unsteadiness on feet: PT will work on improving static and dynamic sitting and standing balance as well as proper use of assistive devices to decrease risk of falls. Abnormality of gait: PT will work to improve safety and efficiency of gait through neuromotor training and gait training along with instruction on proper use of assistive devices. Muscle weakness: PT & OT will work on strengthening exercises to improve functional strength including mixture of closed and open kinetic chain exercises. Debility: PT & OT will work on improving overall functional status to improve participation with ADLs, mobility and social involvement. Fatigue: PT & OT will work on improving endurance through aerobic exercises and therapeutic activity while monitoring patients tolerance for activity and vital signs as needed. DVT ppx: Lovenox Pain: Continue physical modalities in therapy and pain medications as needed to achieve functional pain control. Sleep: Monitor and address as needed. Bowel: Monitor and address as needed. Appetite: Monitor and address as needed. Discharge planning: Pending therapy progress and care plan meeting. Will continue discussion with therapy team, SW, patient and family. Restrictions/ Precautions: Falls WB status: Nonweightbearing right lower extremity Functional Hx: ADLs: Independent Cognition: Independent Mobility: No AD Barriers to Discharge: Decreased mobility and ability to perform self care, balance deficits, weakness Estimated Length of Stay: 1014 days Discharge Destination: Home with family
[2021-07-26] MEDS: amLODIPine 10 MG TAB PO SCH (09:00)
[2021-07-26] MEDS: FAMOTIDINE 10 MG TAB PO SCH ×2 (09:05→21:27)
[2021-07-26] MEDS: ASPIRIN EC 81 MG TAB PO SCH (09:05)
[2021-07-26] MEDS: CLOPIDOGREL 75 MG TAB PO SCH (09:05)
[2021-07-26] MEDS: FOLIC ACID/VIT B COMP W-C 1 MG (RENAL CAPS) PO SCH (09:05)
[2021-07-26] MEDS: LISINOPRIL 10 MG TAB PO SCH (09:05)
[2021-07-26] MEDS: DOCUSATE SODIUM 100 MG CAP PO SCH ×2 (09:05→21:27)
[2021-07-26] MEDS: FERROUS SULFATE 325 MG TAB PO SCH ×2 (09:10→21:27)
[2021-07-26] MEDS: ENOXAPARIN 40 MG/0.4 ML INJ SUB-Q SCH (12:59)
[2021-07-26] MEDS: INSULIN NPH/REGULAR 70/30 INJ SUB-Q SCH ×2 (12:59→17:41)
[2021-07-26] MEDS: INSULIN LISPRO 100 UNIT/ML SUB-Q SCH ×3 (13:58→21:27)
[2021-07-27] MEDS: GABAPENTIN 300 MG CAP PO SCH ×3 (04:59→21:45)
[2021-07-27 07:49] LABS: Hematocrit 25.3 % (30.3-42.9); Hemoglobin 7.9 gm/dl (10.1-14.3); Mean Corpuscular HGB Conc 31 % (30-34); Mean Corpuscular Volume 70 fl (79-97); Platelet Count 460 K/mm3 (140-440); Red Blood Count 3.62 M/mm3 (3.65-5.03)
[2021-07-27 08:21] LABS: Blood Urea Nitrogen 14 mg/dL (7-17); Calcium 8.4 mg/dL (8.4-10.2); Hemolysis Index 2; Red Cell Distribution Width 25.3 % (13.2-15.2)
[2021-07-27 08:27] LABS: BUN/Creatinine Ratio 20
--- NOTE | 2021-07-27 08:32 | Progress Note ---
Subjective Date of service: 07/27/21 Principal diagnosis: Right BKA Interval history: 55-year-old female came in with a history of worsening right foot wound. 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 She underwent partial amputation on 06/21 of the right great toe and on 06/22 underwent excisional debridement of cellulitis and soft tissue of the right foot. Wound VAC was placed however the patient left the hospital AGAINST MEDICAL ADVICE on 07/25. Patient states that she did complete a full course of oral antibiotics however she experienced worsening deficits and was readmitted on 07/12 2021. At that point the gangrene has grown worse. She was consulted by surgery as well as infectious disease. Appropriate antibiotics were started and consideration for possible TMA was given, patient refused to consider a right BKA which was the recommendation of the surgeon. After further consultation, patient did opt for a BKA as it was believed that the TMA would not heal appropriately. BKA was performed on 07/[address] Rubio. Patient was transfused 3 units of packed red blood cells due to anemia. WBCs have remained elevated however the patient has also remained afebrile. Antibiotics were stopped after the BKA. Leukocytosis was determined to be due to the ischemia/infection of the lower extremity. Interval History: Patient is participating in therapy and making reasonable progress. Taking rest breaks as needed. -BM. Denies palpitations, dyspnea, cough, N/V, or joint pain. Patient apparently unable to urinate after Hong removal yesterday which resulted in Hong being replaced. Right BKA: Wound clean dry and intact, continue to monitor for any signs of infection or dehiscence. Continue therapy as above to improve patient's ability to mobilize the residual limb and to eventually accept a prosthesis. Phantom pain syndrome: Fairly controlled, continue desensitization as well as medications. Look to increase medications if needed. Diabetes: Glucose checks remain elevated but are improving. Restarted 70/30 insulin at 10 units twice daily. We will look to increase 70/30 over the next couple of days as the patient normalizes. Right upper extremity thrombophlebitis: Patient previously had a ultrasound of the bilateral upper extremities due to increased swelling. She does have a right basilic vein thrombophlebitis. We will continue to elevate the limb. Patient currently on aspirin, Plavix and Lovenox. Urinary retention: Attempted to remove Hong without success of patient being able to urinate so Hong was replaced. Will start Flomax and monitor patient for improvement. Patient does state that she has had this happen several times after surgery and it usually resolves within 1 to 2 weeks. Leukocytosis: Slightly elevated today and continues. Recent blood culture and urine sample were both negative. Patient was treated with antibiotics until 24 hours after amputation. Patient remains afebrile. If she develops fever we will look to initiate further antibiotics and possibly consult ID. Anemia chronic disease likely mixed with acute blood loss: Appears to be consistent with anemia of chronic disease and acute blood loss combined. Hemoglobin decreased, continue to check and monitor for needs to transfuse. Folate, iron and vitamins being replaced. Hemoglobin currently stable but not improving significantly. CAD with recent CABG: Stable without any episodes of chest pain currently. Continue to monitor cardiac function and for any signs or symptoms. Rest breaks as needed Hypertension: Blood pressure remains elevated but has improved on current dosing, will likely look to increase lisinopril tomorrow if the blood pressure has not stabilized at a lower level. Goal blood pressure less than 140/90. ADL and mobility deficits: Continue therapy to help improve patient's ability to perform ADLs and move about household distances as independently as possible. Patient will be discharged with a wheelchair for mobility due to the amputation and the need for stability while performing MR ADLs. All records, vitals, labs and medications were reviewed. No other issues per patient, nursing or therapy. Objective - Exam Narrative Exam: MUSCULOSKELETAL SPECIALTY EXAM CONSTITUTIONAL: Well developed, well nourished, appropriately groomed RESPIRATORY: Clear to auscultation bilaterally, no increased work of breathing CARDIOVASCULAR: Right upper extremity swelling, otherwise regular Rate/ Rhythm, no swelling, edema or tenderness in BUE or BLE. All extremities warm. GI: + bowel sounds, soft, NTTP, nondistended. INTEGUMENTARY: Right BKA wound clean dry and intact with randa. Otherwise, normal, no lesion, rash, masses or bruising noted in extremities. MUSCULOSKELETAL: Right BKA, otherwise BUE and BLE normal without defect, crepitus, subluxation, effusion, arthritic changes or TTP. BUE 4+/5, good ROM, with normal tone. BLE 4+/5 good ROM, with normal tone NEURO: CN 2-12 grossly intact. Sensation intact in all extremities. No tremor noted in 4 extremities. POSTURE and GAIT: Sitting posture good. Balance appears reasonable. Gait deferred until seen with therapy. PSYCH: Alert, oriented x3, affect appears normal. Insight appears intact. - Constitutional Vitals: Vital Signs - 12hr 07/26/21 07/26/21 07/26/21 20:57 22:00 23:43 Temperature 97.8 F 97.7 F Pulse Rate 78 79 80 Respiratory 18 18 Rate Blood Pressure 147/69 154/74 O2 Sat by Pulse 90 90 Oximetry 07/27/21 07/27/21 00:00 05:01 Temperature 98.0 F Pulse Rate 79 Respiratory 18 Rate Blood Pressure 162/73 O2 Sat by Pulse 97 92 Oximetry - Allied health notes Allied health notes reviewed: nursing, PT, OT - Labs CBC & Chem 7: 07/27/21 07:36 07/27/21 07:36 Labs: Laboratory Results - last 72 hr 07/24/21 07/24/21 07/24/21 08:30 11:41 16:44 WBC RBC Hgb Hct MCV MCH MCHC RDW Plt Count Sodium Potassium Chloride Carbon Dioxide Anion Gap BUN Creatinine Estimated GFR BUN/Creatinine Ratio Glucose POC Glucose 184 H 240 H 267 H Calcium Iron TIBC Ferritin Vitamin B12 Folate 07/25/21 07/25/21 07/25/21 05:35 05:35 05:35 WBC 11.8 H RBC 3.42 L Hgb 7.6 L Hct 24.2 L MCV 71 L MCH 22 L MCHC 32 RDW 25.7 H Plt Count 366 Sodium 140 Potassium 4.5 Chloride 112.1 H Carbon Dioxide 21 L Anion Gap 11 BUN 16 Creatinine 0.8 Estimated GFR > 60 BUN/Creatinine Ratio 20 Glucose 278 H POC Glucose Calcium 8.1 L Iron 28 L TIBC 193 L Ferritin 202.0 H Vitamin B12 Folate 07/25/21 07/25/21 07/25/21 05:35 05:35 08:25 WBC RBC Hgb Hct MCV MCH MCHC RDW Plt Count Sodium Potassium Chloride Carbon Dioxide Anion Gap BUN Creatinine Estimated GFR BUN/Creatinine Ratio Glucose POC Glucose 269 H Calcium Iron TIBC Ferritin Vitamin B12 525.4 Folate 6.84 L 07/25/21 07/25/21 07/25/21 11:50 17:04 20:46 WBC RBC Hgb Hct MCV MCH MCHC RDW Plt Count Sodium Potassium Chloride Carbon Dioxide Anion Gap BUN Creatinine Estimated GFR BUN/Creatinine Ratio Glucose POC Glucose 229 H 282 H 256 H Calcium Iron TIBC Ferritin Vitamin B12 Folate 07/26/21 07/26/21 07/26/21 13:08 17:07 21:00 WBC RBC Hgb Hct MCV MCH MCHC RDW Plt Count Sodium Potassium Chloride Carbon Dioxide Anion Gap BUN Creatinine Estimated GFR BUN/Creatinine Ratio Glucose POC Glucose 261 H 99 88 Calcium Iron TIBC Ferritin Vitamin B12 Folate Assessment and Plan Right BKA: Continue therapy to improve patient's ability to perform transfers, maintain the residual limb in such a manner that she is able to accept a prosthesis. Monitor wound for any signs of dehiscence or breakdown and or infection. Patient will need to follow-up with surgery for timeline on staple removal. I will contact them later during her stay. We will continue to work on range of motion and strengthening of the residual limb and utilize a residual limb protector. Phantom pain syndrome: Patient is endorsing phantom sensation as well as phantom pain. She is already on gabapentin and we will look to increase this as needed in the future. Currently we have also discussed utilization of desensitization techniques and hopefully will be able to manage the pain without large increases in medications. Diabetes: Continue carb controlled diet as well as medications. Will adjust sliding scale as needed. Continue home 70/30 insulin and adjust as needed. CAD with recent CABG: Continue aspirin and Plavix. Monitor for any signs of cardiac distress, cardiology consult if needed Anemia: Likely mixed chronic disease and acute blood loss. Will replace folate and iron and monitor. Patient was transfused on the acute care side. Urine retention: Continue Flomax. Hong replaced, obtained leg bag for use with therapy. Will attempt bladder training and removal of Hong in the next 5 days or so. Hypertension: Continue to monitor blood pressure on a regular basis and adjust medications as needed for normotension. Goal blood pressure less than 140/90. Monitor on current dose of amlodipine and lisinopril. In the next day or two may need to increase lisinopril dose pending patient's response to medication. As needed hydralazine IV available Right basilic vein thrombophlebitis: Continue to elevate upper extremity, patient remains on aspirin and Plavix as well as Lovenox. ADL dysfunction: OT will work on improving ability to perform ADLs (including assistive devices) to increase independence and decrease caregiver burden and improve functional transfers and mobility training. Difficulty walking: PT will work on gait training and proper use of assistive d evices and advance as appropriate to use of stairs and outside ambulation on uneven surfaces. Unsteadiness on feet: PT will work on improving static and dynamic sitting and standing balance as well as proper use of assistive devices to decrease risk of falls. Abnormality of gait: PT will work to improve safety and efficiency of gait through neuromotor training and gait training along with instruction on proper use of assistive devices. Muscle weakness: PT & OT will work on strengthening exercises to improve functional strength including mixture of closed and open kinetic chain exercises. Debility: PT & OT will work on improving overall functional status to improve participation with ADLs, mobility and social involvement. Fatigue: PT & OT will work on improving endurance through aerobic exercises and therapeutic activity while monitoring patients tolerance for activity and vital signs as needed. DVT ppx: Lovenox Pain: Continue physical modalities in therapy and pain medications as needed to achieve functional pain control. Sleep: Monitor and address as needed. Bowel: Monitor and address as needed. Appetite: Monitor and address as needed. Discharge planning: Pending therapy progress and care plan meeting. Will continue discussion with therapy team, SW, patient and family. Restrictions/ Precautions: Falls WB status: Nonweightbearing right lower extremity Functional Hx: ADLs: Independent Cognition: Independent Mobility: No AD Barriers to Discharge: Decreased mobility and ability to perform self care, balance deficits, weakness Estimated Length of Stay: 1014 days Discharge Destination: Home with family
[2021-07-27] MEDS: INSULIN LISPRO 100 UNIT/ML SUB-Q SCH ×4 (09:08→21:44)
[2021-07-27] MEDS: INSULIN NPH/REGULAR 70/30 INJ SUB-Q SCH ×2 (09:09→17:09)
[2021-07-27] MEDS: FERROUS SULFATE 325 MG TAB PO SCH ×3 (10:20→21:45)
[2021-07-27] MEDS: FAMOTIDINE 10 MG TAB PO SCH ×3 (10:20→21:45)
[2021-07-27] MEDS: ENOXAPARIN 40 MG/0.4 ML INJ SUB-Q SCH ×2 (10:20→14:10)
[2021-07-27] MEDS: amLODIPine 10 MG TAB PO SCH ×2 (10:20→14:11)
[2021-07-27] MEDS: DOCUSATE SODIUM 100 MG CAP PO SCH ×2 (10:20→21:45)
[2021-07-27] MEDS: ASPIRIN EC 81 MG TAB PO SCH ×2 (10:21→14:12)
[2021-07-27] MEDS: TAMSULOSIN 0.4 MG CAP PO SCH ×2 (10:21→14:11)
[2021-07-27] MEDS: FOLIC ACID/VIT B COMP W-C 1 MG (RENAL CAPS) PO SCH ×2 (10:22→14:13)
[2021-07-27] MEDS: LISINOPRIL 10 MG TAB PO SCH ×2 (10:22→14:13)
[2021-07-27] MEDS: CLOPIDOGREL 75 MG TAB PO SCH ×2 (10:22→14:11)
[2021-07-28] MEDS: GABAPENTIN 300 MG CAP PO SCH ×3 (05:07→21:33)
[2021-07-28] MEDS: INSULIN LISPRO 100 UNIT/ML SUB-Q SCH ×5 (08:56→21:36)
[2021-07-28] MEDS: FERROUS SULFATE 325 MG TAB PO SCH ×2 (09:14→21:33)
[2021-07-28] MEDS: TAMSULOSIN 0.4 MG CAP PO SCH (09:14)
[2021-07-28] MEDS: FOLIC ACID/VIT B COMP W-C 1 MG (RENAL CAPS) PO SCH (09:14)
[2021-07-28] MEDS: FAMOTIDINE 10 MG TAB PO SCH ×2 (09:14→21:32)
[2021-07-28] MEDS: INSULIN NPH/REGULAR 70/30 INJ SUB-Q SCH ×2 (09:14→17:27)
[2021-07-28] MEDS: ASPIRIN EC 81 MG TAB PO SCH (09:14)
[2021-07-28] MEDS: DOCUSATE SODIUM 100 MG CAP PO SCH ×3 (09:14→22:00)
[2021-07-28] MEDS: ENOXAPARIN 40 MG/0.4 ML INJ SUB-Q SCH (09:14)
[2021-07-28] MEDS: CLOPIDOGREL 75 MG TAB PO SCH (09:15)
[2021-07-28] MEDS: LISINOPRIL 10 MG TAB PO SCH (09:15)
[2021-07-28] MEDS: amLODIPine 10 MG TAB PO SCH (09:16)
--- NOTE | 2021-07-28 09:42 | Progress Note ---
Subjective Date of service: 07/28/21 Principal diagnosis: Right BKA Interval history: 55-year-old female came in with a history of worsening right foot wound. 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 She underwent partial amputation on 06/21 of the right great toe and on 06/22 underwent excisional debridement of cellulitis and soft tissue of the right foot. Wound VAC was placed however the patient left the hospital AGAINST MEDICAL ADVICE on 07/25. Patient states that she did complete a full course of oral antibiotics however she experienced worsening deficits and was readmitted on 07/12 2021. At that point the gangrene has grown worse. She was consulted by surgery as well as infectious disease. Appropriate antibiotics were started and consideration for possible TMA was given, patient refused to consider a right BKA which was the recommendation of the surgeon. After further consultation, patient did opt for a BKA as it was believed that the TMA would not heal appropriately. BKA was performed on 07/[address] Rubio. Patient was transfused 3 units of packed red blood cells due to anemia. WBCs have remained elevated however the patient has also remained afebrile. Antibiotics were stopped after the BKA. Leukocytosis was determined to be due to the ischemia/infection of the lower extremity. Interval History: Patient is participating in therapy and making reasonable progress. Taking rest breaks as needed. -BM. Denies palpitations, dyspnea, cough, N/V, or joint pain. Tired, patient is being awakened throughout the night despite orders for vital q4hWA. Recheck labs in AM. Patient working on dressing lower body which is still a bit of a challenge but she is able to accomplish this with assistance still. Able to don and doff stump protector with minimal assistance. Right BKA: Wound clean dry and intact, continue to monitor for any signs of infection or dehiscence. Continue therapy as above to improve patient's ability to mobilize the residual limb and to eventually accept a prosthesis. Phantom pain syndrome: Fairly controlled, continue desensitization as well as medications. Look to increase medications if needed. Diabetes: Glucose checks remain elevated but are improving, look to be in an acceptable zone currently. Restarted 70/30 insulin at 10 units twice daily. Monitor and adjust as needed. Right upper extremity thrombophlebitis: Patient previously had a ultrasound of the bilateral upper extremities due to increased swelling. She does have a right basilic vein thrombophlebitis. We will continue to elevate the limb. Patient currently on aspirin, Plavix and Lovenox. Urinary retention: Attempted to remove Hong without success of patient being able to urinate so Hong was replaced. Will start Flomax and monitor patient for improvement. Patient does state that she has had this happen several times after surgery and it usually resolves within 1 to 2 weeks. Leukocytosis: Slightly elevated today and continues. Recent blood culture and urine sample were both negative. Patient was treated with antibiotics until 24 hours after amputation. Patient remains afebrile. If she develops fever we will look to initiate further antibiotics and possibly consult ID. Anemia chronic disease likely mixed with acute blood loss: Appears to be consistent with anemia of chronic disease and acute blood loss combined. Hemoglobin decreased, continue to check and monitor for needs to transfuse. Folate, iron and vitamins being replaced. Hemoglobin currently stable but not improving significantly. CAD with recent CABG: Stable without any episodes of chest pain currently. Continue to monitor cardiac function and for any signs or symptoms. Rest breaks as needed Hypertension: Blood pressure remains elevated but has improved on current dosing, increase lisinopril and monitor for improvement. Goal blood pressure less than 140/90. Avoid hypotension. ADL and mobility deficits: Continue therapy to help improve patient's ability to perform ADLs and move about household distances as independently as possible. Patient will be discharged with a wheelchair for mobility due to the amputation and the need for stability while performing MR ADLs. All records, vitals, labs and medications were reviewed. No other issues per patient, nursing or therapy. Objective - Exam Narrative Exam: MUSCULOSKELETAL SPECIALTY EXAM CONSTITUTIONAL: Well developed, well nourished, appropriately groomed RESPIRATORY: Clear to auscultation bilaterally, no increased work of breathing CARDIOVASCULAR: Right upper extremity swelling, otherwise regular Rate/ Rhythm, no swelling, edema or tenderness in BUE or BLE. All extremities warm. GI: + bowel sounds, soft, NTTP, nondistended. INTEGUMENTARY: Right BKA wound clean dry and intact with randa. Otherwise, normal, no lesion, rash, masses or bruising noted in extremities. MUSCULOSKELETAL: Right BKA, otherwise BUE and BLE normal without defect, crepitus, subluxation, effusion, arthritic changes or TTP. BUE 4+/5, good ROM, with normal tone. BLE 4+/5 good ROM, with normal tone NEURO: CN 2-12 grossly intact. Sensation intact in all extremities. No tremor noted in 4 extremities. POSTURE and GAIT: Sitting posture good. Balance appears reasonable. PSYCH: Alert, oriented x3, affect appears normal. Insight appears intact. - Constitutional Vitals: Vital Signs - 12hr 07/27/21 07/28/21 07/28/21 23:44 03:54 03:58 Temperature 98.0 F 98.0 F Pulse Rate 77 78 Respiratory 16 18 16 Rate Blood Pressure 157/73 158/76 O2 Sat by Pulse 90 97 88 Oximetry 07/28/21 07/28/21 07/28/21 08:45 09:15 09:16 Temperature 98.1 F Pulse Rate 88 88 88 Respiratory 18 Rate Blood Pressure 167/77 167/77 167/77 O2 Sat by Pulse 91 Oximetry - Allied health notes Allied health notes reviewed: nursing, PT, OT - Labs CBC & Chem 7: 07/27/21 07:36 07/27/21 07:36 Labs: Laboratory Results - last 72 hr 07/25/21 07/25/21 07/25/21 11:50 17:04 20:46 WBC RBC Hgb Hct MCV MCH MCHC RDW Plt Count Sodium Potassium Chloride Carbon Dioxide Anion Gap BUN Creatinine Estimated GFR BUN/Creatinine Ratio Glucose POC Glucose 229 H 282 H 256 H Calcium 07/26/21 07/26/21 07/26/21 13:08 17:07 21:00 WBC RBC Hgb Hct MCV MCH MCHC RDW Plt Count Sodium Potassium Chloride Carbon Dioxide Anion Gap BUN Creatinine Estimated GFR BUN/Creatinine Ratio Glucose POC Glucose 261 H 99 88 Calcium 07/27/21 07/27/21 07/27/21 07:36 07:36 08:37 WBC 12.9 H RBC 3.62 L Hgb 7.9 L Hct 25.3 L MCV 70 L MCH 22 L MCHC 31 RDW 25.3 H Plt Count 460 H Sodium 144 Potassium 4.6 Chloride 115.0 H Carbon Dioxide 21 L Anion Gap 13 BUN 14 Creatinine 0.7 Estimated GFR > 60 BUN/Creatinine Ratio 20 Glucose 131 H POC Glucose 127 H Calcium 8.4 07/27/21 07/27/21 07/28/21 16:12 21:00 08:47 WBC RBC Hgb Hct MCV MCH MCHC RDW Plt Count Sodium Potassium Chloride Carbon Dioxide Anion Gap BUN Creatinine Estimated GFR BUN/Creatinine Ratio Glucose POC Glucose 138 H 117 H 124 H Calcium Assessment and Plan Right BKA: Continue therapy to improve patient's ability to perform transfers, maintain the residual limb in such a manner that she is able to accept a prosthesis. Monitor wound for any signs of dehiscence or breakdown and or infection. Patient will need to follow-up with surgery for timeline on staple removal. I will contact them later during her stay. We will continue to work on range of motion and strengthening of the residual limb and utilize a residual limb protector. Phantom pain syndrome: Patient is endorsing phantom sensation as well as phantom pain. She is already on gabapentin and we will look to increase this as needed in the future. Currently we have also discussed utilization of desensitization techniques and hopefully will be able to manage the pain without large increases in medications. Diabetes: Continue carb controlled diet as well as medications. Will adjust sliding scale as needed. Continue home 70/30 insulin and adjust as needed. CAD with recent CABG: Continue aspirin and Plavix. Monitor for any signs of cardiac distress, cardiology consult if needed Anemia: Likely mixed chronic disease and acute blood loss. Will replace folate and iron and monitor. Patient was transfused on the acute care side. Urine retention: Continue Flomax. Hong replaced, obtained leg bag for use with therapy. Will attempt bladder training and removal of Hong in the next 5 days or so. Hypertension: Continue to monitor blood pressure on a regular basis and adjust medications as needed for normotension. Goal blood pressure less than 140/90. Monitor on current dose of amlodipine and lisinopril. Lisinopril increased on 07/28 to 20mg. As needed hydralazine IV available Right basilic vein thrombophlebitis: Continue to elevate upper extremity, patient remains on aspirin and Plavix as well as Lovenox. ADL dysfunction: OT will work on improving ability to perform ADLs (including assistive devices) to increase independence and decrease caregiver burden and improve functional transfers and mobility training. Difficulty walking: PT will work on gait training and proper use of assistive de vices and advance as appropriate to use of stairs and outside ambulation on uneven surfaces. Unsteadiness on feet: PT will work on improving static and dynamic sitting and standing balance as well as proper use of assistive devices to decrease risk of falls. Abnormality of gait: PT will work to improve safety and efficiency of gait through neuromotor training and gait training along with instruction on proper use of assistive devices. Muscle weakness: PT & OT will work on strengthening exercises to improve functional strength including mixture of closed and open kinetic chain exercises. Debility: PT & OT will work on improving overall functional status to improve participation with ADLs, mobility and social involvement. Fatigue: PT & OT will work on improving endurance through aerobic exercises and therapeutic activity while monitoring patients tolerance for activity and vital signs as needed. DVT ppx: Lovenox Pain: Continue physical modalities in therapy and pain medications as needed to achieve functional pain control. Sleep: Monitor and address as needed. Bowel: Monitor and address as needed. Appetite: Monitor and address as needed. Discharge planning: Pending therapy progress and care plan meeting. Will continue discussion with therapy team, SW, patient and family. Restrictions/ Precautions: Falls WB status: Nonweightbearing right lower extremity Functional Hx: ADLs: Independent Cognition: Independent Mobility: No AD Barriers to Discharge: Decreased mobility and ability to perform self care, balance deficits, weakness Estimated Length of Stay: 1014 days Discharge Destination: Home with family
[2021-07-28] MEDS ORDERED: LISINOPRIL 20 MG TAB PO SCH (12:00)
[2021-07-28] MEDS ORDERED: LISINOPRIL 10 MG TAB PO ONE (13:30)
[2021-07-28] MEDS: oxyCODONE /ACETAMINOPHEN 5-325MG TAB PO PRN (13:37)
[2021-07-29] MEDS: oxyCODONE /ACETAMINOPHEN 5-325MG TAB PO PRN ×2 (03:19→16:45)
[2021-07-29] MEDS: GABAPENTIN 300 MG CAP PO SCH ×3 (05:17→22:18)
--- NOTE | 2021-07-29 08:02 | Progress Note ---
Subjective Date of service: 07/29/21 Principal diagnosis: Right BKA Interval history: 55-year-old female came in with a history of worsening right foot wound. 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 She underwent partial amputation on 06/21 of the right great toe and on 06/22 underwent excisional debridement of cellulitis and soft tissue of the right foot. Wound VAC was placed however the patient left the hospital AGAINST MEDICAL ADVICE on 07/25. Patient states that she did complete a full course of oral antibiotics however she experienced worsening deficits and was readmitted on 07/12 2021. At that point the gangrene has grown worse. She was consulted by surgery as well as infectious disease. Appropriate antibiotics were started and consideration for possible TMA was given, patient refused to consider a right BKA which was the recommendation of the surgeon. After further consultation, patient did opt for a BKA as it was believed that the TMA would not heal appropriately. BKA was performed on 07/[address] Rubio. Patient was transfused 3 units of packed red blood cells due to anemia. WBCs have remained elevated however the patient has also remained afebrile. Antibiotics were stopped after the BKA. Leukocytosis was determined to be due to the ischemia/infection of the lower extremity. Interval History: Patient is participating in therapy and making reasonable progress. Taking rest breaks as needed. -BM, patient states that she typically has a bowel movement every 2-3 days. Denies palpitations, dyspnea, cough, N/V, or joint pain. Called yesterday evening for lower blood sugar which was still slightly above 100. Nursing concerned about giving the patient's 10 units of 70/30. Agreed to hold insulin and give later if the patient started eating a little bit more, she only ate approximately 25% of her meal. Patient does state this morning that her is going to start bringing food in for her since she does not like the hospital food. Would recommend holding insulin doses based on meal intake if needed in order to avoid hypoglycemia. Labs pending for today. Right BKA: Wound clean dry and intact, continue to monitor for any signs of infection or dehiscence. Continue therapy as above to improve patient's ability to mobilize the residual limb and to eventually accept a prosthesis. We will look to start utilizing a inside solar sales consultant shortly. Dr. Rubio requested follow-up in office for staple removal in approximately 2 weeks which should coincide with the patient discharging. Phantom pain syndrome: Fairly controlled, continue desensitization as well as medications. Look to increase medications if needed. Diabetes: Glucose checks remain elevated but are improving, look to be in an acceptable zone currently. Restarted 70/30 insulin at 10 units twice daily. Monitor and adjust as needed. Right upper extremity thrombophlebitis: Patient previously had a ultrasound of the bilateral upper extremities due to increased swelling. She does have a right basilic vein thrombophlebitis. We will continue to elevate the limb. Patient currently on aspirin, Plavix and Lovenox. Urinary retention: Attempted to remove Hong without success of patient being able to urinate so Hong was replaced. Will start Flomax and monitor patient for improvement. Patient does state that she has had this happen several times after surgery and it usually resolves within 1 to 2 weeks. Leukocytosis: Slightly elevated today and continues. Recent blood culture and urine sample were both negative. Patient was treated with antibiotics until 24 hours after amputation. Patient remains afebrile. If she develops fever we will look to initiate further antibiotics and possibly consult ID. Anemia chronic disease likely mixed with acute blood loss: Appears to be consistent with anemia of chronic disease and acute blood loss combined. Hemoglobin decreased, continue to check and monitor for needs to transfuse. Folate, iron and vitamins being replaced. Hemoglobin currently stable but not improving significantly. CAD with recent CABG: Stable without any episodes of chest pain currently. Continue to monitor cardiac function and for any signs or symptoms. Rest breaks as needed Hypertension: Blood pressure remains elevated but has improved on current dosing, monitor for improvement. Goal blood pressure less than 140/90. Avoid hypotension. ADL and mobility deficits: Continue therapy to help improve patient's ability to perform ADLs and move about household distances as independently as possible. Patient will be discharged with a wheelchair for mobility due to the amputation and the need for stability while performing MR ADLs. All records, vitals, labs and medications were reviewed. No other issues per patient, nursing or therapy. Objective - Exam Narrative Exam: MUSCULOSKELETAL SPECIALTY EXAM CONSTITUTIONAL: Well developed, well nourished, appropriately groomed RESPIRATORY: Clear to auscultation bilaterally, no increased work of breathing CARDIOVASCULAR: Right upper extremity swelling, otherwise regular Rate/ Rhythm, no swelling, edema or tenderness in BUE or BLE. All extremities warm. GI: + bowel sounds, soft, NTTP, nondistended. INTEGUMENTARY: Right BKA wound clean dry and intact with randa. Otherwise, normal, no lesion, rash, masses or bruising noted in extremities. MUSCULOSKELETAL: Right BKA, otherwise BUE and BLE normal without defect, crepitus, subluxation, e ffusion, arthritic changes or TTP. BUE 4+/5, good ROM, with normal tone. BLE 4+/5 good ROM, with normal tone NEURO: CN 2-12 grossly intact. Sensation intact in all extremities. No tremor noted in 4 extremities. POSTURE and GAIT: Sitting posture good. Balance appears reasonable. Walking in parallel bars PSYCH: Alert, oriented x3, affect appears normal. Insight appears intact. - Constitutional Vitals: Vital Signs - 12hr 07/28/21 07/28/21 07/29/21 20:40 22:30 03:19 Temperature Pulse Rate 81 Respiratory 18 Rate Respiratory 17 Rate [Head] Blood Pressure O2 Sat by Pulse 97 Oximetry 07/29/21 04:36 Temperature 97.8 F Pulse Rate 84 Respiratory 16 Rate Respiratory Rate [Head] Blood Pressure 161/76 O2 Sat by Pulse 89 Oximetry - Allied health notes Allied health notes reviewed: nursing, PT, OT - Labs CBC & Chem 7: 07/27/21 07:36 07/27/21 07:36 Labs: Laboratory Results - last 72 hr 07/26/21 07/26/21 07/26/21 13:08 17:07 21:00 WBC RBC Hgb Hct MCV MCH MCHC RDW Plt Count Sodium Potassium Chloride Carbon Dioxide Anion Gap BUN Creatinine Estimated GFR BUN/Creatinine Ratio Glucose POC Glucose 261 H 99 88 Calcium 07/27/21 07/27/21 07/27/21 07:36 07:36 08:37 WBC 12.9 H RBC 3.62 L Hgb 7.9 L Hct 25.3 L MCV 70 L MCH 22 L MCHC 31 RDW 25.3 H Plt Count 460 H Sodium 144 Potassium 4.6 Chloride 115.0 H Carbon Dioxide 21 L Anion Gap 13 BUN 14 Creatinine 0.7 Estimated GFR > 60 BUN/Creatinine Ratio 20 Glucose 131 H POC Glucose 127 H Calcium 8.4 07/27/21 07/27/21 07/28/21 16:12 21:00 08:47 WBC RBC Hgb Hct MCV MCH MCHC RDW Plt Count Sodium Potassium Chloride Carbon Dioxide Anion Gap BUN Creatinine Estimated GFR BUN/Creatinine Ratio Glucose POC Glucose 138 H 117 H 124 H Calcium 07/28/21 07/28/21 07/28/21 13:41 16:57 20:43 WBC RBC Hgb Hct MCV MCH MCHC RDW Plt Count Sodium Potassium Chloride Carbon Dioxide Anion Gap BUN Creatinine Estimated GFR BUN/Creatinine Ratio Glucose POC Glucose 121 H 117 H 170 H Calcium Assessment and Plan Right BKA: Continue therapy to improve patient's ability to perform transfers, maintain the residual limb in such a manner that she is able to accept a prosthesis. Monitor wound for any signs of dehiscence or breakdown and or infection. Patient will need to follow-up with Dr. Rubio after discharge for staple removal. We will look to start utilizing inside solar sales consultant next week. We will continue to work on range of motion and strengthening of the residual limb and utilize a residual limb protector. Phantom pain syndrome: Patient is endorsing phantom sensation as well as phantom pain. She is already on gabapentin and we will look to increase this as needed in the future. Currently we have also discussed utilization of desensitization techniques and hopefully will be able to manage the pain without large increases in medications. Diabetes: Continue carb controlled diet as well as medications. Will adjust sliding scale as needed. Continue home 70/30 insulin and adjust as needed. We will look to hold 70/30 insulin if the patient's oral intake continues to decrease and glucose levels are low. CAD with recent CABG: Continue aspirin and Plavix. Monitor for any signs of cardiac distress, cardiology consult if needed Anemia: Likely mixed chronic disease and acute blood loss. Will replace folate and iron and monitor. Patient was transfused on the acute care side. Urine retention: Continue Flomax. Hong replaced, obtained leg bag for use with therapy. Will attempt bladder training and removal of Hong in the next 5 days or so. Hypertension: Continue to monitor blood pressure on a regular basis and adjust medications as needed for normotension. Goal blood pressure less than 140/90. Monitor on current dose of amlodipine and lisinopril. Lisinopril increased on 07/28 to 20mg. As needed hydralazine IV available Right basilic vein thrombophlebitis: Continue to elevate upper extremity, patient remains on aspirin and Plavix as well as Lovenox. ADL dysfunction: OT will work on improving ability to perform ADLs (including assistive devices) to increase independence and decrease caregiver burden and improve functional transfers and mobility training. Difficulty walking: PT will work on gait training and proper use of assistive devices and advance as appropriate to use of stairs and outside ambulation on uneven surfaces. Unsteadiness on feet: PT will work on improving static and dynamic sitting and standing balance as well as proper use of assistive devices to decrease risk of falls. Abnormality of gait: PT will work to improve safety and efficiency of gait through neuromotor training and gait training along with instruction on proper use of assistive devices. Muscle weakness: PT & OT will work on strengthening exercises to improve functional strength including mixture of closed and open kinetic chain exercis es. Debility: PT & OT will work on improving overall functional status to improve participation with ADLs, mobility and social involvement. Fatigue: PT & OT will work on improving endurance through aerobic exercises and therapeutic activity while monitoring patients tolerance for activity and vital signs as needed. DVT ppx: Lovenox Pain: Continue physical modalities in therapy and pain medications as needed to achieve functional pain control. Sleep: Monitor and address as needed. Bowel: Monitor and address as needed. Appetite: Monitor and address as needed. Discharge planning: Pending therapy progress and care plan meeting. Will continue discussion with therapy team, SW, patient and family. Restrictions/ Precautions: Falls WB status: Nonweightbearing right lower extremity Functional Hx: ADLs: Independent Cognition: Independent Mobility: No AD Barriers to Discharge: Decreased mobility and ability to perform self care, balance deficits, weakness Estimated Length of Stay: 1014 days Discharge Destination: Home with family
[2021-07-29 08:38] LABS: Blood Urea Nitrogen 14 mg/dL (7-17); Calcium 8.3 mg/dL (8.4-10.2); Hemolysis Index 6
[2021-07-29 08:40] LABS: BUN/Creatinine Ratio 20
[2021-07-29] MEDS: INSULIN LISPRO 100 UNIT/ML SUB-Q SCH ×4 (08:45→22:16)
[2021-07-29] MEDS: INSULIN NPH/REGULAR 70/30 INJ SUB-Q SCH ×2 (08:45→16:56)
[2021-07-29 12:26] LABS: Hematocrit 25.9 % (30.3-42.9); Hemoglobin 8.1 gm/dl (10.1-14.3); Mean Corpuscular HGB Conc 31 % (30-34); Mean Corpuscular Volume 71 fl (79-97); Platelet Count 434 K/mm3 (140-440); Red Blood Count 3.65 M/mm3 (3.65-5.03)
[2021-07-29] MEDS: ASPIRIN EC 81 MG TAB PO SCH (12:48)
[2021-07-29] MEDS: CLOPIDOGREL 75 MG TAB PO SCH (12:48)
[2021-07-29] MEDS: ENOXAPARIN 40 MG/0.4 ML INJ SUB-Q SCH (12:48)
[2021-07-29] MEDS: FERROUS SULFATE 325 MG TAB PO SCH ×2 (12:49→22:18)
[2021-07-29] MEDS: LISINOPRIL 20 MG TAB PO SCH (12:49)
[2021-07-29] MEDS: FOLIC ACID/VIT B COMP W-C 1 MG (RENAL CAPS) PO SCH (12:49)
[2021-07-29] MEDS: TAMSULOSIN 0.4 MG CAP PO SCH (12:49)
[2021-07-29] MEDS: FAMOTIDINE 10 MG TAB PO SCH ×2 (12:49→22:18)
[2021-07-29] MEDS: DOCUSATE SODIUM 100 MG CAP PO SCH ×2 (12:49→22:18)
[2021-07-29] MEDS: amLODIPine 10 MG TAB PO SCH (12:49)
[2021-07-30] MEDS: GABAPENTIN 300 MG CAP PO SCH ×3 (05:38→21:49)
[2021-07-30] MEDS: INSULIN LISPRO 100 UNIT/ML SUB-Q SCH ×4 (10:12→21:51)
[2021-07-30] MEDS: LISINOPRIL 20 MG TAB PO SCH (10:15)
[2021-07-30] MEDS: ASPIRIN EC 81 MG TAB PO SCH (10:15)
[2021-07-30] MEDS: FERROUS SULFATE 325 MG TAB PO SCH ×2 (10:15→21:49)
[2021-07-30] MEDS: FOLIC ACID/VIT B COMP W-C 1 MG (RENAL CAPS) PO SCH (10:15)
[2021-07-30] MEDS: DOCUSATE SODIUM 100 MG CAP PO SCH ×2 (10:15→21:49)
[2021-07-30] MEDS: amLODIPine 10 MG TAB PO SCH (10:15)
[2021-07-30] MEDS: FAMOTIDINE 10 MG TAB PO SCH ×2 (10:15→21:49)
[2021-07-30] MEDS: CLOPIDOGREL 75 MG TAB PO SCH (10:15)
[2021-07-30] MEDS: ENOXAPARIN 40 MG/0.4 ML INJ SUB-Q SCH (10:15)
[2021-07-30] MEDS: TAMSULOSIN 0.4 MG CAP PO SCH (10:16)
[2021-07-30] MEDS: INSULIN NPH/REGULAR 70/30 INJ SUB-Q SCH ×2 (10:24→16:59)
[2021-07-30] MEDS: oxyCODONE /ACETAMINOPHEN 5-325MG TAB PO PRN (16:58)
[2021-07-31] MEDS: GABAPENTIN 300 MG CAP PO SCH ×3 (05:23→22:37)
[2021-07-31] MEDS: FERROUS SULFATE 325 MG TAB PO SCH ×2 (09:54→22:37)
[2021-07-31] MEDS: FAMOTIDINE 10 MG TAB PO SCH ×2 (09:54→22:37)
[2021-07-31] MEDS: LISINOPRIL 20 MG TAB PO SCH (09:55)
[2021-07-31] MEDS: FOLIC ACID/VIT B COMP W-C 1 MG (RENAL CAPS) PO SCH (09:55)
[2021-07-31] MEDS: ASPIRIN EC 81 MG TAB PO SCH (09:55)
[2021-07-31] MEDS: TAMSULOSIN 0.4 MG CAP PO SCH (09:55)
[2021-07-31] MEDS: amLODIPine 10 MG TAB PO SCH (09:55)
[2021-07-31] MEDS: CLOPIDOGREL 75 MG TAB PO SCH (09:55)
[2021-07-31] MEDS: ENOXAPARIN 40 MG/0.4 ML INJ SUB-Q SCH (09:55)
[2021-07-31] MEDS: INSULIN NPH/REGULAR 70/30 INJ SUB-Q SCH ×2 (10:39→20:05)
[2021-07-31] MEDS: DOCUSATE SODIUM 100 MG CAP PO SCH ×2 (10:39→22:39)
[2021-07-31] MEDS: INSULIN LISPRO 100 UNIT/ML SUB-Q SCH ×4 (10:39→22:37)
[2021-07-31] MEDS: oxyCODONE /ACETAMINOPHEN 5-325MG TAB PO PRN (13:44)
[2021-08-01] MEDS: oxyCODONE /ACETAMINOPHEN 5-325MG TAB PO PRN ×2 (00:23→15:58)
[2021-08-01] MEDS: GABAPENTIN 300 MG CAP PO SCH ×3 (06:03→21:25)
[2021-08-01] MEDS: hydrALAZINE 20 MG/1 ML INJ IV PRN (06:03)
[2021-08-01] MEDS: TAMSULOSIN 0.4 MG CAP PO SCH (09:16)
[2021-08-01] MEDS: amLODIPine 10 MG TAB PO SCH (09:16)
[2021-08-01] MEDS: FOLIC ACID/VIT B COMP W-C 1 MG (RENAL CAPS) PO SCH (09:16)
[2021-08-01] MEDS: FERROUS SULFATE 325 MG TAB PO SCH ×2 (09:16→21:25)
[2021-08-01] MEDS: ASPIRIN EC 81 MG TAB PO SCH (09:16)
[2021-08-01] MEDS: FAMOTIDINE 10 MG TAB PO SCH ×2 (09:16→21:25)
[2021-08-01] MEDS: CLOPIDOGREL 75 MG TAB PO SCH (09:16)
[2021-08-01] MEDS: ENOXAPARIN 40 MG/0.4 ML INJ SUB-Q SCH (09:17)
[2021-08-01] MEDS: INSULIN NPH/REGULAR 70/30 INJ SUB-Q SCH ×2 (09:17→17:42)
[2021-08-01] MEDS: LISINOPRIL 20 MG TAB PO SCH (09:17)
[2021-08-01] MEDS: INSULIN LISPRO 100 UNIT/ML SUB-Q SCH ×4 (09:17→21:26)
[2021-08-01] MEDS: DOCUSATE SODIUM 100 MG CAP PO SCH ×2 (09:18→21:25)
--- NOTE | 2021-08-01 09:30 | Progress Note ---
Subjective Date of service: 08/01/21 Principal diagnosis: Right BKA Interval history: 55-year-old female came in with a history of worsening right foot wound. 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 She underwent partial amputation on 06/21 of the right great toe and on 06/22 underwent excisional debridement of cellulitis and soft tissue of the right foot. Wound VAC was placed however the patient left the hospital AGAINST MEDICAL ADVICE on 07/25. Patient states that she did complete a full course of oral antibiotics however she experienced worsening deficits and was readmitted on 07/12 2021. At that point the gangrene has grown worse. She was consulted by surgery as well as infectious disease. Appropriate antibiotics were started and consideration for possible TMA was given, patient refused to consider a right BKA which was the recommendation of the surgeon. After further consultation, patient did opt for a BKA as it was believed that the TMA would not heal appropriately. BKA was performed on 07/[address] Rubio. Patient was transfused 3 units of packed red blood cells due to anemia. WBCs have remained elevated however the patient has also remained afebrile. Antibiotics were stopped after the BKA. Leukocytosis was determined to be due to the ischemia/infection of the lower extremity. Interval History: Patient is participating in therapy and making reasonable progress. Taking rest breaks as needed. +BM, patient states that she typically has a bowel movement every 2-3 days. Denies palpitations, dyspnea, cough, N/V, or joint pain. Right BKA: Wound clean dry and intact, continue to monitor for any signs of infection or dehiscence. Continue therapy as above to improve patient's ability to mobilize the residual limb and to eventually accept a prosthesis. We will look to start utilizing a six color press operator shortly. Dr. Rubio requested follow-up in office for staple removal in approximately 2 weeks which should coincide with the patient discharging. Phantom pain syndrome: Fairly controlled, continue desensitization as well as medications. Look to increase medications if needed. Diabetes: Glucose checks remain elevated but are improving, look to be in an acceptable zone currently. Restarted 70/30 insulin at 10 units twice daily. Monitor and adjust as needed. Right upper extremity thrombophlebitis: Patient previously had a ultrasound of the bilateral upper extremities due to increased swelling. She does have a right basilic vein thrombophlebitis. We will continue to elevate the limb. Patient currently on aspirin, Plavix and Lovenox. Swelling slightly decreased in right upper extremity, breast about the same Urinary retention: Attempted to remove Hong without success of patient being able to urinate so Hong was replaced. Will start Flomax and monitor patient for improvement. Patient does state that she has had this happen several times after surgery and it usually resolves within 1 to 2 weeks. Will attempt starting bladder training tomorrow, with plan to remove Hong on Sunday. Leukocytosis: Improved and normalized on most recent labs. Recent blood culture and urine sample were both negative. Patient was treated with antibiotics until 24 hours after amputation. Patient remains afebrile. If she develops fever we will look to initiate further antibiotics and possibly consult ID. Continue to monitor Anemia chronic disease likely mixed with acute blood loss: Appears to be consistent with anemia of chronic disease and acute blood loss combined. He moglobin stable at around 8 and not improving significantly so far. Continue to check and monitor for needs to transfuse. Folate, iron and vitamins being replaced. CAD with recent CABG: Stable without any episodes of chest pain currently. Continue to monitor cardiac function and for any signs or symptoms. Rest breaks as needed Hypertension: Blood pressure remains elevated and has actually gotten worse over the weekend. As needed hydralazine was not given and I was not notified, uncertain as to the reason for this. Increase lisinopril and monitor for improvement. Goal blood pressure less than 140/90. Avoid hypotension. ADL and mobility deficits: Continue therapy to help improve patient's ability to perform ADLs and move about household distances as independently as possible. P atient will be discharged with a wheelchair for mobility due to the amputation and the need for stability while performing MR ADLs. All records, vitals, labs and medications were reviewed. No other issues per patient, nursing or therapy. Objective - Exam Narrative Exam: MUSCULOSKELETAL SPECIALTY EXAM CONSTITUTIONAL: Well developed, well nourished, appropriately groomed RESPIRATORY: Clear to auscultation bilaterally, no increased work of breathing CARDIOVASCULAR: Right upper extremity swelling, otherwise regular Rate/ Rhythm, no swelling, edema or tenderness in BUE or BLE. All extremities warm. GI: + bowel sounds, soft, NTTP, nondistended. INTEGUMENTARY: Right BKA wound clean dry and intact with randa, six color press operator on. Otherwise, normal, no lesion, rash, masses or bruising noted in extremities. MUSCULOSKELETAL: Right BKA, otherwise BUE and BLE normal without defect, crepitus, subluxation, effusion, arthritic changes or TTP. BUE 4+/5, good ROM, with normal tone. BLE 4+/5 good ROM, with normal tone NEURO: CN 2-12 grossly intact. Sensation intact in all extremities. No tremor noted in 4 extremities. POSTURE and GAIT: Sitting posture good. Balance appears reasonable. PSYCH: Alert, oriented x3, affect appears normal. Insight appears intact. - Constitutional Vitals: Vital Signs - 12hr 07/31/21 08/01/21 08/01/21 23:46 03:43 04:00 Temperature 98.5 F 97.9 F Pulse Rate 78 72 Respiratory 18 18 Rate Blood Pressure 163/78 178/79 O2 Sat by Pulse 92 93 96 Oximetry 08/01/21 08:01 Temperature 97.7 F Pulse Rate 78 Respiratory 18 Rate Blood Pressure 182/78 O2 Sat by Pulse 91 Oximetry - Allied health notes Allied health notes reviewed: nursing, PT, OT - Labs CBC & Chem 7: 07/29/21 08:10 07/29/21 08:10 Labs: Laboratory Results - last 72 hr 07/29/21 07/29/21 07/29/21 08:10 12:41 16:25 WBC 8.9 RBC 3.65 Hgb 8.1 L Hct 25.9 L MCV 71 L MCH 22 L MCHC 31 RDW 25.0 H Plt Count 434 POC Glucose 199 H 234 H 07/29/21 07/30/21 07/30/21 20:49 08:00 12:22 WBC RBC Hgb Hct MCV MCH MCHC RDW Plt Count POC Glucose 119 H 111 H 142 H 07/30/21 07/31/21 07/31/21 16:33 08:33 11:36 WBC RBC Hgb Hct MCV MCH MCHC RDW Plt Count POC Glucose 132 H 95 147 H 07/31/21 07/31/21 08/01/21 16:24 21:14 08:55 WBC RBC Hgb Hct MCV MCH MCHC RDW Plt Count POC Glucose 152 H 157 H 140 H Assessment and Plan Right BKA: Continue therapy to improve patient's ability to perform transfers, maintain the residual limb in such a manner that she is able to accept a pr osthesis. Monitor wound for any signs of dehiscence or breakdown and or infection. Patient will need to follow-up with Dr. Rubio after discharge for staple removal. We will look to start utilizing six color press operator next week. We will continue to work on range of motion and strengthening of the residual limb and utilize a residual limb protector. Phantom pain syndrome: Patient is endorsing phantom sensation as well as phantom pain. She is already on gabapentin and we will look to increase this as needed in the future. Currently we have also discussed utilization of desensitization techniques and hopefully will be able to manage the pain without large increases in medications. Diabetes: Continue carb controlled diet as well as medications. Will adjust sliding scale as needed. Continue home 70/30 insulin and adjust as needed. We will look to hold 70/30 insulin if the patient's oral intake continues to decrease and glucose levels are low. CAD with recent CABG: Continue aspirin and Plavix. Monitor for any signs of cardiac distress, cardiology consult if needed Anemia: Likely mixed chronic disease and acute blood loss. Will replace folate and iron and monitor. Patient was transfused on the acute care side. Urine retention: Continue Flomax. Hong replaced, obtained leg bag for use with therapy. Will attempt bladder training and removal of Hong tomorrow. Hypertension: Continue to monitor blood pressure on a regular basis and adjust medications as needed for normotension. Goal blood pressure less than 140/90. Monitor on current dose of amlodipine and lisinopril. Lisinopril increased on 07/28 to 20mg, on 08/01 to 40mg. As needed hydralazine IV available but not being given. Right basilic vein thrombophlebitis: Continue to elevate upper extremity, patient remains on aspirin and Plavix as well as Lovenox. ADL dysfunction: OT will work on improving ability to perform ADLs (including assistive devices) to increase independence and decrease caregiver burden and improve functional transfers and mobility training. Difficulty walking: PT will work on gait training and proper use of assistive devices and advance as appropriate to use of stairs and outside ambulation on uneven surfaces. Unsteadiness on feet: PT will work on improving static and dynamic sitting and s tanding balance as well as proper use of assistive devices to decrease risk of falls. Abnormality of gait: PT will work to improve safety and efficiency of gait through neuromotor training and gait training along with instruction on proper use of assistive devices. Muscle weakness: PT & OT will work on strengthening exercises to improve functional strength including mixture of closed and open kinetic chain exercises. Debility: PT & OT will work on improving overall functional status to improve participation with ADLs, mobility and social involvement. Fatigue: PT & OT will work on improving endurance through aerobic exercises and therapeutic activity while monitoring patients tolerance for activity and vital signs as needed. DVT ppx: Lovenox Pain: Continue physical modalities in therapy and pain medications as needed to achieve functional pain control. Sleep: Monitor and address as needed. Bowel: Monitor and address as needed. Appetite: Monitor and address as needed. Discharge planning: Pending therapy progress and care plan meeting. Will continue discussion with therapy team, SW, patient and family. Restrictions/ Precautions: Falls WB status: Nonweightbearing right lower extremity Functional Hx: ADLs: Independent Cognition: Independent Mobility: No AD Barriers to Discharge: Decreased mobility and ability to perform self care, balance deficits, weakness Estimated Length of Stay: 1014 days Discharge Destination: Home with family
[2021-08-02] MEDS: GABAPENTIN 300 MG CAP PO SCH ×3 (06:20→22:33)
[2021-08-02] MEDS: INSULIN LISPRO 100 UNIT/ML SUB-Q SCH ×4 (07:32→22:33)
--- NOTE | 2021-08-02 08:09 | Progress Note ---
Subjective Date of service: 08/02/21 Principal diagnosis: Right BKA Interval history: 55-year-old female came in with a history of worsening right foot wound. 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 She underwent partial amputation on 06/21 of the right great toe and on 06/22 underwent excisional debridement of cellulitis and soft tissue of the right foot. Wound VAC was placed however the patient left the hospital AGAINST MEDICAL ADVICE on 07/25. Patient states that she did complete a full course of oral antibiotics however she experienced worsening deficits and was readmitted on 07/12 2021. At that point the gangrene has grown worse. She was consulted by surgery as well as infectious disease. Appropriate antibiotics were started and consideration for possible TMA was given, patient refused to consider a right BKA which was the recommendation of the surgeon. After further consultation, patient did opt for a BKA as it was believed that the TMA would not heal appropriately. BKA was performed on 07/[address] Rubio. Patient was transfused 3 units of packed red blood cells due to anemia. WBCs have remained elevated however the patient has also remained afebrile. Antibiotics were stopped after the BKA. Leukocytosis was determined to be due to the ischemia/infection of the lower extremity. Interval History: Patient is participating in therapy and making reasonable progress. Taking rest breaks as needed. +BM. Denies palpitations, dyspnea, cough, N/V, or joint pain. Discussed with patient and nursing that we are going to start bladder training today. Clamped the Hong for 4-6 hours then release for 15 to 20 minutes and reclamp for 4 to 6 hours. We can leave the Hong open overnight while the patient is sleeping and look to remove it in the morning. Right BKA: Wound clean dry and intact, continue to monitor for any signs of infection or dehiscence. Continue therapy as above to improve patient's ability to mobilize the residual limb and to eventually accept a prosthesis. Dr. Rubio requested follow-up in office for staple removal in approximately 2 weeks which should coincide with the patient discharging. Continue radio repairer domestic use, patient tolerating use well. Phantom pain syndrome: Fairly controlled, continue desensitization as well as medications. Look to increase medications if needed. Diabetes: Glucose checks remain elevated but are improving, look to be in an acceptable zone currently. Restarted 70/30 insulin at 10 units twice daily. Monitor and adjust as needed. Right upper extremity thrombophlebitis: Patient previously had a ultrasound of the bilateral upper extremities due to increased swelling. She does have a right basilic vein thrombophlebitis. We will continue to elevate the limb. Patient currently on aspirin, Plavix and Lovenox. Swelling slightly decreased in right upper extremity, breast about the same Urinary retention: Attempted to remove Hong without success of patient being able to urinate so Hong was replaced. Will start Flomax and monitor patient for improvement. Patient does state that she has had this happen several times after surgery and it usually resolves within 1 to 2 weeks. We will start bladder training today, discussed with patient and nursing, plan to remove Hong on Sunday. Leukocytosis: Improved and normalized on most recent labs. Recent blood culture and urine sample were both negative. Patient was treated with antibiotics until 24 hours after amputation. Patient remains afebrile. If she develops fever we will look to initiate further antibiotics and possibly consult ID. Continue to monitor Anemia chronic disease likely mixed with acute blood loss: Appears to be consistent with anemia of chronic disease and acute blood loss combined. Hemoglobin stable at around 8 and not improving significantly so far. Continue to check and monitor for needs to transfuse. Folate, iron and vitamins being replaced. CAD with recent CABG: Stable without any episodes of chest pain currently. Continue to monitor cardiac function and for any signs or symptoms. Rest breaks as needed Hypertension: Blood pressure remains elevated and is slightly better since starting lisinopril 40 mg. Continue to monitor on current dosing. As needed hydralazine was not given and I was not notified, uncertain as to the reason for this. Goal blood pressure less than 140/90. Avoid hypotension. ADL and mobility deficits: Continue therapy to help improve patient's ability to perform ADLs and move about household distances as independently as possible. Patient will be discharged with a wheelchair for mobility due to the amputation and the need for stability while performing MR ADLs. All records, vitals, labs and medications were reviewed. No other issues per patient, nursing or therapy. Patient was discussed in team conference. Making fairly good progress with therapy, still needs assistance with ADLs and mobility. Patient will discharge this Sunday for home. We will have the significant other come in for family training on Thursday. Will need a wheelchair at discharge. He will also need a tub transfer bench for showering as well as a drop arm commode. Wheelchair Patient has undergone a right BKA and as such is unable to perform MR ADLs safely without the assistance of a wheelchair and attempting to do this would place her at increased risk of morbidity/mortality. We have tried other altern atives. Patient is able and willing to utilize the wheelchair in her home environment which does provide adequate access. Utilization of the manual wheelchair will significantly improve the patient's ability precipitate and MR ADLs and she will use it on a regular basis in the home. Patient is able to self tell the wheelchair. Utilization of a lightweight wheelchair will improve the patient's ability to conserve energy and decrease overuse injury of the shoulders. In total, 37 minutes was invested in patient care today including time spent [id number] with the patient, counseling coordinating care with the nursing staff for bladder training and discussing the patient in team conference to determine her most effective discharge date. Objective - Exam Narrative Exam: MUSCULOSKELETAL SPECIALTY EXAM CONSTITUTIONAL: Well developed, well nourished, appropriately groomed RESPIRATORY: Clear to auscultation bilaterally, no increased work of breathing CARDIOVASCULAR: Right upper extremity swelling, otherwise regular Rate/ Rhythm, no swelling, edema or tenderness in BUE or BLE. All extremities warm. GI: + bowel sounds, soft, NTTP, nondistended. INTEGUMENTARY: Right BKA wound clean dry and intact, radio repairer domestic replaced. Otherwise, normal, no lesion, rash, masses or bruising noted in extremities. MUSCULOSKELETAL: Right BKA, otherwise BUE and BLE normal without defect, crepitus, subluxation, effusion, arthritic changes or TTP. BUE 4+/5, good ROM, with normal tone. BLE 4+/5 good ROM, with normal tone NEURO: CN 2-12 grossly intact. Sensation intact in all extremities. No tremor noted in 4 extremities. POSTURE and GAIT: Sitting posture good. Balance appears reasonable. PSYCH: Alert, oriented x3, affect appears normal. Insight appears intact. - Constitutional Vitals: Vital Signs - 12hr 08/01/21 08/02/21 08/02/21 23:27 00:05 03:19 Temperature 98.9 F 99.1 F Pulse Rate 69 74 Respiratory 18 19 Rate Blood Pressure 149/73 151/67 O2 Sat by Pulse 96 90 90 Oximetry - Allied health notes Allied health notes reviewed: nursing, PT, OT - Labs CBC & Chem 7: 07/29/21 08:10 07/29/21 08:10 Labs: Laboratory Results - last 72 hr 07/30/21 07/30/21 07/30/21 08:00 12:22 16:33 POC Glucose 111 H 142 H 132 H 07/31/21 07/31/21 07/31/21 08:33 11:36 16:24 POC Glucose 95 147 H 152 H 07/31/21 08/01/21 08/01/21 21:14 08:55 11:52 POC Glucose 157 H 140 H 133 H 08/01/21 08/01/21 16:52 21:26 POC Glucose 155 H 153 H Assessment and Plan Right BKA: Continue therapy to improve patient's ability to perform transfers, maintain the residual limb in such a manner that she is able to accept a prosthesis. Monitor wound for any signs of dehiscence or breakdown and or infection. Patient will need to follow-up with Dr. Rubio after discharge for staple removal. We will look to start utilizing radio repairer domestic next week. We will continue to work on range of motion and strengthening of the residual limb and utilize a residual limb protector. Phantom pain syndrome: Patient is endorsing phantom sensation as well as phantom pain. She is already on gabapentin and we will look to increase this as needed in the future. Currently we have also discussed utilization of desensitization techniques and hopefully will be able to manage the pain without large increases in medications. Diabetes: Continue carb controlled diet as well as medications. Will adjust sliding scale as needed. Continue home 70/30 insulin and adjust as needed. We will look to hold 70/30 insulin if the patient's oral intake continues to decrease and glucose levels are low. CAD with recent CABG: Continue aspirin and Plavix. Monitor for any signs of cardiac distress, cardiology consult if needed Anemia: Likely mixed chronic disease and acute blood loss. Will replace folate and iron and monitor. Patient was transfused on the acute care side. Urine retention: Continue Flomax. Hong replaced, obtained leg bag for use with therapy. Will attempt bladder training and removal of Hong tomorrow. Hypertension: Continue to monitor blood pressure on a regular basis and adjust medications as needed for normotension. Goal blood pressure less than 140/90. Monitor on current dose of amlodipine and lisinopril. Lisinopril increased on 07/28 to 20mg, on 08/01 to 40mg. As needed hydralazine IV available. Right basilic vein thrombophlebitis: Continue to elevate upper extremity, patient remains on aspirin and Plavix as well as Lovenox. ADL dysfunction: OT will work on improving ability to perform ADLs (including assistive devices) to increase independence and decrease caregiver burden and improve functional transfers and mobility training. Difficulty walking: PT will work on gait training and proper use of assistive devices and advance as appropriate to use of stairs and outside ambulation on uneven surfaces. Unsteadiness on feet: PT will work on improving static and dynamic sitting and standing balance as well as proper use of assistive devices to decrease risk of falls. Abnormality of gait: PT will work to improve safety and efficiency of gait through neuromotor training and gait training along with instruction on proper use of assistive devices. Muscle weakness: PT & OT will work on strengthening exercises to improve functional strength including mixture of closed and open kinetic chain exercises. Debility: PT & OT will work on improving overall functional status to improve participation with ADLs, mobility and social involvement. Fatigue: PT & OT will work on improving endurance through aerobic exercises and therapeutic activity while monitoring patients tolerance for activity and vital signs as needed. DVT ppx: Lovenox Pain: Continue physical modalities in therapy and pain medications as needed to achieve functional pain control. Sleep: Monitor and address as needed. Bowel: Monitor and address as needed. Appetite: Monitor and address as needed. Discharge planning: Pending therapy progress and care plan meeting. Will continue discussion with therapy team, SW, patient and family. We will look to discharge patient this week with a wheelchair for DME. Patient also discharged with a tub transfer bench and a drop arm commode. We will plan for the patient to follow-up with surgery after discharge for staple/suture removal and she will need to follow-up with [facility] for fitting of prosthesis once cleared by surgery. After she obtains prosthetic, she can then return for outpatient therapy. Restrictions/ Precautions: Falls WB status: Nonweightbearing right lower extremity Functional Hx: ADLs: Independent Cognition: Independent Mobility: No AD Barriers to Discharge: Decreased mobility and ability to perform self care, balance deficits, weakness Estimated Length of Stay: 1014 days Discharge Destination: Home with family
[2021-08-02] MEDS: INSULIN NPH/REGULAR 70/30 INJ SUB-Q SCH ×2 (09:33→17:25)
[2021-08-02] MEDS: FERROUS SULFATE 325 MG TAB PO SCH ×2 (12:23→22:33)
[2021-08-02] MEDS: TAMSULOSIN 0.4 MG CAP PO SCH (12:23)
[2021-08-02] MEDS: FAMOTIDINE 10 MG TAB PO SCH ×2 (12:23→22:33)
[2021-08-02] MEDS: FOLIC ACID/VIT B COMP W-C 1 MG (RENAL CAPS) PO SCH (12:23)
[2021-08-02] MEDS: ASPIRIN EC 81 MG TAB PO SCH (12:23)
[2021-08-02] MEDS: LISINOPRIL 40 MG TAB PO SCH (12:24)
[2021-08-02] MEDS: amLODIPine 10 MG TAB PO SCH (12:24)
[2021-08-02] MEDS: CLOPIDOGREL 75 MG TAB PO SCH (12:24)
[2021-08-02] MEDS: oxyCODONE /ACETAMINOPHEN 5-325MG TAB PO PRN (12:24)
[2021-08-02] MEDS: ENOXAPARIN 40 MG/0.4 ML INJ SUB-Q SCH (12:25)
[2021-08-02] MEDS: DOCUSATE SODIUM 100 MG CAP PO SCH ×2 (13:33→22:34)
[2021-08-03] MEDS: oxyCODONE /ACETAMINOPHEN 5-325MG TAB PO PRN ×2 (01:12→21:38)
[2021-08-03] MEDS: GABAPENTIN 300 MG CAP PO SCH ×3 (06:43→21:39)
--- NOTE | 2021-08-03 07:49 | Progress Note ---
Subjective Date of service: 08/03/21 Principal diagnosis: Right BKA Interval history: 55-year-old female came in with a history of worsening right foot wound. 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 She underwent partial amputation on 06/21 of the right great toe and on 06/22 underwent excisional debridement of cellulitis and soft tissue of the right foot. Wound VAC was placed however the patient left the hospital AGAINST MEDICAL ADVICE on 07/25. Patient states that she did complete a full course of oral antibiotics however she experienced worsening deficits and was readmitted on 07/12 2021. At that point the gangrene has grown worse. She was consulted by surgery as well as infectious disease. Appropriate antibiotics were started and consideration for possible TMA was given, patient refused to consider a right BKA which was the recommendation of the surgeon. After further consultation, patient did opt for a BKA as it was believed that the TMA would not heal appropriately. BKA was performed on 07/[address] Rubio. Patient was transfused 3 units of packed red blood cells due to anemia. WBCs have remained elevated however the patient has also remained afebrile. Antibiotics were stopped after the BKA. Leukocytosis was determined to be due to the ischemia/infection of the lower extremity. Interval History: Patient is participating in therapy and making reasonable progress. Taking rest breaks as needed. +BM. Denies palpitations, dyspnea, cough, N/V, or joint pain. No acute events overnight. Blood pressure remains elevated. DC Hong today and replace if patient does not urinate within 6-8 hours. Right BKA: Wound clean dry and intact, continue to monitor for any signs of infection or dehiscence. Continue therapy as above to improve patient's ability to mobilize the residual limb and to eventually accept a prosthesis. Dr. Rubio requested follow-up in office for staple removal in approximately 2 weeks which should coincide with the patient discharging. Continue hole filler use, patient tolerating use well. Phantom pain syndrome: Fairly controlled, continue desensitization as well as medications. Look to increase medications if needed. Diabetes: Glucose checks remain elevated but are improving, look to be in an acceptable zone currently. Restarted 70/30 insulin at 10 units twice daily. Monitor and adjust as needed. Right upper extremity thrombophlebitis: Patient previously had a ultrasound of the bilateral upper extremities due to increased swelling. She does have a right basilic vein thrombophlebitis. We will continue to elevate the limb. Patient currently on aspirin, Plavix and Lovenox. Swelling slightly decreased in right upper extremity, breast about the same Urinary retention: Attempted to remove Hong without success of patient being able to urinate so Hong was replaced. Will start Flomax and monitor patient for improvement. Patient does state that she has had this happen several times after surgery and it usually resolves within 1 to 2 weeks. We will start bladder training today, discussed with patient and nursing, plan to remove Hong on today. Leukocytosis: Improved and normalized on most recent labs. Recent blood culture and urine sample were both negative. Patient was treated with antibiotics until 24 hours after amputation. Patient remains afebrile. If she develops fever we will look to initiate further antibiotics and possibly consult ID. Continue to monitor Anemia chronic disease likely mixed with acute blood loss: Appears to be consistent with anemia of chronic disease and acute blood loss combined. Hemoglobin stable at around 8 and not improving significantly so far. Continue to check and monitor for needs to transfuse. Folate, iron and vitamins being replaced. CAD with recent CABG: Stable without any episodes of chest pain currently. Continue to monitor cardiac function and for any signs or symptoms. Rest breaks as needed Hypertension: Blood pressure remains elevated and is slightly better since starting lisinopril 40 mg, will start low-dose HCTZ today. Continue to monitor on current dosing. As needed hydralazine remains available. Goal blood pressure less than 140/90. Avoid hypotension. ADL and mobility deficits: Continue therapy to help improve patient's ability to perform ADLs and move about household distances as independently as possible. Patient will be discharged with a wheelchair for mobility due to the amputation and the need for stability while performing MR ADLs. All records, vitals, labs and medications were reviewed. No other issues per patient, nursing or therapy. Wheelchair Patient has undergone a right BKA and as such is unable to perform MR ADLs safely without the assistance of a wheelchair and attempting to do this would place her at increased risk of morbidity/mortality. We have tried other alternatives. Patient is able and willing to utilize the wheelchair in her home environment which does provide adequate access. Utilization of the manual wheelchair will significantly improve the patient's ability precipitate and MR ADLs and she will use it on a regular basis in the home. Patient is able to self tell the wheelchair. Utilization of a lightweight wheelchair will improve the patient's ability to conserve energy and decrease overuse injury of the shoulders. Objective - Exam Narrative Exam: MUSCULOSKELETAL SPECIALTY EXAM CONSTITUTIONAL: Well developed, well nourished, appropriately groomed RESPIRATORY: Clear to auscultation bilaterally, no increased work of breathing CARDIOVASCULAR: Right upper extremity swelling, otherwise regular Rate/ Rhythm, no swelling, edema or tenderness in BUE or BLE. All extremities warm. GI: + bowel sounds, soft, NTTP, nondistended. INTEGUMENTARY: Right BKA wound clean dry and intact, hole filler in place. Otherwise, normal, no lesion, rash, masses or bruising noted in extremities. MUSCULOSKELETAL: Right BKA, otherwise BUE and BLE normal without defect, crepitus, subluxation, effusion, arthritic changes or TTP. BUE 4+/5, good ROM, with normal tone. BLE 4+/5 good ROM, with normal tone NEURO: CN 2-12 grossly intact. Sensation intact in all extremities. No tremor noted in 4 extremities. POSTURE and GAIT: Sitting posture good. PSYCH: Alert, oriented x3, affect appears normal. Insight appears intact. - Constitutional Vitals: Vital Signs - 12hr 08/02/21 08/02/21 08/03/21 20:00 22:00 02:12 Temperature Pulse Rate 71 Respiratory 20 Rate Respiratory 20 Rate [Left Leg] Blood Pressure O2 Sat by Pulse 94 Oximetry 08/03/21 03:54 Temperature 98.4 F Pulse Rate 73 Respiratory 19 Rate Respiratory Rate [Left Leg] Blood Pressure 154/66 O2 Sat by Pulse 100 Oximetry - Allied health notes Allied health notes reviewed: nursing, PT, OT - Labs CBC & Chem 7: 07/29/21 08:10 07/29/21 08:10 Labs: Laboratory Results - last 72 hr 07/31/21 07/31/21 07/31/21 08:33 11:36 16:24 POC Glucose 95 147 H 152 H 07/31/21 08/01/21 08/01/21 21:14 08:55 11:52 POC Glucose 157 H 140 H 133 H 08/01/21 08/01/21 08/02/21 16:52 21:26 08:03 POC Glucose 155 H 153 H 141 H 08/02/21 08/02/21 12:38 16:50 POC Glucose 159 H 169 H Assessment and Plan Right BKA: Continue therapy to improve patient's ability to perform transfers, maintain the residual limb in such a manner that she is able to accept a prosthesis. Monitor wound for any signs of dehiscence or breakdown and or infection. Patient will need to follow-up with Dr. Rubio after discharge for staple removal. We will look to start utilizing hole filler next week. We will continue to work on range of motion and strengthening of the residual limb and utilize a residual limb protector. Phantom pain syndrome: Patient is endorsing phantom sensation as well as phantom pain. She is already on gabapentin and we will look to increase this as needed in the future. Currently we have also discussed utilization of desensitization techniques and hopefully will be able to manage the pain without large increases in medications. Diabetes: Continue carb controlled diet as well as medications. Will adjust sliding scale as needed. Continue home 70/30 insulin and adjust as needed. We will look to hold 70/30 insulin if the patient's oral intake continues to decrease and glucose levels are low. CAD with recent CABG: Continue aspirin and Plavix. Monitor for any signs of cardiac distress, cardiology consult if needed Anemia: Likely mixed chronic disease and acute blood loss. Will replace folate and iron and monitor. Patient was transfused on the acute care side. Urine retention: Continue Flomax. Hong replaced, obtained leg bag for use with therapy. Will attempt bladder training and removal of Hong today. Hypertension: Continue to monitor blood pressure on a regular basis and adjust medications as needed for normotension. Goal blood pressure less than 140/90. Monitor on current dose of amlodipine and lisinopril. Lisinopril increased on 07/28 to 20mg, on 08/01 to 40mg. As needed hydralazine IV available. Right basilic vein thrombophlebitis: Continue to elevate upper extremity, patient remains on aspirin and Plavix as well as Lovenox. ADL dysfunction: OT will work on improving ability to perform ADLs (including assistive devices) to increase independence and decrease caregiver burden and improve functional transfers and mobility training. Difficulty walking: PT will work on gait training and proper use of assistive devices and advance as appropriate to use of stairs and outside ambulation on uneven surfaces. Unsteadiness on feet: PT will work on improving static and dynamic sitting and standing balance as well as proper use of assistive devices to decrease risk of falls. Abnormality of gait: PT will work to improve safety and efficiency of gait t hrough neuromotor training and gait training along with instruction on proper use of assistive devices. Muscle weakness: PT & OT will work on strengthening exercises to improve functional strength including mixture of closed and open kinetic chain exercises. Debility: PT & OT will work on improving overall functional status to improve participation with ADLs, mobility and social involvement. Fatigue: PT & OT will work on improving endurance through aerobic exercises and therapeutic activity while monitoring patients tolerance for activity and vital signs as needed. DVT ppx: Lovenox Pain: Continue physical modalities in therapy and pain medications as needed to achieve functional pain control. Sleep: Monitor and address as needed. Bowel: Monitor and address as needed. Appetite: Monitor and address as needed. Discharge planning: Pending therapy progress and care plan meeting. Will continue discussion with therapy team, SW, patient and family. We will look to discharge patient this week with a wheelchair for DME. Patient also discharged with a tub transfer bench and a drop arm commode. We will plan for the patient to follow-up with surgery after discharge for staple/suture removal and she will need to follow-up with [facility] for fitting of prosthesis once cleared by surgery. After she obtains prosthetic, she can then return for outpatient therapy. Restrictions/ Precautions: Falls WB status: Nonweightbearing right lower extremity Functional Hx: ADLs: Independent Cognition: Independent Mobility: No AD Barriers to Discharge: Decreased mobility and ability to perform self care, balance deficits, weakness Estimated Length of Stay: 1014 days Discharge Destination: Home with family
[2021-08-03] MEDS: INSULIN LISPRO 100 UNIT/ML SUB-Q SCH ×4 (08:30→21:39)
[2021-08-03] MEDS: INSULIN NPH/REGULAR 70/30 INJ SUB-Q SCH ×2 (09:00→16:48)
[2021-08-03] MEDS ORDERED: hydroCHLOROthiazide 12.5 MG CAP PO SCH (10:00)
[2021-08-03] MEDS: amLODIPine 10 MG TAB PO SCH (12:10)
[2021-08-03] MEDS: CLOPIDOGREL 75 MG TAB PO SCH (12:11)
[2021-08-03] MEDS: ENOXAPARIN 40 MG/0.4 ML INJ SUB-Q SCH (12:11)
[2021-08-03] MEDS: ASPIRIN EC 81 MG TAB PO SCH (12:11)
[2021-08-03] MEDS: DOCUSATE SODIUM 100 MG CAP PO SCH ×2 (12:13→22:15)
[2021-08-03] MEDS: FOLIC ACID/VIT B COMP W-C 1 MG (RENAL CAPS) PO SCH (12:17)
[2021-08-03] MEDS: TAMSULOSIN 0.4 MG CAP PO SCH (12:18)
[2021-08-03] MEDS: LISINOPRIL 40 MG TAB PO SCH (12:25)
[2021-08-03] MEDS: FERROUS SULFATE 325 MG TAB PO SCH ×2 (12:25→21:39)
[2021-08-03] MEDS: FAMOTIDINE 10 MG TAB PO SCH ×2 (12:25→21:39)
[2021-08-03] MEDS: hydrALAZINE 20 MG/1 ML INJ IV PRN (13:54)
[2021-08-04] MEDS: GABAPENTIN 300 MG CAP PO SCH ×3 (06:40→22:54)
[2021-08-04] MEDS: INSULIN NPH/REGULAR 70/30 INJ SUB-Q SCH ×2 (08:01→17:09)
[2021-08-04] MEDS: INSULIN LISPRO 100 UNIT/ML SUB-Q SCH ×4 (08:01→22:55)
--- NOTE | 2021-08-04 10:06 | Progress Note ---
Subjective Date of service: 08/04/21 Principal diagnosis: Right BKA Interval history: 55-year-old female came in with a history of worsening right foot wound. 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 She underwent partial amputation on 06/21 of the right great toe and on 06/22 underwent excisional debridement of cellulitis and soft tissue of the right foot. Wound VAC was placed however the patient left the hospital AGAINST MEDICAL ADVICE on 07/25. Patient states that she did complete a full course of oral antibiotics however she experienced worsening deficits and was readmitted on 07/12 2021. At that point the gangrene has grown worse. She was consulted by surgery as well as infectious disease. Appropriate antibiotics were started and consideration for possible TMA was given, patient refused to consider a right BKA which was the recommendation of the surgeon. After further consultation, patient did opt for a BKA as it was believed that the TMA would not heal appropriately. BKA was performed on 07/[address] Rubio. Patient was transfused 3 units of packed red blood cells due to anemia. WBCs have remained elevated however the patient has also remained afebrile. Antibiotics were stopped after the BKA. Leukocytosis was determined to be due to the ischemia/infection of the lower extremity. Interval History: Patient is participating in therapy and making reasonable progress. Taking rest breaks as needed. +BM. Denies palpitations, dyspnea, cough, N/V, or joint pain. No acute events overnight. Blood pressure remains elevated. Hong has been removed and patient is urinating. Patient seen while undergoing family training. Discussed discharge, medications, precautions and plan for prosthesis in the future along with outpatient therapy. Right BKA: Wound clean dry and intact, continue to monitor for any signs of infection or dehiscence. Continue therapy as above to improve patient's ability to mobilize the residual limb and to eventually accept a prosthesis. Dr. Rubio requested follow-up in office for staple removal in approximately 2 weeks which should coincide with the patient discharging. Continue rough rice grader use, patient tolerating use well. Pain seems to be fairly well controlled on 1- 2 doses opioid daily Phantom pain syndrome: Fairly controlled, continue desensitization as well as medications. Look to increase medications if needed. Diabetes: Glucose checks remain elevated but are improving, look to be in an acceptable zone currently. Restarted 70/30 insulin at 10 units twice daily. Monitor and adjust as needed. Right upper extremity thrombophlebitis: Patient previously had a ultrasound of the bilateral upper extremities due to increased swelling. She does have a rig ht basilic vein thrombophlebitis. We will continue to elevate the limb. Patient currently on aspirin, Plavix and Lovenox. Swelling slightly decreased in right upper extremity, breast about the same Urinary retention: Attempted to remove Hong without success of patient being able to urinate so Hong was replaced. Will start Flomax and monitor patient for improvement. Patient does state that she has had this happen several times after surgery and it usually resolves within 1 to 2 weeks. Hong was removed yesterday and patient is urinating well. Will discontinue Flomax tomorrow. Leukocytosis: Improved and normalized on most recent labs. Recent blood culture and urine sample were both negative. Patient was treated with antibiotics until 24 hours after amputation. Patient remains afebrile. If she develops fever we will look to initiate further antibiotics and possibly consult ID. Continue to monitor Anemia chronic disease likely mixed with acute blood loss: Appears to be con sistent with anemia of chronic disease and acute blood loss combined. Hemoglobin stable at around 8 and not improving significantly so far. Continue to check and monitor for needs to transfuse. Folate, iron and vitamins being replaced. CAD with recent CABG: Stable without any episodes of chest pain currently. Continue to monitor cardiac function and for any signs or symptoms. Rest breaks as needed Hypertension: Blood pressure remains elevated and is slightly better since starting lisinopril 40 mg, will increase dose of HCTZ today. Continue to monitor on current dosing. As needed hydralazine remains available. Goal blood pressure less than 140/90. Avoid hypotension. Patient will need to follow-up with PCP for continued monitoring of her blood pressure. ADL and mobility deficits: Continue therapy to help improve patient's ability to perform ADLs and move about household distances as independently as possible. Patient will be discharged with a wheelchair for mobility due to the amputation and the need for stability while performing MR ADLs. All records, vitals, labs and medications were reviewed. No other issues per patient, nursing or therapy. Wheelchair Patient has undergone a right BKA and as such is unable to perform MR ADLs safely without the assistance of a wheelchair and attempting to do this would place her at increased risk of morbidity/mortality. We have tried other alternatives. Patient is able and willing to utilize the wheelchair in her home environment which does provide adequate access. Utilization of the manual wheelchair will significantly improve the patient's ability precipitate and MR ADLs and she will use it on a regular basis in the home. Patient is able to self tell the wheelchair. Utilization of a lightweight wheelchair will improve the patient's ability to conserve energy and decrease overuse injury of the shoulders. Objective - Exam Narrative Exam: MUSCULOSKELETAL SPECIALTY EXAM CONSTITUTIONAL: Well developed, well nourished, appropriately groomed RESPIRATORY: Clear to auscultation bilaterally, no increased work of breathing CARDIOVASCULAR: Right upper extremity swelling is slightly reduced with use of Tubigrip's, otherwise regular Rate/ Rhythm, no swelling, edema or tenderness in BUE or BLE. All extremities warm. GI: + bowel sounds, soft, NTTP, nondistended. INTEGUMENTARY: Right BKA wound clean dry and intact, rough rice grader in place. Otherwise, normal, no lesion, rash, masses or bruising noted in extremities. MUSCULOSKELETAL: Right BKA, otherwise BUE and BLE normal without defect, crepitus, subluxation, effusion, arthritic changes or TTP. BUE 4+/5, good ROM, with normal tone. BLE 4+/5 good ROM, with normal tone NEURO: CN 2-12 grossly intact. Sensation intact in all extremities. No tremor noted in 4 extremities. POSTURE and GAIT: Sitting posture good. PSYCH: Alert, oriented x3, affect appears normal. Insight appears intact. - Constitutional Vitals: Vital Signs - 12hr 08/04/21 08/04/21 04:07 07:43 Temperature 98.5 F 98.3 F Pulse Rate 69 75 Respiratory 14 18 Rate Blood Pressure 153/71 158/77 O2 Sat by Pulse 98 94 Oximetry - Allied health notes Allied health notes reviewed: nursing, PT, OT - Labs CBC & Chem 7: 07/29/21 08:10 07/29/21 08:10 Labs: Laboratory Results - last 72 hr 08/01/21 08/01/21 08/01/21 11:52 16:52 21:26 POC Glucose 133 H 155 H 153 H 08/02/21 08/02/21 08/02/21 08:03 12:38 16:50 POC Glucose 141 H 159 H 169 H 08/03/21 08/03/21 08/03/21 11:39 15:41 20:12 POC Glucose 108 H 164 H 169 H 08/04/21 07:45 POC Glucose 63 L Assessment and Plan Right BKA: Continue therapy to improve patient's ability to perform transfers, maintain the residual limb in such a manner that she is able to accept a prosthesis. Monitor wound for any signs of dehiscence or breakdown and or infection. Patient will need to follow-up with Dr. Rubio after discharge for staple removal. We will look to start utilizing rough rice grader next week. We will continue to work on range of motion and strengthening of the residual limb and utilize a residual limb protector. Phantom pain syndrome: Patient is endorsing phantom sensation as well as phantom pain. She is already on gabapentin and we will look to increase this as needed in the future. Currently we have also discussed utilization of desensitization techniques and hopefully will be able to manage the pain without large increases in medications. Diabetes: Continue carb controlled diet as well as medications. Will adjust sliding scale as needed. Continue home 70/30 insulin and adjust as needed. We will look to hold 70/30 insulin if the patient's oral intake continues to decrease and glucose levels are low. CAD with recent CABG: Continue aspirin and Plavix. Monitor for any signs of cardiac distress, cardiology consult if needed Anemia: Likely mixed chronic disease and acute blood loss. Will replace folate and iron and monitor. Patient was transfused on the acute care side. Urine retention: Continue Flomax, will discontinue tomorrow. Hong removed and patient is urinating well Hypertension: Continue to monitor blood pressure on a regular basis and adjust medications as needed for normotension. Goal blood pressure less than 140/90. Monitor on current dose of amlodipine and lisinopril. Lisinopril increased on 07/28 to 20mg, on 08/01 to 40mg. HCTZ added and increased. As needed hydralazine IV available. Right basilic vein thrombophlebitis: Continue to elevate upper extremity, patient remains on aspirin and Plavix as well as Lovenox. ADL dysfunction: OT will work on improving ability to perform ADLs (including assistive devices) to increase independence and decrease caregiver burden and improve functional transfers and mobility training. Difficulty walking: PT will work on gait training and proper use of assistive devices and advance as appropriate to use of stairs and outside ambulation on uneven surfaces. Unsteadiness on feet: PT will work on improving static and dynamic sitting and standing balance as well as proper use of assistive devices to decrease risk of falls. Abnormality of gait: PT will work to improve safety and efficiency of gait through neuromotor training and gait training along with instruction on proper use of assistive devices. Muscle weakness: PT & OT will work on strengthening exercises to improve functional strength including mixture of closed and open kinetic chain exercises. Debility: PT & OT will work on improving overall functional status to improve participation with ADLs, mobility and social involvement. Fatigue: PT & OT will work on improving endurance through aerobic exercises and therapeutic activity while monitoring patients tolerance for activity and vital signs as needed. DVT ppx: Lovenox Pain: Continue physical modalities in therapy and pain medications as needed to achieve functional pain control. Sleep: Monitor and address as needed. Bowel: Monitor and address as needed. Appetite: Monitor and address as needed. Discharge planning: Pending therapy progress and care plan meeting. Will continue discussion with therapy team, SW, patient and family. We will look to discharge patient this week with a wheelchair for DME. Patient also discharged with a tub transfer bench and a drop arm commode. We will plan for the patient to follow-up with surgery after discharge for staple/suture removal and she will need to follow-up with [facility] for fitting of prosthesis once cleared by surgery. After she obtains prosthetic, she can then return for outpatient therapy. Restrictions/ Precautions: Falls WB status: Nonweightbearing right lower extremity Functional Hx: ADLs: Independent Cognition: Independent Mobility: No AD Barriers to Discharge: Decreased mobility and ability to perform self care, balance deficits, weakness Estimated Length of Stay: 1014 days Discharge Destination: Home with family
[2021-08-04] MEDS: hydroCHLOROthiazide 25 MG TAB PO SCH (10:34)
[2021-08-04] MEDS: ASPIRIN EC 81 MG TAB PO SCH (10:34)
[2021-08-04] MEDS: FAMOTIDINE 10 MG TAB PO SCH ×2 (10:34→22:55)
[2021-08-04] MEDS: CLOPIDOGREL 75 MG TAB PO SCH (10:34)
[2021-08-04] MEDS: TAMSULOSIN 0.4 MG CAP PO SCH (10:35)
[2021-08-04] MEDS: amLODIPine 10 MG TAB PO SCH (10:35)
[2021-08-04] MEDS: LISINOPRIL 40 MG TAB PO SCH (10:35)
[2021-08-04] MEDS: DOCUSATE SODIUM 100 MG CAP PO SCH ×2 (10:35→22:55)
[2021-08-04] MEDS: ENOXAPARIN 40 MG/0.4 ML INJ SUB-Q SCH (10:36)
[2021-08-04] MEDS: oxyCODONE /ACETAMINOPHEN 5-325MG TAB PO PRN ×2 (14:00→20:22)
[2021-08-05] MEDS: GABAPENTIN 300 MG CAP PO SCH (06:21)
--- NOTE | 2021-08-05 08:45 | Discharge Summary ---
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 She underwent partial amputation on 06/21 of the right great toe and on 06/22 underwent excisional debridement of cellulitis and soft tissue of the right foot. Wound VAC was placed however the patient left the hospital AGAINST MEDICAL ADVICE on 07/25. Patient states that she did complete a full course of oral antibiotics however she experienced worsening deficits and was readmitted on 07/12 2021. At that point the gangrene has grown worse. She was consulted by surgery as well as infectious disease. Appropriate antibiotics were started and consideration for possible TMA was given, patient refused to consider a right BKA which was the recommendation of the surgeon. After further consultation, patient did opt for a BKA as it was believed that the TMA would not heal appropriately. BKA was performed on 07/[address] Lemus. Patient was transfused 3 units of packed red blood cells due to anemia. WBCs have remained elevated however the patient has also remained afebrile. Antibiotics were stopped after the BKA. Leukocytosis was determined to be due to the ischemia/infection of the lower extremity. Right BKA: Wound clean dry and intact, continue to monitor for any signs of infection or dehiscence. Continue therapy as above to improve patient's ability to mobilize the residual limb and to eventually accept a prosthesis. Dr. Lemus requested follow-up in office for staple removal in approximately 2 weeks which should coincide with the patient discharging, I did contact his office and scheduled a follow-up appointment on August 08 at 10 AM. Continue ed manager use, patient tolerating use well. Pain seems to be fairly well controlled on 1-2 doses opioid daily Phantom pain syndrome: Fairly controlled, continue desensitization as well as medications. Look to increase medications if needed. Diabetes: Glucose checks remain elevated but are improving, look to be in an acceptable zone currently. Currently on 70/30 insulin at 10 units twice daily. Monitor and adjust as needed. Right upper extremity thrombophlebitis: Patient previously had a ultrasound of the bilateral upper extremities due to increased swelling. She does have a right basilic vein thrombophlebitis. We will continue to elevate the limb and utilize Tubigrip's. Patient currently on aspirin, Plavix and Lovenox. Swelling slightly decreased in right upper extremity, breast about the same Urinary retention: Attempted to remove Hong without success of patient being able to urinate so Hong was replaced. Flomax was started and we monitored for improvement, we ended up going through bladder training with the patient and discontinued the Hong with success. Will discontinue Flomax prior to discharge. Patient does state that she has had this happen several times after surgery and it usually resolves within 1 to 2 weeks. Leukocytosis: Improved and normalized on most recent labs. Recent blood culture and urine sample were both negative. Patient was treated with antibiotics until 24 hours after amputation. Patient remains afebrile. If she develops fever we will look to initiate further antibiotics and possibly consult ID. Continue to monitor. No fevers or elevated WBCs noted recently. Anemia chronic disease likely mixed with acute blood loss: Appears to be consistent with anemia of chronic disease and acute blood loss combined. Hemoglobin stable at around 8 and not improving significantly so far. Continue to check and monitor for needs to transfuse. Folate, iron and vitamins being replaced. Patient will need to follow-up with primary care for monitoring CAD with recent CABG: Stable without any episodes of chest pain currently. Continue to monitor cardiac function and for any signs or symptoms. Rest breaks as needed Hypertension: Blood pressure remains elevated and is slightly better since starting lisinopril 40 mg, and increased dose of HCTZ. Continue to monitor on current dosing. Goal blood pressure less than 140/90. Avoid hypotension. Patient will need to follow-up with PCP for continued monitoring of her blood pressure, will avoid making any further adjustments as patient initially was only on amlodipine and has currently been titrated up to her current doses on 2 additional medications. Current systolic blood pressure range is [id number]. BP 140/60 this AM prior to DC. ADL and mobility deficits: Continue therapy to help improve patient's ability to perform ADLs and move about household distances as independently as possible. Patient will be discharged with a wheelchair for mobility due to the amputation and the need for stability while performing MR ADLs. Patient still requires some assistance with mobility and lower body ADLs. Appropriate DME has been ordered. Patient and family member have undergone family training. Patient will discharge home with home health. Patient does state that she is seeing a different PCP at this time than the one listed in the EMR. Unfortunately I cannot find the appropriate PCP in our list of physicians to populate that field. Disposition: HOME HEALTH CARE SERVICE Final Discharge Diagnosis (Prints w/discharge instructions): Right BKA, diabetes, hypertension, right upper extremity thrombophlebitis, urinary retention, anemia, ADL and mobility deficits Time spent for discharge: >30 mins Core Measure Documentation - Palliative Care Palliative Care/ Comfort Measures: Not Applicable - Core Measures Any of the following diagnoses?: none Exam - Physical Exam Narrative exam: MUSCULOSKELETAL SPECIALTY EXAM CONSTITUTIONAL: Well developed, well nourished, appropriately groomed RESPIRATORY: Clear to auscultation bilaterally, no increased work of breathing CARDIOVASCULAR: Right upper extremity swelling is slightly reduced with use of Tubigrip's, oth erwise regular Rate/ Rhythm, no swelling, edema or tenderness in BUE or BLE. All extremities warm. GI: + bowel sounds, soft, NTTP, nondistended. INTEGUMENTARY: Right BKA wound clean dry and intact, ed manager in place. Otherwise, normal, no lesion, rash, masses or bruising noted in extremities. MUSCULOSKELETAL: Right BKA, otherwise BUE and BLE normal without defect, crepitus, subluxation, effusion, arthritic changes or TTP. BUE 4+/5, good ROM, with normal tone. BLE 4+/5 good ROM, with normal tone NEURO: Sensation intact in all extremities. No tremor noted in 4 extremities. POSTURE and GAIT: Sitting posture good. PSYCH: Alert, oriented x3, affect appears normal. Insight appears intact. - Constitutional Vitals: Temp Pulse Resp BP Pulse Ox 98.2 F 20 L 20 140/60 94 08/05/21 05:12 08/05/21 05:12 08/05/21 05:12 08/05/21 05:12 08/05/21 05:12 Plan Activity: up only with assistance, fall precautions Weight Bearing Status: Non-Weight Bearing (RLE) Diet: diabetic (Heart Healthy) Wound: keep clean and dry, per your surgeon's advice Special Instructions: record daily BP diary, record blood sugar diary, physical therapy, occupational therapy, home health RN Durable Medical Equipment Needed Upon Discharge: Wheelchair, other (Tub transfer bench, 3 and 1) Care Plan Goals: Patient will need to follow-up with primary care in order to continue to monitor blood pressure and other chronic conditions. I have discussed with patient that her blood pressure may change once she is discharged home and she should check it on a regular basis and give these values to her PCP. Blood pressure medications may need to be increased or decreased based on those readings. While she was in the hospital we did start her on lisinopril in addition to her amlodipine and in a stepwise fashion increase the dose of lisinopril until she was on the max dose. With continued blood pressure values of [id number] we also started her on HCTZ and increased it to its current dose. Her blood pressure is starting to respond and seems to be in a reasonable range currently. Patient will also need to follow-up with her surgeon for staple/suture removal. I taken the opportunity to contact his office and she is scheduled for a follow-up on August 08 at 10 AM. Once she is cleared by her surgeon she can then contact [facility] in order to be fit for a prosthetic. Would recommend that she then follow-up with outpatient therapy in order to improve her gait and balance utilizing the prosthetic. I am happy to write the order for her outpatient therapy once she obtains the prosthetic. Follow up with: JUDITH NY MD [Primary Care Provider] - 7 Days KI LEMUS MD [Staff Physician] - 08/08/21 10:00 am (Follow up has bveen scheduled) Prescriptions: AtorvaSTATin [Lipitor] 40 mg PO QHS #30 tablet amLODIPine 10 mg PO QDAY #30 tablet Gabapentin 300 mg PO Q8HR #90 capsule Aspirin EC [Halfprin EC] 81 mg PO QDAY #30 tablet hydroCHLOROthiazide [HCTZ] 25 mg PO QDAY #30 tablet Famotidine [Pepcid] 10 mg PO BID #60 tablet oxyCODONE /ACETAMINOPHEN [Percocet 5/325 mg] 1 tab PO BID PRN #20 tablet PRN Reason: Pain, Moderate (4-6) Clopidogrel [Plavix] 75 mg PO QDAY #30 tablet lisinopriL [Zestril TAB] 40 mg PO QDAY #30 tablet
[2021-08-05 09:04] VITALS: BP 161/78
[2021-08-05] MEDS: INSULIN NPH/REGULAR 70/30 INJ SUB-Q SCH (09:22)
[2021-08-05] MEDS: TAMSULOSIN 0.4 MG CAP PO SCH (09:23)
[2021-08-05] MEDS: hydroCHLOROthiazide 25 MG TAB PO SCH (09:23)
[2021-08-05] MEDS: FAMOTIDINE 10 MG TAB PO SCH (09:23)
[2021-08-05] MEDS: CLOPIDOGREL 75 MG TAB PO SCH (09:23)
[2021-08-05] MEDS: DOCUSATE SODIUM 100 MG CAP PO SCH (09:24)
[2021-08-05] MEDS: ASPIRIN EC 81 MG TAB PO SCH (09:24)
[2021-08-05] MEDS: LISINOPRIL 40 MG TAB PO SCH (09:24)
[2021-08-05] MEDS: amLODIPine 10 MG TAB PO SCH (09:24)
[2021-08-05] MEDS: ENOXAPARIN 40 MG/0.4 ML INJ SUB-Q SCH (09:25)
== END 2021-08-05 17:30 | disposition home health service (06) | DRG 603 ==
LOC: 4A 00:20 → UNDOADMIN 14:34 → 4A 14:34 → UNDOADMIN 07-22 00:20 → 4A 07-22 00:20
PROVIDERS: ADMIT Physical Medicine & Rehabilitation; ATTEND Physical Medicine & Rehabilitation
DX: L03.116 Cellulitis of left lower limb (principal); E11.52 Type 2 diabetes mellitus with diabetic peripheral angiopathy with gangrene; R53.81 Other malaise; I25.10 Atherosclerotic heart disease of native coronary artery without angina pectoris; I10 Essential (primary) hypertension; E78.5 Hyperlipidemia, unspecified; Z90.49 Acquired absence of other specified parts of digestive tract; Z90.89 Acquired absence of other organs; Z90.710 Acquired absence of both cervix and uterus; Z95.1 Presence of aortocoronary bypass graft; Z82.3 Family history of stroke; Z82.49 Family history of ischemic heart disease and other diseases of the circulatory system; Z83.3 Family history of diabetes mellitus; Z91.040 Latex allergy status; Z79.82 Long term (current) use of aspirin; Z79.899 Other long term (current) drug therapy
CPT/HCPCS: 36415; 80048; 80053; 82607; 82728; 82747; 82962; 83550; 85007; 85025; 85027; G0378; A9270-GY; J0360; J1650; J1815; Q0162

== ENCOUNTER 2021-08-28 13:32 | Emergency (ER) | payer BC ==
[2021-08-28 14:03] VITALS: BP 187/87
--- NOTE | 2021-08-28 16:23 | Emergency Department Report ---
ED General Adult HPI - General Chief complaint: Extremity Problem,Nontraumatic Stated complaint: RT LEG AMPUTATION/STICHES COMING LOOSE Time Seen by Provider: 08/28/21 14:10 Source: patient Mode of arrival: Wheelchair Limitations: Physical Limitation - History of Present Illness Initial comments: This is a 55-year-old female nontoxic, well nourished in appearance, no acute signs of distress presents to the ED with c/o of open stitches to postop right below-knee amputation that was performed by Dr. Rubio several weeks ago. Patient denies any injuries or trauma. Patient otherwise denies any other complaints or symptoms. Denies any drainage, fever, chills, nausea, vomiting, headache, stiff neck, swelling, chest pain, shortness of breath, numbness or tingling. -: This morning Severity scale (0 -10): 0 Worsens with: none Associated Symptoms: denies other symptoms. denies: confusion, chest pain, cough, diaphoresis, fever/chills, headaches, loss of appetite, malaise, nausea/vomiting, rash, seizure, shortness of breath, syncope, weakness Treatments Prior to Arrival: none - Related Data Previous Rx's Medication Instructions Recorded Last Taken Type Aspirin EC [Halfprin EC] 81 mg PO QDAY #30 tablet 08/05/21 Unknown Rx AtorvaSTATin [Lipitor] 40 mg PO QHS #30 tablet 08/05/21 Unknown Rx Clopidogrel [Plavix] 75 mg PO QDAY #30 tablet 08/05/21 Unknown Rx Famotidine [Pepcid] 10 mg PO BID #60 tablet 08/05/21 Unknown Rx Gabapentin 300 mg PO Q8HR #90 capsule 08/05/21 Unknown Rx Insulin NPH/Regular [NovoLIN 70/30] 10 unit SUB-Q BIDDIAB units 08/05/21 Unknown Rx Lispro Insulin [HumaLOG] 0 unit SUB-Q ACHS units 08/05/21 Unknown Rx amLODIPine 10 mg PO QDAY #30 tablet 08/05/21 Unknown Rx hydroCHLOROthiazide [HCTZ] 25 mg PO QDAY #30 tablet 08/05/21 Unknown Rx lisinopriL [Zestril TAB] 40 mg PO QDAY #30 tablet 08/05/21 Unknown Rx oxyCODONE /ACETAMINOPHEN [Percocet 1 tab PO BID PRN #20 tablet 08/05/21 Unknown Rx 5/325 mg] Allergies Allergy/AdvReac Type Severity Reaction Status Date / Time Latex, Natural Rubber Allergy Mild Itching Verified 07/22/21 01:56 ED Review of Systems ROS: Stated complaint: RT LEG AMPUTATION/STICHES COMING LOOSE Other details as noted in HPI Comment: All other systems reviewed and negative Constitutional: denies: chills, fever Eyes: denies: eye pain, eye discharge, vision change ENT: denies: ear pain, throat pain Respiratory: denies: cough, shortness of breath, wheezing Cardiovascular: denies: chest pain, palpitations Endocrine: no symptoms reported Gastrointestinal: denies: abdominal pain, nausea, diarrhea Genitourinary: denies: urgency, dysuria, discharge Musculoskeletal: denies: back pain, joint swelling, arthralgia Skin: denies: rash, lesions Neurological: denies: headache, weakness, paresthesias Psychiatric: denies: anxiety, depression Hematological/Lymphatic: denies: easy bleeding, easy bruising ED Past Medical Hx - Past Medical History Previous Medical History?: Yes Hx Hypertension: Yes Hx Heart Attack/AMI: No Hx Congestive Heart Failure: Yes Hx Diabetes: Yes Hx Deep Vein Thrombosis: No Hx Liver Disease: No Hx Renal Disease: Yes (CKD) Hx Sickle Cell Disease: No Hx Asthma: No Hx COPD: No Hx HIV: No - Surgical History Past Surgical History?: Yes Hx Pacemaker: No Hx Internal Defibrillator: No Hx Cholecystectomy: Yes Hx Appendectomy: Yes Additional Surgical History: Partial hysterectomy, Tubaligation, foot. right BKA. 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 - Social History Smoking Status: Never Smoker - Medications Home Medications: Home Medications Medication Instructions Recorded Confirmed Last Taken Type Aspirin EC [Halfprin EC] 81 mg PO QDAY #30 tablet 08/05/21 Unknown Rx AtorvaSTATin [Lipitor] 40 mg PO QHS #30 tablet 08/05/21 Unknown Rx Clopidogrel [Plavix] 75 mg PO QDAY #30 tablet 08/05/21 Unknown Rx Famotidine [Pepcid] 10 mg PO BID #60 tablet 08/05/21 Unknown Rx Gabapentin 300 mg PO Q8HR #90 capsule 08/05/21 Unknown Rx Insulin NPH/Regular [NovoLIN 70/30] 10 unit SUB-Q BIDDIAB units 08/05/21 Unknown Rx Lispro Insulin [HumaLOG] 0 unit SUB-Q ACHS units 08/05/21 Unknown Rx amLODIPine 10 mg PO QDAY #30 tablet 08/05/21 Unknown Rx hydroCHLOROthiazide [HCTZ] 25 mg PO QDAY #30 tablet 08/05/21 Unknown Rx lisinopriL [Zestril TAB] 40 mg PO QDAY #30 tablet 08/05/21 Unknown Rx oxyCODONE /ACETAMINOPHEN [Percocet 1 tab PO BID PRN #20 tablet 08/05/21 Unknown Rx 5/325 mg] ED Physical Exam - General Limitations: Physical Limitation General appearance: alert, in no apparent distress - Head Head exam: Present: atraumatic, normocephalic - Eye Eye exam: Present: normal appearance - Neck Neck exam: Present: full ROM - Respiratory Respiratory exam: Absent: respiratory distress - Cardiovascular Cardiovascular Exam: Present: regular rate - Extremities Exam Extremities exam: Present: full ROM, normal capillary refill, other (There is about 2 stitches from my examination that was not present at the median stump. Otherwise there is no cellulitis, drainage, swelling noted on exam.). Absent: tenderness, joint swelling - Neurological Exam Neurological exam: Present: alert, oriented X3 - Psychiatric Psychiatric exam: Present: normal affect, normal mood - Skin Skin exam: Present: warm, dry, intact, normal color. Absent: rash ED Course Vital Signs 08/28/21 13:58 Temperature 98.6 F Pulse Rate 81 Respiratory 18 Rate Blood Pressure 187/87 [Right] O2 Sat by Pulse 99 Oximetry - Reevaluation(s) Reevaluation #1: 08/28/21 16:22 Patient is speaking in full sentences with no signs of distress noted. - Consultations Consultation #1: 08/28/21 16:22 Patient has been consulted with Dr. Rubio (surgeon) about patient history, physical exam, and stated to place Steri-Strips and 4 x 4 dressing and will see patient in office this in the morning. ED Medical Decision Making - Medical Decision Making 55-year-old female that presents with open stitches from surgical site. Patient otherwise is stable and was examined by me. Physical exam otherwise is unremarkable. Steri-Strips has been applied and sterile dressing has been applied. Patient instructed follow-up with Dr. Rubio there is in the morning or if symptoms worsen and continue return to emergency room as soon as possible. At time of discharge, the patient does not seem toxic or ill in appe arance. No acute signs of distress noted. Patient agrees to discharge treatment plan of care. No further questions noted by the patient. Critical care attestation.: If time is entered above; I have spent that time in minutes in the direct care of this critically ill patient, excluding procedure time. ED Disposition Clinical Impression: Post surgical complication Qualifiers: Surgical complication system/body Area: skin Surgical complication type: unspecified Procedure type: non-dermatologic Qualified Code(s): L76.82 - Other postprocedural complications of skin and subcutaneous tissue Disposition: HOME / SELF CARE / HOMELESS Is pt being admited?: No Does the pt Need Aspirin: No Condition: Stable Additional Instructions: Follow-up with Dr. Rubio there is in the morning or if symptoms worsen and continue return to emergency room as soon as possible. Referrals: PRIMARY CARE, [Referring] - 3-5 Days KI RUBIO MD [Staff Physician] - Time of Disposition: 16:24
== END 2021-08-28 16:26 | disposition home or self-care (01) ==
LOC: ED 13:32
DX: T81.31XA Disruption of external operation (surgical) wound, not elsewhere classified, initial encounter (principal); E11.22 Type 2 diabetes mellitus with diabetic chronic kidney disease; N18.9 Chronic kidney disease, unspecified; Z86.79 Personal history of other diseases of the circulatory system; Z91.040 Latex allergy status; Z91.048 Other nonmedicinal substance allergy status; Z90.49 Acquired absence of other specified parts of digestive tract; Z90.89 Acquired absence of other organs
CPT/HCPCS: 99283

== ENCOUNTER 2022-04-13 18:21 | Inpatient (IN) | payer BC ==
[2022-04-13 19:43] LABS: Basophils % (Auto) 0.5 % (0.0-1.8); Eosinophils # (Auto) 0.4 K/mm3 (0.0-0.4); Eosinophils % (Auto) 5.7 % (0.0-4.3); Hemoglobin 6.8 gm/dl (10.1-14.3); Lymphocytes # (Auto) 1.5 K/mm3 (1.2-5.4); Lymphocytes % (Auto) 19.3 % (13.4-35.0); Mean Corpuscular HGB Conc 31 % (30-34); Mean Corpuscular Volume 64 fl (79-97); Monocytes # (Auto) 0.6 K/mm3 (0.0-0.8); Monocytes % (Auto) 7.5 % (0.0-7.3); Platelet Count 233 K/mm3 (140-440); Red Blood Count 3.43 M/mm3 (3.65-5.03)
[2022-04-13 19:51] LABS: Calcium 8.7 mg/dL (8.4-10.2)
[2022-04-13] MEDS ORDERED: SODIUM CHLORIDE 0.9% 1000 ML 1,000 ML IV ONE (22:56)
--- NOTE | 2022-04-13 23:42 | XRay Report ---
XR chest 1V ap INDICATION / CLINICAL INFORMATION: Weakness. COMPARISON: None available. FINDINGS: SUPPORT DEVICES: None. HEART /PULMONARY VASCULATURE: Sternotomy changes. The heart size is within normal limits. No signific ant pulmonary vasculature congestion. LUNGS / PLEURA: Lung volumes are diminished but appear clear of focal infiltrate. There is no sizable pleural effusion. No pneumothorax. ADDITIONAL FINDINGS: No significant additional findings. IMPRESSION: Low lung volumes without evidence of acute cardiopulmonary disease. Signer Name: Viral Warren MD Signed: 04/13/2022 11:38 PM Workstation Name: [id number]
[2022-04-13 23:49] LABS: INR 0.97 (0.87-1.13)
[2022-04-13] MEDS ORDERED: DEXTROSE 50% IN WATER (25GM) 50 ML SYRINGE IV ONE (23:49)
[2022-04-13] MEDS ORDERED: CALCIUM CHLORIDE 1,000 MG in SODIUM CHLORIDE 0.9% 100 ML IV ONE (23:50)
[2022-04-13] MEDS ORDERED: INSULIN REGULAR, HUMAN 100 UNITS/1 ML IV ONE (23:50)
[2022-04-13] MEDS ORDERED: SODIUM POLYSTYRENE 15 GM/60 ML ORAL LIQD PO ONE (23:50)
[2022-04-13] MEDS ORDERED: ALBUTEROL 2.5 MG/3 ML NEBU IH ONE (23:51)
[2022-04-13 23:56] LABS: Calcium 8.8 mg/dL (8.4-10.2)
[2022-04-13 23:58] LABS: Hematocrit 25.4 % (30.3-42.9); Hemoglobin 7.8 gm/dl (10.1-14.3); Mean Corpuscular Volume 65 fl (79-97)
[2022-04-13 23:59] LABS: Basophils % (Auto) 0.7 % (0.0-1.8); Eosinophils % (Auto) 6.7 % (0.0-4.3); Lymphocytes % (Auto) 21.7 % (13.4-35.0); Mean Corpuscular HGB Conc 31 % (30-34); Monocytes % (Auto) 6.5 % (0.0-7.3); Platelet Count 248 K/mm3 (140-440)
[2022-04-14] LABS: Basophils # (Auto) 0.1 K/mm3 (0.0-0.1); Eosinophils # (Auto) 0.5 K/mm3 (0.0-0.4); Lymphocytes # (Auto) 1.7 K/mm3 (1.2-5.4); Monocytes # (Auto) 0.5 K/mm3 (0.0-0.8)
[2022-04-14] MEDS ORDERED: SODIUM POLYSTYRENE 15 GM/60 ML ORAL LIQD PO ONE (00:17)
--- NOTE | 2022-04-14 00:50 | Emergency Department Report ---
ED General Adult HPI - General Chief complaint: Recheck/Abnormal Lab/Rx Stated complaint: LAB WORK Time Seen by Provider: 04/13/22 22:56 Source: patient Mode of arrival: Ambulatory Limitations: No Limitations - History of Present Illness Initial comments: 56 years old AAF with HTN diabetes and right AKA , sent here from her doctors office, she had lab done and was told her potassium and kidney function are not good and she need to come to ED, no SOB no chest pain no palpitation Associated Symptoms: denies: denies other symptoms, confusion, chest pain, diaphoresis, headaches, loss of appetite, malaise, nausea/vomiting - Related Data Previous Rx's Medication Instructions Recorded Last Taken Type Aspirin EC [Halfprin EC] 81 mg PO QDAY #30 tablet 08/05/21 Unknown Rx AtorvaSTATin [Lipitor] 40 mg PO QHS #30 tablet 08/05/21 Unknown Rx Clopidogrel [Plavix] 75 mg PO QDAY #30 tablet 08/05/21 Unknown Rx Famotidine [Pepcid] 10 mg PO BID #60 tablet 08/05/21 Unknown Rx Gabapentin 300 mg PO Q8HR #90 capsule 08/05/21 Unknown Rx Insulin NPH/Regular [NovoLIN 70/30] 10 unit SUB-Q BIDDIAB units 08/05/21 Unknown Rx Lispro Insulin [HumaLOG] 0 unit SUB-Q ACHS units 08/05/21 Unknown Rx amLODIPine 10 mg PO QDAY #30 tablet 08/05/21 Unknown Rx hydroCHLOROthiazide [HCTZ] 25 mg PO QDAY #30 tablet 08/05/21 Unknown Rx lisinopriL [Zestril TAB] 40 mg PO QDAY #30 tablet 08/05/21 Unknown Rx oxyCODONE /ACETAMINOPHEN [Percocet 1 tab PO BID PRN #20 tablet 08/05/21 Unknown Rx 5/325 mg] Allergies Allergy/AdvReac Type Severity Reaction Status Date / Time Latex, Natural Rubber Allergy Mild Itching Verified 07/22/21 01:56 ED Review of Systems ROS: Stated complaint: LAB WORK Other details as noted in HPI Constitutional: denies: chills, fever Eyes: denies: eye pain, eye discharge, vision change ENT: denies: ear pain, throat pain Respiratory: denies: cough, shortness of breath, wheezing Cardiovascular: denies: chest pain, palpitations Endocrine: no symptoms reported Gastrointestinal: denies: abdominal pain, nausea, diarrhea Genitourinary: denies: urgency, dysuria, discharge Musculoskeletal: denies: back pain, joint swelling, arthralgia Skin: denies: rash, lesions Neurological: denies: headache, weakness, paresthesias Psychiatric: denies: anxiety, depression Hematological/Lymphatic: denies: easy bleeding, easy bruising ED Past Medical Hx - Past Medical History Hx Hypertension: Yes Hx Heart Attack/AMI: No Hx Congestive Heart Failure: Yes Hx Diabetes: Yes Hx Deep Vein Thrombosis: No Hx Liver Disease: No Hx Renal Disease: Yes (CKD) Hx Sickle Cell Disease: No Hx Asthma: No Hx COPD: No Hx HIV: No - Surgical History Hx Pacemaker: No Hx Internal Defibrillator: No Hx Cholecystectomy: Yes Hx Appendectomy: Yes Additional Surgical History: Partial hysterectomy, Tubaligation, foot. right BKA. 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 - Social History Smoking Status: Never Smoker - Medications Home Medications: Home Medications Medication Instructions Recorded Confirmed Last Taken Type Aspirin EC [Halfprin EC] 81 mg PO QDAY #30 tablet 08/05/21 Unknown Rx AtorvaSTATin [Lipitor] 40 mg PO QHS #30 tablet 08/05/21 Unknown Rx Clopidogrel [Plavix] 75 mg PO QDAY #30 tablet 08/05/21 Unknown Rx Famotidine [Pepcid] 10 mg PO BID #60 tablet 08/05/21 Unknown Rx Gabapentin 300 mg PO Q8HR #90 capsule 08/05/21 Unknown Rx Insulin NPH/Regular [NovoLIN 70/30] 10 unit SUB-Q BIDDIAB units 08/05/21 Unknown Rx Lispro Insulin [HumaLOG] 0 unit SUB-Q ACHS units 08/05/21 Unknown Rx amLODIPine 10 mg PO QDAY #30 tablet 08/05/21 Unknown Rx hydroCHLOROthiazide [HCTZ] 25 mg PO QDAY #30 tablet 08/05/21 Unknown Rx lisinopriL [Zestril TAB] 40 mg PO QDAY #30 tablet 08/05/21 Unknown Rx oxyCODONE /ACETAMINOPHEN [Percocet 1 tab PO BID PRN #20 tablet 08/05/21 Unknown Rx 5/325 mg] ED Physical Exam - General Limitations: No Limitations General appearance: alert, in no apparent distress - Head Head exam: Present: atraumatic, normocephalic - Eye Eye exam: Present: normal appearance - ENT ENT exam: Present: mucous membranes moist - Neck Neck exam: Present: normal inspection - Respiratory Respiratory exam: Present: normal lung sounds bilaterally. Absent: respiratory distress - Cardiovascular Cardiovascular Exam: Present: regular rate, normal rhythm. Absent: systolic murmur, diastolic murmur, rubs, gallop - GI/Abdominal GI/Abdominal exam: Present: soft, normal bowel sounds - Extremities Exam Extremities exam: Present: other (rt AKA with prthesis ) - Back Exam Back exam: Present: normal inspection - Neurological Exam Neurological exam: Present: alert, oriented X3 - Psychiatric Psychiatric exam: Present: normal affect, normal mood - Skin Skin exam: Present: warm, dry, intact, normal color. Absent: rash ED Course Vital Signs 04/13/22 18:52 Temperature 98.4 F Pulse Rate 65 Respiratory 18 Rate Blood Pressure 130/45 O2 Sat by Pulse 99 Oximetry ED Medical Decision Making - Lab Data Result diagrams: 04/13/22 23:06 04/13/22 23:06 - EKG Data -: EKG Interpreted by De EKG shows normal: sinus rhythm Rate: normal - EKG Data Interpretation: no acute changes - Radiology Data Radiology results: report reviewed, image reviewed - Medical Decision Making work up shwoed : hyperkalemia : normal ekg no symtpoms , vss, fluids given and glucose and insulin and kaxalate and calcium chloride, spoke with dr Bradley will see her in am , vss no distress - KAMAR: fluids given will consult dr bradley Critical care attestation.: If time is entered above; I have spent that time in minutes in the direct care of this critically ill patient, excluding procedure time. ED Disposition Clinical Impression: KAMAR (acute kidney injury), Hyperkalemia Disposition: ADMITTED INPATIENT Is pt being admited?: Yes Does the pt Need Aspirin: No Condition: Fair
[2022-04-14 00:57] LABS: Bilirubin,Urine NEG (Negative); Blood,Urine NEG (Negative); Color,Urine Yellow (Yellow); RBC,Urine < 1.0 /HPF (0.0-6.0); Urobilinogen,Urine < 2.0 mg/dL (<2.0)
[2022-04-14 00:58] LABS: WBC,Urine < 1.0 /HPF (0.0-6.0)
[2022-04-14 01:46] LABS: Chol/HDL Ratio 1.79 %
[2022-04-14] MEDS ORDERED: ALBUTEROL 2.5 MG/3 ML NEBU IH ONE (05:45)
[2022-04-14] MEDS ORDERED: INSULIN REGULAR, HUMAN 100 UNITS/1 ML ONE (07:01)
[2022-04-14] MEDS ORDERED: DEXTROSE 50% IN WATER (25GM) 50 ML SYRINGE IV ONE (07:01)
[2022-04-14] MEDS ORDERED: SODIUM POLYSTYRENE 15 GM/60 ML ORAL LIQD PO SCH (08:00)
--- NOTE | 2022-04-14 10:14 | Electrocardiograph Report ---
[facility] Test Date: 2022-04-14 Test Time: 00:00:14 Pat Name: YOLIS SMITH Department: Room: Gender: F Courtroom Clerk: Clem DONOVAN : 1965 Requested By: RENA CHASE Order Number: [id number] Reading MD: Ousmane Hernandez Measurements Intervals [place] Rate: 57 P: 61 MS: 200 QRS: 31 QRSD: 79 T: 77 QT: 463 QTc: 451 Interpretive Statements Sinus rhythm No previous ECG available for comparison Electronically Signed On 04-14-2022 10:14:00 EDT by Ousmane Hernandez
--- NOTE | 2022-04-14 12:16 | Consultation ---
History of Present Illness - Reason for Consult Consult date: 04/14/22 acute renal failure, hyperkalemia - History of Present Illness 56 years old AAF with HTN diabetes and right AKA , sent here from her doctors office, she had lab done and was told her potassium and kidney function are not good and she need to come to ED, no SOB no chest pain no palpitation Associated Symptoms: denies: denies other symptoms, confusion, chest pain, diaphoresis, headaches, loss of appetite, malaise, nausea/vomiting ROS: Stated complaint: LAB WORK Other details as noted in HPI Constitutional: denies: chills, fever Eyes: denies: eye pain, eye discharge, vision change ENT: denies: ear pain, throat pain Respiratory: denies: cough, shortness of breath, wheezing Cardiovascular: denies: chest pain, palpitations Endocrine: no symptoms reported Gastrointestinal: denies: abdominal pain, nausea, diarrhea Genitourinary: denies: urgency, dysuria, discharge Musculoskeletal: denies: back pain, joint swelling, arthralgia Skin: denies: rash, lesions Neurological: denies: headache, weakness, paresthesias Psychiatric: denies: anxiety, depression Hematological/Lymphatic: denies: easy bleeding, easy bruising - Past Medical History Hx Hypertension: Yes Hx Heart Attack/AMI: No Hx Congestive Heart Failure: Yes Hx Diabetes: Yes Hx Deep Vein Thrombosis: No Hx Liver Disease: No Hx Renal Disease: Yes (CKD) Hx Sickle Cell Disease: No Hx Asthma: No Hx COPD: No Hx HIV: No - Surgical History Hx Pacemaker: No Hx Internal Defibrillator: No Hx Cholecystectomy: Yes Hx Appendectomy: Yes Additional Surgical History: Partial hysterectomy, Tubaligation, foot. right BKA. 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 - Social History Smoking Status: Never Smoker Medications and Allergies Allergies Allergy/AdvReac Type Severity Reaction Status Date / Time Latex, Natural Rubber Allergy Mild Itching Verified 07/22/21 01:56 Home Medications Medication Instructions Recorded Confirmed Last Taken Type Aspirin EC [Halfprin EC] 81 mg PO QDAY #30 tablet 08/05/21 Unknown Rx AtorvaSTATin [Lipitor] 40 mg PO QHS #30 tablet 08/05/21 Unknown Rx Clopidogrel [Plavix] 75 mg PO QDAY #30 tablet 08/05/21 Unknown Rx Famotidine [Pepcid] 10 mg PO BID #60 tablet 08/05/21 Unknown Rx Gabapentin 300 mg PO Q8HR #90 capsule 08/05/21 Unknown Rx Insulin NPH/Regular [NovoLIN 70/30] 10 unit SUB-Q BIDDIAB units 08/05/21 Unknown Rx Lispro Insulin [HumaLOG] 0 unit SUB-Q ACHS units 08/05/21 Unknown Rx amLODIPine 10 mg PO QDAY #30 tablet 08/05/21 Unknown Rx hydroCHLOROthiazide [HCTZ] 25 mg PO QDAY #30 tablet 08/05/21 Unknown Rx lisinopriL [Zestril TAB] 40 mg PO QDAY #30 tablet 08/05/21 Unknown Rx oxyCODONE /ACETAMINOPHEN [Percocet 1 tab PO BID PRN #20 tablet 08/05/21 Unknown Rx 5/325 mg] Active Meds: Active Medications Sodium Polystyrene Sulfonate (Sodium Polystyrene 15 Gm/60 Ml Oral Liqd) 60 gm PO ONCE@0800 DEE DEE Stop: 04/14/22 13:00 Last Admin: 04/14/22 08:03 Dose: Not Given Exam - Vital Signs Vital signs: Vital Signs Temp Pulse Resp BP Pulse Ox 98.4 F 65 18 130/45 99 04/13/22 18:52 04/13/22 18:52 04/13/22 18:52 04/13/22 18:52 04/13/22 18:52 - Physical Exam Narrative exam: - General Limitations: No Limitations General appearance: alert, in no apparent distress - Head Head exam: Present: atraumatic, normocephalic - Eye Eye exam: Present: normal appearance - ENT ENT exam: Present: mucous membranes moist - Neck Neck exam: Present: normal inspection - Respiratory Respiratory exam: Present: normal lung sounds bilaterally. Absent: respiratory distress - Cardiovascular Cardiovascular Exam: Present: regular rate, normal rhythm. Absent: systolic murmur, diastolic murmur, rubs, gallop - GI/Abdominal GI/Abdominal exam: Present: soft, normal bowel sounds - Extremities Exam Extremities exam: Present: other (rt AKA with prthesis ) - Back Exam Back exam: Present: normal inspection - Neurological Exam Neurological exam: Present: alert, oriented X3 - Psychiatric Psychiatric exam: Present: normal affect, normal mood - Skin Skin exam: Present: warm, dry, intact, normal color. 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
--- NOTE | 2022-04-14 12:17 | Consultation ---
History of Present Illness Consult date: 04/14/22 Consult reason: known to you History of present illness: Patient is a 56-year-old female with a past medical history of coronary artery disease s/p CABG, diabetes, hypertension, right BKA, who presents to the ED yesterday after being sent by our office following outpatient lab results which showed potassium 5.8, BUN of 46, and creatinine of 2.18. Patient was then instructed to go to the hospital for further evaluation and have labs redrawn. In the hospital patient's labs showed potassium of 7.2, and creatinine of 2.7. Patient denies any symptoms or complaints. Patient follows with in our office. Cardiology consulted as patient is known to our practice. Past History Past Medical History: CAD, diabetes, hypertension, hyperlipidemia Past Surgical History: appendectomy, cholecystectomy, CABG, hysterectomy Social history: no significant social history Family history: CAD, diabetes Medications and Allergies Allergies Allergy/AdvReac Type Severity Reaction Status Date / Time Latex, Natural Rubber Allergy Mild Itching Verified 07/22/21 01:56 Home Medications Medication Instructions Recorded Confirmed Last Taken Type Aspirin EC [Halfprin EC] 81 mg PO QDAY #30 tablet 08/05/21 Unknown Rx AtorvaSTATin [Lipitor] 40 mg PO QHS #30 tablet 08/05/21 Unknown Rx Clopidogrel [Plavix] 75 mg PO QDAY #30 tablet 08/05/21 Unknown Rx Famotidine [Pepcid] 10 mg PO BID #60 tablet 08/05/21 Unknown Rx Gabapentin 300 mg PO Q8HR #90 capsule 08/05/21 Unknown Rx Insulin NPH/Regular [NovoLIN 70/30] 10 unit SUB-Q BIDDIAB units 08/05/21 Unknown Rx Lispro Insulin [HumaLOG] 0 unit SUB-Q ACHS units 08/05/21 Unknown Rx amLODIPine 10 mg PO QDAY #30 tablet 08/05/21 Unknown Rx hydroCHLOROthiazide [HCTZ] 25 mg PO QDAY #30 tablet 08/05/21 Unknown Rx lisinopriL [Zestril TAB] 40 mg PO QDAY #30 tablet 08/05/21 Unknown Rx oxyCODONE /ACETAMINOPHEN [Percocet 1 tab PO BID PRN #20 tablet 08/05/21 Unknown Rx 5/325 mg] Active Meds: Active Medications Amlodipine Besylate (Amlodipine 5 Mg Tab) 10 mg PO DAILY DEE DEE Carvedilol (Carvedilol 6.25 Mg Tab) 25 mg PO BID [facility] Clopidogrel Bisulfate (Clopidogrel 75 Mg Tab) 75 mg PO DAILY [facility] Sodium Polystyrene Sulfonate (Sodium Polystyrene 15 Gm/60 Ml Oral Liqd) 60 gm PO ONCE@0800 [facility] Stop: 04/14/22 13:00 Last Admin: 04/14/22 08:03 Dose: Not Given Review of Systems Constitutional: no weight loss, no weight gain Ears, nose, mouth and throat: no ear discharge, no tinnitis Cardiovascular: no chest pain, no orthopnea, no palpitations, no rapid/irregular heart beat, no shortness of breath, no dyspnea on exertion Gastrointestinal: no abdominal pain, no nausea, no vomiting Musculoskeletal: no neck stiffness, no neck pain, no shooting arm pain Integumentary: no rash, no pruritis, no redness Neurological: no head injury, no transient paralysis Psychiatric: no anxiety, no memory loss Endocrine: no cold intolerance, no heat intolerance Hematologic/Lymphatic: no easy bruising, no easy bleeding Physical Examination Vital Signs Temp Pulse Resp BP Pulse Ox 98.4 F 65 18 130/45 99 04/13/22 18:52 04/13/22 18:52 04/13/22 18:52 04/13/22 18:52 04/13/22 18:52 General appearance: no acute distress HEENT: Positive: PERRL, Normocephaly Neck: Positive: trachea midline Cardiac: Positive: Reg Rate and Rhythm Lungs: Positive: clear to auscultation, Normal Breath Sounds Neuro: Positive: Grossly Intact Abdomen: Positive: Soft, Active Bowel Sounds Skin: Negative: Rash, Suspicious Lesions, Ulceration Extremities: Present: upper extr. pulses, Other ( RBKA) Results 04/13/22 23:06 04/13/22 23:06 Cardiac Enzymes 04/13/22 Range/Units 23:06 AST 50 H (5-40) units/L Coagulation 04/13/22 Range/Units 23:06 PT 14.0 (12.2-14.9) Sec. INR 0.97 (0.87-1.13) Lipids 04/13/22 Range/Units 23:06 Triglycerides 38 (2-149) mg/dL Cholesterol 154 (50-199) mg/dL HDL Cholesterol 86 H (40-59) mg/dL Cholesterol/HDL Ratio 1.79 % CBC 04/13/22 04/13/22 Range/Units 19:01 23:06 WBC 7.8 7.7 (4.5-11.0) K/mm3 RBC 3.43 L 3.90 (3.65-5.03) M/mm3 Hgb 6.8 L 7.8 L (10.1-14.3) gm/dl Hct 22.0 L 25.4 L (30.3-42.9) % Plt Count 233 248 (140-440) K/mm3 Lymph # (Auto) 1.5 1.7 (1.2-5.4) K/mm3 [place]ites[place] # (Auto) 0.6 0.5 (0.0-0.8) K/mm3 Eos # (Auto) 0.4 0.5 H (0.0-0.4) K/mm3 Baso # (Auto) 0.0 0.1 (0.0-0.1) K/mm3 Comprehensive Metabolic Panel 04/13/22 04/13/22 Range/Units 19:01 23:06 Sodium 139 140 (137-145) mmol/L Potassium 7.2 H* 6.6 H* (3.6-5.0) mmol/L Chloride 107.7 H 107.4 H (98-107) mmol/L Carbon Dioxide 20 L 18 L (22-30) mmol/L BUN 58 H 59 H (7-17) mg/dL Creatinine 2.7 H 2.5 H (0.6-1.2) mg/dL Glucose 214 H 188 H (65-100) mg/dL Calcium 8.7 8.8 (8.4-10.2) mg/dL AST 50 H (5-40) units/L ALT 74 H (7-56) units/L Alkaline Phosphatase 353 H (35-129) units/L Total Protein 7.5 (6.3-8.2) g/dL Albumin 4.0 (3.9-5) g/dL EKG interpretations - Telemetry EKG Rhythm: Sinus Rhythm - EKG Sinus rhythms and dysrhythmias: sinus rhythm Assessment and Plan Patient is a 56-year-old female with a past medical history of coronary artery disease s/p CABG, diabetes, hypertension, right BKA, who presents to the ED the day prior to admission after being sent by our office following outpatient lab results which showed potassium 5.8, BUN of 46, and creatinine of 2.18. [facility]-nephrology following Anemia Hyperkalemia Coronary artery disease s/p CABG Diabetes Hypertension Right BKA Minimally elevated troponin Outpatient medication: Hydrochlorothiazide 25 mg p.o. daily, carvedilol 25 mg p.o. twice daily, Lasix 40 mg p.o. daily, lisinopril 40 mg p.o. daily, amlodipine 10 mg p.o. daily, atorvastatin 40 mg p.o. nightly, Plavix, and aspirin Plan: EKG shows sinus rhythm 57 with no acute ischemic changes. Patient denies any complaint of chest pain Troponins noted to be minimally suspect in setting due to hyperkalemia and acute renal insufficiency Recommend resuming outpatient carvedilol 25 mg p.o. daily, Lipitor 40 mg p.o. nightly and Plavix Hold hydrochlorothiazide, Lasix, lisinopril due to renal function Will hold DAPT therapy due to anemia. Hold aspirin Cardiac status otherwise stable. Will see as needed Patient seen in conjunction with Dr. Hernandez who agrees with this plan of care
[2022-04-14] MEDS ORDERED: SODIUM BICARBONATE 100 MEQ in WATER FOR INJECTION (PF) 1,000 ML IV SCH (13:00)
[2022-04-14] MEDS ORDERED: amLODIPine 10 MG TAB PO SCH (13:00)
[2022-04-14] MEDS ORDERED: CLOPIDOGREL 75 MG TAB PO SCH (13:00)
[2022-04-14 13:38] LABS: Calcium 10.1 mg/dL (8.4-10.2)
[2022-04-14] MEDS ORDERED: METOCLOPRAMIDE 10 MG/2 ML INJ IV PRN ×2 (20:41→20:53)
[2022-04-14] MEDS ORDERED: ACETAMINOPHEN 325 MG TAB PO PRN (20:41)
[2022-04-14] MEDS ORDERED: HYDROmorphone 0.5 MG/0.5 ML INJ IV PRN (20:41)
[2022-04-14] MEDS ORDERED: MORPHINE 2 MG/1 ML INJ IV PRN (20:41)
[2022-04-14] MEDS ORDERED: ONDANSETRON 4 MG/2 ML INJ IV PRN (20:41)
[2022-04-14] MEDS ORDERED: LISINOPRIL 40 MG TAB PO SCH (21:00)
[2022-04-14] MEDS: ASPIRIN EC 81 MG TAB PO SCH (21:24)
[2022-04-14] MEDS: hydroCHLOROthiazide 25 MG TAB PO SCH (21:24)
[2022-04-14] MEDS: oxyCODONE /ACETAMINOPHEN 5-325MG TAB PO PRN (21:26)
[2022-04-14] MEDS: INSULIN LISPRO 100 UNIT/ML SUB-Q SCH (21:55)
[2022-04-14 21:56] LABS: Calcium 9.6 mg/dL (8.4-10.2)
[2022-04-14] MEDS ORDERED: carvediloL 6.25 MG TAB PO SCH (22:00)
[2022-04-14] MEDS: HEPARIN 5,000 UNIT/1 ML VIAL SUB-Q SCH (22:47)
[2022-04-14] MEDS: GABAPENTIN 300 MG CAP PO SCH (22:47)
[2022-04-14] MEDS: FAMOTIDINE 10 MG TAB PO SCH (22:47)
[2022-04-15] MEDS: GABAPENTIN 300 MG CAP PO SCH ×3 (05:20→21:34)
[2022-04-15] MEDS: SODIUM CHLORIDE 0.9% 1000 ML 1,000 ML IV SCH (05:45)
[2022-04-15 06:42] LABS: Basophils % (Auto) 0.3 % (0.0-1.8); Eosinophils # (Auto) 0.2 K/mm3 (0.0-0.4); Eosinophils % (Auto) 2.4 % (0.0-4.3); Monocytes # (Auto) 0.6 K/mm3 (0.0-0.8); Monocytes % (Auto) 5.9 % (0.0-7.3)
[2022-04-15 06:51] LABS: Calcium 8.6 mg/dL (8.4-10.2)
[2022-04-15 07:00] LABS: Hemoglobin 6.2 gm/dl (10.1-14.3); Lymphocytes # (Auto) 1.3 K/mm3 (1.2-5.4); Lymphocytes % (Auto) 13.4 % (13.4-35.0); Mean Corpuscular HGB Conc 31 % (30-34); Platelet Count 241 K/mm3 (140-440); Red Blood Count 3.09 M/mm3 (3.65-5.03); Red Cell Distribution Width 18.5 % (13.2-15.2)
--- NOTE | 2022-04-15 07:02 | History and Physical Report ---
History of Present Illness Date of examination: 04/14/22 Date of admission: 04/14/22 20:42 Chief complaint: Sent from PCPs office for high potassium level History of present illness: 56 years old AAF with HTN diabetes and right AKA , sent here from her doctors office, she had lab done and was told her potassium and kidney function are not good and she need to come to ED, no SOB no chest pain no palpitation Associated Symptoms: denies: denies other symptoms, confusion, chest pain, diaphoresis, headaches, loss of appetite, malaise, nausea/vomiting - Past Medical History --Hypertension: Yes --Congestive Heart Failure: Yes --Diabetes: Yes --Renal Disease: Yes (CKD) - Surgical History --Cholecystectomy: Yes --Appendectomy: Yes ==Additional Surgical History: Partial hysterectomy, Tubaligation, foot. right BKA. 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 - Social History Smoking Status: Never Smoker - Medications Home Medications: Home Medications Medication Instructions Recorded Confirmed Last Taken Type Aspirin EC [Halfprin EC] 81 mg PO QDAY #30 tablet 08/05/21 Unknown Rx AtorvaSTATin [Lipitor] 40 mg PO QHS #30 tablet 08/05/21 Unknown Rx Clopidogrel [Plavix] 75 mg PO QDAY #30 tablet 08/05/21 Unknown Rx Famotidine [Pepcid] 10 mg PO BID #60 tablet 08/05/21 Unknown Rx Gabapentin 300 mg PO Q8HR #90 capsule 08/05/21 Unknown Rx Insulin NPH/Regular [NovoLIN 70/30] 10 unit SUB-Q BIDDIAB units 08/05/21 Unknown Rx Lispro Insulin [HumaLOG] 0 unit SUB-Q ACHS units 08/05/21 Unknown Rx amLODIPine 10 mg PO QDAY #30 tablet 08/05/21 Unknown Rx hydroCHLOROthiazide [HCTZ] 25 mg PO QDAY #30 tablet 08/05/21 Unknown Rx lisinopriL [Zestril TAB] 40 mg PO QDAY #30 tablet 08/05/21 Unknown Rx oxyCODONE /ACETAMINOPHEN [Percocet 1 tab PO BID PRN #20 tablet 08/05/21 Unknown Rx 5/325 mg] Review of Systems ROS: Stated complaint: LAB WORK Other details as noted in HPI Constitutional: denies: chills, fever Eyes: denies: eye pain, eye discharge, vision change ENT: denies: ear pain, throat pain Respiratory: denies: cough, shortness of breath, wheezing Cardiovascular: denies: chest pain, palpitations Endocrine: no symptoms reported Gastrointestinal: denies: abdominal pain, nausea, diarrhea Genitourinary: denies: urgency, dysuria, discharge Musculoskeletal: denies: back pain, joint swelling, arthralgia Skin: denies: rash, lesions Neurological: denies: headache, weakness, paresthesias Psychiatric: denies: anxiety, depression Hematological/Lymphatic: denies: easy bleeding, easy bruising Past History Past Medical History: CAD, diabetes, hypertension, hyperlipidemia Past Surgical History: appendectomy, cholecystectomy, CABG, hysterectomy Social history: no significant social history Family history: CAD, diabetes Medications and Allergies Allergies Allergy/AdvReac Type Severity Reaction Status Date / Time Latex, Natural Rubber Allergy Mild Itching Verified 07/22/21 01:56 Home Medications Medication Instructions Recorded Confirmed Last Taken Type Aspirin EC [Halfprin EC] 81 mg PO QDAY #30 tablet 08/05/21 Unknown Rx AtorvaSTATin [Lipitor] 40 mg PO QHS #30 tablet 08/05/21 Unknown Rx Clopidogrel [Plavix] 75 mg PO QDAY #30 tablet 08/05/21 Unknown Rx Famotidine [Pepcid] 10 mg PO BID #60 tablet 08/05/21 Unknown Rx Gabapentin 300 mg PO Q8HR #90 capsule 08/05/21 Unknown Rx Insulin NPH/Regular [NovoLIN 70/30] 10 unit SUB-Q BIDDIAB units 08/05/21 Unknown Rx Lispro Insulin [HumaLOG] 0 unit SUB-Q ACHS units 08/05/21 Unknown Rx amLODIPine 10 mg PO QDAY #30 tablet 08/05/21 Unknown Rx hydroCHLOROthiazide [HCTZ] 25 mg PO QDAY #30 tablet 08/05/21 Unknown Rx lisinopriL [Zestril TAB] 40 mg PO QDAY #30 tablet 08/05/21 Unknown Rx oxyCODONE /ACETAMINOPHEN [Percocet 1 tab PO BID PRN #20 tablet 08/05/21 Unknown Rx 5/325 mg] Active Meds: Active Medications Acetaminophen (Acetaminophen 325 Mg Tab) 650 mg PO Q4H PRN PRN Reason: Pain MILD(1-3)/Fever >100.5/RIVERA Amlodipine Besylate (Amlodipine 10 Mg Tab) 10 mg PO QDAY DEE DEE Aspirin (Aspirin Ec 81 Mg Tab) 81 mg PO QDAY [facility] Last Admin: 04/14/22 21:24 Dose: 81 mg Atorvastatin Calcium (Atorvastatin 40 Mg Tab) 40 mg PO QHS [facility] Last Admin: 04/14/22 21:56 Dose: 40 mg Clopidogrel Bisulfate (Clopidogrel 75 Mg Tab) 75 mg PO QDAY [facility] Famotidine (Famotidine 10 Mg Tab) 10 mg PO BID [facility] Last Admin: 04/14/22 22:47 Dose: 10 mg Gabapentin (Gabapentin 300 Mg Cap) 300 mg PO Q8HR [facility] Last Admin: 04/15/22 05:20 Dose: 300 mg Heparin Sodium (Porcine) (Heparin 5,000 Unit/1 Ml Vial) 5,000 unit SUB-Q Q12HR [facility] Last Admin: 04/14/22 22:47 Dose: 5,000 unit Hydrochlorothiazide (Hydrochlorothiazide 25 Mg Tab) 25 mg PO QDAY [facility] Last Admin: 04/14/22 21:24 Dose: 25 mg Hydromorphone HCl (Hydromorphone 0.5 Mg/0.5 Ml Inj) 0.5 mg IV Q3H PRN PRN Reason: Pain , Severe (7-10) Sodium Bicarbonate 100 meq/ (Sterile Water) 1,100 mls @ 100 mls/hr IV DIRECT [facility] Last Admin: 04/14/22 22:47 Dose: 100 mls/hr Sodium Chloride (Nacl 0.9% 1000 Ml) 1,000 mls @ 100 mls/hr IV DIRECT [facility] Last Admin: 04/15/22 05:45 Dose: 100 mls/hr Insulin Human Isoph/Insulin Regular (Insulin Nph/Regular 70/30 Inj) 10 unit SUB-Q BIDDIAB [facility] Insulin Human Lispro (Insulin Lispro 100 Unit/Ml) 0 unit SUB-Q ACHS [facility]; Protocol Last Admin: 04/14/22 21:55 Dose: 8 unit Lisinopril (Lisinopril 40 Mg Tab) 40 mg PO QDAY [facility] Last Admin: 04/14/22 22:47 Dose: 40 mg Metoclopramide HCl (Metoclopramide 10 Mg/2 Ml Inj) 5 mg IV Q6H PRN PRN Reason: Nausea And Vomiting Morphine Sulfate (Morphine 2 Mg/1 Ml Inj) 2 mg IV Q4H PRN PRN Reason: Pain, Moderate (4-6) Last Admin: 04/15/22 02:37 Dose: 2 mg Ondansetron HCl (Ondansetron 4 Mg/2 Ml Inj) 4 mg IV Q3H PRN PRN Reason: Nausea And Vomiting Oxycodone/Acetaminophen (Oxycodone /Acetaminophen 5-325mg Tab) 1 tab PO Q6H PRN PRN Reason: Pain, Moderate (4-6) Last Admin: 04/14/22 21:26 Dose: 1 tab Sodium Chloride (Sodium Chloride 0.9% 10 Ml Flush Syringe) 10 ml IV BID DEE DEE Last Admin: 04/14/22 22:47 Dose: 10 ml Sodium Chloride (Sodium Chloride 0.9% 10 Ml Flush Syringe) 10 ml IV PRN PRN PRN Reason: LINE FLUSH Last Admin: 04/15/22 02:38 Dose: 10 ml Exam - Constitutional Vitals: Temp Pulse Resp BP Pulse Ox 99.0 F 85 18 162/68 94 04/14/22 22:43 04/14/22 22:43 04/14/22 22:43 04/14/22 22:43 04/14/22 22:43 General appearance: Present: no acute distress, well-nourished - EENT Eyes: Present: PERRL ENT: hearing intact, clear oral mucosa - Neck Neck: Present: supple, normal ROM - Respiratory Respiratory effort: normal Respiratory: bilateral: CTA - Cardiovascular Heart rate: 78 Rhythm: regular Heart Sounds: Present: S1 & S2. Absent: rub, click - Extremities Extremities: pulses symmetrical, No edema, abnormal (Right AKA ) Extremity abnormal: other (Right AKA) Peripheral Pulses: within normal limits - Abdominal General gastrointestinal: Present: soft, non-tender, non-distended, normal bowel sounds Female genitourinary: Present: normal - Integumentary Integumentary: Present: clear, warm, dry - Musculoskeletal Musculoskeletal: gait normal, strength equal bilaterally - Psychiatric Psychiatric: appropriate mood/affect, intact judgment & insight - Neurologic Neurologic: CNII-XII intact, moves all extremities HEART Score - HEART Score Troponin: Troponin T 0.085 ng/mL (0.00-0.029) H 04/13/22 23:06 Results - Labs CBC & Chem 7: 04/13/22 23:06 04/15/22 05:49 Labs: Laboratory Last Values WBC 7.7 K/mm3 (4.5-11.0) 04/13/22 23:06 RBC 3.90 M/mm3 (3.65-5.03) 04/13/22 23:06 Hgb 7.8 gm/dl (10.1-14.3) L 04/13/22 23:06 Hct 25.4 % (30.3-42.9) L 04/13/22 23:06 MCV 65 fl (79-97) L 04/13/22 23:06 MCH 20 pg (28-32) L 04/13/22 23:06 MCHC 31 % (30-34) 04/13/22 23:06 RDW 19.0 % (13.2-15.2) H 04/13/22 23:06 Plt Count 248 K/mm3 (140-440) 04/13/22 23:06 Lymph % (Auto) 21.7 % (13.4-35.0) 04/13/22 23:06 [place] % (Auto) 5.9 % (0.0-7.3) 04/15/22 05:49 Eos % (Auto) 2.4 % (0.0-4.3) 04/15/22 05:49 Baso % (Auto) 0.7 % (0.0-1.8) 04/13/22 23:06 Lymph # (Auto) 1.7 K/mm3 (1.2-5.4) 04/13/22 23:06 [place] # (Auto) 0.6 K/mm3 (0.0-0.8) 04/15/22 05:49 Eos # (Auto) 0.2 K/mm3 (0.0-0.4) 04/15/22 05:49 Baso # (Auto) 0.0 K/mm3 (0.0-0.1) 04/15/22 05:49 Seg Neutrophils % 78.6 % (40.0-70.0) H 04/15/22 05:49 Seg Neutrophils # 7.7 K/mm3 (1.8-7.7) 04/15/22 05:49 PT 14.0 Sec. (12.2-14.9) 04/13/22 23:06 INR 0.97 (0.87-1.13) 04/13/22 23:06 Sodium 142 mmol/L (137-145) 04/15/22 05:49 Potassium 4.2 mmol/L (3.6-5.0) 04/15/22 05:49 Chloride 108.0 mmol/L (98-107) H 04/15/22 05:49 Carbon Dioxide 21 mmol/L (22-30) L 04/15/22 05:49 Anion Gap 17 mmol/L 04/15/22 05:49 BUN 45 mg/dL (7-17) H 04/15/22 05:49 Creatinine 1.9 mg/dL (0.6-1.2) H 04/15/22 05:49 Estimated GFR 33 ml/min 04/15/22 05:49 BUN/Creatinine Ratio 24 % 04/15/22 05:49 Glucose 198 mg/dL (65-100) H 04/15/22 05:49 POC Glucose 345 mg/dL (70-105) H 04/14/22 21:09 Calcium 8.6 mg/dL (8.4-10.2) 04/15/22 05:49 Magnesium 2.40 mg/dL (1.7-2.3) H 04/13/22 23:06 Total Bilirubin 0.30 mg/dL (0.1-1.2) 04/13/22 23:06 AST 50 units/L (5-40) H 04/13/22 23:06 ALT 74 units/L (7-56) H 04/13/22 23:06 Alkaline Phosphatase 353 units/L (35-129) H 04/13/22 23:06 Total Creatine Kinase 320 units/L (30-135) H 04/13/22 23:06 Troponin T 0.085 ng/mL (0.00-0.029) H 04/13/22 23:06 Total Protein 7.5 g/dL (6.3-8.2) 04/13/22 23:06 Albumin 4.0 g/dL (3.9-5) 04/13/22 23:06 Albumin/Globulin Ratio 1.1 % 04/13/22 23:06 Triglycerides 38 mg/dL (2-149) 04/13/22 23:06 Cholesterol 154 mg/dL (50-199) 04/13/22 23:06 LDL Cholesterol Direct 57 mg/dL (50-130) 04/13/22 23:06 HDL Cholesterol 86 mg/dL (40-59) H 04/13/22 23:06 Cholesterol/HDL Ratio 1.79 % 04/13/22 23:06 Urine Color Yellow (Yellow) 04/14/22 00:35 Urine Turbidity Clear (Clear) 04/14/22 00:35 Urine pH 6.0 (5.0-7.0) 04/14/22 00:35 Ur Specific [place] 1.011 (1.003-1.030) 04/14/22 00:35 Urine Protein 100 mg/dl mg/dL (Negative) 04/14/22 00:35 Urine Glucose (UA) 50 mg/dL (Negative) 04/14/22 00:35 Urine Ketones Neg mg/dL (Negative) 04/14/22 00:35 Urine Blood Neg (Negative) 04/14/22 00:35 Urine Nitrite Neg (Negative) 04/14/22 00:35 Urine Bilirubin Neg (Negative) 04/14/22 00:35 Urine Urobilinogen < 2.0 mg/dL (<2.0) 04/14/22 00:35 Ur Leukocyte Esterase Neg (Negative) 04/14/22 00:35 Urine WBC (Auto) < 1.0 /HPF (0.0-6.0) 04/14/22 00:35 Urine RBC (Auto) < 1.0 /HPF (0.0-6.0) 04/14/22 00:35 BMP 04/14/22 04/14/22 04/15/22 12:30 21:22 05:49 Sodium 144 143 142 Potassium 5.6 H 4.9 4.2 Chloride 111.7 H 109.3 H 108.0 H Carbon Dioxide 20 L 20 L 21 L BUN 52 H 50 H 45 H Creatinine 2.2 H 2.1 H 1.9 H Glucose 285 H 392 H 198 H Calcium 10.1 9.6 8.6 - Imaging and Cardiology EKG: report reviewed (Sinus rhythm no acute ST-T wave changes) Chest x-ray: report reviewed Imaging and Cardiology: Chest x-ray Low lung volumes without evidence of acute cardiopulmonary disease [place]/IV: Voiding Method Toilet Assessment and Plan Advance Directives: Yes (Full code) VTE prophylaxis?: Chemical Plan of care discussed with patient/family: Yes - Patient Problems (1) Hyperkalemia Current Visit: Yes Status: Acute Plan to address problem: Treated in the emergency room Recheck potassium level (2) KAMAR (acute kidney injury) Current Visit: Yes Status: Acute Plan to address problem: ATN versus vasomotor nephropathy IV fluids for now Nephrology consult requested (3) IDDM (insulin dependent diabetes mellitus) Current Visit: Yes Status: Chronic Plan to address problem: Continue home insulin coverage (4) Coronary artery disease Current Visit: Yes Status: Chronic Qualifiers: Coronary Disease-Associated Artery/Lesion type: [place] artery [place] vs. transplanted heart: [place] heart Associated angina: without angina Qualified Code(s): I25.10 - Atherosclerotic heart disease of [place] coronary artery without angina pectoris Plan to address problem: Continue aspirin and Plavix (5) Hyperlipidemia Current Visit: Yes Status: Chronic Qualifiers: Hyperlipidemia type: mixed hyperlipidemia Qualified Code(s): E78.2 - Mixed hyperlipidemia Plan to address problem: Continue statins (6) Peripheral neuropathy Current Visit: Yes Status: Acute Qualifiers: Peripheral neuropathy type: polyneuropathy, unspecified Qualified Code(s): G62.9 - Polyneuropathy, unspecified Plan to address problem: Continue gabapentin (7) Hypertension Current Visit: Yes Status: Chronic Qualifiers: Hypertension type: primary hypertension Qualified Code(s): I10 - Essential (primary) hypertension Plan to address problem: Continue antihypertensives and adjust medications (8) DVT prophylaxis Current Visit: Yes Status: Acute Plan to address problem: Continue anticoagulation and GI prophylax. (9) Advance care planning Current Visit: Yes Status: Acute Plan to address problem: Disease education conducted, care plan discussed, diagnosis discussed, prognosis discussed. Patient is full code. Patient acknowledged understanding and agreement with care plan. +30 minutes.
[2022-04-15 07:12] LABS: Hematocrit 19.8 % (30.3-42.9); Mean Corpuscular Volume 64 fl (79-97)
[2022-04-15] MEDS: INSULIN LISPRO 100 UNIT/ML SUB-Q SCH ×4 (07:54→22:47)
--- NOTE | 2022-04-15 08:14 | Progress Note ---
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 * kayexalate prn k greater than 5.0 * avoid nephrotoxins * renal diet, 2 gram k restriction, strict i/os Subjective Date of service: 04/15/22 Principal diagnosis: hyperkalemia Interval history: chart and labs reviewed events noted resting in bed today Objective - Exam Narrative Exam: - General Limitations: No Limitations General appearance: alert, in no apparent distress - Head Head exam: Present: atraumatic, normocephalic - Eye Eye exam: Present: normal appearance - ENT ENT exam: Present: mucous membranes moist - Neck Neck exam: Present: normal inspection - Respiratory Respiratory exam: Present: normal lung sounds bilaterally. Absent: respiratory distress - Cardiovascular Cardiovascular Exam: Present: regular rate, normal rhythm. Absent: systolic murmur, diastolic murmur, rubs, gallop - GI/Abdominal GI/Abdominal exam: Present: soft, normal bowel sounds - Extremities Exam Extremities exam: Present: other (rt AKA with prthesis ) - Back Exam Back exam: Present: normal inspection - Neurological Exam Neurological exam: Present: alert, oriented X3 - Psychiatric Psychiatric exam: Present: normal affect, normal mood - Skin Skin exam: Present: warm, dry, intact, normal color. Absent: rash - Vital Signs Vital signs: Vital Signs - 12hr 04/14/22 04/14/22 22:40 22:43 Temperature 99.0 F Pulse Rate 85 Respiratory 18 Rate Blood Pressure 162/68 O2 Sat by Pulse 98 94 Oximetry - Lab 04/15/22 05:49 04/15/22 05:49 Most recent lab results Calcium 8.6 mg/dL (8.4-10.2) 04/15/22 05:49 Magnesium 2.40 mg/dL (1.7-2.3) H 04/13/22 23:06 Medications & Allergies - Medications Allergies/Adverse Reactions: Allergies Latex, Natural Rubber Allergy (Mild, Verified 08/27/21 01:56) Itching Home Medications: Home Medications Medication Instructions Recorded Confirmed Last Taken Type Aspirin EC [Halfprin EC] 81 mg PO QDAY #30 tablet 08/05/21 Unknown Rx AtorvaSTATin [Lipitor] 40 mg PO QHS #30 tablet 08/05/21 Unknown Rx Clopidogrel [Plavix] 75 mg PO QDAY #30 tablet 08/05/21 Unknown Rx Famotidine [Pepcid] 10 mg PO BID #60 tablet 08/05/21 Unknown Rx Gabapentin 300 mg PO Q8HR #90 capsule 08/05/21 Unknown Rx Insulin NPH/Regular [NovoLIN 70/30] 10 unit SUB-Q BIDDIAB units 08/05/21 Unknown Rx Lispro Insulin [HumaLOG] 0 unit SUB-Q ACHS units 08/05/21 Unknown Rx amLODIPine 10 mg PO QDAY #30 tablet 08/05/21 Unknown Rx hydroCHLOROthiazide [HCTZ] 25 mg PO QDAY #30 tablet 08/05/21 Unknown Rx lisinopriL [Zestril TAB] 40 mg PO QDAY #30 tablet 08/05/21 Unknown Rx oxyCODONE /ACETAMINOPHEN [Percocet 1 tab PO BID PRN #20 tablet 08/05/21 Unknown Rx 5/325 mg] Active Medications: Generic Name Dose Route Start Last Admin Trade Name Freq PRN Reason Stop Dose Admin Acetaminophen 650 mg 04/14/22 20:41 Acetaminophen 325 Mg Tab PO Q4H PRN Pain MILD(1-3)/Fever >100.5/RIVERA Amlodipine Besylate 10 mg 04/15/22 10:00 Amlodipine 10 Mg Tab PO QDAY DEE DEE Aspirin 81 mg 04/14/22 21:00 04/14/22 21:24 Aspirin Ec 81 Mg Tab PO 81 mg QDAY DEE DEE Administration Atorvastatin Calcium 40 mg 04/14/22 22:00 04/14/22 21:56 Atorvastatin 40 Mg Tab PO 40 mg QHS DEE DEE Administration Clopidogrel Bisulfate 75 mg 04/15/22 10:00 Clopidogrel 75 Mg Tab PO QDAY DEE DEE Famotidine 10 mg 04/14/22 22:00 04/14/22 22:47 Famotidine 10 Mg Tab PO 10 mg BID DEE DEE Administration Gabapentin 300 mg 04/14/22 22:00 04/15/22 05:20 Gabapentin 300 Mg Cap PO 300 mg Q8HR DEE DEE Administration Heparin Sodium (Porcine) 5,000 unit 04/14/22 22:00 04/14/22 22:47 Heparin 5,000 Unit/1 Ml Vial SUB-Q 5,000 unit Q12HR DEE DEE Administration Hydrochlorothiazide 25 mg 04/14/22 21:00 04/14/22 21:24 Hydrochlorothiazide 25 Mg Tab PO 25 mg QDAY DEE DEE Administration Hydromorphone HCl 0.5 mg 04/14/22 20:41 Hydromorphone 0.5 Mg/0.5 Ml Inj IV Q3H PRN Pain , Severe (7-10) Sodium Bicarbonate 100 meq/ 1,100 mls @ 100 mls/hr 04/14/22 13:00 04/14/22 22:47 Sterile Water IV 100 mls/hr DIRECT DEE DEE Administration Sodium Chloride 1,000 mls @ 100 mls/hr 04/14/22 20:45 04/15/22 05:45 Nacl 0.9% 1000 Ml IV 100 mls/hr DIRECT DEE DEE Administration Insulin Human Isoph/Insulin Regular 10 unit 04/15/22 08:00 Insulin Nph/Regular 70/30 Inj SUB-Q BIDDIAB DEE DEE Insulin Human Lispro 0 unit 04/14/22 22:00 04/15/22 07:54 Insulin Lispro 100 Unit/Ml SUB-Q 4 unit ACHS DEE DEE Administration Protocol Lisinopril 40 mg 04/14/22 21:00 04/14/22 22:47 Lisinopril 40 Mg Tab PO 40 mg QDAY DEE DEE Administration Metoclopramide HCl 5 mg 04/14/22 20:53 Metoclopramide 10 Mg/2 Ml Inj IV Q6H PRN Nausea And Vomiting Morphine Sulfate 2 mg 04/14/22 20:41 04/15/22 02:37 Morphine 2 Mg/1 Ml Inj IV 2 mg Q4H PRN Administration Pain, Moderate (4-6) Ondansetron HCl 4 mg 04/14/22 20:41 Ondansetron 4 Mg/2 Ml Inj IV Q3H PRN Nausea And Vomiting Oxycodone/Acetaminophen 1 tab 04/14/22 20:41 04/14/22 21:26 Oxycodone /Acetaminophen 5-325mg Tab PO 1 tab Q6H PRN Administration Pain, Moderate (4-6) Sodium Chloride 10 ml 04/14/22 22:00 04/14/22 22:47 Sodium Chloride 0.9% 10 Ml Flush Syringe IV 10 ml BID DEE DEE Administration Sodium Chloride 10 ml 04/14/22 20:41 04/15/22 02:38 Sodium Chloride 0.9% 10 Ml Flush Syringe IV 10 ml PRN PRN Administration LINE FLUSH
[2022-04-15] MEDS: INSULIN NPH/REGULAR 70/30 INJ SUB-Q SCH ×2 (08:55→16:25)
[2022-04-15] MEDS: amLODIPine 10 MG TAB PO SCH (08:59)
[2022-04-15] MEDS: ASPIRIN EC 81 MG TAB PO SCH (09:00)
[2022-04-15] MEDS: CLOPIDOGREL 75 MG TAB PO SCH (09:00)
[2022-04-15] MEDS: FAMOTIDINE 10 MG TAB PO SCH ×2 (09:00→21:33)
[2022-04-15] MEDS: hydroCHLOROthiazide 25 MG TAB PO SCH (09:00)
[2022-04-15] MEDS: HEPARIN 5,000 UNIT/1 ML VIAL SUB-Q SCH ×2 (09:01→21:34)
--- NOTE | 2022-04-15 18:28 | Progress Note ---
Assessment and Plan - Patient Problems (1) Hyperkalemia Current Visit: Yes Status: Acute Plan to address problem: Treated in the emergency room Improved (2) KAMAR (acute kidney injury) Current Visit: Yes Status: Acute Plan to address problem: ATN versus vasomotor nephropathy IV fluids for now Nephrology consult requested Improving (3) IDDM (insulin dependent diabetes mellitus) Current Visit: Yes Status: Chronic Plan to address problem: Continue home insulin coverage (4) Coronary artery disease Current Visit: Yes Status: Chronic Qualifiers: Coronary Disease-Associated Artery/Lesion type: [place] artery [place] vs. transplanted heart: [place] heart Associated angina: without angina Qualified Code(s): I25.10 - Atherosclerotic heart disease of [place] coronary artery without angina pectoris Plan to address problem: Continue aspirin and Plavix (5) Hyperlipidemia Current Visit: Yes Status: Chronic Qualifiers: Hyperlipidemia type: mixed hyperlipidemia Qualified Code(s): E78.2 - Mixed hyperlipidemia Plan to address problem: Continue statins (6) Peripheral neuropathy Current Visit: Yes Status: Acute Qualifiers: Peripheral neuropathy type: polyneuropathy, unspecified Qualified Code(s): G62.9 - Polyneuropathy, unspecified Plan to address problem: Continue gabapentin (7) Hypertension Current Visit: Yes Status: Chronic Qualifiers: Hypertension type: primary hypertension Qualified Code(s): I10 - Essential (primary) hypertension Plan to address problem: Continue antihypertensives and adjust medications (8) DVT prophylaxis Current Visit: Yes Status: Acute Plan to address problem: Continue anticoagulation and GI prophylax. (9) Advance care planning Current Visit: Yes Status: Acute Plan to address problem: Disease education conducted, care plan discussed, diagnosis discussed, prognosis discussed. Patient is full code. Patient acknowledged understanding and agreement with care plan. +30 minutes. Subjective Date of service: 04/15/22 Principal diagnosis: hyperkalemia Interval history: 56 years old AAF with HTN diabetes and right AKA , sent here from her doctors office, she had lab done and was told her potassium and kidney function are not good and she need to come to ED, no SOB no chest pain no palpitation Associated Symptoms: denies: denies other symptoms, confusion, chest pain, diaphoresis, headaches, loss of appetite, malaise, nausea/vomiting Objective - Constitutional Vitals: Vital Signs - 12hr 04/15/22 04/15/22 04/15/22 08:59 09:04 16:00 Temperature 97 F L Pulse Rate 77 76 Respiratory 16 18 Rate Blood Pressure 151/62 151/62 Blood Pressure 154/52 [Left] O2 Sat by Pulse 93 Oximetry General appearance: Present: no acute distress, well-nourished - EENT Eyes: PERRL, EOM intact ENT: hearing intact, clear oral mucosa Ears: bilateral: normal - Neck Neck: supple, normal ROM - Respiratory Respiratory effort: normal Respiratory: bilateral: CTA - Breasts Breasts: normal - Cardiovascular Rhythm: regular Heart Sounds: Present: S1 & S2. Absent: gallop, rub Extremities: pulses intact, No edema, normal color, Full ROM - Gastrointestinal General gastrointestinal: Present: soft, non-tender, non-distended, normal bowel sounds - Genitourinary Female genitourinary: normal - Integumentary Integumentary: clear, warm, dry - Musculoskeletal Musculoskeletal: 1, strength equal bilaterally - Neurologic Neurologic: moves all extremities - Psychiatric Psychiatric: memory intact, appropriate mood/affect, intact judgment & insight - Labs CBC & Chem 7: 04/16/22 05:58 04/16/22 05:58 Labs: Abnormal lab results 04/14/22 04/14/22 04/15/22 Range/Units 21:09 21:22 05:49 RBC (3.65-5.03) M/mm3 Hgb (10.1-14.3) gm/dl Hct (30.3-42.9) % MCV (79-97) fl MCH (28-32) pg RDW (13.2-15.2) % Seg Neutrophils % (40.0-70.0) % Chloride 109.3 H 108.0 H (98-107) mmol/L Carbon Dioxide 20 L 21 L (22-30) mmol/L BUN 50 H 45 H (7-17) mg/dL Creatinine 2.1 H 1.9 H (0.6-1.2) mg/dL Glucose 392 H 198 H (65-100) mg/dL POC Glucose 345 H (70-105) mg/dL 04/15/22 04/15/22 04/15/22 Range/Units 05:49 07:47 12:02 RBC 3.09 L (3.65-5.03) M/mm3 Hgb 6.2 L (10.1-14.3) gm/dl Hct 19.8 L* (30.3-42.9) % MCV 64 L (79-97) fl MCH 20 L (28-32) pg RDW 18.5 H (13.2-15.2) % Seg Neutrophils % 78.6 H (40.0-70.0) % Chloride (98-107) mmol/L Carbon Dioxide (22-30) mmol/L BUN (7-17) mg/dL Creatinine (0.6-1.2) mg/dL Glucose (65-100) mg/dL POC Glucose 205 H 162 H (70-105) mg/dL 04/15/22 Range/Units 16:24 RBC (3.65-5.03) M/mm3 Hgb (10.1-14.3) gm/dl Hct (30.3-42.9) % MCV (79-97) fl MCH (28-32) pg RDW (13.2-15.2) % Seg Neutrophils % (40.0-70.0) % Chloride (98-107) mmol/L Carbon Dioxide (22-30) mmol/L BUN (7-17) mg/dL Creatinine (0.6-1.2) mg/dL Glucose (65-100) mg/dL POC Glucose 160 H (70-105) mg/dL HEART Score - HEART Score Troponin: Troponin T 0.085 ng/mL (0.00-0.029) H 04/13/22 23:06
[2022-04-15] MEDS ORDERED: SODIUM CHLORIDE 0.9% 500 ML 500 ML IV ONE (23:00)
[2022-04-15] MEDS: SODIUM CHLORIDE 0.9% 500 ML 500 ML IV ONE (23:09)
[2022-04-16] MEDS: SODIUM CHLORIDE 0.9% 500 ML 500 ML IV ONE (05:27)
[2022-04-16] MEDS: GABAPENTIN 300 MG CAP PO SCH ×3 (05:40→21:43)
[2022-04-16] MEDS: SODIUM CHLORIDE 0.9% 1000 ML 1,000 ML IV SCH ×3 (05:42→23:41)
[2022-04-16 06:30] LABS: Basophils % (Auto) 0.5 % (0.0-1.8); Eosinophils # (Auto) 0.5 K/mm3 (0.0-0.4); Eosinophils % (Auto) 5.5 % (0.0-4.3); Hemoglobin 7.2 gm/dl (10.1-14.3); Lymphocytes % (Auto) 22.2 % (13.4-35.0); Mean Corpuscular HGB Conc 32 % (30-34); Monocytes # (Auto) 0.6 K/mm3 (0.0-0.8); Monocytes % (Auto) 6.8 % (0.0-7.3); Platelet Count 237 K/mm3 (140-440)
[2022-04-16 06:41] LABS: Mean Corpuscular Volume 68 fl (79-97); Red Cell Distribution Width 21.2 % (13.2-15.2)
[2022-04-16 06:54] LABS: Calcium 8.1 mg/dL (8.4-10.2)
[2022-04-16] MEDS: INSULIN NPH/REGULAR 70/30 INJ SUB-Q SCH ×2 (09:07→18:34)
[2022-04-16] MEDS: amLODIPine 10 MG TAB PO SCH (09:08)
[2022-04-16] MEDS: CLOPIDOGREL 75 MG TAB PO SCH (09:08)
[2022-04-16] MEDS: HEPARIN 5,000 UNIT/1 ML VIAL SUB-Q SCH ×2 (09:08→21:43)
[2022-04-16] MEDS: hydroCHLOROthiazide 25 MG TAB PO SCH (09:08)
[2022-04-16] MEDS: ASPIRIN EC 81 MG TAB PO SCH (09:08)
[2022-04-16] MEDS: FAMOTIDINE 10 MG TAB PO SCH ×2 (09:08→21:42)
[2022-04-16] MEDS: INSULIN LISPRO 100 UNIT/ML SUB-Q SCH ×4 (09:16→22:50)
[2022-04-16] MEDS ORDERED: INSULIN LISPRO 100 UNIT/ML SUB-Q ONE (12:05)
[2022-04-16] MEDS: oxyCODONE /ACETAMINOPHEN 5-325MG TAB PO PRN (18:33)
--- NOTE | 2022-04-16 18:48 | Progress Note ---
Assessment and Plan - Patient Problems (1) Hyperkalemia Current Visit: Yes Status: Acute Plan to address problem: Potassium level at 4.0 Improved from 7.2 Lisinopril discontinued (2) KAMAR (acute kidney injury) Current Visit: Yes Status: Acute Plan to address problem: BUN/creatinine improved from 52/2.7 to 42/2.1 Underlying CKD Lisinopril and stopped Drug-induced KAMAR/vasomotor Lisinopril changed to oral hydralazine (3) IDDM (insulin dependent diabetes mellitus) Current Visit: Yes Status: Chronic Plan to address problem: Patient to be discharged on Humalog 70/30 6 units in the morning and To follow-up with PCP for more dose adjustment (4) Coronary artery disease Current Visit: Yes Status: Chronic Qualifiers: Coronary Disease-Associated Artery/Lesion type: [place] artery [place] vs. transplanted heart: [place] heart Associated angina: without angina Qualified Code(s): I25.10 - Atherosclerotic heart disease of [place] coronary artery without angina pectoris Plan to address problem: Continue aspirin and Plavix (5) Hyperlipidemia Current Visit: Yes Status: Chronic Qualifiers: Hyperlipidemia type: mixed hyperlipidemia Qualified Code(s): E78.2 - Mixed hyperlipidemia Plan to address problem: Continue statins (6) Peripheral neuropathy Current Visit: Yes Status: Acute Qualifiers: Peripheral neuropathy type: polyneuropathy, unspecified Qualified Code(s): G62.9 - Polyneuropathy, unspecified Plan to address problem: Continue gabapentin (7) Hypertension Current Visit: Yes Status: Chronic Qualifiers: Hypertension type: primary hypertension Qualified Code(s): I10 - Essential (primary) hypertension Plan to address problem: Continue antihypertensives and adjust medications (8) DVT prophylaxis Current Visit: Yes Status: Acute Plan to address problem: Continue anticoagulation and GI prophylax. (9) Advance care planning Current Visit: Yes Status: Acute Plan to address problem: Disease education conducted, care plan discussed, diagnosis discussed, prognosis discussed. Patient is full code. Patient acknowledged understanding and agreement with care plan. +30 minutes. Subjective Date of service: 04/16/22 Principal diagnosis: hyperkalemia Interval history: 56 years old AAF with HTN diabetes and right AKA , sent here from her doctors office, she had lab done and was told her potassium and kidney function are not good and she need to come to ED, no SOB no chest pain no palpitation Associated Symptoms: denies: denies other symptoms, confusion, chest pain, diap horesis, headaches, loss of appetite, malaise, nausea/vomiting April 21, 20202019 BUN and creatinine has improved from 52/2.7to 42/2.1 Appears to be baseline Potassium improved from 7.2 to 4.0 Lisinopril discontinued because of the hyperkalemia Patient initiated on hydralazine 25 every 8 Nephrology consult appreciated Objective - Constitutional Vitals: Vital Signs - 12hr 04/16/22 10:00 O2 Sat by Pulse 92 Oximetry General appearance: Present: no acute distress, well-nourished - EENT Eyes: PERRL, EOM intact ENT: hearing intact, clear oral mucosa Ears: bilateral: normal - Neck Neck: supple, normal ROM - Respiratory Respiratory effort: normal Respiratory: bilateral: CTA - Breasts Breasts: normal - Cardiovascular Heart rate: 78 Rhythm: regular Heart Sounds: Present: S1 & S2. Absent: gallop, rub Extremities: pulses intact, No edema, normal color, Full ROM - Gastrointestinal General gastrointestinal: Present: soft, non-tender, non-distended, normal bowel sounds - Genitourinary Female genitourinary: normal - Integumentary Integumentary: clear, warm, dry - Musculoskeletal Musculoskeletal: 1, strength equal bilaterally - Neurologic Neurologic: moves all extremities - Psychiatric Psychiatric: memory intact, appropriate mood/affect, intact judgment & insight - Labs CBC & Chem 7: 04/16/22 05:58 04/16/22 05:58 Labs: Abnormal lab results 04/15/22 04/15/22 04/16/22 Range/Units 21:13 Unknown 05:58 RBC (3.65-5.03) M/mm3 Hgb (10.1-14.3) gm/dl Hct (30.3-42.9) % MCV (79-97) fl MCH (28-32) pg RDW (13.2-15.2) % Eos % (Auto) (0.0-4.3) % Eos # (Auto) (0.0-0.4) K/mm3 Chloride 111.9 H (98-107) mmol/L Carbon Dioxide 20 L (22-30) mmol/L BUN 42 H (7-17) mg/dL Creatinine 2.1 H (0.6-1.2) mg/dL Glucose 124 H (65-100) mg/dL POC Glucose 148 H (70-105) mg/dL Calcium 8.1 L (8.4-10.2) mg/dL Crossmatch See Detail 04/16/22 04/16/22 Range/Units 05:58 07:09 RBC 3.40 L (3.65-5.03) M/mm3 Hgb 7.2 L (10.1-14.3) gm/dl Hct 23.0 L (30.3-42.9) % MCV 68 L (79-97) fl MCH 21 L (28-32) pg RDW 21.2 H (13.2-15.2) % Eos % (Auto) 5.5 H (0.0-4.3) % Eos # (Auto) 0.5 H (0.0-0.4) K/mm3 Chloride (98-107) mmol/L Carbon Dioxide (22-30) mmol/L BUN (7-17) mg/dL Creatinine (0.6-1.2) mg/dL Glucose (65-100) mg/dL POC Glucose 144 H (70-105) mg/dL Calcium (8.4-10.2) mg/dL Crossmatch HEART Score - HEART Score Troponin: Troponin T 0.085 ng/mL (0.00-0.029) H 04/13/22 23:06
[2022-04-17] MEDS: GABAPENTIN 300 MG CAP PO SCH (05:35)
--- NOTE | 2022-04-17 07:20 | Discharge Summary ---
Providers - Providers Date of Admission: 04/14/22 20:42 Date of discharge: 04/17/22 Attending physician: EUNICE TENA 04/14/22 00:24 Consult to Physician [CONS] Stat Comment: Consulting Provider: JOSELIN QUIÑONEZ Physician Instructions: Reason For Exam: KAMAR 04/14/22 11:35 Consult to Physician [CONS] Routine Comment: Consulting Provider: PURVI COOPER Physician Instructions: Reason For Exam: Patient folows in office 04/15/22 08:36 Consult to Dietitian/Nutrition [CONS] Routine Physician Instructions: 2000mg potassium restricted diet education Reason For Exam: Reason for Consult: Diet education Primary care physician: JUDITH NY Hospitalization Condition: Fair Hospital course: Subjective Date of service: 04/17/22 Principal diagnosis: hyperkalemia Interval history: 56 years old AAF with HTN diabetes and right AKA , sent here from her doctors office, she had lab done and was told her potassium and kidney function are not good and she need to come to ED, no SOB no chest pain no palpitation Associated Symptoms: denies: denies other symptoms, confusion, chest pain, diaphoresis, headaches, loss of appetite, malaise, nausea/vomiting April 21, 20202019 BUN and creatinine has improved from 52/2.7to 42/2.1 Appears to be baseline Potassium improved from 7.2 to 4.0 Lisinopril discontinued because of the hyperkalemia Patient initiated on hydralazine 25 every 8 Nephrology consult appreciated Assessment and Plan - Patient Problems (1) Hyperkalemia Current Visit: Yes Status: Acute Plan to address problem: Potassium level at 4.0 Improved from 7.2 Lisinopril discontinued (2) KAMAR (acute kidney injury) Current Visit: Yes Status: Acute Plan to address problem: BUN/creatinine improved from 52/2.7 to 42/2.1 Underlying CKD Lisinopril and stopped Drug-induced KAMAR/vasomotor Lisinopril changed to oral hydralazine (3) IDDM (insulin dependent diabetes mellitus) Current Visit: Yes Status: Chronic Plan to address problem: Patient to be discharged on Humalog 70/30 6 units in the morning and To follow-up with PCP for more dose adjustment (4) Coronary artery disease Current Visit: Yes Status: Chronic Qualifiers: Coronary Disease-Associated Artery/Lesion type: [place] artery [place] vs. transplanted heart: [place] heart Associated angina: without angina Qualified Code(s): I25.10 - Atherosclerotic heart disease of [place] coronary artery without angina pectoris Plan to address problem: Continue aspirin and Plavix (5) Hyperlipidemia Current Visit: Yes Status: Chronic Qualifiers: Hyperlipidemia type: mixed hyperlipidemia Qualified Code(s): E78.2 - Mixed hyperlipidemia Plan to address problem: Continue statins (6) Peripheral neuropathy Current Visit: Yes Status: Acute Qualifiers: Peripheral neuropathy type: polyneuropathy, unspecified Qualified Code(s): G62.9 - Polyneuropathy, unspecified Plan to address problem: Continue gabapentin (7) Hypertension Current Visit: Yes Status: Chronic Qualifiers: Hypertension type: primary hypertension Qualified Code(s): I10 - Essential (primary) hypertension Plan to address problem: Continue antihypertensives and adjust medications (8) DVT prophylaxis Current Visit: Yes Status: Acute Plan to address problem: Continue anticoagulation and GI prophylax. (9) Advance care planning Current Visit: Yes Status: Acute Plan to address problem: Disease education conducted, care plan discussed, diagnosis discussed, prognosis discussed. Patient is full code. Patient acknowledged understanding and agreement with care plan. +30 minutes. Disposition: HOME / SELF CARE / HOMELESS Final Discharge Diagnosis (Prints w/discharge instructions): Hyperlipidemia. Acute kidney injury. IDDM uncontrolled. Hypertension Time spent for discharge: 35 minutes - Discharge Diagnoses (1) Hyperkalemia Status: Acute (2) KAMAR (acute kidney injury) Status: Acute (3) IDDM (insulin dependent diabetes mellitus) Status: Chronic (4) Coronary artery disease Status: Chronic Qualifiers: Coronary Disease-Associated Artery/Lesion type: [place] artery [place] vs. transplanted heart: [place] heart Associated angina: without angina Qualified Code(s): I25.10 - Atherosclerotic heart disease of [place] coronary artery without angina pectoris (5) Hyperlipidemia Status: Chronic Qualifiers: Hyperlipidemia type: mixed hyperlipidemia Qualified Code(s): E78.2 - Mixed hyperlipidemia (6) Peripheral neuropathy Status: Acute Qualifiers: Peripheral neuropathy type: polyneuropathy, unspecified Qualified Code(s): G62.9 - Polyneuropathy, unspecified (7) Hypertension Status: Chronic Qualifiers: Hypertension type: primary hypertension Qualified Code(s): I10 - Essential (primary) hypertension (8) DVT prophylaxis Status: Acute (9) Advance care planning Status: Acute Core Measure Documentation - Palliative Care Palliative Care/ Comfort Measures: Not Applicable - Core Measures Any of the following diagnoses?: none Exam - Constitutional Vitals: Temp Pulse Resp BP Pulse Ox 97.8 F 82 18 158/64 94 04/16/22 21:54 04/16/22 21:54 04/16/22 21:54 04/16/22 21:54 04/16/22 22:00 General appearance: Present: no acute distress, well-nourished - EENT Eyes: Present: PERRL ENT: hearing intact, clear oral mucosa - Neck Neck: Present: supple, normal ROM - Respiratory Respiratory effort: normal Respiratory: bilateral: CTA - Cardiovascular Heart rate: 78 Rhythm: regular Heart Sounds: Present: S1 & S2. Absent: rub, click - Extremities Extremities: pulses symmetrical, No edema Peripheral Pulses: within normal limits - Abdominal General gastrointestinal: Present: soft, non-tender, non-distended, normal bowel sounds Female genitourinary: Present: normal - Integumentary Integumentary: Present: clear, warm, dry - Musculoskeletal Musculoskeletal: gait normal, strength equal bilaterally - Psychiatric Psychiatric: appropriate mood/affect, intact judgment & insight - Neurologic Neurologic: CNII-XII intact, moves all extremities - Allied Health Allied health notes reviewed: nursing, case management Plan Activity: no restrictions Diet: low fat, low cholesterol, low salt Follow up with: JUDITH NY MD [Primary Care Provider] - 7 Days DEBORAH REA MD [Staff Physician] - 7 Days Prescriptions: amLODIPine 10 mg PO QDAY #30 tablet hydrALAZINE [Apresoline TAB] 25 mg PO Q8HR #90 tab Aspirin EC [Halfprin EC] 81 mg PO QDAY #100 tablet Lispro Insulin [HumaLOG] 6 unit SUB-Q ACHS #5 pen AtorvaSTATin [Lipitor] 40 mg PO QHS #30 tablet Insulin NPH/Regular [NovoLIN 70/30] 16 unit SUB-Q BIDDIAB #2 vial Clopidogrel [Plavix] 75 mg PO QDAY #30 tablet
[2022-04-17] MEDS: ASPIRIN EC 81 MG TAB PO SCH (07:45)
[2022-04-17] MEDS: FAMOTIDINE 10 MG TAB PO SCH (07:45)
[2022-04-17] MEDS: hydroCHLOROthiazide 25 MG TAB PO SCH (07:46)
[2022-04-17] MEDS: HEPARIN 5,000 UNIT/1 ML VIAL SUB-Q SCH (07:46)
[2022-04-17] MEDS: CLOPIDOGREL 75 MG TAB PO SCH (07:46)
[2022-04-17] MEDS: amLODIPine 10 MG TAB PO SCH (07:47)
[2022-04-17 07:48] VITALS: BP 156/82
[2022-04-17 07:54] LABS: Calcium 7.8 mg/dL (8.4-10.2)
[2022-04-17] MEDS: INSULIN LISPRO 100 UNIT/ML SUB-Q SCH (08:08)
[2022-04-17] MEDS: INSULIN NPH/REGULAR 70/30 INJ SUB-Q SCH (08:08)
== END 2022-04-17 08:43 | disposition home or self-care (01) | DRG 640 ==
LOC: ED 18:21 → 3A 04-14 20:42
PROVIDERS: ADMIT Hospitalist; ATTEND Internal Medicine
PROC: 30233N1 Transfusion of Nonautologous Red Blood Cells into Peripheral Vein, Percutaneous Approach (ICD-10-PCS; principal; 2022-04-15)
DX: E87.5 Hyperkalemia (principal); N17.0 Acute kidney failure with tubular necrosis; I13.0 Hypertensive heart and chronic kidney disease with heart failure and stage 1 through stage 4 chronic kidney disease, or unspecified chronic kidney disease; I25.10 Atherosclerotic heart disease of native coronary artery without angina pectoris; I50.9 Heart failure, unspecified; N18.9 Chronic kidney disease, unspecified; E11.22 Type 2 diabetes mellitus with diabetic chronic kidney disease; E11.42 Type 2 diabetes mellitus with diabetic polyneuropathy; E78.2 Mixed hyperlipidemia; Z90.49 Acquired absence of other specified parts of digestive tract; Z90.711 Acquired absence of uterus with remaining cervical stump; Z79.82 Long term (current) use of aspirin; Z79.4 Long term (current) use of insulin; Z79.899 Other long term (current) drug therapy; Z89.611 Acquired absence of right leg above knee; Z88.8 Allergy status to other drugs, medicaments and biological substances; Z91.040 Latex allergy status
CPT/HCPCS: 36415; 71045; 71046; 80048; 80053; 80061; 81001; 82550; 82962; 83735; 84484; 85025; 85610; 86850; 86900; 86901; 86920; 93005; 94644; G0378; J3490; Q0177; Q9967; J1644; J1815; J2270; J7030; J7040; P9016